=== PATIENT | female | born 1960 | race Caucasian/White ===

== ENCOUNTER → 2018-01-01 07:36 | Outpatient (CLI) | payer OTHER, SELFPAY ==
--- NOTE | 2018-01-01 07:36 | DT_ITS ---
This patient was seen during an EMR downtime December 29, 2017 - January 05, 2018. This patient may have a combination of paper and electronic documentation or all paper documentation. All documentation is viewable within the e-chart portion of [facility] for each patient visit.
--- NOTE | 2018-01-05 11:49 | PFT ---
INTRODUCTION: The patient is a 57-year-old female that presents for abnormal PFTs. Respiratory therapy reports good patient effort. Bronchodilators were used during testing. INTERPRETATION: Forced expiration spirometry demonstrates the presence of a moderately severe large airways obstructive ventilatory defect. There was no significant response to aerosolized bronchodilators. Body plethysmography was performed and reveals a decreased TLC to 4.38 L, 79% of predicted, indicative of a mild restrictive ventilatory impairment. The remainder of the lung volumes are symmetrically reduced. Diffusing capacity by single breath CO is mildly reduced at 61% of predicted. IMPRESSION: These pulmonary function studies demonstrate the presence of an irreversible moderately severe mixed ventilatory defect with a mild reduction in diffusing capacity. There are no previous pulmonary function studies available for comparison.
== END ==
PROVIDERS: Family Provider Family Medicine; PCP Family Medicine; Visit Provider Internal Medicine Critical Care Medicine
DX: R94.2 Abnormal results of pulmonary function studies (principal)
CPT/HCPCS: 94060; 94726; 94729

== ENCOUNTER → 2018-01-21 09:57 | Outpatient (CLI) | payer OTHER, SELFPAY ==
--- NOTE | 2018-01-21 10:00 | ECHOL_ITS ---
Reason For Study: SOB Procedure This was a 2D Doppler, Color Flow transthoracic echocardiogram. Exam performed in department. Left Ventricle Normal size and thickness. The estimated ejection fraction is 65 %. Stage 1 diastolic dysfunction. No regional wall motion abnormalities noted. Right Ventricle Normal size and thickness. Normal systolic function. Atria Normal left atrium. Normal right atrium. Normal atrial septum. Probable patent foramen ovale. Mitral Valve The mitral valve is structurally normal. No prolapse or stenosis seen. Tricuspid Valve Normal tricuspid valve. Trivial tricuspid valve insufficiency. Right ventricular systolic pressure estimated to be 24 mmHg. Aortic Valve Normal aortic valve. Trisinus/trileaflet aortic valve. Pulmonic Valve Normal pulmonic valve. Great Vessels Normal aortic root. Normal arch. Normal inferior vena cava. Inferior vena cava collapse with sniff. Pericardium/Pleural No pericardial effusion. Medication 22 gauge I.V. with prn adaptor inserted into right arm. Performed a rapid injection of agitated mix of 9 cc saline and 1cc air to assess for atrial septal defect. MMode/2D Measurements & Calculations LVIDd: 4.6 cm IVSd: 0.67 cm Ao root diam: 3.2 cm LVIDs: 3.2 cm LVPWd: 0.80 cm RVDd: 3.4 cm FS: 29.2 % LAV(MOD-bp): 40.1 ml LA A4 area: 13.3 cm2 RA A4 area: 13.1 cm2 LAV(MOD-bp) Indexed: 21.7 ml/m2 LAV(MOD-sp2): 57.0 ml LAV(MOD-sp4): 28.6 ml Doppler Measurements & Calculations MV E max cosme: 67.3 cm/sec Lat Peak E' Cosme: 9.3 cm/sec Ao V2 max: 141.5 cm/sec MV A max cosme: 83.9 cm/sec E/E' lat: 7.2 Ao max P.0 mmHg MV E/A: 0.80 LV V1 max: 119.0 cm/sec MR max cosme: 6.7 cm/sec TR max cosme: 219.2 cm/sec LV V1 max P.7 mmHg MR max P.02 mmHg TR max P.3 mmHg Interpretation Summary The estimated ejection fraction is 65 %. Stage 1 diastolic dysfunction. Trivial tricuspid valve insufficiency. Right ventricular systolic pressure estimated to be 24 mmHg. Probable patent foramen ovale with weakly positive bubble study. There is no comparison study available. Ordering Physician: Phyllis Castillo Referring Physician: ROBERTO CARLOS WILKES Performed By: Tatyana Rouse RDCS, RVT
== END ==
PROVIDERS: Family Provider Family Medicine; PCP Family Medicine; Visit Provider Nurse Practitioner Acute Care
DX: R06.02 Shortness of breath (principal); R06.00 Dyspnea, unspecified
CPT/HCPCS: 93306; A4216

== ENCOUNTER → 2018-02-12 17:04 | Outpatient (CLI) | payer MEDICAID, SELFPAY ==
--- NOTE | 2018-02-12 17:09 | CT_ITS ---
STUDY: CTA CHEST/THORAX REASON FOR EXAM: Female, 57 years old. RADIATION DOSAGE (If Supplied By Facility): CTDIvol = ( 7.51 ) mGy, DLP = ( 301.90 ) mGycm TECHNIQUE: The examination was performed with the intravenous administration of 100CC ml of Isovue 370 contrast material. Post-processing of the angiographic images was performed, with multiplanar reformation and 3D reconstruction. Individualized dose optimization techniques were used for this CT. COMPARISON: Shortness of breath for years, worsening now. FINDINGS: Normal enhancement of the main pulmonary artery and right and left pulmonary arteries. Normal enhancement of the bilateral peripheral pulmonary arteries. There is no demonstrated pulmonary embolism. Normal thoracic aorta and visualized great vessels. There is no demonstrated aortic dissection. Normal heart and pericardium. Normal mediastinum. Normal hilar regions. Normal visualized trachea and bronchi. The lungs are well expanded. Incidental note of an azygos lobe in the right apex, an anatomic variant. Otherwise, normal pulmonary parenchyma. Normal pleura. Normal chest wall structures. There are multilevel degenerative changes of the thoracic spine. There is anterior wedging with moderate loss of height of the T11 vertebra and mild depression of the superior L1 vertebral endplate. At both sites, there is a well-corticated central invagination of the endplate may reflect an additional Schmorl's node deformity. Hypertrophic degenerative arthrosis of the right acromioclavicular joint. There is a very small hiatal hernia. CT/CTA Chest W/WO Contrast IMPRESSION: 1. No demonstrated pulmonary embolism or arterial dissection. 2. No pulmonary infiltrate or pleural effusion. 3. Compression fracture deformities of the T11 and L1 vertebrae, with loss of height greater at T11. There is no associated spinal soft tissue swelling, suggesting these are old. 4. Very small hiatal hernia Electronically Signed: Lito Nicole MD at 18:17 EDT , Service support ,
== END ==
PROVIDERS: Family Provider Family Medicine; PCP Family Medicine; Visit Provider Otolaryngology
DX: R05 Cough (principal)
CPT/HCPCS: 71275; Q9967

== ENCOUNTER → 2018-02-25 14:25 | Outpatient (CLI) | payer MEDICAID, SELFPAY | PROVIDERS: Family Provider Family Medicine; PCP Family Medicine; Visit Provider Nurse Practitioner Acute Care | DX: G47.19 Other hypersomnia (principal) | CPT/HCPCS: 95806 ==

== ENCOUNTER → 2018-04-09 11:29 | Outpatient (CLI) | payer MEDICAID, SELFPAY ==
[2018-04-09 13:28] LABS: Anion Gap 7 (5-15); BUN 10 mg/dL (7-18); BUN/Creat Ratio 15.6 RATIO (10-20); Calcium,Total 9.4 mg/dL (8.5-10.1); Chloride 107 mmol/L (98-107); Cholesterol 223 mg/dL (200); Creatinine, Serum 0.64 mg/dL (0.55-1.02); EST Glomerular Filtration Rate 101 mL/min (>60); Est Glom Filt Rate - Afr Amer 122 mL/min (>60); Glucose 98 mg/dL (74-106); High Density Lipoprotein 59 mg/dL; Potassium 4.4 mmol/L (3.5-5.1); Sodium Level 140 mmol/L (136-145); Triglycerides 109 mg/dL; Very Low Density Lipoprotein 22 mg/dL (5-40)
== END ==
PROVIDERS: Family Provider Family Medicine; PCP Family Medicine; Visit Provider Family Medicine
DX: I10 Essential (primary) hypertension (principal)
CPT/HCPCS: 36415; 80048; 80061

== ENCOUNTER → 2018-04-14 23:53 | Outpatient (CLI) | payer MEDICAID, SELFPAY | PROVIDERS: Family Provider Family Medicine; PCP Family Medicine; Visit Provider Nurse Practitioner Acute Care | DX: G47.33 Obstructive sleep apnea (adult) (pediatric) (principal) | CPT/HCPCS: 95811 ==

== ENCOUNTER → 2019-03-03 15:35 | Outpatient (CLI) | payer SELFPAY ==
[2018-02-12 13:05] VITALS: BMI 25.2
[2019-03-03 17:49] LABS: Thyroid Stim Hormone (TSH) 2.16 uIU/mL (0.358-3.74)
== END ==
LOC: MFPLAB 15:36
PROVIDERS: Family Provider Family Medicine; PCP Family Medicine; Referring Provider Family Medicine; Visit Provider Family Medicine
DX: F32.9 Major depressive disorder, single episode, unspecified (principal)
CPT/HCPCS: 36415; 84443

== ENCOUNTER → 2021-01-08 09:26 | Outpatient (CLI) | payer MEDICAID, SELFPAY ==
--- NOTE | 2021-01-08 09:32 | US_ITS ---
STUDY: ULTRASOUND BREAST - LEFT REASON FOR EXAM: Female, 60 years old. Palpable lump left breast. TECHNIQUE: Axial and longitudinal images of the LEFT breast were performed with a high resolution ultrasound transducer. # OF IMAGES: 15 COMPARISON: Comparison is made with prior mammogram done earlier today. FINDINGS: LEFT Breast: The palpable abnormality corresponds to a 1.5 cm x 1.5 cm x 1.3 cm irregular hypoechoic nodular density at the 12 o''clock position of the breast at 3 cm from the nipple. Increased vascularity is seen. Biopsy strongly recommended. US/Breast Limited Unilateral IMPRESSION: The palpable abnormality corresponds to a 1.5 cm x 1.5 cm x 1.3 cm irregular hypoechoic solid nodule with increased vascularity. Biopsy is strongly recommended. ASSESSMENT CATEGORY: BIRADS Category 5: Highly Suggestive of Malignancy - Appropriate Action Should Be Taken. A letter regarding these results will be sent to the patient by the facility within 30 days. Electronically Signed: Kiran Laurent MD at 10:56 EDT , Service support ,
--- NOTE | 2021-01-08 09:32 | BI_ITS ---
MAMMOGRAPHY - BILATERAL DIAGNOSTIC REASON FOR EXAM: Female, 60 years old. Left breast lump. PERTINENT HISTORY: Mother with breast cancer. TECHNIQUE: Digital bilateral breast nicole (3D mammographic acquisition) in the CC and MLO projections. 2-D mediolateral oblique (MLO) and craniocaudad (CC) views of both breasts were obtained. CAD: Full Field Digital Mammography with Computer Added Detection was performed. COMPARISON: No comparison mammograms available at this time. If any prior films become available, an addendum to this report can be generated. FINDINGS: Breast Composition: There are scattered areas of fibroglandular density. The palpable abnormality corresponds to a 2 cm x 1.6 cm dense irregular nodule in the deep central portion of the left breast. Correlation with ultrasound is recommended. No other significant abnormalities are identified. BI/DIAG MAMM W/CAD, BILAT IMPRESSION: 1.6 cm x 2 cm irregular dense nodule in the deep central aspect of the left breast as described. Correlation with ultrasound is recommended. ASSESSMENT CATEGORY: BIRADS Category 0: Incomplete. Need additional imaging evaluation. A letter regarding these results will be sent to the patient by the facility within 30 days. Approximately 10% of breast cancers are not detected by mammography. A normal mammogram should not delay biopsy of a clinically suspicious abnormality. Electronically Signed: Kiran Laurent MD at 10:22 EDT , Service support ,
== END ==
PROVIDERS: PCP Family Medicine; Referring Provider Family Medicine; Visit Provider Family Medicine
DX: N63.20 Unspecified lump in the left breast, unspecified quadrant (principal); Z80.3 Family history of malignant neoplasm of breast
CPT/HCPCS: 76642; 77062; 77066; G0279

== ENCOUNTER → 2021-01-11 | Outpatient (CLI) | payer MEDICAID, SELFPAY ==
--- NOTE | 2021-01-11 | IMM_PTH ---
PATIENT: KRIS HOUSER LOC: [facility] U#:[id number] AGE/SX: 60/F ROOM: RE01/11/[address]: Dr. Chuck Anglin MD : 1960 BED: DIS: 01/11/2021 SPEC #: [id number] RECD: 01/15/21 11:38 STATUS: GAEL REQ #: [id number] JESSICA: 01/11/21 00:[address]: Chuck Anglin DEPT: IMMUNOHISTOCHEMISTRY RECD BY: Laure Ball ENTERED: 01/15/21 11:39 SP TYPE: IMMUNO OTHR DR: Dr. Almas Flores MD Tissues: Left breast, NOS Procedures: CALPONIN-1 (add) CK5-6 (add) RUBALCAVA-2 (add) E-CAD (add) HER2 ALDA (add) P53 (add) MI (add) IN SITU HYBRIDIZATION P40 (add) ER (initial) PHYSICIAN & INSTITUTION [address] [address] SPECIMEN INFORMATION: Tissue Source: Left breast mass, ultrasound-guided needle core biopsy Clinical Info: Left breast mass Specimen Number: [id number] CPT code: 41527, 35675 x7, 34221 x3, 40878 x2 METHODOLOGY: Deparaffinized sections of prefer/formalin-fixed tissue or PAP/DQ stained slides are incubated with monoclonal/polyclonal antibodies/oligonucleotide probes. Localization is made via biotin free immunoperoxidase method. Appropriate controls are performed and reacted as expected. Results on target cell population are indicated in the following table: RESULTS: ANTIBODY / CLONE RESULT P53 (DO-7) positive, 3%, dim Ki-67 (30-9) positive, 65% CK8 (72zxxlD68) positive CK5-6 (D5 & 1684) negative Calponin-1 (OP323Z) negative P40 (BC28) negative E-Cad (ECH-6) positive RUBALCAVA-2 (SP21) positive MORPHOMETRIC ANALYSIS ER (clone 6F11) >95%, strong MI (clone 16/1E2) 15%, moderate Her-2Neu (clone CB11) 1-2+ The prognostic test for HER2 is performed on formalin-fixed paraffin embedded tissue. A 3+ (positive) staining pattern is defined as intense, homogeneous, complete, circumferential membranous staining in >10% of contiguous tumor cells. A similar weak (2+) staining pattern is interpreted as equivocal. OPAL follow-up testing is recommended for all equivocal cases. Positivity/negativity for ER/MI is reported if > or < 1% of the tumor cells are immuno- reactive, respectively. The ASCO/CAP criteria is used for scoring. Reference: Journal of Clinical Oncology, 2013; 31:1803-7915 & 2010; 16:9712-0167. Duration of fixation: 52.5 Hrs; Sample Adequate: Yes. These assays have not been validated on decalcified tissues. Results should be interpreted with caution given the likelihood of false negativity on decalcified specimens. These tests were developed and their performance characteristics determined by [facility]. They may not have been cleared or approved by the U.S. Food and Drug Administration. The FDA has determined that such clearance or approval is not necessary. The above immunohistochemical/dualISH markers are ordered and reviewed by the Pathologist. INTERPRETATION: Left breast, ultrasound-guided needle core biopsy: Invasive ductal carcinoma, nuclear grade 2. Positive for estrogen receptors (favorable prognostic indicator). Positive for progesterone receptors (favorable prognostic indicator). Equivocal for overexpression of DIA2bab. AM:raffi 01/17/2021 IN SITU HYBRIDIZATION (OPAL) FOR HER2 Interpretation: Not Amplified HER2 : CEP-17 Ratio: 1.25 Average HER2 Signal: 2.25 Average CEP-17 Signal: 1.8 Number of Tumor Cells Scanned: 50 Interpretative Information: The INFORM HER2 Dual OPAL DNA Probe Cocktail assay is performed on formalin-fixed paraffin embedded tissue and determines HER2 gene status by detecting HER2 copies via silver in situ hybridization (SISH) and Chromosome 17 copies via chromogenic red in situ hybridization on tumor cells. A minimum of 20 cells representing > 10% of contiguous and homogeneous invasive tumor cells were analyzed. HER2 gene status is classified as Non-amplified (HER2/Chr17 ratio < 2.0) or Amplified (HER2/Chr17 ratio greater than or equal to 2.0). If the resulting HER2/Chr17 ratio falls within 1.8 - 2.2 (Borderline), retesting by FISH is recommended. Reference: Pedro AC, Ela VARGAS, Sergio FRANCISCO, et al: Recommendations for Human Epidermal Growth Factor Receptor 2 Testing in Breast Cancer: [place] Society of Clinical Oncology / College of [place] [employer] Clinical Practice Guideline Update. J Clin Oncol 31:0063-4498, 2013.
[2021-01-11 15:00] VITALS: BMI 25.2
--- NOTE | 2021-01-11 15:10 | BRBX_PTH ---
PATIENT: KRIS HOUSER LOC: [facility] U#:[id number] AGE/SX: 60/F ROOM: RE01/11/[address]: Dr. Chuck Anglin MD : 1960 BED: DIS: 01/11/2021 SPEC #: [id number] RECD: 01/11/21 15:58 STATUS: GAEL MACIAS #: [id number] JESSICA: 01/11/21 15:[address]: Chuck Anglin DEPT: SURGICAL PATHOLOGY RECD BY: Emily Rodriguez ENTERED: 01/12/21 07:56 SP TYPE: BREAST BX OTHR DR: Dr. Almas Flores MD Tissues: Left breast, NOS Procedures: Surgery Specimen Level IV HEADER OPERATION: Ultrasound-guided left breast needle core biopsy PRE-OP DIAGNOSIS: Left breast mass TISSUE SUBMITTED: Left breast tissue MICROSCOPIC DIAGNOSIS Left breast, ultrasound-guided core biopsy: Invasive ductal carcinoma with the following characteristics: Maximal length ? 11 millimeters Nuclear grade ? 2/3 See comment. AM:raffi 01/15/2021 COMMENT ER/ME/Fwv3hqm studies are being performed on sections of tumor and the results from this study will be reported separately ([id number]). Case has been reviewed in consultation with Dr. Hutson who concurs with the above diagnosis. IDC:AYDIN MICROSCOPIC DESCRIPTION Slides are reviewed. GROSS DESCRIPTION Received in fixative is one container labeled with the patient name and designated left breast. The specimen consists of multiple elongated fragments of pabon-yellow fibroadipose tissue that in aggregate measure 2 x 1 x 0.1 cm. The entire specimen is submitted in one cassette. / AYDIN:raffi 01/12/21 TC:0 CPT: 58196
== END | disposition home or self-care (01) ==
LOC: LABSPEC 16:04
PROVIDERS: PCP Family Medicine; Referring Provider Surgery; Visit Provider Surgery
DX: N63.20 Unspecified lump in the left breast, unspecified quadrant (principal)
CPT/HCPCS: 88305; 88341; 88342; 88368

== ENCOUNTER 2021-01-31 07:59 | Day surgery (SDC) | payer MEDICAID, SELFPAY ==
[2021-01-17 10:07] VITALS: BMI 25.2
--- NOTE | 2021-01-30 15:18 | EKG12_ITS ---
Test Reason : PRE-OP Blood Pressure : / mmHG Vent. Rate : 072 BPM Atrial Rate : 072 BPM P-R Int : 150 ms QRS Dur : 084 ms QT Int : 384 ms P-R-T Axes : 054 002 043 degrees QTc Int : 420 ms Normal sinus rhythm Normal ECG ICRBBB Confirmed by JYOTI LAROSE, ROBERTO CARLOS ([id number]), news editor RUSS MCDONNELL ([id number]) on 01/31/2021 2:04:17 PM Referred By: hCuck Anglin Confirmed By:ROBERTO CARLOS MONTES MD
[2021-01-30 15:46] LABS: Hematocrit 35.2 % (37-47); Hemoglobin 11.6 g/dL (12.0-15.0); Mean Corpuscular Hgb 31.2 pg (27.0-32.0); Mean Corpuscular Volume 94.6 fL (81-99); Mean Platelet Vol. 9.2 fl (6.2-12.0); Platelet Count 453 K/mm3 (150-450); RBC Distribution Width CV 12.9 % (11.6-14.6); Red Blood Count 3.72 M/mm3 (4.2-5.4); White Blood Count 9.2 K/mm3 (4.4-11.0)
[2021-01-30 16:29] LABS: Anion Gap 8 (5-15); BUN 12 mg/dL (7-18); Calcium,Total 8.5 mg/dL (8.5-10.1); Chloride 109 mmol/L (98-107); Creatinine, Serum 0.54 mg/dL (0.55-1.02); EST Glomerular Filtration Rate 120 mL/min (>60); Est Glom Filt Rate - Afr Amer 146 mL/min (>60); Glucose 101 mg/dL (74-106); Potassium 3.5 mmol/L (3.5-5.1); Sodium Level 140 mmol/L (136-145)
[2021-01-31] VITALS (10 sets, daily range): BP systolic 135–162; BP diastolic 77–91; PULSE 50–82; RESP 14–16; TEMP 36.3–36.7; O2SAT 94–100; BMI 28.3
--- NOTE | 2021-01-31 | AXNB_PTH ---
PATIENT: KRIS HOUSER LOC: [facility] [place] U[place][id number] AGE/SX: 60/F ROOM: RE01/31/[address]: Dr. Chuck Anglin MD : 1960 BED: DIS: 01/31/2021 SPEC #: [id number] RECD: 01/31/21 12:00 STATUS: GAEL COLLEEN #: [id number] JESSICA: 01/31/21 00:[address]: Chuck Anglin DEPT: SURGICAL PATHOLOGY RECD BY: Laure Ball ENTERED: 01/31/21 12:34 SP TYPE: AX NODE BX OTHR DR: Dr. Almas Flores MD Tissues: A - Axillary lymph node, NOS B - Left breast, NOS C - Left breast, NOS Procedures: Frozen Section (charge) Frozen Section Add'l (chg) Surgery Specimen Level IV Surgery Specimen Level V HEADER OPERATION: Left breast stereotactic wire localization partial mastectomy PRE-OP DIAGNOSIS: Breast cancer TISSUE SUBMITTED: A - Left sentinel lymph node, FS, B - Left breast tissue, long stitch - lateral, short stitch - superior, C - Left breast additional superior medial margin, stitch cummings new margin FROZEN SECTION DIAGNOSIS A. Left axillary sentinel lymph nodes, biopsy: Two out of two lymph nodes negative for carcinoma. AM: 01/31/2021 MICROSCOPIC DIAGNOSIS A. Left axillary sentinel lymph nodes, biopsy: Two out of two lymph nodes negative for carcinoma. See comment. B. Left breast, lumpectomy: Invasive ductal carcinoma. Ductal carcinoma in situ. See cancer checklist below. C. Left breast, additional superior-medial margin, biopsy: Invasive ductal carcinoma. Ductal carcinoma in situ. Margins are free of carcinoma. See comment. AM: 02/05/2021 COMMENT A. Immunohistochemistry ([id number]) supports the above diagnosis. B. INVASIVE BREAST CANCER SUMMARY: Procedure: Excision with wire guidance Specimen: Type: Partial breast Size: 6 x 4.5 x 2.2 cm Laterality: Left breast Invasive Tumor: Size: 2.5 x 2 x 2 cm Focality: Single focus of invasive carcinoma Histologic type: Invasive ductal carcinoma Histologic grade (Ema grade): Glandular/tubular differentiation score: 3 Nuclear pleomorphism score: 3 Mitotic count score: 3 Overall grade: 3 (score of 9) Ductal Carcinoma In Situ: Present Estimated quantification: 5% Number of blocks: 5 out of 10 blocks Architectural pattern: Cribriform and cystic Nuclear grade: 3 Necrosis: Present Lobular Carcinoma In Situ: Not present Lymphvascular invasion: Not identified Tumor extension: Skin: Not present Nipple: Not present Skeletal muscle: Not present Margins: Distance of invasive carcinoma from closest margin: <1 mm from medial and superior margin Distance of in situ carcinoma from closest margin: 1 mm from medial margin Ancillary Studies: Previously performed on same tumor ([id number]) ER: Positive (>95%, strong) NE: Positive (15%, moderate) Gue5xzq: 1-2+, equivocal by IHC and negative by in situ hybridization (1.25) PATHOLOGIC STAGE: T2 N0 Mx The above summary is in compliance with [employer] of [place] [employer] (CAP) Cancer Protocols Checklist and [place] Joint Committee on Cancer (AJCC), Staging Manual, 8th Ed. C. Invasive ductal carcinoma and ductal carcinoma in situ is located 4.5 mm from its closest new superior-medial margin of excision. Case has been reviewed in consultation with Dr. Hutson who concurs with the above diagnosis. IDC:SJ MICROSCOPIC DESCRIPTION Slides are reviewed. GROSS DESCRIPTION A - Received fresh for frozen section consultation labeled with the patient's name is a specimen designated left axillary sentinel lymph nodes. The specimen consists of an irregular fragment of yellow fatty tissue measuring 2 x 1.5 x 1 cm. Serial sections reveal two nodules ranging in size from 5 mm to 2 cm. The specimen is totally submitted in two blocks for frozen section consultation as follows: 1 - one small nodule, 2 ? larger nodule. B - Received fresh for OR consultation labeled with the patient's name is a specimen designated left breast. The specimen consists of an oriented fragment of pabon-yellow fibrofatty tissue containing a wire and measuring 6 x 4.5 x 2.2 cm and weighing 23.4 gm. The specimen is differentially inked as follows: anterior - yellow, posterior - black, superior - blue, inferior - green, medial - orange and lateral - red. Serial sections reveal a firm, pabon-white mass measuring 2.5 x 2 x 2 cm, located <1 mm from the superior and <1 mm from the medial margin of excision. The proximity of lesion to these margins is conveyed to the surgeon intraoperatively. No other lesions are identified. The specimen is serially sectioned and totally submitted in ten cassettes. C - Received in fixative is one container labeled with the patient's name and designated left breast additional superior medial margin. The specimen consists of a single discoid fragment of yellow fatty measuring 3.6 x 2.6 x 1 cm. A suture is present along one surface. This surface is inked in black ink. The opposite surface is inked in green ink. Serial sections reveal homogenous yellow fatty cut surfaces. No mass lesions are identified. The specimen is totally submitted in two cassettes. / AM:raffi 02/01/21 TC:0 CPT: 63048, 64537, 86119, 76266 ADDENDUM ADDENDUM ADDENDUM ADDENDUM ADDENDUM ADDENDUM ADDENDUM ADDENDUM 03/15/2021 10:26 ADDENDUM 06/19/2021 10:29 ADDENDUM 03/15/2021 10:26 ADDENDUM 03/15/2021 10:26 ADDENDUM 03/15/2021 10:26 ADDENDUM 03/15/2021 10:26 An order for Oncotype testing was received from Dr. Aviles. This necessitated case review, block and slide selection by pathologist at [facility]. Breast Cancer Recurrence Score = 39 Results of the complete Oncotype testing ([facility] report) are viewable in EMR under: Reports - Pathology - Lab Pathology Report, Scanned. PIK3CA BREAST CANCER, IVD REPORT FROM [facility] RESULT: PIK3CA Mutation Detected. 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 Breast cancer patients with PIK3CA mutations may be eligible for treatment with PIQRAY(R) (alpelisib). Results from the product must be interpreted within the context of all relevant clinical and laboratory findings and are not to be used alone for diagnosis. Please see complete report in e-chart or EMR
--- NOTE | 2021-01-31 | IMM_PTH ---
PATIENT: KRIS HOUSER LOC: [facility] U#:[id number] AGE/SX: 60/F ROOM: RE01/31/[address]: Dr. Chuck Anglin MD : 1960 BED: DIS: 01/31/2021 SPEC #: [id number] RECD: 02/05/21 11:42 STATUS: GAEL REAngelita #: [id number] JESSICA: 01/31/21 00:[address]: Chuck Anglin DEPT: IMMUNOHISTOCHEMISTRY RECD BY: Laure Ball ENTERED: 02/05/21 11:43 SP TYPE: IMMUNO OTHR DR: Dr. Almas Flores MD Tissues: A - Axillary lymph node, NOS Procedures: CK7 (add) Pankeratin (add) CK7 (initial) PHYSICIAN & INSTITUTION [place] [address] SPECIMEN INFORMATION: Tissue Source: A ? Left sentinel lymph node Clinical Info: Breast cancer Specimen Number: [id number] A1 & A2 CPT code: 64979, 18657 x3 METHODOLOGY: Deparaffinized sections of prefer/formalin-fixed tissue or PAP/DQ stained slides are incubated with monoclonal/polyclonal antibodies/oligonucleotide probes. Localization is made via biotin free immunoperoxidase method. Appropriate controls are performed and reacted as expected. Results on target cell population are indicated in the following table: RESULTS: ANTIBODY / CLONE RESULT Block A1 CK7 (OV-TL12/30) negative AE1-3 (AE1/AE3/PCK26) negative Block A2 CK7 (OV-TL12/30) negative AE1-3 (AE1/AE3/PCK26) negative These tests were developed and their performance characteristics determined by [facility]. They may not have been cleared or approved by the U.S. Food and Drug Administration. The FDA has determined that such clearance or approval is not necessary. The above immunohistochemical/dualISH markers are ordered and reviewed by the Pathologist. INTERPRETATION: A. Left axillary sentinel lymph nodes, biopsy: Two out of two lymph nodes negative for carcinoma. AM:raffi 02/06/2021
--- NOTE | 2021-01-31 08:30 | NM_ITS ---
PROCEDURE: NUCLEAR MEDICINE Injection Wendell Node - LEFT breast(s). REASON FOR EXAM: Female, 60 years old. Left breast cancer. TECHNIQUE: Wendell node localization using radionuclide methods of the LEFT breast(s) was performed following subcutaneous administration of 1.1 mCi of of sulfur colloid Tc-99m. COMPARISON STUDIES : Comparison is made with prior mammogram dated 01/08/2021. FINDINGS: 1.1 mCi of technetium labeled sulfur colloid was injected subcutaneously in 4 equal aliquots in the upper central portion of the left breast. NM/Lymph Node Injection Only IMPRESSION: Subcutaneous injection of 1.1 mCi of technetium labeled sulfur colloid in 4 equal aliquots in the upper central portion of the left breast. Electronically Signed: Kiran Laurent MD at 9:11 EDT , Service support ,
[2021-01-31] MEDS: Lactated Ringers 1,000 ML 100 ML IV ×2 (08:38→12:45)
--- NOTE | 2021-01-31 09:49 | BI_ITS ---
SURGICAL BREAST SPECIMEN RADIOGRAPH CLINICAL: Document presence of mass in biopsy specimen. FINDINGS: Specimen shows presence of mass. Electronically Signed: Kiran Laurent MD at 12:19 EDT , Service support , BI/Breast Biopsy Specimen
--- NOTE | 2021-01-31 10:14 | HP.PCM_ITS ---
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 Is patient in pain?: No Allergies No Known Allergies Allergy (Verified 01/17/21 10:07) Medications propranolol 80 mg capsule,24 hr,extended release 80 mg PO QDAY 11/25/17 [History Confirmed 01/17/21] albuterol sulfate 90 mcg/actuation aerosol inhaler 2 puff INHALATION Q6H PRN #1 device 11/28/17 [Rx Confirmed 01/17/21] clonazepam 0.5 mg tablet 0.5 mg PO BID 01/11/21 [History Confirmed 01/17/21] fluoxetine 20 mg capsule 20 mg PO DAILY cap 01/11/21 [History Confirmed 01/17/21] naproxen 500 mg tablet 500 mg PO BID PRN 01/11/21 [History Confirmed 01/17/21] omeprazole 40 mg capsule,delayed release 40 mg PO DAILY 01/11/21 [History Confirmed 01/17/21] Is last menstrual period known: No Post menopausal: Yes Patient : No PFSH Medical History (Updated 01/18/21 @ 12:[address] Chuck Anglin MD) Anxiety Back pain Breast cancer (~12/2020) Cardiac murmur Depression Hypertension Panic disorder Surgical History (Updated 01/17/21 @ 10:06 by Brynn Dunlap) History of breast biopsy (~12/2020) History of sinus surgery Family History Father Brain tumor Mother Alzheimers disease Breast cancer Brother Lung cancer Social History household members: none housing: house pets and animals: Yes pets and animals: dog(s) and guinea pig(s) Smoking Status: Never smoker second hand exposure: Yes alcohol intake: current Alcohol type: wine substance use type: does not use HPI HPI HPI: KRIS HOUSER, is a 60 F who presents to the office today for follow-up after left breast biopsy. Biopsy came back as invasive carcinoma of the left breast. ROS General General: No weight change or fatigue HEENT HEENT: No difficulty swallowing Endo Endocrine: No thyroid disease Breast Breast: Yes left breast lump, abnormal mammogram and abnormal US; No nipple discharge or breast pain Musc Musculoskeletal: No back problems or arthritis Cardio Cardiovascular: No pacemaker, heart disease, atrial fibrillation, high blood pressure, heart attack, heart stent, palpitations or chest pain Psych Psychiatric: No depression or anxiety Resp Respiratory: No shortness of breath, No cough, No COPD, No asthma and No emphysema Gastro Gastrointestinal: No abdominal pain, No nausea or vomiting, No diarrhea, No constipation, No blood in stool, No acid reflux, No hemorrhoids, No ulcers, No gallbladder problem and No black,tarry stools Jerel Hematologic: No blood thinners Exam Const General: cooperative Orientation: alert and oriented x3 HENMT Head: normal to inspection Neck Neck: normal visual inspection and full ROM Chest Chest palpation & inspection: normal inspection of the chest Resp Effort & Inspection: normal respiratory effort Auscultation: clear to auscultation bilaterally Cardio Rate: regular rate Rhythm: regular rhythm GI Inspection: non-distended Palpation: soft and nontender Skin General: no rashes or lesions noted Neuro General: patient alert and patient oriented x3 Extrem General: full ROM Psych Appearance: grossly normal Mental Status: mental status grossly normal Assessment and Plan Assessment and Plan (1) Breast cancer: Status: Acute Qualifiers: Breast location: central portion of breast Estrogen receptor status: positive Patient sex: female Laterality: left Qualified Code(s): C50.112 - Ma lignant neoplasm of central portion of left female breast; Z17.0 - Estrogen receptor positive status [ER+] Plan - Dr. Chuck Anglin MD: I discussed the patient's diagnosis of invasive cancer with her. I discussed her surgical options with her. I discussed mastectomy versus partial mastectomy. I discussed radiation treatment as well as possible chemotherapy and sentinel lymph node biopsy. I discussed the risks of these procedures such as bleeding, infection, nerve injury, hematoma, positive margins, need for further cosmetic surgery. The patient chose to proceed with left partial mastectomy with sentinel lymph node biopsy and wire localization. All the patient's questions were answered and the patient will be scheduled for surgery. Chuck Anglin MD Pager: [facility] [address] [place] [address], [address] [place] [address] Office: I have re-examined the patient. There are no clinical changes since date of exam.
[2021-01-31] MEDS: Cefazolin 2 GM in 0.9% Normal Saline 100 ML IV (11:15)
[2021-01-31] MEDS: 0.9% Normal Saline (Pres. free 10 ML Vial (11:30)
[2021-01-31] MEDS: Isosulfan Blue 1% 5 ML Vial (11:30)
[2021-01-31] MEDS: Bupivacaine Mpf 0.5% 30 ML VIAL (12:40)
--- NOTE | 2021-01-31 13:32 | OP.PCM_ITS ---
Problems Associated Problem List Diagnoses (1) Breast cancer: Report of Operation Date of Procedure: 01/31/21 Pre-Operative Diagnosis: Left breast cancer Post-Operative Diagnosis: Same Surgery/Procedure Performed:: 1. Stereotactic guided wire localization of left breast 2. Left partial mastectomy 3. Left sentinel lymph node biopsy Specimen's removed: 1. Left axillary node 2. Left breast mass Description of Procedure: Patient was brought to the stereotactic room and her left breast was placed in the stereotactic table. Stereotactic images were ob tained and the mass was localized with a clip in place. The skin was prepped and injected with local anesthetic. The needle was then placed into the breast and the wire was left in place and stereotactic images were obtained showing that this wire was in place. Mammogram was then obtained. Patient was then taken to the operating room and general anesthesia was induced. The left breast was prepped and the inframammary space was injected with 5 cc of Lymphazurin as well as 10 cc of saline and the breast was massaged for 5 minutes. The left breast and axilla were then prepped and draped in usual sterile fashion. The left axillary region was marked and a skin incision was made. The dissection was deepened to the axillary fascia using sharp dissection. The probe was used to localize the sentinel lymph node which was blue in color. Was dissected free and clipped with titanium clips and dissected free sharply. It was radioactive and 10-second count was performed. The axilla was then inspected there were no further blue lymph nodes or radioactive lymph nodes. The axillary cavity was packed with a wet gauze. The axillary lymph nodes were sent for frozen section and were both negative for cancer on frozen section. The left breast was then marked with a curvilinear skin marking and incision was made inferior to the nipple. The dissection was carried deeply until the mass w as identified and the wire was delivered into the incision. Using electrocautery the mass was dissected free circumferentially. It was sent for frozen section. The medial and superior margins were very close and repeat margins were taken using electrocautery. The cavity was irrigated and hemostasis was obtained using electrocautery. The breast incision was closed with interrupted 3-0 Vicryl sutures as well as a running 4-0 Monocryl and injected with local anesthetic and glue was applied. The axillary incision was closed with interrupted 3-0 Vicryl sutures and a running 4-0 Monocryl and glue was applied there as well. Patient tolerated the procedure was brought to PACU in stable condition. Admit VTE Documentation VTE Mechan Device Prophylaxis: SCD's
--- NOTE | 2021-01-31 13:40 | EX.PCM.DISCH ---
Discharge Instructions Procedure Breast Surgery Diet Discharge Diet: No restrictions Activity Discharge Activity: May Not Drive (for 2-3 days or while taking narcotic pain medications.) May shower in (days): 1 Lifting Restrictions: 10 lbs for 1 week Dressing / Incision Call your doctor if your incision/area has: Continuous Slow Oozing, Sudden Increased Bleeding, Increased Pain/ Swelling, Increased Redness, Foul Smelling Discharge and Swelling at the incision site Call your doctor if you observe: Fever of 101 or Higher Suture Line Care: Avoid Pulling/Pushing and Avoid Pinching/Bending Remove Dressing in: 2 days Cleanse incision/area with: Soap & Water Follow Up Care Please Follow Up With: Chuck Anglin MD When: Please call to schedule 2 week follow up appointment. [phone] Test Results: Test results from this visit will be discussed in further detail at your follow-up appointment, if applicable. Discharge Plan Admission Attending Provider: Chuck Anglin Primary Care Provider: Almas Flores Discharge Orders/Prescriptions Prescriptions: New oxycodone-acetaminophen [Percocet] 5-325 mg tablet 1 - 2 tab PO Q6H PRN (Reason: pain) 5 Days Qty: 20 RF: 0 No Action propranolol [Inderal LA] 80 mg capsule,extended release 24 hr 80 mg PO QDAY RF: 0 fluoxetine 20 mg capsule 20 mg PO DAILY RF: 0 naproxen 500 mg tablet 500 mg PO BID PRN (Reason: Pain) RF: 0 omeprazole 40 mg capsule,delayed release(DR/EC) 40 mg PO DAILY RF: 0 ascorbic acid (vitamin C) [Vitamin C] 500 mg Tablet,Chewable 500 mg PO DAILY RF: 0 Referrals / Follow Up: Almas Flores MD [Primary Care Provider] - Disposition Disposition (needs filled in before D/C Order can be placed): Home, Self Care
[2021-01-31] MEDS: Acetaminophen 325 MG Tablet PO (14:37)
[2021-01-31] MEDS: oxyCODONE 5 MG Tablet PO (14:37)
[2021-06-19 13:26] LABS: Miscellaneous Lab Procedure SEE PATH
== END 2021-01-31 15:48 | disposition home or self-care (01) ==
LOC: SDC 08:00 → AC 08:00
PROVIDERS: Anesthesiology; PCP Family Medicine; Referring Provider Surgery; Visit Provider Surgery
PROC: (CPT 19301; principal; 2021-01-31 11:15)
DX: C50.112 Malignant neoplasm of central portion of left female breast (principal); Z17.0 Estrogen receptor positive status [ER+]; I10 Essential (primary) hypertension; G47.33 Obstructive sleep apnea (adult) (pediatric); F32.9 Major depressive disorder, single episode, unspecified; F41.9 Anxiety disorder, unspecified; Z78.0 Asymptomatic menopausal state; Z79.899 Other long term (current) drug therapy
CPT/HCPCS: 19301; 38525; 38900; 19281; 36415; 38792; 76098; 80048; 85027; 88305; 88307; 88331; 88332; 88341; 88342; 93005; 94640; A9541; J7050; J7120; J2405; J3490; Q9968

== ENCOUNTER → 2021-03-08 08:24 | Outpatient (CLI) | payer MEDICAID, SELFPAY ==
[2021-02-26 09:07] VITALS: BMI 28.0
[2021-03-05 09:06] VITALS: BMI 28.0
--- NOTE | 2021-03-08 08:57 | BD_ITS ---
STUDY: DUAL ENERGY X-RAY ABSORPTIOMETRY / DXA REASON FOR EXAM: Female, 60 years old. BASELINE - BREAST CANCER TECHNIQUE: Bone Mineral Density (BMD) measurements of lumbar spine and bilateral hips were obtained. COMPARISON: None. FINDINGS: Lumbar Spine (L1-L4): g/cm2 (0.753) / T-score (-2.7) / Z-score (-1.1) Findings are suggestive of osteoporosis with a high fracture risk. Left Femur Total: g/cm2 (0.725) / T-score (-1.8) / Z-score (-0.7) Left Femoral Neck: g/cm2 (0.495) / T-score (-3.2) / Z-score (-1.8) Right Femur Total: g/cm2 (0.667) / T-score (-2.3) / Z-score (-1.2) Right Femoral Neck: g/cm2 (0.449) / T-score (-3.6) / Z-score (-2.2) BD/Dexa Bone Density Study IMPRESSION: The patient is considered osteoporotic as outlined below according to World Benjamin Organization (WHO) criteria with a high fracture risk. Reference Information: The T-score is the number of standard deviations above or below the standard which is normal for young adults at their peak bone mineral density. The World Health Organization (WHO) interprets the T-scores as follows: Above -1 Normal bone density Between -1 and -2.5 Osteopenia Equal to / or below -2.5 Osteoporosis As a practical clinical guideline, osteopenia may be graded as follows: Mild -1 through -1.5 Moderate -1.6 through -2.0 Severe -2.1 through -2.4 The Z-score is the number of standard deviations above or below age-matched controls. A Z-score of less than -1.5 would be considered abnormal. References: 1. NIH Osteoporosis and Related Bone Diseases www osteo.org 2. International Society for Clinical Densitometry www iscd.org 3. National Osteoporosis Foundation www nof.org Electronically Signed: Kiran Laurent MD at 12:24 EDT , Service support ,
== END ==
PROVIDERS: PCP Family Medicine; Referring Provider Internal Medicine Hematology & Oncology; Visit Provider Internal Medicine Hematology & Oncology
DX: C50.112 Malignant neoplasm of central portion of left female breast (principal); M81.0 Age-related osteoporosis without current pathological fracture; Z17.0 Estrogen receptor positive status [ER+]
CPT/HCPCS: 77080

== ENCOUNTER 2021-03-22 23:27 | Observation (INO) | payer MEDICAID, SELFPAY ==
[2021-03-22 23:27] VITALS: BP 170/88; PULSE 83; RESP 16; TEMP 36.2; O2SAT 100; BMI 28.7
--- NOTE | 2021-03-22 23:40 | EKG12_ITS ---
Test Reason : AM EKG Blood Pressure : / mmHG Vent. Rate : 068 BPM Atrial Rate : 068 BPM P-R Int : 142 ms QRS Dur : 074 ms QT Int : 394 ms P-R-T Axes : 058 010 023 degrees QTc Int : 418 ms Normal sinus rhythm Normal ECG When compared with ECG of 30-JAN-2021 15:27, No significant change was found Confirmed by NATHALIA LAROSE, MOISES ([id number]), supervising editor news reel IVETH HURLEY ([id number]) on 03/26/2021 9:32:47 AM Referred By: OUSMANE Confirmed By:MOISES SLOAN MD
--- NOTE | 2021-03-22 23:40 | RAD_ITS ---
STUDY: X-RAY CHEST REASON FOR EXAM: Female, 61 years old. Exertional chest pain and shortness of breath. History of breast cancer. TECHNIQUE: AP portable upright COMPARISON: CT chest 02/12/2018. FINDINGS: Moderate layering right pleural effusion with adjacent atelectasis. Otherwise the aerated portions of the lungs show no evidence of pneumonia or edema or other concerning finding. No apparent pneumothorax. Mild linear atelectasis left lung base. Normal heart size. No mediastinal widening. Left axillary and breast surgical clips. RAD/Chest 1 View (Portable) IMPRESSION: Moderate layering right pleural effusion with adjacent atelectasis. Electronically Signed: Louie Bryan MD at 0:36 EDT Tel , Service support ,
[2021-03-23] VITALS (17 sets, daily range): BP systolic 102–167; BP diastolic 49–92; PULSE 72–93; RESP 12–21; TEMP 36.2–36.8; O2SAT 94–99; BMI 28.3
--- NOTE | 2021-03-23 | IMM_PTH ---
PATIENT: KRIS HOUSER LOC: [facility] U#:[id number] AGE/SX: 61/F ROOM: [facility] RE03/23/[address]: Dr. Anita Dela Cruz MD : 1960 BED: 1 DIS: 03/24/2021 SPEC #: [id number] RECD: 03/27/21 11:37 STATUS: GAEL REQ #: [id number] JESSICA: 03/23/21 00:[address]: Anita Dela Cruz DEPT: IMMUNOHISTOCHEMISTRY RECD BY: Laure Ball ENTERED: 03/27/21 11:39 SP TYPE: IMMUNO OTHR DR: MD Dr. Jeremy Rocha MD Dr. Paul Nielsen, MD Tissues: THORACIC FLUID Procedures: CK20 (add) CK7 (add) CK8 (add) E-CAD (add) HER2 ALDA (add) MAMM (add) P53 (add) LA (add) 34BE12 (add) Pankeratin (add) GATA3 (add) ER (initial) PHYSICIAN & [address] [address] SPECIMEN INFORMATION: Tissue Source: Thoracentesis fluid Clinical Info: Right-sided pleural effusion Specimen Number: [id number] CPT code: 55273, 29980 x11 METHODOLOGY: Deparaffinized sections of prefer/formalin-fixed tissue or PAP/DQ stained slides are incubated with monoclonal/polyclonal antibodies/oligonucleotide probes. Localization is made via biotin free immunoperoxidase method. Appropriate controls are performed and reacted as expected. Results on target cell population are indicated in the following table: RESULTS: ANTIBODY / CLONE RESULT ER (6F11) positive, >90% LA (1E2) positive, 35% Her-2neu (CB11) negative, 1+ E-Cad (ECH-6) positive Mammaglobin (31A5) positive GATA3 (L50-823) positive CK20 (KS20.8) negative P53 (DO-7) negative CK7 (OV-TL12/30) negative AE1-3 (AE1/AE3/PCK26) positive 34BE12 (34BE12) positive CK8 (77bqdoF28) positive These tests were developed and their performance characteristics determined by [facility]. They may not have been cleared or approved by the U.S. Food and Drug Administration. The FDA has determined that such clearance or approval is not necessary. The above immunohistochemical/dualISH markers are ordered and reviewed by the Pathologist. INTERPRETATION: Thoracentesis fluid: Consistent with metastatic breast carcinoma. AM:raffi 03/29/2021 Case has been reviewed in consultation with Dr. Hutson who concurs with the above diagnosis. IDC:SJ
--- NOTE | 2021-03-23 | FLU_PTH ---
PATIENT: KRIS OHUSER LOC: [facility] U#:[id number] AGE/SX: 61/F ROOM: [facility] RE03/23/[address]: Dr. Anita Dela Cruz MD : 1960 BED: 1 DIS: 03/24/2021 SPEC #: [id number] RECD: 03/23/21 14:16 STATUS: GAEL MACIAS #: [id number] JESSICA: 03/23/21 00:[address]: Anita Dela Cruz DEPT: CYTOLOGY RECD BY: Zhou Diaz ENTERED: 03/26/21 10:55 SP TYPE: Fluid OTHR DR: MD Dr. Jeremy Rocha MD Dr. Paul Nielsen, MD Tissues: THORACIC FLUID Procedures: Special Stain Group II Surgery Specimen Level IV Cytospin Fluid HEADER OPERATION: Ultrasound-guided right thoracentesis PRE-OP DIAGNOSIS: Right-sided pleural effusion TISSUE SUBMITTED: Thoracentesis fluid for cytology DIAGNOSIS CYTOLOGY Thoracentesis fluid for cytology (cytospin and cell block): Positive for malignant cells, non-small cell carcinoma. See comment. AM:raffi 03/27/2021 COMMENT Immunohistochemistry ([id number]) is consistent with a breast primary. Reference is made to the patient's previous left breast lumpectomy ([id number]) in which invasive ductal carcinoma, grade 3, was identified. This case was discussed with Dr. Aviles on 03/27/21 at 10:15 a.m. Case has been reviewed in consultation with Dr. Hutson who concurs with the above diagnosis. IDC:SJ CYTOLOGY STUDY Slides are reviewed. CYTOLOGY GROSS Received is 85 ml of red cloudy fluid labeled with the patient's name and and designated per the requisition as thoracentesis. Submitted for cytology preparation including cell block. / raffi 03/26/2021 TC:0 CPT: 37823, 05591
[2021-03-23 00:01] LABS: Absolute Lymphocyte Count 3.61 X10^3/uL (0.83-4.51); Absolute Neutrophil Count 3.9 X10^3/uL (2.0-7.7); Basophil# 0.04 X10^3/uL; Basophil% 0.4 % (0-1); Eosinophil# 0.22 X10^3/uL; Eosinophils% 2.5 % (0-5); Hematocrit 36.7 % (37-47); Hemoglobin 12.3 g/dL (12.0-15.0); Lymphocyte # 3.61 X10^3/ul (0.83-4.51); Lymphocyte % 40.6 % (19-41); Mean Corp Hgb Conc 33.5 g/dL (32-36); Mean Corpuscular Hgb 30.8 pg (27.0-32.0); Mean Platelet Vol. 9.5 fl (6.2-12.0); Monocyte# 1.09 X10^3/uL; Monocyte% 12.2 % (0-10); NRBC Flagged by Analyzer 0 % (0-5); Neutrophil # 3.86 X10^3/uL (2.7-7.7); Neutrophil % 43.4 % (47-70); Platelet Count 461 K/mm3 (150-450); RBC Distribution Width CV 12.3 % (11.6-14.6); RBC Distribution Width SD 41.1 fl (35.1-43.9); Red Blood Count 3.99 M/mm3 (4.2-5.4); White Blood Count 8.9 K/mm3 (4.4-11.0)
--- NOTE | 2021-03-23 00:20 | EDS_ITS ---
HPI History of Present Illness Chief Complaint: Shortness of Breath Informant: patient Onset/Context/Timing Onset: Days (Dyspnea on exertion and chest discomfort going up steps for the past 2 days) and Weeks (Shortness of breath for a couple of weeks) Context: gradual Timing: Continuous Quality: Positive for Dyspnea on exertion and Orthopnea (Orthopnea past 2 days); Negative for PND and Wheezing Current Severity: Mild Maximum Severity: Severe Worsened by: Exertion Relieved by: Nothing Associated Symptoms Negative for cough, fever, subjective, chills or sweats Chest Pain: Positive for Intermittent (Related to exertion, going up a flight of steps) Narrative Narrative: Patient is a 61-year-old woman with history of breast cancer status post lumpectomy January 01 who is scheduled for a Mediport and chemotherapy this coming week. She also has history of obstructive sleep apnea, cardiac murmur, hypertension and anxiety disorder with panic attacks. She denies leg pain, swelling discoloration. She denies weight loss. She reports weight gain. She denies fever, chills night sweats. She denies headache. She denies ocular, visual auditory symptoms. She presently has no chest pain. She is short of breath. She has never been told she has an abnormal chest x-ray or x-ray findings. She denies GI symptoms. She denies symptoms. She denies neurologic symptoms. PE Risk Factors: Positive for Cancer, Recent immobilization and Recent surgery; Negative for OCP + Smoking + > 35 and Prior DVT or PE Prior similar symptoms: No Recent Illness/Hospitalization: No PFSH PFSH Medical History Alcohol use Anxiety Back pain Blackout Breast cancer (~12/2020) Cardiac murmur Depression Gastric reflux History of edema History of pain when walking History of stress test Hx of echocardiogram Hypertension Leg cramps Migraine headache Non-smoker Panic disorder Post-menopausal Thrombocytosis Wears glasses Home Medications propranolol 80 mg capsule,24 hr,extended release 80 mg PO QDAY 11/25/17 [History Last Taken Unknown] fluoxetine 20 mg capsule 20 mg PO DAILY cap 01/11/21 [History Last Taken Unknown] naproxen 500 mg tablet 500 mg PO BID PRN 01/11/21 [History Last Taken Unknown] omeprazole 40 mg capsule,delayed release 40 mg PO DAILY 01/11/21 [History Last Taken Unknown] ascorbic acid (vitamin C) [Vitamin C] 500 mg PO DAILY 01/25/21 [History Last Taken Unknown] magnesium 15 mg PO DAILY 03/22/21 [History Last Taken Unknown] Allergy/AdvReac Type Severity Reaction Status Date / Time No Known Allergies Allergy Verified 03/22/21 23:30 Family History Father Brain tumor Mother Alzheimers disease Breast cancer Brother Lung cancer Surgical History History of esophagogastroduodenoscopy (EGD) History of sinus surgery S/P lumpectomy, left breast Social History household members: none housing: house pets and animals: Yes pets and animals: dog(s) and guinea pig(s) Smoking Status: Never smoker second hand exposure: No alcohol intake: current Alcohol type: wine details: wine substance use type: does not use lizzie/zoroastrianism: None seatbelt use: always do you feel safe at home: Yes ROS ROS ED Constitutional Constitutional ED: Denies chills, fever(s), sweats or weight loss Eyes Eyes: Denies blurry vision, change in vision or diplopia ENT ENT ED: Denies ear pain, rhinorrhea or sore throat Cardiovascular Cardiovascular: Reports chest pain and orthopnea; Denies palpitations, paroxysmal nocturnal dyspnea or racing heartbeat Respiratory/Chest Respiratory/Chest: Reports dyspnea, dyspnea on exertion and orthopnea; Denies cough, paroxysmal nocturnal dyspnea or sputum Gastrointestinal Gastrointestinal: Denies abdominal pain, diarrhea, nausea or vomiting Genitourinary Genitourinary ED: Denies dysuria, hematuria or urinary frequency Musculoskeletal Musculoskeletal: Denies arthralgias, back pain, myalgias or neck pain Integumentary Denies rash Neurologic Neurologic: Reports weakness; Denies headache(s) or paresthesias Psychiatric Psychiatric: Reports anxiety and depression Hematologic/Lymphatic Hematologic/Lymphatic: Denies easy bleeding or easy bruising EXAM Physical Exam Const Vital Signs: 03/22/21 23:27 03/22/21 23:56 03/23/21 00:20 Temperature 97.2 F L Temperature Source Temporal Pulse Rate 83 Respiratory Rate 16 Respiratory Effort Short of Breath Respiratory Depth Normal Respiratory Pattern Normal Blood Pressure 170/88 H Blood Pressure Mean 115 Pulse Ox 100 Oxygen Delivery Method Room Air Room Air 03/23/21 01:56 Temperature Temperature Source Pulse Rate 76 Respiratory Rate 16 Respiratory Effort Respiratory Depth Respiratory Pattern Blood Pressure Blood Pressure Mean Pulse Ox 95 Oxygen Delivery Method Room Air Positive well nourished and well developed General Appearance ED: well developed and other Patient's breathing is labored. She has conversational dyspnea. ; Negative for NAD HEENT Reports TM's clear and moist mucous membranes HEENT Narrative: Nares patent. Ears normal. TMs normal. Tympanic Membrane ED: Yes TM's clear Eyes PERRL and EOMs intact bilaterally General Eye ED: Negative for pale conjunctiva or scleral icterus Neck no lymphadenopathy, supple, no meningeal signs and no JVD Resp No normal respiratory effort and No clear to auscultation bilaterally Auscultation: diminished lung sounds right (There is also dullness to percussion.) lower Cardio regular rate, regular rhythm, S1 normal heart sound and S2 normal heart sound; Negative for no murmurs GI non-tender, non-distended and no masses Auscultation: normoactive bowel sounds Palpation: soft Back/Spine no CVA tenderness and normal to inspection Extremity normal to inspection Extremity Narrative: There is no asymmetry, swelling, discoloration, leg vein distention, palpable cords or tenderness along the distribution of the deep venous system. General Extremety ED: Negative for edema or tenderness General Extremity: Negative for edema Neuro oriented x3, CN's II-XII intact bilaterally and no sensory deficits noted Sensorium / Orientation: alert Motor Exam: strength 5/5 throughout Psych mental status grossly normal Mood & Affect: anxious Thought Process: normal thought process Skin no wounds Lesions: no lesions Rashes: no rashes MDM MDM MDM Narrative Medical decision making narrative: Differential diagnoses include pulmonary embolus, congestive heart failure, cardiac ischemia/non-ST elevation [place], me tastatic breast cancer, and right-sided pleural effusion due to numerous causes. [facility] blood work was ordered, chest x-ray etc. Lab Data Attestation: I reviewed the patient's lab results. Lab results narrative: BUN is 24 with a creatinine of 0.48. BUN/creatinine ratio is proxy 50-1. Troponin is 4. Labs: Laboratory Results - last 24 hr 08/03/22/21 03/22/21 23:50 23:50 23:50 WBC 8.9 RBC 3.99 L Hgb 12.3 Hct 36.7 L MCV 92.0 MCH 30.8 MCHC 33.5 RDW Std Deviation 41.1 RDW Coeff of Mike 12.3 Plt Count 461 H MPV 9.5 Immature Gran % (Auto) 0.900 Neut % (Auto) 43.4 L Lymph % (Auto) 40.6 Hancock % (Auto) 12.2 H Eos % (Auto) 2.5 Baso % (Auto) 0.4 Absolute Neuts (auto) 3.9 Absolute Lymphs (auto) 3.61 Nucleated RBC % 0 D-Dimer Quant (PE/DVT) 1.90 H* Lactic Acid 0.8 B-Natriuretic Peptide 03/22/21 23:50 WBC RBC Hgb Hct MCV MCH MCHC RDW Std Deviation RDW Coeff of Mike Plt Count MPV Immature Gran % (Auto) Neut % (Auto) Lymph % (Auto) Hancock % (Auto) Eos % (Auto) Baso % (Auto) Absolute Neuts (auto) Absolute Lymphs (auto) Nucleated RBC % D-Dimer Quant (PE/DVT) Lactic Acid B-Natriuretic Peptide 28.7 Radiography Chest X-Ray - ED: 1 View, Read by ED Physician (X-ray was interpreted by me at 00), Heart, Mediastinum and Right Effusion Diagnostic Testing: Radiology Impression Chest X-Ray 03/22/21 23:40 IMPRESSION: Moderate layering right pleural effusion with adjacent atelectasis. Electronically Signed: Louie Bryan MD at 0:36 EDT Tel , Service support , CT reveals a moderate effusion with atelectasis. There is no obvious pulmonary per my review. Awaiting formal review by radiologist. Patient to be assigned to PCU for further work-up EKG Initial EKG: Attestation: I personally reviewed and interpreted this EKG as follows: Interpretation: Sinus Rhythm (The EKG is normal. Normal sinus rhythm with a ventricular rate of 75. ME interval is 140 ms. Cures duration 84 ms. QT duration 376 ms [place] is normal.) Discharge Plan Triage Chief Complaint: Shortness of Breath ED Provider: Zechariah Ridley Dx/Rx/DC Orders Clinical Impression: Chest pain, exertional, Pleural effusion on right, History of left breast cancer, SEGOVIA (dyspnea on exertion) Prescriptions: No Action propranolol [Inderal LA] 80 mg capsule,extended release 24 hr 80 mg PO QDAY RF: 0 fluoxetine 20 mg capsule 20 mg PO DAILY RF: 0 naproxen 500 mg tablet 500 mg PO BID PRN (Reason: Pain) RF: 0 omeprazole 40 mg capsule,delayed release(DR/EC) 40 mg PO DAILY RF: 0 ascorbic acid (vitamin C) [Vitamin C] 500 mg Tablet,Chewable 500 mg PO DAILY RF: 0 magnesium 500 mg Tablet 15 mg PO DAILY RF: 0 Primary Care Provider: Almas Flores Referrals: Almas Flores MD [Primary Care Provider] - Disposition Disposition: Acute Care Hospital [facility]
[2021-03-23 00:22] LABS: Anion Gap 6 (5-15); BUN 12 mg/dL (7-18); BUN/Creat Ratio 24.7 RATIO (10-20); Calcium,Total 9.2 mg/dL (8.5-10.1); Chloride 105 mmol/L (98-107); Creatinine, Serum 0.48 mg/dL (0.55-1.02); EST Glomerular Filtration Rate 138 mL/min (>60); Est Glom Filt Rate - Afr Amer 167 mL/min (>60); Estimated Creatinine Clearance 96.11 ml/min; Glucose 93 mg/dL (74-106); Potassium 3.8 mmol/L (3.5-5.1); Sodium Level 137 mmol/L (136-145); Troponin-I HS 4 pg/mL (3.0-54.0)
[2021-03-23 00:23] LABS: Lactic Acid 0.8 mmol/L (0.4-1.9)
[2021-03-23 00:42] LABS: BNP,B-Type NATRIURETIC PEPTIDE 28.7 pg/mL (0-100)
--- NOTE | 2021-03-23 00:52 | CT_ITS ---
STUDY: CTA CHEST REASON FOR EXAM: Female, 61 years old. Pleuritic chest pain, shortness of breath, elevated d-dimer. Status post breast cancer and left-sided lumpectomy scheduled to undergo chemotherapy. RADIATION DOSAGE (If Supplied By Facility): CTDIvol = ( 11.63 ) mGy, DLP = ( 379.11 ) mGycm TECHNIQUE: The examination was performed with the intravenous administration of IV 75mL Isovue-370. Post-processing of the angiographic images was performed, with MIP reconstructed images. Individualized dose optimization techniques were used for this CT. COMPARISON: 02/12/2018 CTA chest. FINDINGS: Heart and great vessels: No pulmonary embolus. Mildly ectatic but nonaneurysmal ascending thoracic aorta 3.8 cm diameter. Normal heart size with no evidence of right heart strain. Lungs, pleura: Moderate layering right simple density pleural effusion with overlying atelectasis. No evidence of pneumonia or edema. Anatomic variant right azygos fissure. Best seen on the coronal MIP images are several small, subcentimeter, nodules scattered throughout both lungs slightly more prominent on the left, new compared to the previous CTA. The largest is in the anterior, medial aspect of the left lower lobe, coronal mid image 84, 8 mm in size. Mediastinum: Moderate subcarinal and right greater than left hilar, and mild paratracheal lymphadenopathy is all new compared to prior. Heterogenous thyroid gland is similar to previous. Osseous: No aggressive osseous lesions or acute osseous abnormality. Chronic T11 and L1 compression fractures again demonstrated. Chest wall: Evidence of fairly recent left laminectomy and left axillary lymph node dissection. Mildly bilateral axillary adenopathy is new compared to the previous CT. Upper abdomen: No acute findings. CT/CTA Chest W/WO Contrast IMPRESSION: No pulmonary embolus. Several small bilateral pulmonary nodules most likely representing metastatic disease. Infectious or inflammatory etiology less likely. Mediastinal, bilateral hilar and axillary lymphadenopathy is new compared to the previous CT and is also most suspicious for metastatic disease. Moderate right pleural effusion, simple density, layering, with overlying atelectasis. Electronically Signed: Louie Bryan MD at 3:12 EDT Tel , Service support ,
--- NOTE | 2021-03-23 02:41 | PCM.HP.STD ---
Documented by User: AMBROCIO Cobb 03/23/21 02:55 HPI - General General Date of Admission: 03/23/21 Date of Service: 03/23/21 Chief Complaint: Shortness of breath HPI Narrative KRIS HOUSER, is a 61 F who presents with complaints of shortness of breath. Patient states that it is worse with exertion and when lying flat. Patient reports that she was recently diagnosed with breast cancer and underwent a left partial mastectomy with Dr. Anglin. Patient has been evaluated by Dr. Aviles and Dr. Vargas for chemo and radiation. Patient denies fever, chills, chest pain, nausea, vomiting, increased legs pain or swelling. [facility] Medical History Alcohol use Anxiety Back pain Blackout Breast cancer (~12/2020) Cardiac murmur Depression Gastric reflux History of edema History of pain when walking History of stress test Hx of echocardiogram Hypertension Leg cramps Migraine headache Non-smoker Panic disorder Post-menopausal Thrombocytosis Wears glasses Home Medications propranolol 80 mg capsule,24 hr,extended release 80 mg PO QDAY 11/25/17 [History Last Taken Unknown] fluoxetine 20 mg capsule 20 mg PO DAILY cap 01/11/21 [History Last Taken Unknown] naproxen 500 mg tablet 500 mg PO BID PRN 01/11/21 [History Last Taken Unknown] omeprazole 40 mg capsule,delayed release 40 mg PO DAILY 01/11/21 [History Last Taken Unknown] ascorbic acid (vitamin C) [Vitamin C] 500 mg PO DAILY 01/25/21 [History Last Taken Unknown] magnesium 15 mg PO DAILY 03/22/21 [History Last Taken Unknown] Allergy/AdvReac Type Severity Reaction Status Date / Time No Known Allergies Allergy Verified 03/22/21 23:30 Family History Father Brain tumor Mother Alzheimers disease Breast cancer Brother Lung cancer Surgical History History of esophagogastroduodenoscopy (EGD) History of sinus surgery S/P lumpectomy, left breast Social History (Updated 03/23/21 @ 02:45 by AMBROCIO Cobb) household members: none housing: house pets and animals: Yes pets and animals: dog(s) and guinea pig(s) Smoking Status: Never smoker second hand exposure: No alcohol intake: current Alcohol type: wine details: wine 2-3 drinks per night substance use type: does not use lizzie/sabianism: None seatbelt use: always do you feel safe at home: Yes ROS Constitutional Constitutional: Reports weight gain; Denies anorexia, chills, fatigue or malaise Cardiovascular Cardiovascular: Reports orthopnea; Denies chest pain, edema or palpitations Respiratory/Chest Respiratory/Chest: Reports shortness of breath at rest and shortness of breath with exertion; Denies cough Gastrointestinal Gastrointestinal: Denies abdominal pain, constipation, diarrhea, nausea or vomiting Genitourinary Genitourinary: Denies dysuria Musculoskeletal Musculoskeletal: Denies back pain, extremity pain, joint pain or joint stiffness Integumentary Integumentary: Denies dry skin Neurologic Neurologic: Denies abnormal gait, abnormal speech, confusion, dizziness or focal weakness Psychiatric Psychiatric: Reports anxiety; Denies depression Endocrine Endocrinology: Denies change in body appearance Hematologic/Lymphatic Hematologic/Lymphatic: Denies easy bleeding or easy bruising Vital Signs Vital Signs Vital Signs: 03/22/21 23:27 03/22/21 23:56 03/23/21 00:20 Temperature 97.2 F L Temperature Source Temporal Pulse Rate 83 Respiratory Rate 16 Respiratory Effort Short of Breath Respiratory Depth Normal Respiratory Pattern Normal Blood Pressure 170/88 H Blood Pressure Mean 115 Pulse Ox 100 Oxygen Delivery Method Room Air Room Air 03/23/21 01:56 03/23/21 02:23 Temperature Temperature Source Pulse Rate 76 76 Respiratory Rate 16 12 Respiratory Effort Respiratory Depth Respiratory Pattern Blood Pressure 146/78 H Blood Pressure Mean 100 Pulse Ox 95 96 Oxygen Delivery Method Room Air Room Air Weight Weight: 157 lb Body Mass Index (BMI) 28.7 Physical Exam Const alert, oriented x3 and no apparent distress General Appearance: cooperative HEENT normocephalic and head/scalp atraumatic Eyes conjunctivae normal and no scleral icterus Resp normal air movement and clear to auscultation bilaterally Effort and Inspection: symmetric chest movement and tachypneic Cardio regular rate, S1 normal heart sound and S2 normal heart sound GI normal to inspection, nondistended, normoactive bowel sounds, soft to palpation and non-tender Extremity normal capillary refill and no clubbing, cyanosis or edema General Extremity: no tenderness to palpation of joints or extremities Skin General Skin Exam: no breakdown and turgor normal Lesions: no lesions Rashes: no rashes Neuro no focal motor deficits and no sensory deficits noted Speech: speech normal Motor Exam: Negative for general weakness Psych thought process normal, cooperative and affect normal Appearance: appropriate Results Lab / Micro Data Result Diagrams: 03/22/21 23:50 03/22/21 23:50 Labs: Laboratory Results - last 24 hr 03/22/21 23:50: WBC 8.9, RBC 3.99 L, Hgb 12.3, Hct 36.7 L, MCV 92.0, MCH 30.8, MCHC 33.5, RDW Std Deviation 41.1, RDW Coeff of Mike 12.3, Plt Count 461 H, MPV 9.5, Immature Gran % (Auto) 0.900, Neut % (Auto) 43.4 L, Lymph % (Auto) 40.6, Bartholomew % (Auto) 12.2 H, Eos % (Auto) 2.5, Baso % (Auto) 0.4, Absolute Neuts (auto) 3.9, Absolute Lymphs (auto) 3.61, Nucleated RBC % 0 03/22/21 23:50: D-Dimer Quant (PE/DVT) 1.90 H* 03/22/21 23:50: Lactic Acid 0.8 03/22/21 23:50: B-Natriuretic Peptide 28.7 Radiology Impression Chest X-Ray 03/22/21 23:40 IMPRESSION: Moderate layering right pleural effusion with adjacent atelectasis. Electronically Signed: Louie Bryan MD at 0:36 EDT Tel , Service support , Assessment & Plan Assessment/Plan (1) Pleural effusion on right: (2) Cancer of central portion of left breast: (3) SEGOVIA (dyspnea on exertion): PLAN: 1. Dyspnea on exertion secondary to pleural effusion on right -Admit to PCU for observation -Consult Dr. Beck for thoracentesis -Trend cardiac enzymes -Consult case management for discharge planning -Daily weights -Cardiac heart healthy diet -Encourage incentive spirometer -Strict intake and output -Oxygen per protocol -CBC, CMP, LDH, lipid profile, PTT, PT/INR, TSH ordered for a.m. -Vital signs per protocol -D-dimer elevated however CT scan negative for PE -BNP 28.7, lactic acid 0.8 2. Cancer central portion of left breast -Patient currently undergoing care with Dr. Aviles and Dr. Vargas. Evaluation has been initiated but patient has not started treatment. 3. Anxiety -We will continue propranolol and fluoxetine 4. Alcohol use -Patient reports a daily use of 2-3 drinks per night. -CIWA ordered as needed along with first 24-hour medications -Thiamine, multivitamin, and folic acid ordered DVT prophylaxis-SCDs, no pharmacological prophylaxis ordered due to pending thoracentesis This patient was seen by AMBROCIO Cobb under the supervision of Dr. Packer. Documented by User: Dr. Vicki Pakcer MD 03/23/21 03:10 HPI - General General Date of Admission: 03/23/21 [facility] Medical History Alcohol use Anxiety Back pain Blackout Breast cancer (~12/2020) Cardiac murmur Depression Gastric reflux History of edema History of pain when walking History of stress test Hx of echocardiogram Hypertension Leg cramps Migraine headache Non-smoker Panic disorder Post-menopausal Thrombocytosis Wears glasses Home Medications propranolol 80 mg capsule,24 hr,extended release 80 mg PO QDAY 11/25/17 [History Last Taken Unknown] fluoxetine 20 mg capsule 20 mg PO DAILY cap 01/11/21 [History Last Taken Unknown] naproxen 500 mg tablet 500 mg PO BID PRN 01/11/21 [History Last Taken Unknown] omeprazole 40 mg capsule,delayed release 40 mg PO DAILY 01/11/21 [History Last Taken Unknown] ascorbic acid (vitamin C) [Vitamin C] 500 mg PO DAILY 01/25/21 [History Last Taken Unknown] magnesium 15 mg PO DAILY 03/22/21 [History Last Taken Unknown] Allergy/AdvReac Type Severity Reaction Status Date / Time No Known Allergies Allergy Verified 03/22/21 23:30 Family History Father Brain tumor Mother Alzheimers disease Breast cancer Brother Lung cancer Surgical History History of esophagogastroduodenoscopy (EGD) History of sinus surgery S/P lumpectomy, left breast Social History (Updated 03/23/21 @ 02:45 by Chana Lopez NP-C) household members: none housing: house pets and animals: Yes pets and animals: dog(s) and guinea pig(s) Smoking Status: Never smoker second hand exposure: No alcohol intake: current Alcohol type: wine details: wine 2-3 drinks per night substance use type: does not use lizzie/sabianism: None seatbelt use: always do you feel safe at home: Yes Results Lab / Micro Data Result Diagrams: 03/22/21 23:50 03/22/21 23:50
--- NOTE | 2021-03-23 03:10 | PCS.PANDOC ---
PANDEMIC DOCUMENTATION INITIATED: Date: 03/23/2021 Time: 309
[2021-03-23 03:12] LABS: ALB/GLOB Ratio 0.9 RATIO (0.9-2.4); Globulin 3.9 g/dL (2.2-4.2); LDH 214 U/L (84-246); Magnesium 2.3 mg/dL (1.6-2.6); Protein, Total 7.6 g/dL (6.4-8.2)
--- NOTE | 2021-03-23 04:32 | EKG12_ITS ---
Test Reason : SOB Blood Pressure : / mmHG Vent. Rate : 075 BPM Atrial Rate : 075 BPM P-R Int : 140 ms QRS Dur : 084 ms QT Int : 376 ms P-R-T Axes : 052 -03 020 degrees QTc Int : 419 ms Normal sinus rhythm Normal ECG Confirmed by JYOTI LAROSE, ROBERTO CARLOS ([id number]), supervising editor trailer IVETH HURLEY ([id number]) on 03/26/2021 10:36:28 AM Referred By: Confirmed By:ROBERTO CARLOS MONTES MD
--- NOTE | 2021-03-23 04:32 | ECHODONC_ITS ---
Reason For Study: DYSPNEA/SOB Procedure This was a 2D Doppler, Color Flow transthoracic echocardiogram. Myocardial strain analysis was performed in this exam to aid in the assessment of cardiac function. Exam performed portable in patient room. Left Ventricle Normal LV size. Left ventricular systolic function is normal. The estimated ejection fraction is 60 %. Stage 1 diastolic dysfunction. No regional wall motion abnormalities noted. Right Ventricle Normal RV size. Normal systolic function. Atria Normal left atrium. Normal right atrium. Mitral Valve Normal mitral valve. Tricuspid Valve Normal tricuspid valve. Mild (1+) tricuspid valve insufficiency. Pulmonary artery systolic pressure is 40 mmHg. Aortic Valve Normal aortic valve. Trisinus/trileaflet aortic valve. Pulmonic Valve Normal pulmonic valve. Great Vessels Normal aortic root. The pulmonary artery is normal size. Normal inferior vena cava. Pericardium/Pleural No pericardial effusion. MMode/2D Measurements & Calculations LVIDd: 4.5 cm IVSd: 0.99 cm Ao root diam: 3.6 cm LVIDs: 2.5 cm LVPWd: 1.0 cm RVDd: 2.6 cm FS: 44.1 % LAV(MOD-bp): 41.0 ml LA A4 area: 14.5 cm2 LA dimension(2D): 3.7 cm LAV(MOD-bp) Indexed: 23.9 ml/m2 LAV(MOD-sp2): 36.1 ml LAV(MOD-sp4): 40.2 ml RA A4 area: 10.6 cm2 Time Measurements MV dec time: 0.22 sec Doppler Measurements & Calculations MV E max cosme: 68.6 cm/sec Lat Peak E' Cosme: 8.5 cm/sec Med Peak E' Cosme: 8.7 cm/sec MV A max cosme: 79.1 cm/sec E/E' lat: 8.1 E/E' med: 7.9 MV E/A: 0.87 Ao V2 max: 158.3 cm/sec LV V1 max: 131.8 cm/sec PA V2 max: 102.4 cm/sec Ao max P.0 mmHg LV V1 max P.0 mmHg TR max cosme: 295.9 cm/sec TR max P.0 mmHg ECHO/ONC Echo Complete Interpretation Summary Normal LV size. Left ventricular systolic function is normal. The estimated ejection fraction is 60 %. Stage 1 diastolic dysfunction. The global longitudinal strain is normal. The global longitudinal strain = -20. 8 % (normal). Ordering Physician: Vicki Packer Referring Physician: Almas Flores Performed By: Jeninfer Durham, ANSHU, RVT
--- NOTE | 2021-03-23 04:32 | US_ITS ---
PROCEDURE: ULTRASOUND GUIDED THORACENTESIS. DATE: 03/23/2021. INDICATION: Female, 61 years old. Right pleural effusion. PHYSICIAN: Kiran Laurent M.D. PROCEDURE: The risks, benefits, and alternatives to the procedure were explained to the patient. The specific risks of bleeding, infection, and pneumothorax requiring chest tube insertion were discussed and accepted. Written informed consent was obtained. Ultrasonographic evaluation of the patient lower pleural space was carried out. An adequate pocket was identified. The patient was placed in the sitting, upright position. The overlying skin was prepped and draped in sterile fashion. 1% lidocaine was administered subcutaneously for local anesthesia. Under ultrasound guidance, a 5 Azeri thoracentesis needle/catheter system was advanced into the right posterior lower pleural fluid collection. Approximately 1100 mL of bloody tinged fluid was drained. The catheter was removed, and a sterile dressing was applied. A specimen was collected and sent to the laboratory for analysis, as requested by the referring clinician. The patient tolerated the procedure well. A chest x-ray was ordered. US/Thoracentesis W US IMPRESSION: Ultrasound-guided right thoracentesis. Electronically Signed: Kiran Laurent MD at 14:12 EDT , Service support ,
[2021-03-23] MEDS: Acetaminophen 325 MG Tablet 650 MG PO ×3 (04:49→17:40)
[2021-03-23] MEDS: 0.9% Normal Saline 1,000 ML 100 ML IV (04:59)
[2021-03-23 06:07] LABS: Absolute Lymphocyte Count 3.37 X10^3/uL (0.83-4.51); Absolute Neutrophil Count 3.9 X10^3/uL (2.0-7.7); Basophil# 0.05 X10^3/uL; Basophil% 0.6 % (0-1); Eosinophil# 0.18 X10^3/uL; Eosinophils% 2.1 % (0-5); Hematocrit 36.8 % (37-47); Hemoglobin 12.1 g/dL (12.0-15.0); Lymphocyte # 3.37 X10^3/ul (0.83-4.51); Lymphocyte % 39.4 % (19-41); Mean Corp Hgb Conc 32.9 g/dL (32-36); Mean Corpuscular Hgb 30.9 pg (27.0-32.0); Mean Corpuscular Volume 93.9 fL (81-99); Mean Platelet Vol. 9.7 fl (6.2-12.0); Monocyte# 1.05 X10^3/uL; Monocyte% 12.3 % (0-10); NRBC Flagged by Analyzer 0 % (0-5); Neutrophil # 3.89 X10^3/uL (2.7-7.7); Neutrophil % 45.4 % (47-70); Platelet Count 472 K/mm3 (150-450); RBC Distribution Width CV 12.4 % (11.6-14.6); RBC Distribution Width SD 42.6 fl (35.1-43.9); Red Blood Count 3.92 M/mm3 (4.2-5.4); White Blood Count 8.6 K/mm3 (4.4-11.0)
[2021-03-23 06:30] LABS: Prothrombin Time (Protime)PT. 12.8 SECONDS (11.7-14.9)
[2021-03-23 06:31] LABS: Partial Thromboplast Time 29.6 Seconds (24.1-36.2)
[2021-03-23 07:06] LABS: ALB/GLOB Ratio 0.9 RATIO (0.9-2.4); AST(SGOT) 13 U/L (15-37); Alanine Aminotransfer ALT/SGPT 13 U/L (13-56); Albumin, Serum 3.4 g/dL (3.2-5.0); Alkaline Phosphatase 88 U/L (45-117); Anion Gap 8 (5-15); BUN 9 mg/dL (7-18); BUN/Creat Ratio 20.3 RATIO (10-20); Calcium,Total 8.8 mg/dL (8.5-10.1); Chloride 105 mmol/L (98-107); Cholesterol 183 mg/dL (200); Creatinine, Serum 0.44 mg/dL (0.55-1.02); EST Glomerular Filtration Rate 152 mL/min (>60); Est Glom Filt Rate - Afr Amer 184 mL/min (>60); Estimated Creatinine Clearance 104.85 ml/min; Globulin 3.7 g/dL (2.2-4.2); Glucose 101 mg/dL (74-106); High Density Lipoprotein 50 mg/dL; LDH 191 U/L (84-246); Potassium 3.4 mmol/L (3.5-5.1); Protein, Total 7.1 g/dL (6.4-8.2); Sodium Level 139 mmol/L (136-145); Thyroid Stim Hormone (TSH) 4.89 uIU/mL (0.358-3.74); Triglycerides 117 mg/dL; Troponin-I HS 5 pg/mL (3.0-54.0); Very Low Density Lipoprotein 23 mg/dL (5-40)
[2021-03-23 07:24] LABS: Troponin-I HS 5 pg/mL (3.0-54.0)
--- NOTE | 2021-03-23 07:43 | PN_ITS ---
Progress Note I discussed her CT scan with her. Plan is for thoracentesis today. Patient was planning on having systemic chemotherapy before this finding based o n Oncotype. She had an appointment scheduled with me this coming Friday to discuss port placement. I would like her to keep that appointment and I will have a port placed later in the week next week for treatment. Chuck Anglin MD Pager: [facility] [address] [place] [address], [address] [place] [address] Office:
--- NOTE | 2021-03-23 07:43 | PCM.PN.BLA ---
Progress Note I discussed her CT scan with her. Plan is for thoracentesis today. Patient was planning on having systemic chemotherapy before this finding based on Oncotype. She had an appointment scheduled with me this coming Friday to discuss port placement. I would like her to keep that appointment and I will have a port placed later in the week next week for treatment. Chuck Anglin MD Pager: [facility] [address] [place] [address], [address] [place] [address] Office:
[2021-03-23] MEDS: Folic Acid 1 MG Tablet PO (09:02)
[2021-03-23] MEDS: Multivitamins,Ther W-Minerals Tablet 1 TABLET PO (09:02)
[2021-03-23] MEDS: Thiamine Hydrochloride 100 MG Tablet PO ×2 (09:02→17:37)
[2021-03-23] MEDS: FLUoxetine 20 MG Capsule PO (09:03)
[2021-03-23] MEDS: Pantoprazole Sodium 40 MG Tablet PO (09:03)
[2021-03-23] MEDS: Propranolol LA 80 MG Capsule PO ×2 (09:03→20:02)
--- NOTE | 2021-03-23 10:15 | CON.PCM.ON_ITS ---
Assessment & Plan Assessment/Plan (1) Cancer of central portion of left breast: Status: Acute Code(s): C50.112 - Malignant neoplasm of central portion of left female breast Plan: Explained findings on chest imaging, effusion and bilat subcm pulmonary nodules, warrant investigation. Agree with plans for diagnostic thoracentesis. Regardless of final cytology, would advise PET/CT in the outpatient setting. Patient verbalized understanding. Emotional support provided. She is instructed to keep scheduled visit with [facility] on Friday03/26/21 as planned. Case discussed with Dr. Carver who was in agreement with the aformentioned plan. (2) Pleural effusion on right: Status: Acute Code(s): J90 - Pleural effusion, not elsewhere classified HPI Consult Data Date of Service:: 03/23/21 PCP / Referring Provider: Dr. Almas Flores MD Attending: Dr. Anita Dela Cruz MD Chief Complaint Chief Complaint: Breast Cancer History of Present Illness History of Present Illness: Ms. Jennifer Martinez is a very pleasant 61-year-old postmenopausal female diagnosed with stage IIA (T2, N0, M0) invasive ductal cancer of the left breast grade 3, ER positive, IL positive, HER-2 not amplified by FISH. Patient is status post partial left mastectomy and sentinel lymph node biopsy on February 05, 2021. Post operative course was uncomplicated. Found to have Oncotype DX score of 39 (high risk). Tentatively was planned to begin adjuvant chemotherapy, Taxotere/Cytoxan on 04/04/21 with intent to pursue adjuvant radiation and endocrine therapy thereafter. She presented to [facility] ED on 03/22/21 with c/o worsening exertional dyspnea. Afeb rile. BNP 28.7, lactic acid 0.8. No cytopenias. D-dimer was elevated, CTA demonstrated moderately sized right pleural effusion and multiple bilateral subcentimeter pulmonary nodules. Patient was subsequently admitted to PCU for observation. Upon entering the room the patient is sitting upright in bed engaged in echocardiogram at the bedside. Reports shortness of breath on exertion only however is concerned as activity required to elicit dyspnea is becoming less and less. Now accompanied by dry nonproductive cough. Specifically denies chest pain, palpitations. Advanced Directives Power of Speech And Drama Teacher: No Living Will: No [facility] Medical History Alcohol use Anxiety Back pain Blackout Breast cancer (~12/2020) Cardiac murmur Depression Gastric reflux History of edema History of pain when walking History of stress test Hx of echocardiogram Hypertension Leg cramps Migraine headache Non-smoker Panic disorder Post-menopausal Thrombocytosis Wears glasses Home Medications propranolol 80 mg capsule,24 hr,extended release 80 mg PO QHS 11/25/17 [History Last Taken Unknown] fluoxetine 20 mg capsule 20 mg PO DAILY cap 01/11/21 [History Last Taken Unknown] naproxen 500 mg tablet 500 mg PO BID PRN 01/11/21 [History Last Taken Unknown] omeprazole 40 mg capsule,delayed release 40 mg PO DAILY 01/11/21 [History Last Taken Unknown] ascorbic acid (vitamin C) [Vitamin C] 500 mg PO DAILY 01/25/21 [History Last Taken Unknown] magnesium 500 mg PO DAILY 03/22/21 [History Last Taken Unknown] Allergy/AdvReac Type Severity Reaction Status Date / Time No Known Allergies Allergy Verified 03/22/21 23:30 Family History Father Brain tumor Mother Alzheimers disease Breast cancer Brother Lung cancer Surgical History History of esophagogastroduodenoscopy (EGD) History of sinus surgery S/P lumpectomy, left breast Social History (Updated 03/23/21 @ 02:45 by Chana Lopez NP-C) household members: none housing: house pets and animals: Yes pets and animals: dog(s) and guinea pig(s) Smoking Status: Never smoker second hand exposure: No alcohol intake: current Alcohol type: wine details: wine 2-3 drinks per night substance use type: does not use lizzie/latter day: None seatbelt use: always do you feel safe at home: Yes ROS Constitutional Constitutional: Reports fatigue; Denies chills, fever(s), night sweats, poor appetite or weight loss ENT HEENT: Denies dysphagia, loss taste/smell or sore throat Cardiovascular Cardiovascular: Denies chest pain, irregular heart rhythm or palpitations Respiratory/Chest Respiratory/Chest: Reports cough and dyspnea on exertion; Denies hemoptysis Gastrointestinal Gastrointestinal: Denies abdominal pain, change in bowel habits or early satiety Genitourinary Genitourinary: Denies dysuria, hematuria or urinary frequency Musculoskeletal Musculoskeletal: Denies abnormal gait, back pain or extremity pain Integumentary Integumentary: Denies alopecia, jaundice, pruritus, rash or unusual bruising Neurologic Neurologic: Denies dizziness, headache(s), numbness or other visual disturbances Psychiatric Psychiatric: Reports anxiety and depression Physical Exam Const alert, oriented x3 and no apparent distress General Appearance: cooperative; Negative for in distress HEENT normocephalic and head/scalp atraumatic Eyes PERRL and no scleral icterus Neck supple and no JVD General: trachea midline Chest Chest: symmetrical chest wall rise Resp normal respiratory effort Effort and Inspection: able to speak in complete sentences Auscultation: clear to auscultation bilaterally and diminished lung sounds right Cardio regular rate, regular rhythm, S1 normal heart sound, S2 normal heart sound and no murmurs GI normal to inspection, nondistended, normoactive bowel sounds, soft to palpation, non-tender and hepatosplenomegaly Extremity no clubbing, cyanosis or edema and no calf tenderness Skin no rashes or lesions noted General Skin Exam: Negative for ecchymosis or petechiae Neuro CN's II-XII intact bilaterally Psych cooperative Mood & Affect: anxious Vital Signs Temperature 98.0 F 03/23/21 08:54 Temperature Source Oral 03/23/21 08:54 Pulse Rate 84 03/23/21 08:54 Respiratory Rate 18 03/23/21 08:54 Respiratory Effort Non-Labored 03/23/21 09:06 Respiratory Depth Normal 03/23/21 09:06 Respiratory Pattern Normal 03/23/21 09:06 Blood Pressure 157/74 H 03/23/21 08:54 Blood Pressure Mean 101 03/23/21 08:54 Blood Pressure Source Monitor 03/23/21 08:54 Blood Pressure Position Semi-Fowlers 03/23/21 03:59 Blood Pressure Location Right Arm 03/23/21 03:59 Pulse Ox 97 03/23/21 08:54 Oxygen Delivery Method Nasal Cannula 03/23/21 09:06 Oxygen Flow Rate (L/min) 2 03/23/21 09:06 Laboratory Results - last 24 hr 03/22/21 23:50: WBC 8.9, RBC 3.99 L, Hgb 12.3, Hct 36.7 L, MCV 92.0, MCH 30.8, MCHC 33.5, RDW Std Deviation 41.1, RDW Coeff of Mike 12.3, Plt Count 461 H, MPV 9.5, Immature Gran % (Auto) 0.900, Neut % (Auto) 43.4 L, Lymph % (Auto) 40.6, Pepin % (Auto) 12.2 H, Eos % (Auto) 2.5, Baso % (Auto) 0.4, Absolute Neuts (auto) 3.9, Absolute Lymphs (auto) 3.61, Nucleated RBC % 0 03/22/21 23:50: D-Dimer Quant (PE/DVT) 1.90 H* 03/22/21 23:50: Lactic Acid 0.8 03/22/21 23:50: B-Natriuretic Peptide 28.7 03/22/21 23:50: Magnesium 2.3, Lactate Dehydrogenase 214, Total Protein 7.6, Globulin 3.9, Albumin/Globulin Ratio 0.9 03/23/21 04:50: WBC 8.6, RBC 3.92 L, Hgb 12.1, Hct 36.8 L, MCV 93.9, MCH 30.9, MCHC 32.9, RDW Std Deviation 42.6, RDW Coeff of Mike 12.4, Plt Count 472 H, MPV 9.7, Immature Gran % (Auto) 0.200, Neut % (Auto) 45.4 L, Lymph % (Auto) 39.4, Pepin % (Auto) 12.3 H, Eos % (Auto) 2.1, Baso % (Auto) 0.6, Absolute Neuts (auto) 3.9, Absolute Lymphs (auto) 3.37, Nucleated RBC % 0 03/23/21 04:50: PT 12.8, INR 1.0, APTT 29.6 03/23/21 04:50: Sodium 139, Potassium 3.4 L, Chloride 105, Carbon Dioxide 26.0, Anion Gap 8, BUN 9, Creatinine 0.44 L, Estim Creat Clear Calc 104.85, Est GFR (MDRD) Af Amer 184, Est GFR (MDRD) Non-Af 152, BUN/Creatinine Ratio 20.3 H, Glucose 101, Calcium 8.8, Total Bilirubin 0.50, AST 13 L, ALT 13, Alkaline Phosphatase 88, Lactate Dehydrogenase 191, Troponin I High Sens 5, Total Protein 7.1, Albumin 3.4, Globulin 3.7, Albumin/Globulin Ratio 0.9, Triglycerides 117, Cholesterol 183, LDL Cholesterol 110, VLDL Cholesterol 23, HDL Cholesterol 50, TSH 4.89 H 03/23/21 06:36: Troponin I High Sens 5 Diagnostic Data Chest X-Ray 03/22/21 23:40 IMPRESSION: Moderate layering right pleural effusion with adjacent atelectasis. Electronically Signed: Louie Bryan MD at 0:36 EDT Tel , Service support , Chest CTA 03/23/21 00:52 IMPRESSION: No pulmonary embolus. Several small bilateral pulmonary nodules most likely representing metastatic disease. Infectious or inflammatory etiology less likely. Mediastinal, bilateral hilar and axillary lymphadenopathy is new compared to the previous CT and is also most suspicious for metastatic disease. Moderate right pleural effusion, simple density, layering, with overlying atelectasis. Electronically Signed: Louie Bryan MD at 3:12 EDT Tel , Service support ,
[2021-03-23 10:52] LABS: Troponin-I HS 5 pg/mL (3.0-54.0)
[2021-03-23] MEDS: Lidocaine 2% (5ml sdv) 5 ML VIAL.MPF (13:35)
--- NOTE | 2021-03-23 13:46 | RAD_ITS ---
STUDY: X-RAY CHEST REASON FOR EXAM: Female, 61 years old. Post thora TECHNIQUE: AP inspiration and expiration views. COMPARISON: Comparison is made with prior study dated 03/22/2021. FINDINGS: The patient is status post right thoracentesis. Residual blunting of the right costophrenic angle. No evidence of pneumothorax. RAD/Chest Insp/Exp 2 View IMPRESSION: No evidence of pneumothorax following the right thoracentesis. Electronically Signed: Kiran Laurent MD at 14:07 EDT , Service support ,
[2021-03-23 14:45] LABS: Body Fluid Mononuclear WBC # 1.049 10^3/uL; Body Fluid Mononuclear WBC % 95.5 %; Body Fluid Polynuclear WBC % 4.5 %; Body Fluid Total Cells Counted 1.146 10^3/ul; Red Cell Count/Body Fluid 0.037 10^6/ul; White Blood Count/Body Fluid 1.099 10^3/uL
[2021-03-23 14:48] LABS: Auto B Fluid Analyzer BKGD Ct COUNTS W/IN LIMITS (W/IN LIMITS); Color/Body Fluid RED; Source- Body Fluid THORACENTESIS
[2021-03-23 14:49] LABS: Appearance/Body Fluid CLOUDY
--- NOTE | 2021-03-23 15:10 | PN.HOSP_ITS ---
Subjective Subjective Patient seen and examined. She was admitted with a complaint of shortness of breath. Imaging showed a left sided pleural effusion which was thought to be malignant in the setting of her recently diagnosed breast cancer s/p partial left mastectomy.. Objective Data Objective Data Vital Signs: Vital Signs Temp Pulse Resp BP Pulse Ox 98.3 F 73 16 121/59 H 97 03/23/21 14:50 03/23/21 14:50 03/23/21 14:50 03/23/21 14:50 03/23/21 14:50 Oxygen Flow Rate (L/min) [3] 3 Oxygen Flow Rate (L/min) [2] 3 Oxygen Flow Rate (L/min) [1 ( 3 Initial Baseline)] Oxygen Flow Rate (L/min) 2 Oxygen Delivery Method [3] Nasal Cannula Oxygen Delivery Method [2] Nasal Cannula Oxygen Delivery Method [1 ( Room Air Initial Baseline)] Oxygen Delivery Method Nasal Cannula Weight: 155 lb 3.287 oz Body Mass Index (BMI) 28.3 Intake & Output: Intake and Output for Last 24 Hours 03/21/21 03/22/21 03/23/21 23:59 23:59 23:59 Intake Total 1141.67 / 1141.67 Output Total 1100 / 1100 Balance 41.67 / 41.67 Lab / Micro Data Result Diagrams: 03/23/21 04:50 03/23/21 04:50 Labs: Laboratory Results - last 24 hr 03/22/21 23:50: WBC 8.9, RBC 3.99 L, Hgb 12.3, Hct 36.7 L, MCV 92.0, MCH 30.8, MCHC 33.5, RDW Std Deviation 41.1, RDW Coeff of Mike 12.3, Plt Count 461 H, MPV 9.5, Immature Gran % (Auto) 0.900, Neut % (Auto) 43.4 L, Lymph % (Auto) 40.6, [place] % (Auto) 12.2 H, Eos % (Auto) 2.5, Baso % (Auto) 0.4, Absolute Neuts (auto) 3.9, Absolute Lymphs (auto) 3.61, Nucleated RBC % 0 03/22/21 23:50: D-Dimer Quant (PE/DVT) 1.90 H* 03/22/21 23:50: Lactic Acid 0.8 03/22/21 23:50: B-Natriuretic Peptide 28.7 03/22/21 23:50: Magnesium 2.3, Lactate Dehydrogenase 214, Total Protein 7.6, Globulin 3.9, Albumin/Globulin Ratio 0.9 03/23/21 04:50: WBC 8.6, RBC 3.92 L, Hgb 12.1, Hct 36.8 L, MCV 93.9, MCH 30.9, MCHC 32.9, RDW Std Deviation 42.6, RDW Coeff of Mike 12.4, Plt Count 472 H, MPV 9.7, Immature Gran % (Auto) 0.200, Neut % (Auto) 45.4 L, Lymph % (Auto) 39.4, [place] % (Auto) 12.3 H, Eos % (Auto) 2.1, Baso % (Auto) 0.6, Absolute Neuts (auto) 3.9, Absolute Lymphs (auto) 3.37, Nucleated RBC % 0 03/23/21 04:50: PT 12.8, INR 1.0, APTT 29.6 03/23/21 04:50: Sodium 139, Potassium 3.4 L, Chloride 105, Carbon Dioxide 26.0, Anion Gap 8, BUN 9, Creatinine 0.44 L, Estim Creat Clear Calc 104.85, Est GFR (MDRD) Af Amer 184, Est GFR (MDRD) Non-Af 152, BUN/Creatinine Ratio 20.3 H, Glucose 101, Calcium 8.8, Total Bilirubin 0.50, AST 13 L, ALT 13, Alkaline Phosphatase 88, Lactate Dehydrogenase 191, Troponin I High Sens 5, Total Protein 7.1, Albumin 3.4, Globulin 3.7, Albumin/Globulin Ratio 0.9, Triglycerides 117, Cholesterol 183, LDL Cholesterol 110, VLDL Cholesterol 23, HDL Cholesterol 50, TSH 4.89 H 03/23/21 06:36: Troponin I High Sens 5 03/23/21 10:23: Troponin I High Sens 5 03/23/21 : Fluid Source THORACENTESIS, Fluid Color RED, Fluid Appearance CLOUDY, Fluid WBC 1.099, Fluid RBC 0.037, Fluid Tot Cell Count 1.146 H, Fld Polynuclear WBCs # 0.050, Fld Polynuclear WBCs % 4.5, Fluid Mononuclear WBCs 1.049, Fld Mononuclear WBCs % 95.5, Fl Pathologist Comment May follow, Fluid Comment 2 SEE COMMENT Radiography Diagnostic Testing: Radiology Impression Chest X-Ray 03/22/21 23:40 IMPRESSION: Moderate layering right pleural effusion with adjacent atelectasis. Electronically Signed: Louie Bryan MD at 0:36 EDT Tel , Service support , Chest CTA 03/23/21 00:52 IMPRESSION: No pulmonary embolus. Several small bilateral pulmonary nodules most likely representing metastatic disease. Infectious or inflammatory etiology less likely. Mediastinal, bilateral hilar and axillary lymphadenopathy is new compared to the previous CT and is also most suspicious for metastatic disease. Moderate right pleural effusion, simple density, layering, with overlying atelectasis. Electronically Signed: Louie Bryan MD at 3:12 EDT Tel , Service support , Echocardiogram 03/23/21 04:32 Interpretation Summary Normal LV size. Left ventricular systolic function is normal. The estimated ejection fraction is 60 %. Stage 1 diastolic dysfunction. The global longitudinal strain is normal. The global longitudinal strain = -20.8 % (normal). Ordering Physician: Vicki Packer Referring Physician: Almas Flores Performed By: Jennifer Durham, ANSHU, RVT Thoracentesis Ultrasound 03/23/21 04:32 IMPRESSION: Ultrasound-guided right thoracentesis. Electronically Signed: Kiran Laurent MD at 14:12 EDT , Service support , Chest X-Ray 03/23/21 13:46 IMPRESSION: No evidence of pneumothorax following the right thoracentesis. Electronically Signed: Kiran Laurent MD at 14:07 EDT , Service support , Physical Exam Const alert, oriented x3 and no apparent distress Exam Limitations: no limitations HEENT head/scalp atraumatic and moist oral mucous membranes Head and Scalp: normocephalic Eyes PERRL, EOMs intact bilaterally and conjunctivae normal Neck no lymphadenopathy Resp normal respiratory effort Resp Narrative: diminished breath sounds bibasally, much more reduced on the right. No wheezing or crackles. On room air. Cardio regular rate, regular rhythm, S1 normal heart sound, S2 normal heart sound and no murmurs GI normal to inspection, nondistended, normoactive bowel sounds, soft to palpation, non-tender and non-distended Extremity normal to inspection, full ROM and no clubbing, cyanosis or edema Peripheral Pulses: Yes pulses 2+ throughout Skin no rashes or lesions noted Neuro oriented x3, CN's II-XII intact bilaterally and moves all extremities Sensorium / Orientation: awake and alert Psych affect normal Assessment & Plan Assessment/Plan (1) Pleural effusion on right: (2) History of left breast cancer: PLAN: #Right pleural effusion, likely malignant * has a history of left breast cancer, s/p partial mastectomy * CXR shwoed evidence of moderate right pleural effusion * for thoracentesis today * oxygen prn for shortness of breath * titrate oxygen to maintain sats >905 * breathing treatment with bronchodilators. * #Left breast cancer s/p partial mastectomy * oncology consulted. Is an ER/VT positive, HER 2 ne[address] cancer. * CT chest showed multiple lung nodules, likely due to metastatic spread * per oncology, to have PET scan on outpatient basis * scheduled to begin adjuvant chemo with taxotere/cytoxan on 04/04/21, with adjuvant radiation and endocrine therapy after. * #Hypertension: on propranolol #History of alcohol use disorder * not in withdrawal * started on alcohol withdrawal protocol on admission. * on thiamine, folic acid and multivite * #history of anxiety and depression: on flouxetine DVT prophylaxis; on SCDs Charges/Coding Visit Charges OBSV E&M: 29949 Subsequent observation care L2
[2021-03-23 15:12] LABS: Lymphocytes 76 %; Macrophages 13 %; Monocytes 4 %; Neutrophil (Segs) 3 %; Other Cell Type/BF 4 %
[2021-03-23 15:33] LABS: Cytology, Body Fluid / CSF SEE PATHOLOGY REPORT
--- NOTE | 2021-03-23 15:41 | CASEMGMT ---
This RN CM to room and pt is still on 2L nc. Pt states no preference for DME company if pt qualifies for home oxygen at discharge. Green sheet left on chart for home oxygen need. Pt voices no further questions/concerns/needs. SStaten RN CM
[2021-03-23 15:47] LABS: Glucose, Body Fluid 105 mg/dL (40-70); LDH,Body Fluid 344 Units/l (Not Establ.); Protein, Body Fluid 4.9 g/dL (Not Establ.)
[2021-03-23 15:50] LABS: Body Fluid QC Type(s) BF2Q
[2021-03-23] MEDS: MELATONIN 3 MG TABLET PO (20:01)
--- NOTE | 2021-03-23 20:02 | NURSING ---
Pt requesting to have meds early to go to sleep.
[2021-03-24 05:23] VITALS: BP 114/61; PULSE 84; RESP 16; TEMP 36.6; O2SAT 95
[2021-03-24] MEDS: oxyCODONE 5 MG Tablet PO (05:29)
[2021-03-24 05:41] VITALS: PULSE 77
[2021-03-24 07:00] VITALS: PULSE 72
[2021-03-24 07:46] VITALS: O2SAT 94
[2021-03-24 09:50] VITALS: BP 106/60; PULSE 71; RESP 14; TEMP 36.6; O2SAT 95
[2021-03-24] MEDS: Thiamine Hydrochloride 100 MG Tablet PO (09:54)
[2021-03-24] MEDS: Pantoprazole Sodium 40 MG Tablet PO (09:54)
[2021-03-24] MEDS: Folic Acid 1 MG Tablet PO (09:54)
[2021-03-24] MEDS: Multivitamins,Ther W-Minerals Tablet 1 TABLET PO (09:55)
[2021-03-24] MEDS: FLUoxetine 20 MG Capsule PO (09:55)
[2021-03-24] MEDS: Acetaminophen 325 MG Tablet 650 MG PO (10:04)
[2021-03-24 11:30] VITALS: O2SAT 94; O2SAT 96
--- NOTE | 2021-03-24 14:14 | DS.PCM_ITS ---
Providers Date of Admission: 03/23/21 Primary Care Physician: Dr. Almas Flores MD Consultations 03/23/21 04:32 Consult: Oncology/Hematology Routine Consulting Provider: Jeremy Aviles Reason for Consult: Exertional dyspnea-->CTPA w/ likely metastatic disease w/ R effusion EMERGENT Consult: No MD Notified: Yes Date Notified: 03/23/21 Time Notified: 03:21 Method of Notification: Verbal Comments:: Yumiko Salima notified. will see patient after lunch Reason For Visit: CHEST PAIN, R SIDED PLEURAL EFFUSION Diagnosis Discharge Diagnosis (1) Pleural effusion on right: Status: Acute Code(s): J90 - Pleural effusion, not elsewhere classified (2) History of left breast cancer: Status: Acute Code(s): Z85.3 - Personal history of malignant neoplasm of breast Medications at Discharge Home Medications propranolol 80 mg capsule,24 hr,extended release 80 mg PO QHS 11/25/17 fluoxetine 20 mg capsule 20 mg PO DAILY cap 01/11/21 naproxen 500 mg tablet 500 mg PO BID PRN 01/11/21 omeprazole 40 mg capsule,delayed release 40 mg PO DAILY 01/11/21 ascorbic acid (vitamin C) [Vitamin C] 500 mg PO DAILY 01/25/21 magnesium 500 mg PO DAILY 03/22/21 Hospital Course Operations None Procedures Thoracentesis Summary of Care Provided Minutes Spent on Discharge: 45 Hospital Course: Patient is a 61 y/o patient with a PMH as outlined including recently diagnosed breast cancer, s/p partial left mastectomy and planned for ch emotherapy and radiation in March 2021 who was admitted via the ED on 03/22/2021 with with a complaint of shortness of breath which was worse with exertion and by lying down flat. She denied any pain or swelling in her legs, any nausea, vomiting, fever or chills. Imaging done showed a moderate right pleural effusion, with several small bilateral pulmonary nodules, likely representing metastatic disease, as well as new mediastinal, bilateral hilar and axillary lymphadenopathy. She was admitted and managed for shortness of breath likely due to pleural effusion, likely malignant. General surgery was consulted as she was due to have a port placed by general surgery next week. Oncology was also consulted and she had thoracentesis on 03/23/2021 with drainage of 1.1L of blood tinged fluid. Fluid analysis per Light's criteria showed evidence of an exudative effusion. Cytology of the fluid sample was pending at time of review. Patient remained stable after procedure, and was discharged home on 03/24/2021. She is to follow up with her PCP, general surgery and oncology within one week. Cytology results of pleural fluid is still pending, and will be discussed with patient on outpatient basis. Patient seen and examined. She felt well and had no complaints. Review of systems is otherwise negative. Labs and vitals reviewed. Home meds reviewed and reconciled. Physical Exam Const alert, oriented x3 and no apparent distress General Appearance: cooperative and comfortable Exam Limitations: no limitations HEENT normocephalic, head/scalp atraumatic and moist oral mucous membranes Eyes PERRL, EOMs intact bilaterally, conjunctivae normal and no scleral icterus Neck no lymphadenopathy Resp normal respiratory effort, normal air movement and clear to auscultation bilaterally Resp Narrative: diminished breath sounds bibasally, no wheezes or crackles. Effort and Inspection: symmetric chest movement and tachypneic Cardio regular rate, regular rhythm, S1 normal heart sound, S2 normal heart sound and no murmurs GI normal to inspection, nondistended, normoactive bowel sounds, soft to palpation, non-tender and non-distended Extremity normal to inspection, full ROM, normal capillary refill and no clubbing, cyanosis or edema General Extremity: no tenderness to palpation of joints or extremities Skin no rashes or lesions noted General Skin Exam: no breakdown and turgor normal Lesions: no lesions Rashes: no rashes Neuro oriented x3, CN's II-XII intact bilaterally, moves all extremities, no focal motor deficits and no sensory deficits noted Sensorium / Orientation: awake and alert Speech: speech normal Motor Exam: Negative for general weakness Psych thought process normal, cooperative and affect normal Appearance: appropriate Weight / BMI Weight Weight: 154 lb 9.6 oz Body Mass Index (BMI) 28.3 ABG / Lab / Microbiology Data Result Diagrams: 03/23/21 04:50 03/23/21 04:50 Laboratory: Laboratory Results - last 24 hr 03/23/21 : Fluid Glucose 105 H, Fluid Total Protein 4.9, Fluid LDH 344 03/23/21 : Fluid Source THORACENTESIS, Fluid Color RED, Fluid Appearance CLOUDY, Fluid WBC 1.099, Fluid RBC 0.037, Fluid Tot Cell Count 1.146 H, Fld Polynuclear WBCs # 0.050, Fld Polynuclear WBCs % 4.5, Fluid Mononuclear WBCs 1.049, Fld Mononuclear WBCs % 95.5, Fluid Neutrophils 3, Fluid Lymphocytes 76, Fluid Monocytes 4, Fluid Macrophages 13, Fluid Other Cells 4, Fl Pathologist Comment May follow, Fluid Comment 2 SEE COMMENT Microbiology: Microbiology 03/23/21 Unknown Fluid - Thoracentesis Fluid Gram Stain - Preliminary 03/23/21 Unknown Fluid - Thoracentesis Fluid Body Fluid Culture - Preliminary No growth-Final to follow D/C Instructions Discharge Diet: Low fat / Low cholesterol Discharge Activity: Return to Normal Activity Call your doctor if you observe: Fever of 101 or Higher, Shortness of breath, Dizziness, Swelling in the ankles, Chest pain and Increased palpitations (irregular heartbeat) Meaningful Use Info Meaningful Use Diagnoses (Choose all that apply): None applicable Discharge Plan Admission Admit Date/Time: 03/23/21 02:45 Primary Reason for Your Visit: right pleural effusion, likely malignant Attending Provider: Anita Dela Cruz Primary Care Provider: Almas Flores Consulting Providers: Jeremy Aviles Instructions Patient Instructions: Chest Lung Problems Dx, Thoracentesis Dc Discharge Orders/Prescriptions Prescriptions: Continued propranolol [Inderal LA] 80 mg capsule,extended release 24 hr 80 mg PO QHS RF: 0 fluoxetine 20 mg capsule 20 mg PO DAILY RF: 0 naproxen 500 mg tablet 500 mg PO BID PRN (Reason: Pain) RF: 0 omeprazole 40 mg capsule,delayed release(DR/EC) 40 mg PO DAILY RF: 0 ascorbic acid (vitamin C) [Vitamin C] 500 mg Tablet,Chewable 500 mg PO DAILY RF: 0 magnesium 500 mg Tablet 500 mg PO DAILY RF: 0 Referrals / Follow Up: Chuck Anglin MD [STAFF PHYSICIAN] - Within 1 Week Jeremy Aviles MD [STAFF PHYSICIAN] - Within 1 Week Almas Flores MD [Primary Care Provider] - Within 2 Weeks Disposition Disposition (needs filled in before D/C Order can be placed): Home, Self Care Charges/Coding Visit Charges Inpatient E&M: 86735 Disch Hosp
[2021-03-26 17:34] LABS: pH, Body Fluid 11254 7.2 (Not Estab.)
[2021-03-27 12:31] LABS: Pathologist Comment/Body Fluid Reviewed
== END 2021-03-24 11:09 | disposition home or self-care (01) ==
LOC: ED 03-23 02:28 → PCU 03-23 02:49
PROVIDERS: Admitting Provider Family Medicine; Emergency Provider Emergency Medicine; PCP Family Medicine; Visit Provider Student in an Organized Health Care Education/Training Program
DX: J90 Pleural effusion, not elsewhere classified (principal); C50.112 Malignant neoplasm of central portion of left female breast; K21.9 Gastro-esophageal reflux disease without esophagitis; I10 Essential (primary) hypertension; Z79.899 Other long term (current) drug therapy; F41.0 Panic disorder [episodic paroxysmal anxiety]; F32.9 Major depressive disorder, single episode, unspecified; Z17.0 Estrogen receptor positive status [ER+]
CPT/HCPCS: 32555; 36415; 71045; 71046; 71275; 80048; 80053; 80061; 82945; 83605; 83615; 83735; 83880; 83986; 84156; 84157; 84443; 84484; 85025; 85379; 85610; 85730; 87070; 87075; 87205; 88108; 88305; 88313; 88341; 88342; 89050; 93005; 93306; 93356; 96360; 96361; 99218; 99251; 99284; J7030; Q9967; G0378; G0463

== ENCOUNTER → 2021-04-24 07:51 | Outpatient (CLI) | payer MEDICAID, SELFPAY ==
--- NOTE | 2021-04-24 08:06 | EKG12_ITS ---
Test Reason : HIGH RISK MEDS Blood Pressure : / mmHG Vent. Rate : 069 BPM Atrial Rate : 069 BPM P-R Int : 160 ms QRS Dur : 082 ms QT Int : 392 ms P-R-T Axes : 051 006 041 degrees QTc Int : 420 ms Normal sinus rhythm Normal ECG Confirmed by JYOTI LAROSE, ROBERTO CARLOS ([id number]), editor producer IVETH HURLEY ([id number]) on 04/25/2021 1:05:35 PM Referred By: Jeremy Aviles Confirmed By:ROBERTO CARLOS MONTES MD
--- NOTE | 2021-04-24 08:06 | NM_ITS ---
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 WHOLE BODY 99m Tc MDP RADIONUCLIDE BONE SCINTIGRAPHY COMPARISON: FDG PET/CT report 04/10/2021 FINDINGS: Following the intravenous administration of 24.1 mCi of 99m Tc MDP, whole body bone images reveal: 1. Increased radiopharmaceutical concentration is identified in the acromioclavicular, sternoclavicular and glenohumeral compartments of both shoulders, lower cervical spine posteriorly on the left and right, the eighth, 10th thoracic vertebra posteriorly on the right, 12th thoracic vertebra posteriorly on the left and right, third lumbar vertebra posteriorly on the left and right, the right and to lesser extent left knee articulations, right midfoot. 2. Facilitated uptake is visualized in the left mid femoral and tibial diaphysis. 3. The remaining skeletal structures are scintigraphically unremarkable with normal-appearing renal images and urinary bladder activity identified. NM/Bone Scan Whole Body IMPRESSION: 1. The increase in tracer uptake identified in the left mid femoral and tibial diaphysis may be further investigated with plain film radiography in the setting of known breast carcinoma. 2. Degenerative arthritis appears expressed in the bilateral shoulders, cervical and thoracic, lumbar spine, bilateral knees and right midfoot. 3. There is no definitive typical scintigraphic evidence of diffuse axial skeletal metastatic disease on the current examination. Electronically Signed: Augusto Mcdermott DO at 22:21 EDT Tel , Service support ,
== END ==
PROVIDERS: PCP Family Medicine; Referring Provider Internal Medicine Hematology & Oncology; Visit Provider Internal Medicine Hematology & Oncology
DX: C50.112 Malignant neoplasm of central portion of left female breast (principal); Z17.0 Estrogen receptor positive status [ER+]; C78.00 Secondary malignant neoplasm of unspecified lung; M89.9 Disorder of bone, unspecified; Z79.899 Other long term (current) drug therapy
CPT/HCPCS: 78306; 93005; A9503

== ENCOUNTER → 2021-05-08 14:06 | Outpatient (CLI) | payer MEDICAID, SELFPAY ==
--- NOTE | 2021-05-08 14:11 | RAD_ITS ---
EXAM: XR LEFT TIBIA AND FIBULA, 2 VIEWS CLINICAL INDICATION: ABNORMAL BONE SCAN TECHNIQUE: Frontal and lateral views of the left tibia and fibula. This report was created using [employer] report generation technology. COMPARISON: None. FINDINGS: BONES/JOINTS: Unremarkable. No acute fracture. No subluxation. Normal alignment. Preservation of the joint space. No sclerotic or destructive changes observed. SOFT TISSUES: Unremarkable. No soft tissue swelling or gas. No radiopaque foreign body. RAD/Tibia & Fibula 2 Views IMPRESSION: Negative left tibia and fibula x-rays. Electronically Signed: Luis Mcdermott MD at 18:45 EDT , Service support ,
--- NOTE | 2021-05-08 14:11 | RAD_ITS ---
EXAM: XR LEFT FEMUR, 2 VIEWS CLINICAL INDICATION: ABNORMAL BONE SCAN TECHNIQUE: Frontal and lateral views of the left femur. This report was created using [employer] report generation technology. COMPARISON: None. FINDINGS: BONES/JOINTS: Unremarkable. No acute fracture. No subluxation. Normal alignment. Preservation of the joint space. No sclerotic or destructive changes observed. SOFT TISSUES: Unremarkable. No soft tissue swelling or gas. No radiopaque foreign body. RAD/Femur Min 2 Views IMPRESSION: Negative left femur x-rays. Electronically Signed: Luis Mcdermott MD at 18:44 EDT , Service support ,
== END ==
PROVIDERS: PCP Family Medicine; Referring Provider Internal Medicine Hematology & Oncology; Visit Provider Internal Medicine Hematology & Oncology
DX: C50.112 Malignant neoplasm of central portion of left female breast (principal); C78.00 Secondary malignant neoplasm of unspecified lung; Z17.0 Estrogen receptor positive status [ER+]; M89.9 Disorder of bone, unspecified
CPT/HCPCS: 36415; 73552; 73590; 80053; 85025; 86300

== ENCOUNTER 2021-05-21 18:05 | Emergency (ER) | payer MEDICAID, SELFPAY ==
[2021-05-21 18:05] VITALS: BP 109/81; PULSE 94; RESP 16; TEMP 36.9; O2SAT 95; BMI 27.6
--- NOTE | 2021-05-21 18:22 | EDS_ITS ---
HPI History of Present Illness Chief Complaint: Nausea/Vomiting/Diarrhea Detail of Chief Complaint: Nausea, vomiting and diarrhea Onset/Context/Timing Onset: Days (Onset Friday, May 19) Context: Sudden Onset Timing: Intermittent Quality: Mild abdominal pain Location: Diffuse Current Severity: Mild Maximum Severity: Moderate Worsened by: Vomiting and diarrhea Relieved by: Nothing Associated Symptoms Associated Symptoms: Thirst, dry mouth, orthostatic symptoms Narrative Narrative: Patient is a 61-year-old woman with history of stage IV breast cancer, thrombocytopenia, obstructive sleep apnea and hypertension who presents because of nausea, vomiting diarrhea that started this past weekend. She has taken Imodium and antiemetics she was given for her chemo meds. She reports no improvement. She states if she stands up quickly she feels like she is going to pass out. She denies fever but does complain of chills. She does report myalgias without arthralgias. She has not noted a rash. She has not noted blood or mucus in her stool. She presently does not have abdominal pain. She did take an Imodium capsule prior to coming to the emergency department. She states she has been vaccinated for the Covid virus. She received her booster shot last month. Prior similar symptoms: No Recent Illness/Hospitalization: No PFSH [facility] Medical History Alcohol use Anxiety Back pain Blackout Breast cancer (~12/2020) Cancer of central portion of left breast Cardiac murmur Depression Encounter for education Gastric reflux History of edema History of left breast cancer History of pain when walking History of stress test Hx of echocardiogram Hypertension Leg cramps Lung metastases Migraine headache Non-smoker Osteoporosis Panic disorder Pleural effusion, malignant Post-menopausal Thrombocytosis Wears glasses Home Medications propranolol 80 mg capsule,24 hr,extended release 80 mg PO QHS 11/25/17 [History Last Taken Unknown] fluoxetine 20 mg capsule 20 mg PO DAILY cap 01/11/21 [History Last Taken Unknown] omeprazole 40 mg capsule,delayed release 40 mg PO DAILY 01/11/21 [History Last Taken Unknown] magnesium 500 mg PO DAILY 03/22/21 [History Last Taken Unknown] cholecalciferol (vitamin D3) 10 mcg (400 unit) capsule 10 mcg PO DAILY 04/23/21 [History Last Taken Unknown] letrozole 2.5 mg tablet 2.5 mg PO DAILY #30 tab 05/07/21 [Rx Last Taken Unknown] ondansetron HCl 8 mg PO Q8H PRN PRN #60 tab 05/08/21 [Rx Last Taken Unknown] ribociclib [Kisqali] 600 mg PO DAILY 05/21/21 [History Last Taken Unknown] Allergy/AdvReac Type Severity Reaction Status Date / Time No Known Allergies Allergy Verified 05/21/21 18:08 Family History Father Brain tumor Mother Alzheimers disease Breast cancer Brother Lung cancer Surgical History History of esophagogastroduodenoscopy (EGD) History of sinus surgery S/P lumpectomy, left breast Social History household members: none housing: house pets and animals: Yes pets and animals: dog(s) and guinea pig(s) Smoking Status: Never smoker second hand exposure: No alcohol intake: current Alcohol type: wine details: wine 2-3 drinks per night substance use type: does not use lizzie/scientologist: None seatbelt use: always do you feel safe at home: Yes ROS ROS ED Constitutional Constitutional ED: Reports chills and sweats; Denies fever(s), subjective or weight loss Eyes Eyes: Denies blurry vision, change in vision or diplopia ENT ENT ED: Denies ear pain, rhinorrhea or sore throat Cardiovascular Cardiovascular: Denies chest pain, orthopnea, palpitations or paroxysmal nocturnal dyspnea Respiratory/Chest Respiratory/Chest: Denies cough, dyspnea, dyspnea on exertion, orthopnea, paroxysmal nocturnal dyspnea or sputum Gastrointestinal Gastrointestinal: Reports abdominal pain, diarrhea, nausea and vomiting; Denies constipation or melena Genitourinary Genitourinary ED: Denies dysuria, hematuria or urinary frequency Musculoskeletal Musculoskeletal: Reports myalgias; Denies arthralgias, back pain or neck pain Integumentary Denies rash Neurologic Neurologic: Reports weakness; Denies headache(s) or paresthesias Endocrine Endocrinology: Denies polydipsia, polyphagia or polyuria EXAM Physical Exam Const Vital Signs: 05/21/21 18:05 Temperature 98.5 F Temperature Source Temporal Pulse Rate 94 Respiratory Rate 16 Blood Pressure 109/81 H Blood Pressure Mean 90 Pulse Ox 95 Oxygen Delivery Method Room Air Positive well nourished and well developed General Appearance ED: well developed; Negative for cyanotic or diaphoretic HEENT Reports TM's clear and dry mucous membranes HEENT Narrative: Nares patent. Posterior pharynx out erythema or exudate. Negative for trauma or tenderness Tympanic Membrane ED: Yes TM's clear Mouth ED: Yes dry mucous membranes Mouth: dry mucous membranes Eyes PERRL and EOMs intact bilaterally General Eye ED: Negative for pale conjunctiva or scleral icterus Neck no lymphadenopathy, supple and no JVD General: Negative for tenderness Chest Wall inspection of chest normal Resp normal respiratory effort and clear to auscultation bilaterally Cardio regular rate, regular rhythm, S1 normal heart sound, S2 normal heart sound and no murmurs GI normal to inspection, nondistended, normoactive bowel sounds, non-tender and non-distended Palpation: soft Back/Spine no CVA tenderness Extremity normal to inspection General Extremety ED: Negative for edema or tenderness General Extremity: Negative for edema Neuro oriented x3, CN's II-XII intact bilaterally and no sensory deficits noted Sensorium / Orientation: alert Psych mental status grossly normal Skin no rashes or lesions noted and no wounds MDM MDM MDM Narrative Medical decision making narrative: Clinically patient is dehydrated. 1 L of normal saline was ordered as well as Zofran. Basic metabolic panel was obtained to assess electrolytes and specifically potassium, renal function and anion gap. CBC to evaluate for anemia and neutropenia. Patient is neutropenic. Absolute neutrophil count is greater than 2000. Patient still feels miserable. 10 of Reglan and 6 of morphine was ordered at 0. Patient was reassessed at 2144. She still complains of abdominal discomfort. Patient was informed her tests are unremarkable. Since she has had no vomiting or no diarrhea here and her laboratory tests are not significantly abnormal plan is to discharge to home. She was offered medicine for abdominal spasms, which she declined. Lab Data Attestation: I reviewed the patient's lab results. Lab results narrative: Patient is neutropenic. She also has mild anemia. Platelet count is normal. Basic metabolic panels marked for sodium of 134 potassium of 3.3 which lower parameter of normal. Glucose is slightly elevated 131. Labs: Laboratory Results - last 24 hr 05/21/21 05/21/21 18:40 18:40 WBC 3.3 L RBC 3.74 L Hgb 11.3 L Hct 33.7 L MCV 90.1 MCH 30.2 MCHC 33.5 RDW Std Deviation 43.0 RDW Coeff of Mike 13.2 Plt Count 385 MPV 9.2 Immature Gran % (Auto) 1.500 H Neut % (Auto) 79.5 H Lymph % (Auto) 11.9 L [place] % (Auto) 3.4 Eos % (Auto) 3.7 Baso % (Auto) 0.0 Absolute Neuts (auto) 2.6 Absolute Lymphs (auto) 0.39 L Nucleated RBC % 0 Differential Comment SCANNED Diff Path Review May foll Sodium 134 L Potassium 3.3 L Chloride 101 Carbon Dioxide 24.0 Anion Gap 9 BUN 13 Creatinine 0.70 Estim Creat Clear Calc 68.93 Est GFR (MDRD) Af Amer 110 Est GFR (MDRD) Non-Af 91 BUN/Creatinine Ratio 18.7 Glucose 131 H Calcium 8.6 Discharge Plan Triage Chief Complaint: Nausea/Vomiting/Diarrhea ED Provider: Zechariah Ridley Dx/Rx/DC Orders Clinical Impression: Combined abdominal pain, vomiting, and diarrhea, Fatigue Instructions: ED Diet for Vomiting or ... Prescriptions: No Action propranolol [Inderal LA] 80 mg capsule,extended release 24 hr 80 mg PO QHS RF: 0 fluoxetine 20 mg capsule 20 mg PO DAILY RF: 0 omeprazole 40 mg capsule,delayed release(DR/EC) 40 mg PO DAILY RF: 0 cholecalciferol (vitamin D3) 10 mcg (400 unit) capsule 10 mcg PO DAILY RF: 0 ondansetron HCl 8 MG tablet 8 mg PO Q8H PRN PRN (Reason: Nausea And Vomiting) Qty: 60 RF: 6 magnesium 500 mg Tablet 500 mg PO DAILY RF: 0 Kisqali 600 mg/day (200 mg x 3) tablet 600 mg PO DAILY RF: 0 letrozole [Femara] 2.5 mg tablet 2.5 mg PO DAILY Qty: 30 RF: 4 Primary Care Provider: Almas Flores Referrals: Almas Flores MD [Primary Care Provider] - 3-5 Days if not improving Disposition Disposition: Home, Self Care
[2021-05-21] MEDS: Ondansetron 4 MG/2 ML Vial IV (18:42)
[2021-05-21 18:57] LABS: Absolute Lymphocyte Count 0.39 X10^3/uL (0.83-4.51); Absolute Neutrophil Count 2.6 X10^3/uL (2.0-7.7); Eosinophil# 0.12 X10^3/uL; Eosinophils% 3.7 % (0-5); Hematocrit 33.7 % (37-47); Hemoglobin 11.3 g/dL (12.0-15.0); Lymphocyte # 0.39 X10^3/ul (0.83-4.51); Lymphocyte % 11.9 % (19-41); Mean Corp Hgb Conc 33.5 g/dL (32-36); Mean Corpuscular Hgb 30.2 pg (27.0-32.0); Mean Corpuscular Volume 90.1 fL (81-99); Mean Platelet Vol. 9.2 fl (6.2-12.0); Monocyte# 0.11 X10^3/uL; Monocyte% 3.4 % (0-10); NRBC Flagged by Analyzer 0 % (0-5); Neutrophil # 2.61 X10^3/uL (2.7-7.7); Neutrophil % 79.5 % (47-70); POSITIVE DIFFERENTIAL YES; POSITIVE MORPHOLOGY YES; Platelet Count 385 K/mm3 (150-450); RBC Distribution Width CV 13.2 % (11.6-14.6); Red Blood Count 3.74 M/mm3 (4.2-5.4); White Blood Count 3.3 K/mm3 (4.4-11.0)
[2021-05-21 19:09] LABS: Anion Gap 9 (5-15); BUN 13 mg/dL (7-18); BUN/Creat Ratio 18.7 RATIO (10-20); Calcium,Total 8.6 mg/dL (8.5-10.1); Chloride 101 mmol/L (98-107); EST Glomerular Filtration Rate 91 mL/min (>60); Est Glom Filt Rate - Afr Amer 110 mL/min (>60); Estimated Creatinine Clearance 68.93 ml/min; Glucose 131 mg/dL (74-106); Potassium 3.3 mmol/L (3.5-5.1); Sodium Level 134 mmol/L (136-145)
[2021-05-21 19:25] LABS: Differential Comment SCANNED; Differential Indicated SCAN CRITERIA MET
[2021-05-21] MEDS: morphine 8 MG/ML Syringe 6 MG IV (21:25)
[2021-05-21] MEDS: Metoclopramide 10 MG/2 ML Vial IV (21:30)
[2021-05-21 22:05] VITALS: BP 107/74; PULSE 72; RESP 16; O2SAT 96
[2021-05-22 13:30] LABS: Pathologist Review Reviewed
== END 2021-05-21 22:07 | disposition home or self-care (01) ==
PROVIDERS: Emergency Provider Emergency Medicine; PCP Family Medicine
DX: R11.2 Nausea with vomiting, unspecified (principal); R10.9 Unspecified abdominal pain; R53.83 Other fatigue; R19.7 Diarrhea, unspecified; D70.9 Neutropenia, unspecified; D64.9 Anemia, unspecified; C50.112 Malignant neoplasm of central portion of left female breast; I10 Essential (primary) hypertension; K21.9 Gastro-esophageal reflux disease without esophagitis; G47.33 Obstructive sleep apnea (adult) (pediatric); M81.0 Age-related osteoporosis without current pathological fracture; F41.0 Panic disorder [episodic paroxysmal anxiety]; F32.A Depression, unspecified; F41.9 Anxiety disorder, unspecified; Z79.899 Other long term (current) drug therapy; Z85.3 Personal history of malignant neoplasm of breast
CPT/HCPCS: 80048; 85025; 96361; 96374; 96375; 99283; J7040; A4216; J2405

== ENCOUNTER → 2021-05-29 16:21 | Outpatient (CLI) | payer MEDICAID, SELFPAY ==
--- NOTE | 2021-05-29 16:24 | EKG12_ITS ---
Test Reason : MED CHECK UP Blood Pressure : / mmHG Vent. Rate : 058 BPM Atrial Rate : 058 BPM P-R Int : 138 ms QRS Dur : 084 ms QT Int : 450 ms P-R-T Axes : 028 -08 012 degrees QTc Int : 441 ms Sinus bradycardia Incomplete right bundle branch block Confirmed by JYOTI LAROSE, ROBERTO CARLOS ([id number]), managing editor IVETH HURLEY ([id number]) on 05/30/2021 8:52:10 AM Referred By: Jeremy Aviles Confirmed By:ROBERTO CARLOS MONTES MD
== END ==
PROVIDERS: PCP Family Medicine; Referring Provider Internal Medicine Hematology & Oncology; Visit Provider Internal Medicine Hematology & Oncology
DX: C50.112 Malignant neoplasm of central portion of left female breast (principal); C78.00 Secondary malignant neoplasm of unspecified lung; Z17.0 Estrogen receptor positive status [ER+]; Z79.899 Other long term (current) drug therapy
CPT/HCPCS: 36415; 80053; 85025; 86300; 93005; 96372; J0897

== ENCOUNTER → 2021-06-26 10:56 | Outpatient (CLI) | payer MEDICAID, SELFPAY ==
--- NOTE | 2021-06-26 10:58 | EKG12_ITS ---
Test Reason : Blood Pressure : / mmHG Vent. Rate : 064 BPM Atrial Rate : 064 BPM P-R Int : 134 ms QRS Dur : 080 ms QT Int : 410 ms P-R-T Axes : 037 014 036 degrees QTc Int : 422 ms Normal sinus rhythm Normal ECG Confirmed by JYOTI LAROSE, ROBERTO CARLOS ([id number]), non linear editor IVETH HURLEY ([id number]) on 06/27/2021 8:39:22 AM Referred By: Adele Borrego Confirmed By:ROBERTO CARLOS MONTES MD
== END ==
PROVIDERS: PCP Family Medicine; Referring Provider Nurse Practitioner Family; Visit Provider Nurse Practitioner Family
DX: C50.112 Malignant neoplasm of central portion of left female breast (principal); Z51.81 Encounter for therapeutic drug level monitoring; Z79.899 Other long term (current) drug therapy; C78.00 Secondary malignant neoplasm of unspecified lung
CPT/HCPCS: 36415; 80053; 83735; 85025; 86300; 93005

== ENCOUNTER 2021-09-26 12:25 | Outpatient (CLI) | payer MEDICAID, SELFPAY ==
--- NOTE | 2021-09-26 12:31 | EKG12_ITS ---
Test Reason : ROUTINE Blood Pressure : / mmHG Vent. Rate : 058 BPM Atrial Rate : 058 BPM P-R Int : 148 ms QRS Dur : 082 ms QT Int : 428 ms P-R-T Axes : 044 021 044 degrees QTc Int : 420 ms Sinus bradycardia Otherwise normal ECG Confirmed by NATHALIA LAROSE, MOISES ([id number]), field map editor IVETH HURLEY ([id number]) on 09/27/2021 1:42:11 PM Referred By: Adele Borrego Confirmed By:MOISES SLOAN MD
== END 2021-09-26 23:59 | disposition home or self-care (01) ==
PROVIDERS: PCP Family Medicine; Referring Provider Nurse Practitioner Family; Visit Provider Nurse Practitioner Family
DX: R00.2 Palpitations (principal); R07.9 Chest pain, unspecified
CPT/HCPCS: 93005

== ENCOUNTER 2021-10-15 13:45 | Outpatient (CLI) | payer MEDICAID, SELFPAY ==
--- NOTE | 2021-10-15 13:56 | ECHODONC_ITS ---
Version 2 Reason For Study: PALPITATIONS Procedure This was a 2D Doppler, Color Flow transthoracic echocardiogram. Myocardial strain analysis was performed in this exam to aid in the assessment of cardiac function. Exam performed in department. Left Ventricle Normal LV size. Left ventricular systolic function is normal. The estimated ejection fraction is 65 %. Stage 1 diastolic dysfunction. No regional wall motion abnormalities noted. Right Ventricle Normal RV size. Normal systolic function. Atria Normal left atrium. Normal right atrium. Mitral Valve Normal mitral valve. Tricuspid Valve Normal tricuspid valve. Mild (1+) tricuspid valve insufficiency. Pulmonary artery systolic pressure is 30 mmHg. Aortic Valve Trisinus/trileaflet aortic valve. Pulmonic Valve Normal pulmonic valve. Great Vessels Normal aortic root. The pulmonary artery is normal size. Normal inferior vena cava. Pericardium/Pleural Small pericardial effusion. MMode/2D Measurements & Calculations LVIDd: 4.4 cm IVSd: 0.89 cm Ao root diam: 3.0 cm LVIDs: 2.9 cm LVPWd: 0.78 cm RVDd: 3.4 cm FS: 34.6 % LAV(MOD-bp): 42.0 ml LVAd ap4: 26.8 cm2 SV(MOD-sp4): 53.6 ml LAV(MOD-bp) Indexed: 24.1 ml/m2 LVLd ap4: 7.7 cm LAV(MOD-sp2): 42.2 ml EDV(MOD-sp4): 77.3 ml LAV(MOD-sp4): 41.1 ml EDV(sp4-el): 79.5 ml LVAs ap4: 12.9 cm2 LVLs ap4: 6.0 cm ESV(MOD-sp4): 23.7 ml ESV(sp4-el): 23.3 ml EF(MOD-sp4): 69.3 % EF(sp4-el): 70.7 % SV(sp4-el): 56.2 ml LA A4 area: 17.0 cm2 LA dimension(2D): 3.5 cm RA A4 area: 14.8 cm2 Time Measurements MV dec time: 0.24 sec Doppler Measurements & Calculations MV E max cosme: 93.4 cm/sec Lat Peak E' Cosme: 11.2 cm/sec Med Peak E' Cosme: 11.4 cm/sec MV A max cosme: 93.9 cm/sec E/E' lat: 8.3 E/E' med: 8.2 MV E/A: 0.99 Ao V2 max: 179.5 cm/sec LV V1 max: 171.0 cm/sec PA V2 max: 113.4 cm/sec Ao max P.9 mmHg LV V1 max P.7 mmHg TR max cosme: 256.6 cm/sec TR max P.3 mmHg ECHO/ONC Echo Complete Interpretation Summary Normal LV size. Left ventricular systolic function is normal. The estimated ejection fraction is 65 %. Stage 1 diastolic dysfunction. Small pericardial effusion. The global longitudinal strain is normal. The global longitudinal strain = -23. 9 % (normal). Ordering Physician: Adele Borrego Referring Physician: ROBERTO CARLOS WILKES Performed By: Mayelin Burnett RDCS
== END 2021-10-15 23:59 | disposition home or self-care (01) ==
LOC: CVS 13:47
PROVIDERS: PCP Family Medicine; Referring Provider Nurse Practitioner Family; Visit Provider Nurse Practitioner Family
DX: R00.2 Palpitations (principal)
CPT/HCPCS: 93306; 93356

== ENCOUNTER → 2021-12-14 | Outpatient (CLI) | payer MEDICAID, SELFPAY ==
--- NOTE | 2021-12-14 13:32 | CT_ITS ---
STUDY: CT CHEST, ABDOMEN T PELVIS WITH CONTRAST REASON FOR EXAM: Female, 61 years old. F/U BREAST CANCER RADIATION DOSAGE (If Supplied By Facility): CTDIvol = ( 14.16 ) mGy, DLP = ( 1006.58 ) mGycm TECHNIQUE: Transaxial imaging was performed following intravenous administration of IV 75mL Isovu e-300. Multiplanar coronal and sagittal images were reformatted. Individualized dose optimization techniques were used for this CT. COMPARISON: No relevant priors. FINDINGS: CHEST Biopsy clip is seen in the midportion of the left breast were there is evidence of a soft tissue density. Azygos lobe. This is a normal variant. There is a 1.3 cm noncalcified nodule in the anterior medial aspect of the right middle lobe. Small right pleural effusion with right basilar infiltrate. Follow-up is recommended. There are calcifications of the coronary arteries. Mildly enlarged right paratracheal lymph nodes. Enlargement of the right hilar lymph node measuring 1.7 cm. Normal unenhanced pulmonary arteries. Normal aorta arch and descending thoracic aorta. There are multi-level degenerative changes of the thoracic spine. There is no demonstrated abnormality of the visualized upper abdomen. ABDOMEN Normal liver. Normal gallbladder and extrahepatic biliary system. Normal spleen. Normal pancreas. Normal bilateral adrenal glands. Normal right kidney. Normal left kidney. Normal visualized stomach. Normal small intestine. There are multiple colonic diverticula consistent with diverticulosis. The appendix is visualized and appears normal. There is diffuse atherosclerotic calcification of the abdominal aorta, without a demonstrated aneurysm. Normal inferior vena cava. Normal retroperitoneum. There is a small umbilical hernia containing fat. Approximately 50% loss of height of the superior endplate of the T11 and L1 vertebrae. PELVIS Normal urinary bladder. There is no pelvic fluid. There is no pelvic lymphadenopathy or mass lesion. Normal visualized pelvic arteries. CT/CT Chest, Abd, Pel w/Contrast IMPRESSION: Surgical clip is seen in the left mid breast. 1.3 cm noncalcified nodule in the anterior medial aspect of the right middle lobe. Small right pleural effusion with right basilar infiltrate. Mild enlargement of the right paratracheal lymph nodes as well as a right hilar lymph node. Loss of height of the T11 and L1 vertebrae. Electronically Signed: Kiran Laurent MD at 15:11 EDT ,
== END | disposition home or self-care (01) ==
LOC: CT 13:30
PROVIDERS: PCP Family Medicine; Visit Provider Internal Medicine Hematology & Oncology
DX: C50.919 Malignant neoplasm of unspecified site of unspecified female breast (principal)
CPT/HCPCS: 71260; 74177; Q9967

== ENCOUNTER 2021-12-19 09:51 | Outpatient (CLI) | payer MEDICAID, SELFPAY ==
--- NOTE | 2021-12-19 09:53 | NM_ITS ---
CLINICAL: Female, 61 years old. F/U BREAST CANCER, LUNG CANCER, BONE METS -- PAIN RIGHT KNEE AND UPPER BACK WHOLE BODY NUCLEAR BONE SCAN TECHNIQUE: Following the IV administration of 24.6 mCi of Tc MDP, whole body bone imaging was performed with a gamma camera following a three hour delay. COMPARISON STUDIES : NM - 04/24/2021 CR - Not available for review at this time. CT - Not available for review at this time. MR - Not available for review at this time. US - Not available for review at this time. FINDINGS: There is a normal concentration of radiopharmaceutical throughout the axial and appendicular skeletal system without either a focal decrease or increase in uptake. There is no change in the increased uptake within the right knee joint consistent with arthrosis. Normal excretion of [employer] by the kidneys into the bladder. NM/Bone Scan Whole Body IMPRESSION: No scintigraphic evidence of metastatic disease. Electronically Signed: Augusto Land MD at 9:12 EDT ,
--- NOTE | 2021-12-19 16:16 | EKG12_ITS ---
Test Reason : Blood Pressure : / mmHG Vent. Rate : 071 BPM Atrial Rate : 071 BPM P-R Int : 140 ms QRS Dur : 074 ms QT Int : 402 ms P-R-T Axes : 041 023 047 degrees QTc Int : 436 ms Normal sinus rhythm Normal ECG Confirmed by NATHALIA LAROSE, MOISES ([id number]), features editor IVETH HURLEY ([id number]) on 12/20/2021 11:25:54 AM Referred By: Jeremy Aviles Confirmed By:MOISES SLOAN MD
== END 2021-12-19 23:59 | disposition home or self-care (01) ==
PROVIDERS: PCP Family Medicine; Referring Provider Internal Medicine Hematology & Oncology; Visit Provider Internal Medicine Hematology & Oncology
DX: R00.2 Palpitations (principal); C78.00 Secondary malignant neoplasm of unspecified lung; C79.51 Secondary malignant neoplasm of bone; C50.112 Malignant neoplasm of central portion of left female breast; M25.561 Pain in right knee; M54.89 Other dorsalgia; Z17.0 Estrogen receptor positive status [ER+]
CPT/HCPCS: 36415; 78306; 85025; 86300; 93005; 96372; A9500; J0897

== ENCOUNTER → 2022-05-02 | Outpatient (CLI) | payer MEDICAID, SELFPAY | END | disposition home or self-care (01) | LOC: SL 12:49 | PROVIDERS: PCP Family Medicine; Visit Provider Nurse Practitioner Acute Care | DX: Z00.00 Encounter for general adult medical examination without abnormal findings (principal) ==

== ENCOUNTER → 2022-08-01 | Outpatient (CLI) | payer MEDICAID, SELFPAY ==
--- NOTE | 2022-08-01 10:03 | MRI_ITS ---
STUDY: MRI BRAIN WITH AND WITHOUT CONTRAST REASON FOR EXAM: Female, 62 years old. syncopal episode; h/o breast ca, r/o mets TECHNIQUE: Standardized multiplanar fat and water weighted pulse sequences were obtained. IV 14ml Clariscan was administered for the contrast portion of the examination. COMPARISON: MRI of the brain dated April 12, 2022 FINDINGS: There are no focal brain parenchymal lesions or focal areas of infiltration or edema. No mass effect or midline shift is present. There is no abnormal enhancement of the brain parenchyma or enhancing lesions. There is no abnormal thickening or enhancement of the meninges or dura. No skull lesions or abnormal enhancement is present on the current study. Normal size of the ventricles and extra-axial spaces for the patient''s age. There are a limited number of small white matter hyperintensities, distributed throughout the deep white matter tracts of the cerebral hemispheres, consistent with mild chronic white matter ischemic changes. There is no evidence for recent intracranial ischemia or other cause of cytotoxic edema on diffusion weighted imaging (DWI). Normal T2* images of the brain without demonstrated susceptibility artifact. There is no demonstrated hemosiderin stain. Normal bilateral basal ganglia. Normal thalami. There is no extra-axial fluid accumulation. Normal flow voids within the major intracranial circulation suggesting patency by spin echo criteria. Normal venous enhancement. There is no enhancing intra-axial or extra-axial abnormality. Normal sella turcica, pituitary gland, infundibular stalk, optic chiasm and hypothalamus. Normal tectal plate and pineal gland. Normal midbrain, brisa and medulla. Normal cerebellum. Normal basal cisterns. Normal bilateral temporal bones. Normal bilateral internal auditory canals. No demonstrated orbital abnormality, within the constraints of a routine brain study. Normal visualized paranasal sinuses. Normal calvarium and skull base. Normal visualized soft tissue structures. Normal visualized upper cervical spine. MRI/Brain W/WO Contrast IMPRESSION: 1. Normal unenhanced and enhanced MRI of the brain. 2. There are no focal brain parenchymal lesions or focal areas of infiltration or edema. No mass effect or midline shift is present. There is no abnormal enhancement of the brain parenchyma or enhancing lesions. There is no abnormal thickening or enhancement of the meninges or dura. 3. No skull lesions or abnormal enhancement is present on the current study. Electronically Signed: Mane Rubin MD at 12:42 EST ,
--- NOTE | 2022-08-01 10:05 | EKG12_ITS ---
Test Reason : SYNCOPE/BREAST CA Blood Pressure : / mmHG Vent. Rate : 063 BPM Atrial Rate : 063 BPM P-R Int : 152 ms QRS Dur : 080 ms QT Int : 422 ms P-R-T Axes : 026 -06 024 degrees QTc Int : 431 ms Normal sinus rhythm Normal ECG Confirmed by GLENIS LAROSE, CATHY ([id number]), editorial clerk IVETH HURLEY ([id number]) on 08/02/2022 6:38:13 AM Referred By: Adele Borrego Confirmed By:ANDRIY GALVIN MD
== END | disposition home or self-care (01) ==
PROVIDERS: PCP Family Medicine; Referring Provider Nurse Practitioner Family; Visit Provider Nurse Practitioner Family
DX: R55 Syncope and collapse (principal); C50.919 Malignant neoplasm of unspecified site of unspecified female breast; R19.7 Diarrhea, unspecified; K58.9 Irritable bowel syndrome, unspecified
CPT/HCPCS: 70553; 87493; 87506; 93005; A9575

== ENCOUNTER 2022-09-21 17:47 | Observation (INO) | payer MEDICAID, SELFPAY ==
[2022-09-21] VITALS (11 sets, daily range): BP systolic 145–178; BP diastolic 72–98; PULSE 82–88; RESP 13–22; TEMP 36.3–37.1; O2SAT 95–99; BMI 29.2; BMI 28.5
--- NOTE | 2022-09-21 18:04 | EKG12_ITS ---
Test Reason : CP Blood Pressure : / mmHG Vent. Rate : 084 BPM Atrial Rate : 084 BPM P-R Int : 146 ms QRS Dur : 080 ms QT Int : 382 ms P-R-T Axes : 031 -15 025 degrees QTc Int : 451 ms Normal sinus rhythm Normal ECG Confirmed by MOISES SLOAN MD ([id number]), commissioning editor IVETH HURLEY ([id number]) on 09/24/2022 9:24:58 AM Referred By: DAVID Confirmed By:MOISES SLOAN MD
--- NOTE | 2022-09-21 18:04 | CT_ITS ---
STUDY: CTA CHEST REASON FOR EXAM: Female, 62 years old. shortness of breath RADIATION DOSAGE (If Supplied By Facility): CTDIvol = ( 11.37 ) mGy, DLP = ( 438.43 ) mGycm TECHNIQUE: The examination was performed with the intravenous administration of IV 100mL Isovue-370. Post-processing of the angiographic images was performed, with multiplanar reformation and 3D reconstruction. Individualized dose optimization techniques were used for this CT. COMPARISON: CTA chest March 23, 2021. FINDINGS: Normal enhancement of the main pulmonary artery and right and left pulmonary arteries. Normal enhancement of the bilateral peripheral pulmonary arteries. There is no demonstrated pulmonary embolism. Normal thoracic aorta and visualized great vessels. There is no demonstrated aortic dissection. Cardiomegaly. Prominent mediastinal lymphadenopathy with rounded nodes measuring up to 11 mm in diameter. Normal hilar regions. Normal visualized trachea and bronchi. The lungs are well expanded. Normal pulmonary parenchyma. Moderate right pleural effusion. Small left nodular pleural reaction. For a 5 mm stable nodule left lung base image #66. Right lower lobe airspace disease and subsegmental atelectasis. Spiculated density left breast measures 4.8 x 3 cm with a surgical clip centrally. There appears to be some associated spiculation and nodularity. Prominent abnormal appearing lobulated left axillary lymph node which appears hypodense centrally. It measures 2.4 x 1.2 cm in transverse dimension. Compression fracture T11. No retropulsion. No change L1 fractures. Normal hernia. CT/CTA Chest W/WO Contrast IMPRESSION: Enlarging left breast mass and pathologic necrotic axillary lymphadenopathy suspicious for metastatic disease. Increased right lower lobe airspace disease and effusion. New nodularity and pleural reaction on the left posteriorly. Borderline mediastinal lymphadenopathy. Electronically Signed: Robert Lubin MD at 19:44 EST ,
--- NOTE | 2022-09-21 18:07 | EDS_ITS ---
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 She states that she was unable to take her chemotherapy medication because of insurance issues. She has been out for a week. Over the last few days she had increasing shortness of breath but thinks that it started because she has not taken her chemotherapy medication. She denies any fevers or chills, no productive cough or COVID-19 signs. She feels short of breath and was having chest pain. She denies any nausea or vomiting. No diaphoresis, no exacerbating or alleviating factors. She states she feels like she is not getting enough air and cannot breathe well. PFSH FOR[facility] Medical History Alcohol use Anemia Anxiety Back pain Blackout BMI 29.0-29.9,adult Bone metastases Breast cancer (12/2020) Cancer of central portion of left breast Cardiac murmur Chest pain Daytime hypersomnia Depression Diarrhea Encounter for education Encounter for insertion of venous access port Encounter for monitoring cardiotoxic drug therapy Essential hypertension Gastric reflux History of edema History of left breast cancer History of pain when walking History of stress test Hx of echocardiogram Leg cramps Lung metastases Migraine headache Near syncope Non-smoker Osteoporosis Palpitations Panic disorder Pleural effusion, malignant Post-menopausal Pruritic condition Pruritus Regional lymph node metastasis present Screening mammogram for breast cancer Thrombocytosis Wears glasses Home Medications propranolol 80 mg capsule,24 hr,extended release (Inderal LA) 80 mg PO QHS anxiety 11/25/17 [History Last Taken Unknown] magnesium 500 mg tablet 500 mg PO DAILY supplement 03/22/21 [History Last Taken Unknown] ondansetron HCl 8 mg tablet 8 mg PO Q8H PRN PRN Nausea And Vomiting #60 tabs 05/08/21 [Rx Last Taken Unknown] calcium carbonate 600 mg calcium (1,500 mg) tablet (Calcium) 600 mg PO BID 07/31/21 [History Last Taken Unknown] multivit with [id number]-lutein 8 mg iron-400 mcg-300 mcg tablet (Centrum Silver Women) 1 tab PO DAILY 07/31/21 [History Last Taken Unknown] cyclobenzaprine 5 mg tablet 5 mg PO PRN PRN Spasms 12/26/21 [History Last Taken Unknown] clonazepam 0.5 mg tablet 0.5 mg PO DAILY PRN Insomnia 03/12/22 [History Last Taken Unknown] omeprazole 20 mg capsule,delayed release 20 mg PO DAILY 03/12/22 [History Last Taken Unknown] sertraline 50 mg tablet 50 mg PO DAILY 03/12/22 [History Last Taken Unknown] losartan 50 mg tablet 50 mg PO DAILY #90 tabs 04/17/22 [Rx Last Taken Unknown] trazodone 50 mg tablet 50 mg PO QHS PRN 07/31/22 [History Last Taken Unknown] alpelisib 300 mg/day (150 mg x 2) tablet (Piqray) 300 mg PO DAILY 30 days #30 tabs 09/17/22 [Rx Last Taken Unknown] Allergy/AdvReac Type Severity Reaction Status Date / Time No Known Allergies Allergy Verified 09/21/22 17:52 Family History Father Brain tumor Mother Alzheimers disease Breast cancer Brother Lung cancer Surgical History History of esophagogastroduodenoscopy (EGD) History of sinus surgery History of thoracentesis (03/23/21) S/P lumpectomy, left breast Social History household members: none housing: house number of children: 1 pets and animals: Yes pets and animals: dog(s) Smoking Status: Never smoker second hand exposure: No alcohol intake: current Alcohol type: wine details: wine 2-3 drinks per night substance use type: does not use lizzie/anglican: None seatbelt use: always do you feel safe at home: Yes additional social history: has 4 grandchildren ROS ROS ED ROS Narrative Constitutional: No fever, no chills. HEENT: No sore throat. No neck pain. No loss of vision. No rhinorrhea. Cardiovascular: Positive chest pain. No palpitations. No pedal edema. Respiratory: No cough, positive shortness of breath. Abdominal: No abdominal pain. No nausea. No vomiting. Genitourinary: No dysuria. No hematuria. Musculoskeletal: No myalgias. No arthralgias. Neurologic: No headaches. No dizziness. No lightheadedness. Skin: No rash. No change in color. Psychiatric: No depression. No anxiety. EXAM Physical Exam Narrative Exam Narrative: Afebrile. Vital signs noted. HEENT: Normocephalic. Atraumatic. PERRL, EOMI. Neck soft and supple. No point tenderness or step off. Cardiovascular: Regular rate and rhythm. No murmurs, rubs, or gallops appreciated. Respiratory: No tachypnea. Lungs clear to auscultation bilaterally. Moving a good amount of air. Speaking in full sentences. Gastrointestinal: Abdomen soft, nontender, with normoactive bowel sounds. No rebound or guarding. Neurological: Awake. Alert. Nonfocal, nonlateralizing. Skin: No rash. Normal color. No pallor. Musculoskeletal: No pedal edema. Full range of motion extremities. Const Vital Signs: 09/21/22 17:48 09/21/22 17:51 09/21/22 17:54 Temperature 97.4 F L Temperature Source Temporal Pulse Rate 88 Respiratory Rate 20 H Respiratory Effort Short of Breath Respiratory Depth Normal Respiratory Pattern Tachypnea Blood Pressure 176/79 H Blood Pressure Mean 111 Pulse Ox 98 Oxygen Delivery Method Room Air Room Air 09/21/22 18:48 09/21/22 19:00 09/21/22 20:21 Temperature Temperature Source Pulse Rate 86 88 83 Respiratory Rate 16 14 13 Respiratory Effort Respiratory Depth Respiratory Pattern Blood Pressure 154/81 H 147/72 H 162/98 H Blood Pressure Mean 105 97 119 Pulse Ox 98 98 99 Oxygen Delivery Method Room Air Room Air Room Air MDM MDM MDM Narrative Medical decision making narrative: Comprehensive work-up was pursued. My concern is more for pulmonary embolism given her history of metastatic carcinoma. There may be some anxiety component to this also. She is not really showing signs of COVID-19 I do not feel that a swab is indicated. However, to rule out a pneumonia as a cause of her shortness of breath, the CTA will be obtained which will also rule out a pulmonary embolism. I obtained an EKG and interpreted it myself, and it shows normal sinus rhythm at 84 bpm without ectopy or acute ST changes. No STEMI. Hence I do feel that this helps rule out cardiac ischemia. Troponin will also be obtained and reviewed. I reviewed her laboratory work. She has normal white count of 9.0, hemoglobin stable at 11.0, hematocrit 35.0. Platelet count normal at 430. BMP shows no rmal sodium of 144 with potassium normal at 3.9, glucose appropriately elevated at 105 with a normal anion gap of 7. BUN low at 6 with creatinine 0.54. High- sensitivity troponin is 6. BNP is normal at 60.7. CTA of the chest with and without contrast was reviewed, and the radiology report was also reviewed. While there is no evidence of pulmonary embolism, there is a moderately sized right pleural effusion with a right lower lobe airspace disease. I do not feel that antibiotics are indicated as the patient is not febrile, but I do think this may be more of the reason why she has shortness of breath and dyspnea because of the pleural effusion. She does have metastatic disease to the lung that is known. CT report does comment on left-sided breast mass with necrotic lymph nodes consistent with metastatic disease. Patient was ambulated, and while she did not drop her pulse ox, she was very tachypneic and her heart rate went up to approximately 108 bpm. I will discuss the patient with Dr. Carevr for Dr. Aviles, then with the hospitalist, Dr. Packer for observation. Patient is in stable condition. Lab Data Attestation: I reviewed the patient's lab results. Labs: Laboratory Results - last 24 hr 09/21/22 09/21/22 09/21/22 18:19 18:19 18:19 WBC 9.0 RBC 3.67 L Hgb 11.0 L Hct 35.0 L MCV 95.4 MCH 30.0 MCHC 31.4 L RDW Std Deviation 44.6 H RDW Coeff of Mike 13.0 Plt Count 430 MPV 9.8 Immature Gran % (Auto) 0.200 Neut % (Auto) 55.5 Lymph % (Auto) 26.2 Norman % (Auto) 11.7 H Eos % (Auto) 5.5 H Baso % (Auto) 0.9 Absolute Neuts (auto) 5.0 Absolute Lymphs (auto) 2.37 Nucleated RBC % 0 Sodium 144 Potassium 3.9 Chloride 114 H Carbon Dioxide 23.0 Anion Gap 7 BUN 6 L Creatinine 0.54 L Estim Creat Clear Calc 84.34 Est GFR (MDRD) Af Amer 146 Est GFR (MDRD) Non-Af 121 BUN/Creatinine Ratio 11.1 Glucose 105 Calcium 8.7 Troponin I High Sens 6 B-Natriuretic Peptide 60.7 Radiography Diagnostic Testing: Clinical Impression(s) from Imaging Studies Chest CTA 09/21/22 18:04 IMPRESSION: Enlarging left breast mass and pathologic necrotic axillary lymphadenopathy suspicious for metastatic disease. Increased right lower lobe airspace disease and effusion. New nodularity and pleural reaction on the left posteriorly. Borderline mediastinal lymphadenopathy. Electronically Signed: Robert Lubin MD at 19:44 EST , Discharge Plan Triage Chief Complaint: Shortness of Breath ED Provider: Robert Hoffman Dx/Rx/DC Orders Prescriptions: No Action propranolol [Inderal LA] 80 mg capsule,extended release 24 hr 80 mg PO QHS calcium carbonate [Calcium 600] 600 mg calcium (1,500 mg) tablet 600 mg PO BID Centrum Silver Women 8 mg iron-400 mcg-300 mcg tablet 1 tab PO DAILY cyclobenzaprine 5 mg tablet 5 mg PO PRN PRN (Reason: Spasms) sertraline 50 mg tablet 50 mg PO DAILY omeprazole 20 mg capsule,delayed release(DR/EC) 20 mg PO DAILY clonazepam 0.5 mg tablet 0.5 mg PO DAILY PRN (Reason: Insomnia) trazodone 50 mg tablet 50 mg PO QHS PRN ondansetron HCl 8 MG tablet 8 mg PO Q8H PRN PRN (Reason: Nausea And Vomiting) Qty: 60 6RF Piqray 300 mg/day (150 mg x 2) Tablet 300 mg PO DAILY 30 Days Qty: 30 12RF magnesium 500 mg Tablet 500 mg PO DAILY losartan 50 mg tablet 50 mg PO DAILY Qty: 90 3RF Primary Care Provider: Almas Flores Referrals: Almas Flores MD [Primary Care Provider] -
[2022-09-21 18:24] LABS: Absolute Lymphocyte Count 2.37 X10^3/uL (0.83-4.51); Basophil# 0.08 X10^3/uL; Basophil% 0.9 % (0-1); Eosinophils% 5.5 % (0-5); Lymphocyte # 2.37 X10^3/ul (0.83-4.51); Lymphocyte % 26.2 % (19-41); Mean Corp Hgb Conc 31.4 g/dL (32-36); Mean Corpuscular Volume 95.4 fL (81-99); Mean Platelet Vol. 9.8 fl (6.2-12.0); Monocyte# 1.06 X10^3/uL; Monocyte% 11.7 % (0-10); NRBC Flagged by Analyzer 0 % (0-5); Neutrophil % 55.5 % (47-70); Platelet Count 430 K/mm3 (150-450); RBC Distribution Width SD 44.6 fl (35.1-43.9); Red Blood Count 3.67 M/mm3 (4.2-5.4)
[2022-09-21 18:59] LABS: Anion Gap 7 (5-15); BUN 6 mg/dL (7-18); BUN/Creat Ratio 11.1 RATIO (10-20); Calcium,Total 8.7 mg/dL (8.5-10.1); Chloride 114 mmol/L (98-107); Creatinine, Serum 0.54 mg/dL (0.55-1.02); EST Glomerular Filtration Rate 121 mL/min (>60); Est Glom Filt Rate - Afr Amer 146 mL/min (>60); Estimated Creatinine Clearance 84.34 ml/min; Glucose 105 mg/dL (74-106); Potassium 3.9 mmol/L (3.5-5.1); Sodium Level 144 mmol/L (136-145); Troponin-I HS 6 pg/mL (3.0-54.0)
[2022-09-21 19:26] LABS: BNP,B-Type NATRIURETIC PEPTIDE 60.7 pg/mL (0-100)
--- NOTE | 2022-09-21 20:24 | ED.RN ---
PER DR. CORRAL, PT OKAY TO HAVE WATER.
--- NOTE | 2022-09-21 21:00 | PCM.HP.STD ---
HPI - General General Date of Admission: 09/21/22 Date of Service: 09/21/22 Chief Complaint: Dyspnea, pleuritic chest pain with metastatic breast CA to lung. HPI Narrative The patient is a 61 y/o F w/ PMHx: GERD, HTN, Overweight, Hx Prior Heavy EtOH usage (2-3 drinks/nightly), Depression and Anxiety, Chronic normocytic anemia, Initial Dx Stage IIA (T2, N0, M0) invasive ductal cancer of the left breast grade 3, ER positive, FL positive, HER-2 low (1-2+) by IHC s/p 01/31/21 L breast partial mastectomy and LND Dx treated with Femara/Ribociclib 03/2021-04/2022->changed to decresaed ribociclib 03/27/22/Fulvestrant with progression mediastinum, R hilum, R pleural space, L axilla/L2, 09/2021 confirmed metastatic lesions to bone with start on Xgeva monthly, recent referral to Rad/onc 09/02/22 w/ plan to hold off on palliative radiation treatment who presents to the [facility] ED on 09/21/22 with history of increasing dyspnea over the last several days with unfortunately recent difficulty taking her chemotherapy secondary to insurance/financial issues over the last week with no recent fevers or chills nor any productive cough however persistent dyspnea with pleuritic discomfort worse with positional change and deep inspirator effort prompting eventual ED evaluation. She notes she never had these issues prior to unfortunately stopping her recent chemotherapy. Work-up in the ED included T97.4, heart rate 88, BP initially 176/79 with most recent repeat 162/98, respiratory rate 20, 98% on room air, CBC with WC 9, 11, MCV 95.4, platelet 430 without marked shift, BMP with chloride 114, BUN/creatinine 6/0.54 otherwise not marked appearing, troponin 6, BNP 60.7, CTPA with enlarging left breast mass and pathologic necrotic axillary lymphadenopathy suspicious for metastatic disease, increased right lower lobe airspace disease and effusion, new nodularity and pleural reaction on the left posteriorly, borderline mediastinal lymphadenopathy. ED discussed patient presentation as well as imaging with patient's oncology team and had patient up with ambulatory pulse oximeter and although she maintained appropriate oxygenation and she appeared very tachypneic with mild tachycardia with heart rate up to 108 and per discussion per ED physician with the oncology team requested observation of the patient. [facility] Medical History (Updated 09/21/22 @ 21:[address] Vicki Packer MD) Anemia Anxiety and depression BMI 29.0-29.9,adult Bone metastases Breast cancer (12/2020) Essential hypertension Gastric reflux History of left breast cancer Lung metastases Migraine headache NARCISO treated with BiPAP Osteoporosis Panic disorder Pleural effusion, malignant Post-menopausal Regional lymph node metastasis present Wears glasses Home Medications propranolol 80 mg capsule,24 hr,extended release (Inderal LA) 80 mg PO QHS anxiety 11/25/17 [History Last Taken Unknown] ondansetron HCl 8 mg tablet 8 mg PO Q8H PRN PRN Nausea And Vomiting #60 tabs 05/08/21 [Rx Last Taken Unknown] calcium carbonate 600 mg calcium (1,500 mg) tablet (Calcium) 600 mg PO BID 07/31/21 [History Last Taken Unknown] multivit with jgfykcsu-xcvx-JK-lutein 8 mg iron-400 mcg-300 mcg tablet (Centrum Silver Women) 1 tab PO DAILY 07/31/21 [History Last Taken Unknown] cyclobenzaprine 5 mg tablet 5 mg PO PRN PRN Spasms 12/26/21 [History Last Taken Unknown] clonazepam 0.5 mg tablet 0.5 mg PO DAILY PRN Insomnia 03/12/22 [History Last Taken Unknown] omeprazole 20 mg capsule,delayed release 20 mg PO DAILY 03/12/22 [History Last Taken Unknown] sertraline 50 mg tablet 50 mg PO DAILY 03/12/22 [History Last Taken Unknown] losartan 50 mg tablet 50 mg PO DAILY #90 tabs 04/17/22 [Rx Last Taken Unknown] trazodone 50 mg tablet 50 mg PO QHS PRN Sleep 07/31/22 [History Last Taken Unknown] alpelisib 300 mg/day (150 mg x 2) tablet (Piqray) 300 mg PO DAILY 30 days #30 tabs 09/17/22 [Rx Last Taken Unknown] Allergy/AdvReac Type Severity Reaction Status Date / Time No Known Allergies Allergy Verified 09/21/22 17:52 Family History Father Brain tumor Mother Alzheimers disease Breast cancer Brother Lung cancer Surgical History History of esophagogastroduodenoscopy (EGD) History of sinus surgery History of thoracentesis (03/23/21) S/P lumpectomy, left breast Social History household members: none housing: house number of children: 1 pets and animals: Yes pets and animals: dog(s) Smoking Status: Never smoker second hand exposure: No alcohol intake: current Alcohol type: wine details: wine 2-3 drinks per night substance use type: does not use lizzie/mu-ism: None seatbelt use: always do you feel safe at home: Yes additional social history: has 4 grandchildren ROS ROS Narrative Admission Review of Systems: CONSTITUTIONAL: No weight loss, fever, chills, + weakness or fatigue. HEENT: Eyes: No visual loss, blurred vision, double vision or yellow sclerae. Ears, Nose, Throat: No hearing loss, sneezing, congestion, runny nose or sore throat. SKIN: No rash or itching, lesions, wounds. CARDIOVASCULAR: + Pleuritic chest discomfort worse with movements and deep inspiratory effort. No palpitations, edema, orthopnea, syncopal events. RESPIRATORY: + shortness of breathwithout any marked cough or productive sputum, no wheezing, hemoptysis. GASTROINTESTINAL: No anorexia, nausea, vomiting or diarrhea, abdominal pain, melena, BRBPR. GENITOURINARY: No dysuria, frequency, urgency or retention. NEUROLOGICAL: + headache, no dizziness, syncope, paralysis, ataxia, numbness or tingling in the extremities, focal weakness, change in bowel or bladder control, seizure. MUSCULOSKELETAL: + muscle, back pain, joint pain or stiffness. HEMATOLOGIC: + anemia, bleeding or bruising. LYMPHATICS: No enlarged nodes. No history of splenectomy. PSYCHIATRIC: + history of depression or anxiety. ENDOCRINOLOGIC: No reports of sweating, cold or heat intolerance. No polyuria or polydipsia. ALLERGIES: No history of asthma, hives, eczema or rhinitis. Vital Signs Vital Signs Vital Signs: 09/21/22 17:48 09/21/22 17:51 09/21/22 17:54 Temperature 97.4 F L Temperature Source Temporal Pulse Rate 88 Respiratory Rate 20 H Respiratory Effort Short of Breath Respiratory Depth Normal Respiratory Pattern Tachypnea Blood Pressure 176/79 H Blood Pressure Mean 111 Pulse Ox 98 Oxygen Delivery Method Room Air Room Air 09/21/22 18:48 09/21/22 19:00 09/21/22 20:21 Temperature Temperature Source Pulse Rate 86 88 83 Respiratory Rate 16 14 13 Respiratory Effort Respiratory Depth Respiratory Pattern Blood Pressure 154/81 H 147/72 H 162/98 H Blood Pressure Mean 105 97 119 Pulse Ox 98 98 99 Oxygen Delivery Method Room Air Room Air Room Air Weight Weight: 159 lb 9.835 oz Body Mass Index (BMI) 29.2 Physical Exam Narrative Physical Examination: General: Awake, alert, oriented x 3 and cooperative, seated upright in the ED bed, fatigued, tearful, anxious Skin: Normal color, normal turgor, no icterus, no cyanosis. HEENT: AT/NC, EOMI, PERRLA, MMM, no carotid bruits or JVD noted. Lungs: Mildly diminished right base, appropriate effort, no evidence of any respiratory distress, no marked rales noted, no rhonchi or wheezing. Heart: Very mildly tachycardic with regular rhythm; no gallop, rub audible. Abdomen: Soft, overweight, NTTP, ND, distant normal BS, no HSM. Extremities: No cyanosis, no clubbing, mild bilateral ankle not markedly pitting edema. Neurological: Patient awake, alert, oriented as noted, cognitive function intact; pupils equally reactive to light and accommodation, cranial nerves II-XII grossly normal, moving all 4 extremities, no focal deficits, strength mildly to moderately globally decreased. Psychiatric: Affect appears tearful, anxious, does have underlying depression and anxiety, admits that current presentation in some part is secondary to recent anxiety over her symptoms and missed oncological medication. Results Lab / Micro Data Result Diagrams: 09/21/22 18:19 09/21/22 18:19 Labs: Laboratory Results - last 24 hr 09/21/22 18:19: WBC 9.0, RBC 3.67 L, Hgb 11.0 L, Hct 35.0 L, MCV 95.4, MCH 30.0, MCHC 31.4 L, RDW Std Deviation 44.6 H, RDW Coeff of Mike 13.0, Plt Count 430, MPV 9.8, Immature Gran % (Auto) 0.200, Neut % (Auto) 55.5, Lymph % (Auto) 26.2, [place] % (Auto) 11.7 H, Eos % (Auto) 5.5 H, Baso % (Auto) 0.9, Absolute Neuts (auto) 5.0, Absolute Lymphs (auto) 2.37, Nucleated RBC % 0 09/21/22 18:19: Sodium 144, Potassium 3.9, Chloride 114 H, Carbon Dioxide 23.0, Anion Gap 7, BUN 6 L, Creatinine 0.54 L, Estim Creat Clear Calc 84.34, Est GFR (MDRD) Af Amer 146, Est GFR (MDRD) Non-Af 121, BUN/Creatinine Ratio 11.1, Glucose 105, Calcium 8.7, Troponin I High Sens 6 09/21/22 18:19: B-Natriuretic Peptide 60.7 Radiology Impression Chest CTA 09/21/22 18:04 IMPRESSION: Enlarging left breast mass and pathologic necrotic axillary lymphadenopathy suspicious for metastatic disease. Increased right lower lobe airspace disease and effusion. New nodularity and pleural reaction on the left posteriorly. Borderline mediastinal lymphadenopathy. 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, ER positive, FL positive, HER-2 low (1-2+) by IHC s/p 01/31/21 L breast partial mastectomy and LND Dx treated with Femara/Ribociclib 03/2021-04/2022->changed to decresaed ribociclib 03/27/22/Fulvestrant with progression mediastinum, R hilum, R pleural space, L axilla/L2, 09/2021 confirmed metastatic lesions to bone with start on Xgeva monthly, recent referral to Rad/onc 09/02/22 w/ plan to hold off on palliative radiation treatment who presents to the [facility] ED on 09/21/22 with history of increasing dyspnea over the last several days with unfortunately recent difficulty taking her chemotherapy secondary to insurance/financial issues over the last week with no recent fevers or chills nor any productive cough however persistent dyspnea with pleuritic discomfort. #1. Dyspnea, pleuritic chest discomfort, mild tachycardia suspected secondary to Pulmonary involvement/R Sided effusion secondary to Metastatic Left Breast Invasive Ductal Cancer: Initial Dx Stage IIA (T2, N0, M0) invasive ductal cancer of the left breast grade 3, ER positive, FL positive, HER-2 low (1-2+) by IHC s/p 01/31/21 L breast partial mastectomy and LND Dx treated with Femara/Ribociclib 03/2021-04/2022->changed to decresaed ribociclib 03/27/22/Fulvestrant with progression mediastinum, R hilum, R pleural spass, L axilla/L2, 09/2021 confirmed metastatic lesions to bone with start on Xgeva monthly, recent referral to Rad/onc 09/02/22 w/ plan to hold off on palliative radiation treatment. Will admit to [facility], effusion is moderate sized and patient has known metastatic lung lesion, given size lower suspicion for ability for aspiration but would plan to have [facility] Hospitalist service consult with Radiology for possible thoracentesis pending further assessment, will dose with lasix 40 mg IV x 1 in interim, will request procalcitonin with lower suspicion for underlying infectious etiology but will obtain respiratory viral panel, sputum if able to produce and urine antigens to be cautious, will continue Oncology consultation initiated per ED, will obtain Mag and Phos, will have PRN albuterol, encourage HOB and IS, maintain BiPAP nightly as noted. #2. Hypertension: Continue home regimen including losartan, propranolol, PRN hydralazine. #3. Hx Prior Heavier alcohol intake: Patient prior to her CA diagnosis with routinely 2-3 alcoholic drinks per day, has stopped since CA dx and treatments, rare drink now only on holidays. #4. Depression and anxiety: We will continue patient home sertraline and trazodone regimen but patient would benefit from potentially counseling and therapy as part of presentation from discussion suspected secondary to increased anxiety with #1. #5. Chronic normocytic anemia: Admission hemoglobin 11, baseline prior noted 11-12, secondary to underlying cancer and treatment, will continue to trend. #6. Overweight: Healthy lifestyle changes encouraged. #7. GERD: We will continue patient on PPI. #8. NARCISO: BiPAP nightly. #9. DVT prophylaxis: Lovenox; however, as noted #1 if potential possibility of thoracentesis would necessitate hold. #10. CODE status: Patient ABELINO is her daughter Cedrick and living will is currently in place. Discussed CODE status at length including difference between FULL code, DNR-CCA and DNR-CC status. Following discussions about the differences in these status, requested Full Code status. Advanced Care Planning Face to Face Time: 16 minutes. Admission Evaluation Time spent evaluating chart, patient history, patient evaluation, care planning and discussion with specialists: 60 minutes. Charges/Coding Visit Charges Inpatient E&M: 72552 Init Hosp L2 Procedures Hospitalists Procedures: 35896 Advncd Care Plan 30 Min
[2022-09-21] MEDS: Acetaminophen 500 MG Tablet 1000 MG PO (21:39)
[2022-09-21 22:16] LABS: Magnesium 2.3 mg/dL (1.6-2.6); Phosphorus 1.8 mg/dL (2.5-4.9)
[2022-09-21] MEDS: 0.9% Saline Lock 10 ML Syringe IV (22:31)
[2022-09-21] MEDS: traZODone 50 MG Tablet PO (22:31)
[2022-09-21] MEDS: clonazePAM 0.5 MG Tablet PO (22:31)
[2022-09-21] MEDS: Furosemide 40 MG/4 ML Vial IV (22:31)
--- NOTE | 2022-09-21 23:30 | CPS ---
Pt refuses bipap at this time
[2022-09-21] MEDS: Pantoprazole Sodium 20 MG Tablet PO (23:35)
[2022-09-21] MEDS: Propranolol LA 80 MG Capsule PO (23:35)
[2022-09-22 02:30] LABS: Procalcitonin < 0.01 ng/mL (0.00-0.09)
[2022-09-22] MEDS: Na Biphos/Potassium Phosphate PACKET 1 PACKET PO ×5 (05:14→20:54)
[2022-09-22 05:15] VITALS: BP 142/58; PULSE 70; RESP 16; TEMP 36.6; O2SAT 96
[2022-09-22 05:16] VITALS: BMI 28.3
[2022-09-22 05:59] LABS: Absolute Lymphocyte Count 1.75 X10^3/uL (0.83-4.51); Absolute Neutrophil Count 6.9 X10^3/uL (2.0-7.7); Basophil# 0.09 X10^3/uL; Basophil% 0.9 % (0-1); Eosinophil# 0.16 X10^3/uL; Eosinophils% 1.6 % (0-5); Hematocrit 32.7 % (37-47); Hemoglobin 10.4 g/dL (12.0-15.0); Lymphocyte # 1.75 X10^3/ul (0.83-4.51); Lymphocyte % 17.6 % (19-41); Mean Corp Hgb Conc 31.8 g/dL (32-36); Mean Corpuscular Hgb 30.1 pg (27.0-32.0); Mean Corpuscular Volume 94.8 fL (81-99); Mean Platelet Vol. 9.6 fl (6.2-12.0); Monocyte# 0.95 X10^3/uL; Monocyte% 9.6 % (0-10); NRBC Flagged by Analyzer 0 % (0-5); Neutrophil # 6.94 X10^3/uL (2.7-7.7); Platelet Count 409 K/mm3 (150-450); RBC Distribution Width CV 13.1 % (11.6-14.6); RBC Distribution Width SD 44.7 fl (35.1-43.9); Red Blood Count 3.45 M/mm3 (4.2-5.4); White Blood Count 9.9 K/mm3 (4.4-11.0)
[2022-09-22 06:32] LABS: ALB/GLOB Ratio 0.9 RATIO (0.9-2.4); AST(SGOT) 17 U/L (15-37); Alanine Aminotransfer ALT/SGPT 15 U/L (13-56); Albumin, Serum 3.2 g/dL (3.2-5.0); Alkaline Phosphatase 63 U/L (45-117); Anion Gap 8 (5-15); BUN 6 mg/dL (7-18); BUN/Creat Ratio 12.4 RATIO (10-20); Calcium,Total 8.5 mg/dL (8.5-10.1); Chloride 109 mmol/L (98-107); Creatinine, Serum 0.48 mg/dL (0.55-1.02); EST Glomerular Filtration Rate 138 mL/min (>60); Est Glom Filt Rate - Afr Amer 167 mL/min (>60); Estimated Creatinine Clearance 94.88 ml/min; Globulin 3.7 g/dL (2.2-4.2); Glucose 116 mg/dL (74-106); Potassium 3.3 mmol/L (3.5-5.1); Protein, Total 6.9 g/dL (6.4-8.2); Sodium Level 141 mmol/L (136-145)
[2022-09-22 07:15] VITALS: O2SAT 98
[2022-09-22] MEDS: Enoxaparin 40 MG/0.4 ML Syringe SC (09:26)
[2022-09-22] MEDS: Multivitamins,Ther W-Minerals Tablet 1 TABLET PO (09:26)
[2022-09-22] MEDS: Losartan Potassium 50 MG Tablet PO (09:26)
[2022-09-22] MEDS: Magnesium Chloride 64 MG Delay Rel.Tablet 128 MG PO (09:26)
[2022-09-22] MEDS: Sertraline 50 MG Tablet PO (09:27)
[2022-09-22] MEDS: Acetaminophen 325 MG Tablet 650 MG PO ×2 (09:27→19:31)
[2022-09-22] MEDS: Calcium (Elemental) 500 MG Tablet PO ×2 (09:27→20:53)
[2022-09-22] MEDS: Pantoprazole Sodium 20 MG Tablet PO (09:27)
[2022-09-22 09:35] VITALS: BP 152/77; PULSE 74; RESP 18; TEMP 36.6; O2SAT 97
[2022-09-22] MEDS: Loperamide 2 MG Capsule 4 MG PO (09:49)
--- NOTE | 2022-09-22 15:07 | PN_ITS ---
Subjective Subjective Patient seen and examined. She was admitted with a complaint of shortness of breath and found to have an enlarging left breast mass with increased right lower lobe airspace disease and effusion. She says her shortness of breath is improved. Patient is quite anxious. She denies any fever, chills, chest pain, nausea vomiting or any other symptoms. Review of systems otherwise negative. Oncology has been consulted. Objective Data Objective Data Vital Signs: Vital Signs Temp Pulse Resp BP Pulse Ox O2 Del Method 97.9 F 74 18 152/77 H 97 Room Air 09/22/22 09:35 09/22/22 09:35 09/22/22 09:35 09/22/22 09:35 09/22/22 09:35 09/22/22 09:35 Oxygen Delivery Method Room Air Weight: 153 lb 10.595 oz Body Mass Index (BMI) 28.3 Lab / Micro Data Result Diagrams: 09/22/22 05:31 09/22/22 05:31 Labs: Laboratory Results - last 24 hr 09/21/22 18:19: WBC 9.0, RBC 3.67 L, Hgb 11.0 L, Hct 35.0 L, MCV 95.4, MCH 30.0, MCHC 31.4 L, RDW Std Deviation 44.6 H, RDW Coeff of Mike 13.0, Plt Count 430, MPV 9.8, Immature Gran % (Auto) 0.200, Neut % (Auto) 55.5, Lymph % (Auto) 26.2, [place] % (Auto) 11.7 H, Eos % (Auto) 5.5 H, Baso % (Auto) 0.9, Absolute Neuts (auto) 5.0, Absolute Lymphs (auto) 2.37, Nucleated RBC % 0 09/21/22 18:19: Sodium 144, Potassium 3.9, Chloride 114 H, Carbon Dioxide 23.0, Anion Gap 7, BUN 6 L, Creatinine 0.54 L, Estim Creat Clear Calc 84.34, Est GFR (MDRD) Af Amer 146, Est GFR (MDRD) Non-Af 121, BUN/Creatinine Ratio 11.1, Glucose 105, Calcium 8.7, Troponin I High Sens 6 09/21/22 18:19: B-Natriuretic Peptide 60.7 09/21/22 18:19: Phosphorus 1.8 L, Magnesium 2.3 09/21/22 21:40: COVID-19 (JERMAINE) Not Detected 09/21/22 23:53: Procalcitonin < 0.01 09/22/22 05:31: WBC 9.9, RBC 3.45 L, Hgb 10.4 L, Hct 32.7 L, MCV 94.8, MCH 30.1, MCHC 31.8 L, RDW Std Deviation 44.7 H, RDW Coeff of Mike 13.1, Plt Count 409, MPV 9.6, Immature Gran % (Auto) 0.300, Neut % (Auto) 70.0, Lymph % (Auto) 17.6 L, [place] % (Auto) 9.6, Eos % (Auto) 1.6, Baso % (Auto) 0.9, Absolute Neuts (auto) 6.9, Absolute Lymphs (auto) 1.75, Nucleated RBC % 0 09/22/22 05:31: Sodium 141, Potassium 3.3 L, Chloride 109 H, Carbon Dioxide 24.0, Anion Gap 8, BUN 6 L, Creatinine 0.48 L, Estim Creat Clear Calc 94.88, Est GFR (MDRD) Af Amer 167, Est GFR (MDRD) Non-Af 138, BUN/Creatinine Ratio 12.4, Glucose 116 H, Calcium 8.5, Total Bilirubin 0.40, AST 17, ALT 15, Alkaline Phosphatase 63, Total Protein 6.9, Albumin 3.2, Globulin 3.7, Albumin/Globulin Ratio 0.9 Micro: Microbiology 09/21/22 23:00 Urine, Clean Catch Legionella Antigen - Final 09/21/22 23:00 Urine, Clean Catch Streptococcus pneumoniae Antigen (M - Final 09/21/22 21:40 Mucosa - Nasopharyngeal Respiratory Panel (PCR) - Final Radiography Diagnostic Testing: Radiology Impression Chest CTA 09/21/22 18:04 IMPRESSION: Enlarging left breast mass and pathologic necrotic axillary lymphadenopathy suspicious for metastatic disease. Increased right lower lobe airspace disease and effusion. New nodularity and pleural reaction on the left posteriorly. Borderline mediastinal lymphadenopathy. Electronically Signed: Robert Lubin MD at 19:44 EST Reading Location ID and State: [facility] / [place] , Service support , Physical Exam Const alert, oriented x3 and no apparent distress General Appearance: cooperative HEENT normocephalic, head/scalp atraumatic and moist oral mucous membranes Eyes PERRL Lymph Lymphatic: no lymphadenopathy noted and no lymphedema noted Resp Resp Narrative: Mildly diminished breath sounds bibasally. No wheezes or crackles. On room air. Cardio regular rate, regular rhythm, S1 normal heart sound, S2 normal heart sound and no murmurs GI normal to inspection, nondistended, normoactive bowel sounds, soft to palpation, non-tender and non-distended Extremity normal capillary refill, no clubbing, cyanosis or edema and no calf tenderness Neuro CN's II-XII intact bilaterally, no focal motor deficits and no sensory deficits noted Motor Exam: strength 5/5 throughout Psych thought process normal and cooperative Assessment & Plan Assessment/Plan (1) Regional lymph node metastasis present: (2) Shortness of breath: PLAN: Plan #Right malignant pleural effusion due to metastatic breast cancer * Admitted with shortness of breath and imaging done showed enlarging left breast mass and pathologic necrotic axillary lymphadenopathy suspicious for metastatic disease as well as increased right lower lobe airspace disease and effusion and new nodularity and pleural reaction on the left posteriorly with borderline mediastinal lymphadenopathy. * She does have invasive left breast ductal cancer which is ER and NV positive and HER2 negative. She is post left breast partial mastectomy. * There is low suspicion for infection as she does have an elevated white cell count. Procalcitonin also negative. * Oncology consulted. Patient will benefit from thoracentesis. Will order for tomorrow. * Also consult pulmonology. * #Hypertension: On losartan, metoprolol. #Left breast cancer with mets to the bone and lungs. * Imaging as above. Also has T11 compression fracture. Oncology consulted. * She is s/p left partial mastectomy. * #Depression and anxiety: On sertraline and trazodone. #GERD: On PPI #NARCISO: On BiPAP nightly. DVT prophylaxis: Lovenox. Total time spent on evaluation of patient, physical examination, review of chart, discussion of plan with nursing and ancillary staff and documentation in chart: 40 minutes. Charges/Coding Visit Charges Inpatient E&M: 02811 Subs Hosp L3
--- NOTE | 2022-09-22 16:13 | US_ITS ---
PROCEDURE: ULTRASOUND GUIDED THORACENTESIS. DATE: 09/23/2022. INDICATION: Female, 62 years old. Right pleural effusion PHYSICIAN: Kiran Laurent M.D. PROCEDURE: The risks, benefits, and alternatives to the procedure were explained to the patient. The specific risks of bleeding, infection, and pneumothorax requiring chest tube insertion were discussed and accepted. Written informed consent was obtained. Ultrasonographic evaluation of the right lower pleural space was carried out. An adequate pocket was identified. The patient was placed in the sitting, upright position. The overlying skin was prepped and draped in sterile fashion. 1% lidocaine was administered subcutaneously for local anesthesia. Under ultrasound guidance, a 5 Filipino thoracentesis needle/catheter system was advanced into the right posterior lower pleural fluid collection. Approximately 380 mL of juliette-colored fluid was drained. The catheter was removed, and a sterile dressing was applied. A specimen was collected and sent to the laboratory for analysis, as requested by the referring clinician. The patient tolerated the procedure well. A chest x-ray was ordered. US/Thoracentesis W US IMPRESSION: Ultrasound-guided right thoracentesis. Electronically Signed: Kiran Laurent MD at 14:45 EST ,
[2022-09-22 17:43] VITALS: BP 150/84; PULSE 76; RESP 16; TEMP 37.2; O2SAT 99
[2022-09-22] MEDS: cycloBENZAPRine HCl 5 MG TABLET PO (18:06)
[2022-09-22] MEDS: clonazePAM 0.5 MG Tablet PO (18:15)
[2022-09-22] MEDS: oxyCODONE 5 MG Tablet PO (19:06)
[2022-09-22] MEDS: Ondansetron 4 MG/2 ML Vial IV (19:31)
[2022-09-22] MEDS: 0.9% Saline Lock 10 ML Syringe IV (19:31)
[2022-09-22] MEDS: Propranolol LA 80 MG Capsule PO (20:53)
[2022-09-22 20:58] VITALS: BP 134/76; PULSE 86; RESP 18; TEMP 36.8; O2SAT 95
--- NOTE | 2022-09-23 | FLU_PTH ---
PATIENT: KRIS HOUSER LOC: MS3 U#:[id number] AGE/SX: 62/F ROOM: [facility] [place] RE09/21/[address]: Dr. Tristan Kamara DO : 1960 BED: 1 DIS: 09/23/2022 SPEC #: [id number] RECD: 09/24/22 10:00 STATUS: GAEL MACIAS #: [id number] JESSICA: 09/23/22 00:[address]: Tristan Kamara DEPT: CYTOLOGY RECD BY: Zhou Diaz ENTERED: 09/24/22 10:00 SP TYPE: Fluid OTHR DR: MD Dr. Jake Rocha MD Dr. Joseph Prah, MD Dr. Mansour Isckarus, MD Dr. Nana Yaa Koram, MD Dr. Paul Nielsen, MD Dr. Robert Field, MD Dr. Ryan Jin, MD Dr. Roger Macklis, MD Dr. Steve Walston, AdeleGolden [facility] Memorial HospitalSalima, GAS PUMP ATTENDANT- Tissues: THORACIC FLUID Procedures: Special Stain Group II Surgery Specimen Level IV Cytospin Fluid HEADER OPERATION: Thoracentesis PRE-OP DIAGNOSIS: Pleural effusion TISSUE SUBMITTED: Thoracentesis fluid for cytology DIAGNOSIS CYTOLOGY Thoracentesis fluid for cytology (cytospin and cell block): Negative for malignant cells. See comment. AYDIN:raffi 09/25/2022 COMMENT Clinical correlation and appropriate follow up are necessary. Please make reference to previous specimens ([id number]), left breast, lumpectomy with diagnosis ?invasive ductal carcinoma? and ([id number]) thoracentesis fluid for cytology with diagnosis of ?positive for malignant cells, non-small cell carcinoma.? CYTOLOGY STUDY Slides are reviewed. CYTOLOGY GROSS Received is 50 ml of red cloudy fluid labeled with the patient's name and and designated per the requisition as thoracentesis. Submitted for cytology preparation including cell block. / raffi 09/24/2022 TC:5 CPT: 76488, 27528
[2022-09-23] MEDS: Acetaminophen 325 MG Tablet 650 MG PO ×3 (00:07→10:08)
[2022-09-23 02:38] VITALS: BP 120/68; PULSE 70; RESP 18; TEMP 36.8; O2SAT 95
[2022-09-23 05:55] VITALS: BMI 28.6
[2022-09-23 05:56] LABS: Absolute Lymphocyte Count 2.47 X10^3/uL (0.83-4.51); Absolute Neutrophil Count 5.6 X10^3/uL (2.0-7.7); Basophil# 0.06 X10^3/uL; Basophil% 0.6 % (0-1); Eosinophil# 0.16 X10^3/uL; Eosinophils% 1.7 % (0-5); Hemoglobin 10.1 g/dL (12.0-15.0); Lymphocyte # 2.47 X10^3/ul (0.83-4.51); Lymphocyte % 25.7 % (19-41); Mean Corp Hgb Conc 33.7 g/dL (32-36); Mean Corpuscular Hgb 30.5 pg (27.0-32.0); Mean Corpuscular Volume 90.6 fL (81-99); Mean Platelet Vol. 9.4 fl (6.2-12.0); Monocyte# 1.32 X10^3/uL; Monocyte% 13.7 % (0-10); NRBC Flagged by Analyzer 0 % (0-5); Neutrophil # 5.59 X10^3/uL (2.7-7.7); Neutrophil % 58.1 % (47-70); Platelet Count 382 K/mm3 (150-450); RBC Distribution Width CV 12.8 % (11.6-14.6); RBC Distribution Width SD 42.1 fl (35.1-43.9); Red Blood Count 3.31 M/mm3 (4.2-5.4); White Blood Count 9.6 K/mm3 (4.4-11.0)
[2022-09-23 06:35] LABS: Anion Gap 8 (5-15); BUN 5 mg/dL (7-18); BUN/Creat Ratio 12.2 RATIO (10-20); Calcium,Total 8.6 mg/dL (8.5-10.1); Chloride 106 mmol/L (98-107); Creatinine, Serum 0.41 mg/dL (0.55-1.02); EST Glomerular Filtration Rate 167 mL/min (>60); Est Glom Filt Rate - Afr Amer 202 mL/min (>60); Estimated Creatinine Clearance 111.08 ml/min; Glucose 115 mg/dL (74-106); Potassium 3.1 mmol/L (3.5-5.1); Sodium Level 142 mmol/L (136-145)
--- NOTE | 2022-09-23 08:41 | ONC.CONSULT ---
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 (2) Shortness of breath: Status: Chronic Code(s): R06.02 - Shortness of breath Plan: May be related to increasing Pleural effusion-Progressive disease. To obtain Thoracentesis and see if she improves. If she improves, she can be discharged home for follow up as outpatient. Will not follow further on this admission. (3) Pleural effusion, malignant: Status: Chronic Code(s): J91.0 - Malignant pleural effusion Plan: Increasing R pleural effusion, agree with thoracentesis. Next Faslodex is due on 09/25/2022. HPI Consult Data Date of Service:: 09/23/22 PCP / Referring Provider: Dr. Almas Flores MD Attending: Dr. Tristan Kamara DO Chief Complaint Chief Complaint: Asked to see pt for metastatic breast cancer. History of Present Illness History of Present Illness: 62y.o.woman was diagnosed with L breast cancer, had L breast partial mastectomy with sentinel lymph node biopsy. Found to have Metastatic disease, started therapy with Femara and Ibrance from 25/09/1909/16/2020 to 04/29/2022 with no recurrence of malignant effusion. He was found to have progressive disease and started on Faslodex and Piqray on May 13, 2022. She presented with shortness of breath and right-sided chest pain. CTA shows increasing right pleural effusion. Advanced Directives Power of Vacation Guide: Yes Living Will: Yes [facility] Medical History (Updated 09/23/22 @ 12:[address] Octavio Carver MD) Anemia Anxiety and depression BMI 29.0-29.9,adult Bone metastases Breast cancer (12/2020) Essential hypertension Gastric reflux History of left breast cancer Lung metastases Migraine headache NARCISO treated with BiPAP Osteoporosis Panic disorder Pleural effusion, malignant Post-menopausal Regional lymph node metastasis present Wears glasses Home Medications propranolol 80 mg capsule,24 hr,extended release (Inderal LA) 80 mg PO QHS anxiety 11/25/17 [History Last Taken 09/20/22] ondansetron HCl 8 mg tablet 8 mg PO Q8H PRN PRN Nausea And Vomiting #60 tabs 10/12/21 [Rx Last Taken Unknown] calcium carbonate 600 mg calcium (1,500 mg) tablet (Calcium) 600 mg PO BID supplement 07/31/21 [History Last Taken 09/20/22] multivit with uschmido-zsyf-NE-lutein 8 mg iron-400 mcg-300 mcg tablet (Centrum Silver Women) 1 tab PO DAILY supplement 07/31/21 [History Last Taken 09/20/22] cyclobenzaprine 5 mg tablet 5 mg PO BID PRN BACK SPASMS 12/26/21 [History Last Taken Unknown] clonazepam 0.5 mg tablet 0.5 mg PO QHS anxiety 03/12/22 [History Last Taken 09/17/22] omeprazole 20 mg capsule,delayed release 20 mg PO DAILY GERD 03/12/22 [History Last Taken 09/20/22] sertraline 50 mg tablet 50 mg PO QHS depression 03/12/22 [History Last Taken 09/20/22] losartan 50 mg tablet 50 mg PO DAILY #90 tabs 04/17/22 [Rx Last Taken 09/21/22] trazodone 50 mg tablet 50 mg PO QHS PRN Sleep 07/31/22 [History Last Taken Unknown] alpelisib 300 mg/day (150 mg x 2) tablet (Piqray) 300 mg PO DAILY 30 days #30 tabs 09/17/22 [Rx Last Taken 09/16/22] Allergy/AdvReac Type Severity Reaction Status Date / Time No Known Allergies Allergy Verified 09/21/22 17:52 Family History Father Brain tumor Mother Alzheimers disease Breast cancer Brother Lung cancer Surgical History History of esophagogastroduodenoscopy (EGD) History of sinus surgery History of thoracentesis (03/23/21) S/P lumpectomy, left breast Social History household members: none housing: house number of children: 1 pets and animals: Yes pets and animals: dog(s) Smoking Status: Never smoker second hand exposure: No alcohol intake: current Alcohol type: wine details: wine 2-3 drinks per night substance use type: does not use lizzie/orthodoxy: None seatbelt use: always do you feel safe at home: Yes additional social history: has 4 grandchildren Physical Exam Const alert, oriented x3 and no apparent distress HEENT normocephalic Eyes PERRL and EOMs intact bilaterally Neck supple Lymph Lymphatic Narrative: + Left axillary node Chest Chest Narrative: + L breast nodule Resp Resp Narrative: Diminished BS R hemithorax. Cardio regular rate, regular rhythm, S1 normal heart sound, S2 normal heart sound and no murmurs GI normal to inspection, nondistended, normoactive bowel sounds Extremity normal to inspection and no clubbing, cyanosis or edema Skin no rashes or lesions noted Neuro CN's II-XII intact bilaterally Psych mental status grossly normal Vital Signs Temperature 98.3 F 09/23/22 02:38 Temperature Source Oral 09/23/22 02:38 Pulse Rate 70 09/23/22 02:38 Pulse Strength Normal (2+) 09/22/22 20:27 Respiratory Rate 18 09/23/22 02:38 Respiratory Effort Non-Labored 09/23/22 02:39 Respiratory Depth Normal 09/21/22 17:51 Respiratory Pattern Tachypnea 09/21/22 17:51 Blood Pressure 120/68 09/23/22 02:38 Blood Pressure Mean 85 09/23/22 02:38 Blood Pressure Source Monitor 09/23/22 02:38 Blood Pressure Position Semi-Fowlers 09/23/22 02:38 Blood Pressure Location Right Forearm 09/23/22 02:38 Pulse Ox 95 09/23/22 02:38 Oxygen Delivery Method Room Air 09/23/22 02:39 Laboratory Results - last 24 hr 09/23/22 05:40: WBC 9.6, RBC 3.31 L, Hgb 10.1 L, Hct 30.0 L, MCV 90.6, MCH 30.5, MCHC 33.7 D, RDW Std Deviation 42.1, RDW Coeff of Mike 12.8, Plt Count 382, MPV 9.4, Immature Gran % (Auto) 0.200, Neut % (Auto) 58.1, Lymph % (Auto) 25.7, Pine % (Auto) 13.7 H, Eos % (Auto) 1.7, Baso % (Auto) 0.6, Absolute Neuts (auto) 5.6, Absolute Lymphs (auto) 2.47, Nucleated RBC % 0 09/23/22 05:40: Sodium 142, Potassium 3.1 L, Chloride 106, Carbon Dioxide 28.0, Anion Gap 8, BUN 5 L, Creatinine 0.41 L, Estim Creat Clear Calc 111.08, Est GFR (MDRD) Af Amer 202, Est GFR (MDRD) Non-Af 167, BUN/Creatinine Ratio 12.2, Glucose 115 H, Calcium 8.6 Microbiology 09/21/22 23:00 Urine, Clean Catch Legionella Antigen - Final 09/21/22 23:00 Urine, Clean Catch Streptococcus pneumoniae Antigen (M - Final Diagnostic Data Chest CTA 09/21/22 18:04 IMPRESSION: Enlarging left breast mass and pathologic necrotic axillary lymphadenopathy suspicious for metastatic disease. Increased right lower lobe airspace disease and effusion. New nodularity and pleural reaction on the left posteriorly. Borderline mediastinal lymphadenopathy. Electronically Signed: Robert Lubin MD at 19:44 EST Reading Location ID and State: [facility] / [place] , Service support ,
[2022-09-23 08:47] LABS: Partial Thromboplast Time 27.1 Seconds (24.1-36.2)
[2022-09-23 08:55] LABS: International Normalized Ratio 1.1; Prothrombin Time (Protime)PT. 13.5 SECONDS (11.7-14.9)
[2022-09-23 10:00] VITALS: BP 123/70; PULSE 71; RESP 15; TEMP 36.6; O2SAT 99
[2022-09-23] MEDS: Magnesium Chloride 64 MG Delay Rel.Tablet 128 MG PO (10:00)
[2022-09-23] MEDS: Calcium (Elemental) 500 MG Tablet PO (10:00)
[2022-09-23] MEDS: Multivitamins,Ther W-Minerals Tablet 1 TABLET PO (10:00)
[2022-09-23] MEDS: Sertraline 50 MG Tablet PO (10:00)
[2022-09-23] MEDS: Na Biphos/Potassium Phosphate PACKET 1 PACKET PO ×3 (10:01→17:16)
[2022-09-23] MEDS: Enoxaparin 40 MG/0.4 ML Syringe SC (10:01)
[2022-09-23] MEDS: Losartan Potassium 50 MG Tablet PO (10:01)
[2022-09-23] MEDS: Pantoprazole Sodium 20 MG Tablet PO (10:08)
[2022-09-23] MEDS: oxyCODONE 5 MG Tablet PO (10:08)
[2022-09-23 10:19] VITALS: O2SAT 98
[2022-09-23] MEDS: Lidocaine 2% (20 ml mdv) 20 ML Vial INFILT (13:40)
[2022-09-23 13:41] VITALS: BP 104/54; BP 115/53; BP 121/65; PULSE 60; PULSE 66; PULSE 68; RESP 16; RESP 18; RESP 20; RESP 23; TEMP 36.6; O2SAT 90; O2SAT 94; O2SAT 99
--- NOTE | 2022-09-23 14:00 | RAD_ITS ---
STUDY: X-RAY CHEST REASON FOR EXAM: Female, 62 years old. Post thora TECHNIQUE: AP inspiration and expiration views. COMPARISON: Comparison is made with prior study dated 09/05/2021. FINDINGS: Surgical clips are once again seen in the left axillary region. The patient is status post right thoracentesis. No evidence of pneumothorax. Mild residual pleural-parenchymal changes seen at the right lung base. Azygous lobe. RAD/Chest Insp/Exp 2 View IMPRESSION: Status post right thoracentesis. No evidence of pneumothorax. Electronically Signed: Kiran Laurent MD at 14:12 EST ,
[2022-09-23 14:21] LABS: Body Fluid Mononuclear WBC # 1.623 10^3/uL; Body Fluid Mononuclear WBC % 97.8 %; Body Fluid Polynuclear WBC # 0.036 10^3/uL; Body Fluid Polynuclear WBC % 2.2 %; Body Fluid Total Cells Counted 1.746 10^3/ul; Red Cell Count/Body Fluid 0.041 10^6/ul; White Blood Count/Body Fluid 1.659 10^3/uL
[2022-09-23 14:22] LABS: Appearance/Body Fluid CLOUDY; Auto B Fluid Analyzer BKGD Ct COUNTS W/IN LIMITS (W/IN LIMITS); Color/Body Fluid RED; Source- Body Fluid THORACENTESIS
[2022-09-23 14:34] LABS: Glucose, Body Fluid 114 mg/dL (40-70)
[2022-09-23 14:40] LABS: LDH,Body Fluid 172 Units/l (Not Establ.); Protein, Body Fluid 3.7 g/dL (Not Establ.)
[2022-09-23 14:41] LABS: Body Fluid QC Type(s) BF1Q; Lymphocytes 87 %; Macrophages 9 %; Monocytes 1 %; Neutrophil (Segs) 3 %
--- NOTE | 2022-09-23 15:04 | CASEMGMT ---
TUAN REYES in to pt room, pt sitting up in bed in no distress. Pt is anxious to go home. She states she is having a grandchild stay with her tonight. Pt lives alone, reports that she is I in ADL's, drives. Pt does not have any DME in the home and denies need for. Pt reports having been working on obtaining her chemo med with the insurance company and pharmacy. She states the oncologist office and Ella are also working on this. She denies need of assistance from TUAN REYES on this. Pt reports she does feel weak but does not feel she needs any therapy for this at this time. She is aware that should she go home and change her mind, she can contact her PCP. Pt denies any homegoing needs.
--- NOTE | 2022-09-23 15:50 | NURSING ---
PT OFF UNIT VIA WC AT 1320 FOR THORACENTESIS. RETURNED 1440.
[2022-09-23 15:54] VITALS: BP 127/74; PULSE 63; RESP 17; TEMP 36.6; O2SAT 100
[2022-09-23] MEDS: Ensure Plus High Protein 120 ML LIQUID PO (17:16)
--- NOTE | 2022-09-23 17:30 | DCINST_ITS ---
Discharge Instructions Diet Discharge Diet: No restrictions Activity Discharge Activity: Return to Normal Activity Weight Bearing Status: Full weight bearing Follow Up Care Test Results: Test results from this visit will be discussed in further detail at your follow- up appointment, if applicable. Discharge Plan Admission Admit Date/Time: 09/21/22 21:04 Primary Reason for Your Visit: right pleural effusion Attending Provider: Tristan Kamara Primary Care Provider: Almas Flores Consulting Providers: Jake Johnston ; Octavio Carver ; Jeremy Aviles ; Esteban Ivy ; Laureano Gomez ; Xavi Morales ; Oscar Peña ; Adele Borrego NP ; Vicki Packer ; Anita Dela Cruz Instructions Patient Instructions: LIZET RN Thoracentesis Dc Discharge Orders/Prescriptions Prescriptions: Continued propranolol [Inderal LA] 80 mg capsule,extended release 24 hr 80 mg PO QHS calcium carbonate [Calcium 600] 600 mg calcium (1,500 mg) tablet 600 mg PO BID Centrum Silver Women 8 mg iron-400 mcg-300 mcg tablet 1 tab PO DAILY cyclobenzaprine 5 mg tablet 5 mg PO BID PRN (Reason: BACK SPASMS) sertraline 50 mg tablet 50 mg PO QHS omeprazole 20 mg capsule,delayed release(DR/EC) 20 mg PO DAILY clonazepam 0.5 mg tablet 0.5 mg PO QHS trazodone 50 mg tablet 50 mg PO QHS PRN (Reason: Sleep) ondansetron HCl 8 MG tablet 8 mg PO Q8H PRN PRN (Reason: Nausea And Vomiting) Qty: 60 6RF Piqray 300 mg/day (150 mg x 2) Tablet 300 mg PO DAILY 30 Days Qty: 30 12RF losartan 50 mg tablet 50 mg PO DAILY Qty: 90 3RF Referrals / Follow Up: Jeremy Aviles MD [Med Staff - Active Staff] - In 1 Week Almas Flores MD [Primary Care Provider] - Disposition Disposition (needs filled in before D/C Order can be placed): Home, Self Care
--- NOTE | 2022-09-23 17:35 | DS.PCM_ITS ---
Providers Date of Admission: 09/21/22 Date of Discharge: 09/23/22 Primary Care Physician: Dr. 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 Right-sided malignant pleural effusion due to metastatic breast cancer #2 essential hypertension #3 metastatic breast cancer to the bone and lungs #4 chronic depression Medications at Discharge Home Medications propranolol 80 mg capsule,24 hr,extended release (Inderal LA) 80 mg PO QHS anxiety 11/25/17 ondansetron HCl 8 mg tablet 8 mg PO Q8H PRN PRN Nausea And Vomiting #60 tabs 05/08/21 calcium carbonate 600 mg calcium (1,500 mg) tablet (Calcium) 600 mg PO BID suppl ement 07/31/21 multivit with fvxpkcfk-mnch-FV-lutein 8 mg iron-400 mcg-300 mcg tablet (Centrum Silver Women) 1 tab PO DAILY supplement 07/31/21 cyclobenzaprine 5 mg tablet 5 mg PO BID PRN BACK SPASMS 12/26/21 clonazepam 0.5 mg tablet 0.5 mg PO QHS anxiety 03/12/22 omeprazole 20 mg capsule,delayed release 20 mg PO DAILY GERD 03/12/22 sertraline 50 mg tablet 50 mg PO QHS depression 03/12/22 losartan 50 mg tablet 50 mg PO DAILY #90 tabs 04/17/22 trazodone 50 mg tablet 50 mg PO QHS PRN Sleep 07/31/22 alpelisib 300 mg/day (150 mg x 2) tablet (Piqray) 300 mg PO DAILY 30 days #30 tabs 09/17/22 Hospital Course Operations None Procedures Thoracentesis Summary of Care Provided Hospital Course: This 62-year-old white female was seen in the emergency room at [facility] with complaints of shortness of breath over several days. Work-up in the ER included an EKG which did not show any ischemic changes, white blood cell count was normal, troponin was normal, BNP was normal at 60.7. CT of the chest with and without contrast showed no evidence of pulmonary embolism, there is however a moderately sized right pleural effusion with right lower lobe airspace disease. Patient did not require supplemental oxygen given when ambulated. Patient was admitted to [place] [address], she was seen in consultation by oncology and underwent a right thoracentesis which resulted in the drainage of 380 cc of fluid. Patient tolerated the procedure well and there were no complications. On 09/23/2022, patient was seen and examined: On examination she appeared in good health and spirits, she does not appear to be in any distress. Vital signs as documented. Skin warm and dry and without overt rashes. Neck without JVD, thyroid appears normal, trachea is midline, neck is supple. Lungs clear, normal air movement was noted. Heart exam notable for regular rhythm, normal sounds and absence of murmurs, rubs or gallops. Abdomen unremarkable and without evidence of organomegaly, masses, or abdominal aortic enlargement, bowel sounds are present in all 4 quadrants, no abdominal tenderness was noted. Extremities nonedematous, no cyanosis was noted, no clubbing was noted. Neuro: Cranial nerves II through XII are grossly intact, no focal motor deficits were noted, sensation to light touch and pinprick is intact, motor exam 5/5 throughout. Psych: Patient is alert and oriented x3, she does not appear anxious or depressed, she does not appear agitated. Patient was discharged home in stable condition on 09/23/2022 Weight / BMI Weight Weight: 70.534 kg Body Mass Index (BMI) 28.6 ABG / Lab / Microbiology Data Result Diagrams: 09/23/22 05:40 09/23/22 05:40 Laboratory: Laboratory Results - last 24 hr 09/23/22 05:40: WBC 9.6, RBC 3.31 L, Hgb 10.1 L, Hct 30.0 L, MCV 90.6, MCH 30.5, MCHC 33.7 D, RDW Std Deviation 42.1, RDW Coeff of Mike 12.8, Plt Count 382, MPV 9.4, Immature Gran % (Auto) 0.200, Neut % (Auto) 58.1, Lymph % (Auto) 25.7, Todd % (Auto) 13.7 H, Eos % (Auto) 1.7, Baso % (Auto) 0.6, Absolute Neuts (auto) 5.6, Absolute Lymphs (auto) 2.47, Nucleated RBC % 0 09/23/22 05:40: Sodium 142, Potassium 3.1 L, Chloride 106, Carbon Dioxide 28.0, Anion Gap 8, BUN 5 L, Creatinine 0.41 L, Estim Creat Clear Calc 111.08, Est GFR (MDRD) Af Amer 202, Est GFR (MDRD) Non-Af 167, BUN/Creatinine Ratio 12.2, Glucose 115 H, Calcium 8.6 09/23/22 08:17: PT 13.5, INR 1.1, APTT 27.1 09/23/22 14:00: Fluid Glucose 114 H 09/23/22 14:00: Fluid Total Protein 3.7, Fluid LDH 172 09/23/22 14:00: Fluid Source THORACENTESIS, Fluid Color RED, Fluid Appearance CLOUDY, Fluid WBC 1.659, Fluid RBC 0.041, Fluid Tot Cell Count 1.746 H, Fld Polynuclear WBCs # 0.036, Fld Polynuclear WBCs % 2.2, Fluid Mononuclear WBCs 1.623, Fld Mononuclear WBCs % 97.8, Fluid Neutrophils 3, Fluid Lymphocytes 87, Fluid Monocytes 1, Fluid Macrophages 9, Fl Pathologist Comment May follow, Fluid Comment 2 SEE COMMENT Microbiology: Microbiology 09/21/22 23:00 Urine, Clean Catch Legionella Antigen - Final 09/21/22 23:00 Urine, Clean Catch Streptococcus pneumoniae Antigen (M - Final 09/21/22 21:40 Mucosa - Nasopharyngeal Respiratory Panel (PCR) - Final Radiography Diagnostic Testing: Radiology Impression Thoracentesis Ultrasound 09/22/22 16:13 IMPRESSION: Ultrasound-guided right thoracentesis. Electronically Signed: Kiran Laurent MD at 14:45 EST , Chest X-Ray 09/23/22 14:00 IMPRESSION: Status post right thoracentesis. No evidence of pneumothorax. Electronically Signed: Kiran Laurent MD at 14:12 EST Reading Location ID and State: [address] [place] [address] , Service support , D/C Instructions Discharge Diet: No restrictions Weight Bearing Status: Full weight bearing Meaningful Use Info Meaningful Use Diagnoses (Choose all that apply): None applicable Discharge Plan Admission Admit Date/Time: 09/21/22 21:04 Primary Reason for Your Visit: right pleural effusion Attending Provider: Tristan Kamara Primary Care Provider: Almas Flores Consulting Providers: Jake Johnston ; Octavio Carver ; Jeremy Aviles ; Esteban Ivy ; Laureano Gomez ; Xavi Morales ; Oscar Peña ; Adele Borrego NP ; Vicki Packer ; Anita Dela Cruz Instructions Patient Instructions: RAD RN Thoracentesis Dc Discharge Orders/Prescriptions Prescriptions: Continued propranolol [Inderal LA] 80 mg capsule,extended release 24 hr 80 mg PO QHS calcium carbonate [Calcium 600] 600 mg calcium (1,500 mg) tablet 600 mg PO BID Centrum Silver Women 8 mg iron-400 mcg-300 mcg tablet 1 tab PO DAILY cyclobenzaprine 5 mg tablet 5 mg PO BID PRN (Reason: BACK SPASMS) sertraline 50 mg tablet 50 mg PO QHS omeprazole 20 mg capsule,delayed release(DR/EC) 20 mg PO DAILY clonazepam 0.5 mg tablet 0.5 mg PO QHS trazodone 50 mg tablet 50 mg PO QHS PRN (Reason: Sleep) ondansetron HCl 8 MG tablet 8 mg PO Q8H PRN PRN (Reason: Nausea And Vomiting) Qty: 60 6RF Piqray 300 mg/day (150 mg x 2) Tablet 300 mg PO DAILY 30 Days Qty: 30 12RF losartan 50 mg tablet 50 mg PO DAILY Qty: 90 3RF Referrals / Follow Up: Jeremy Aviles MD [Med Staff - Active Staff] - In 1 Week Almas Flores MD [Primary Care Provider] - Disposition Disposition (needs filled in before D/C Order can be placed): Home, Self Care Charges/Coding Visit Charges Inpatient E&M: 90500 Disch Hosp >30min
[2022-09-26 09:10] LABS: Pathologist Comment/Body Fluid Reviewed
== END 2022-09-23 18:48 | disposition home or self-care (01) ==
LOC: ED 18:40 → MS3 21:18
PROVIDERS: Radiology Diagnostic Radiology; Student in an Organized Health Care Education/Training Program; Admitting Provider Family Medicine; Emergency Provider Emergency Medicine; PCP Family Medicine; Visit Provider Internal Medicine
DX: C78.01 Secondary malignant neoplasm of right lung (principal); C77.9 Secondary and unspecified malignant neoplasm of lymph node, unspecified; C50.112 Malignant neoplasm of central portion of left female breast; J91.0 Malignant pleural effusion; Z17.0 Estrogen receptor positive status [ER+]; D64.9 Anemia, unspecified; K21.9 Gastro-esophageal reflux disease without esophagitis; F41.9 Anxiety disorder, unspecified; Z80.3 Family history of malignant neoplasm of breast; I10 Essential (primary) hypertension; Z80.1 Family history of malignant neoplasm of trachea, bronchus and lung; Z79.899 Other long term (current) drug therapy; F32.A Depression, unspecified; R06.02 Shortness of breath
CPT/HCPCS: 32554; U0005; 32555; 36415; 71046; 71275; 80048; 80053; 82945; 83615; 83735; 83880; 84100; 84145; 84157; 84484; 85025; 85610; 85730; 87449; 87633; 87635; 88108; 88305; 88313; 89050; 93005; 94668; 96372; 96374; 96375; 99221; 99252; 99284; Q9967; A4216; G0378; G0463; J1940; J2405; U0003

== ENCOUNTER 2022-11-28 14:47 | Emergency (ER) | payer MEDICAID, SELFPAY ==
[2022-11-28] VITALS (7 sets, daily range): BP systolic 134–185; BP diastolic 69–109; PULSE 66–85; RESP 14–22; TEMP 35.8–36.8; O2SAT 93–97; BMI 27.6; BMI 28.8
--- NOTE | 2022-11-28 15:14 | EKG12_ITS ---
Test Reason : SOB Blood Pressure : / mmHG Vent. Rate : 077 BPM Atrial Rate : 077 BPM P-R Int : 146 ms QRS Dur : 076 ms QT Int : 380 ms P-R-T Axes : 026 012 019 degrees QTc Int : 430 ms Normal sinus rhythm Normal ECG Confirmed by GLENIS LAROSE, CATHY ([id number]), editorial assistant IVETH HURLEY ([id number]) on 12/02/2022 2:30:47 PM Referred By: EVENS BECKWITH Confirmed By:ANDRIY GALVIN MD
[2022-11-28] MEDS: Ipratropium/Albuterol Sulfate 3 ML AMPUL.NEB INHALATION (15:26)
[2022-11-28 15:31] LABS: Absolute Lymphocyte Count 2.17 X10^3/uL (0.83-4.51); Absolute Neutrophil Count 5.3 X10^3/uL (2.0-7.7); Basophil# 0.11 X10^3/uL; Basophil% 1.1 % (0-1); Differential Indicated SCAN CRITERIA MET; Eosinophil# 0.84 X10^3/uL; Eosinophils% 8.3 % (0-5); Hematocrit 38.3 % (37-47); Hemoglobin 12.5 g/dL (12.0-15.0); Lymphocyte # 2.17 X10^3/ul (0.83-4.51); Lymphocyte % 21.4 % (19-41); Mean Corp Hgb Conc 32.6 g/dL (32-36); Mean Corpuscular Hgb 29.6 pg (27.0-32.0); Mean Corpuscular Volume 90.5 fL (81-99); Mean Platelet Vol. 9.6 fl (6.2-12.0); Monocyte# 1.69 X10^3/uL; Monocyte% 16.7 % (0-10); NRBC Flagged by Analyzer 0 % (0-5); Neutrophil # 5.32 X10^3/uL (2.7-7.7); Neutrophil % 52.3 % (47-70); POSITIVE DIFFERENTIAL YES; Platelet Count 527 K/mm3 (150-450); RBC Distribution Width CV 14.8 % (11.6-14.6); RBC Distribution Width SD 49.2 fl (35.1-43.9); Red Blood Count 4.23 M/mm3 (4.2-5.4); White Blood Count 10.2 K/mm3 (4.4-11.0)
--- NOTE | 2022-11-28 15:50 | RAD_ITS ---
STUDY: X-RAY CHEST REASON FOR EXAM: Female, 62 years old. SOB TECHNIQUE: Frontal and lateral views of the chest. COMPARISON: 10/21/2022 FINDINGS: Patient is rotated. Small right pleural effusion increased. No pneumothorax. Subsegmental atelectasis left base. Lungs otherwise clear. There is no demonstrated pleural abnormality. Normal size heart. Normal mediastinum and crispin. Normal visualized pulmonary arteries. Normal visualized aortic arch and descending thoracic aorta. Normal visualized thoracic spine. Normal visualized ribs, clavicles, and shoulders. There is no demonstrated abnormality of the visualized soft tissue structures of the upper abdomen. RAD/Chest PA and Lateral IMPRESSION: Increased small right effusion Electronically Signed: Robert Lubin MD at 16:50 EDT ,
[2022-11-28 15:52] LABS: BNP,B-Type NATRIURETIC PEPTIDE 42.6 pg/mL (0-100)
[2022-11-28 15:53] LABS: Anion Gap 11 (5-15); BUN 6 mg/dL (7-18); BUN/Creat Ratio 7.6 RATIO (10-20); Calcium,Total 9.7 mg/dL (8.5-10.1); Chloride 106 mmol/L (98-107); Creatinine, Serum 0.79 mg/dL (0.55-1.02); EST Glomerular Filtration Rate 78 mL/min (>60); Est Glom Filt Rate - Afr Amer 94 mL/min (>60); Estimated Creatinine Clearance 57.65 ml/min; Glucose 144 mg/dL (74-106); Potassium 3.8 mmol/L (3.5-5.1); Sodium Level 140 mmol/L (136-145); Troponin-I HS 5 pg/mL (3.0-54.0)
[2022-11-28 16:01] LABS: D-Dimer Quantitative (DVT/PE) 2.38 FEU/ug/m (0.27-0.49)
--- NOTE | 2022-11-28 16:27 | ED.VIS.DYS ---
HPI History of Present Illness Chief Complaint: Shortness of Breath Informant: patient Narrative Narrative: Patient presents with dyspnea. Patient states she has been having dyspnea for many months. She did have a pleural effusion with a got out about a liter that helped her symptoms once. They then did a another thoracentesis and got a small amount out in August. This did not really help her symptoms. She states she has been having and waxing and waning symptoms but they seem to have gotten worse over the last couple weeks. She has a cough but no productivity. She also has soreness in her upper chest and shoulders but states this soreness is also been going on a long time. Denies any new medications. She denies history of chronic lung disease smoking asthma or COPD. No history of CHF. Patient does have a history of breast cancer that was diagnosed about 2 years ago. It is metastatic. It was the cause of her effusion she states. She used to be on Kisgali but is currently on Piqray. She denies fevers chills. She evidently also has some anxiety which considering her illness is understandable. She evidently had a panic attack in triage although that is better now. This does worsen her breathing but she thinks that her breathing issues also are separate from this. [facility] Medical History Anemia Anxiety and depression BMI 29.0-29.9,adult Bone metastases Breast cancer (12/2020) Essential hypertension Gastric reflux History of left breast cancer Hypokalemia Lung metastases Malignant neoplasm of central portion of left female breast Migraine headache NARCISO treated with BiPAP Osteoporosis Panic disorder Pleural effusion, malignant Post-menopausal Regional lymph node metastasis present Shortness of breath Wears glasses Home Medications propranolol 80 mg capsule,24 hr,extended release (Inderal LA) 80 mg PO QHS anxiety 11/25/17 [History Last Taken 09/20/22] ondansetron HCl 8 mg tablet 8 mg PO Q8H PRN PRN Nausea And Vomiting #60 tabs 05/08/21 [Rx Last Taken Unknown] calcium carbonate 600 mg calcium (1,500 mg) tablet (Calcium) 600 mg PO BID supplement 07/31/21 [History Last Taken 09/20/22] multivit with wgumltun-hapf-IM-lutein 8 mg iron-400 mcg-300 mcg tablet (Centrum Silver Women) 1 tab PO DAILY supplement 07/31/21 [History Last Taken 09/20/22] cyclobenzaprine 5 mg tablet 5 mg PO BID PRN BACK SPASMS 12/26/21 [History Last Taken Unknown] clonazepam 0.5 mg tablet 0.5 mg PO QHS anxiety 03/12/22 [History Last Taken 09/17/22] omeprazole 20 mg capsule,delayed release 20 mg PO DAILY GERD 03/12/22 [History Last Taken 09/20/22] sertraline 50 mg tablet 50 mg PO QHS depression 03/12/22 [History Last Taken 09/20/22] losartan 50 mg tablet 50 mg PO DAILY #90 tabs 04/17/22 [Rx Last Taken 09/21/22] trazodone 50 mg tablet 50 mg PO QHS PRN Sleep 07/31/22 [History Last Taken Unknown] alpelisib 300 mg/day (150 mg x 2) tablet (Piqray) 300 mg PO DAILY 30 days #30 tabs 09/17/22 [Rx Last Taken 09/16/22] potassium chloride 20 mEq tablet,extended release 20 meq PO DAILY #3 tabs 11/20/22 [Rx Last Taken Unknown] hydrocodone-acetaminophen 5-325mg 5mg-325mg 1 tab PO Q6H PRN PRN Pain 3 days #12 TABLETS 11/28/22 [Rx Last Taken Unknown] Allergy/AdvReac Type Severity Reaction Status Date / Time No Known Allergies Allergy Verified 11/28/22 14:56 Family History Father Brain tumor Mother Alzheimers disease Breast cancer Brother Lung cancer Surgical History History of esophagogastroduodenoscopy (EGD) History of sinus surgery History of thoracentesis (03/23/21) S/P lumpectomy, left breast Social History household members: none housing: house number of children: 1 pets and animals: Yes pets and animals: dog(s) Smoking Status: Never smoker second hand exposure: No alcohol intake: current Alcohol type: wine details: wine 2-3 drinks per night substance use type: does not use lizzie/mosque: None seatbelt use: always do you feel safe at home: Yes additional social history: has 4 grandchildren ROS ROS ED Constitutional Constitutional ED: Denies chills, fever(s) or sweats Eyes Eyes: Denies change in vision ENT ENT ED: Denies rhinorrhea Cardiovascular Cardiovascular: Reports chest pain and other Details: Soreness and aching in upper chest that has been going on for a while. ; Denies palpitations Respiratory/Chest Respiratory/Chest: Reports cough and dyspnea; Denies sputum Gastrointestinal Gastrointestinal: Denies nausea or vomiting Genitourinary Genitourinary ED: Denies dysuria Musculoskeletal Musculoskeletal: Reports myalgias and other Details: She does have soreness across her upper back that has been going on for some months. Integumentary Denies rash Neurologic Neurologic: Denies paresthesias or weakness Hematologic/Lymphatic Hematologic/Lymphatic: Denies easy bleeding or easy bruising Allergic/Immunologic Allergic/Immunologic ED: Denies urticaria EXAM Physical Exam Narrative Exam Narrative: CONSTITUTIONAL: Patient is nontoxic in appearance. Patient is breathing a little bit quickly but it slows down and gets more normal while I am in the room. HEENT: No notable trauma. Mucous membranes moist. No sinus tenderness. EYES: No conjunctival injection. No proptosis. NECK:No JVD. No stridor. CARDIOVASCULAR: Regular rate. Regular rhythm. No notable murmur. No JVD. RESPIRATORY: Patient has decreased breath sounds at the right. The rest of her lungs sound good. I agree do not have any wheezes. No rhonchi. She has an occasional very dry cough. Saturations remain normal throughout. GASTROINTESTINAL: Not distended. Bowel sounds are normal. No tenderness. No guarding. GENITOURINARY: No tenderness over the bladder. No CVA tenderness. MUSCULOSKELETAL: Atraumatic. No peripheral edema. No cord. No tenderness along the deep venous system. No asymmetry. No distended veins. NEUROLOGICAL: Patient is alert and appropriate. No focal deficit noted. SKIN: No noted rashes. No diaphoresis. PSYCHIATRIC: Patient is calm. Mood is appropriate. Const Vital Signs: 11/28/22 14:49 11/28/22 14:55 11/28/22 15:01 Temperature 96.5 F L 98.2 F Temperature Source Temporal Oral Pulse Rate 85 76 Respiratory Rate 22 H 19 H Respiratory Effort Short of Breath Respiratory Pattern Blood Pressure 155/109 H 185/102 H Blood Pressure Mean 124 129 Pulse Ox 97 95 Oxygen Delivery Method Room Air Room Air 11/28/22 15:28 11/28/22 17:03 11/28/22 17:34 Temperature 96.9 F L Temperature Source Temporal Pulse Rate 66 82 79 Respiratory Rate 18 14 16 Respiratory Effort Respiratory Pattern Normal Blood Pressure 185/102 H 144/69 H Blood Pressure Mean 129 94 Pulse Ox 93 95 Oxygen Delivery Method Room Air Room Air MDM MDM MDM Narrative Medical decision making narrative: Patient CBC shows no acute process. Patient's electrolytes show elevated glucose at 144 otherwise normal. Troponin is negative at 5. D-dimer was elevated at 2.38 and a CTA is ordered. BNP is normal at 42. My independent interpretation of the patient's chest x-ray is suspicious for right-sided effusion. This was suspected on exam. CTA showed no PE. No dissection. She does have bilateral effusions more on the right than the left. She had groundglass opacities. Multiple potential etiologies but neoplastic is likely considering her history. Enlarging left breast mass and axillary lymph nodes. But she has known metastatic cancer. We will get a walker to check her saturations. She is complaining of too much of a headache to walk. When I talk to her the headache is really pain along the back of the shoulders and neck which is what she has been having for months. This is not a new pain. She then states she is having so much pain that she cannot try to walk. She starts getting very anxious. She states she has not eaten today. She is beginning to get nauseated because of this. We talked with her try to keep her calm. I think this patient has real dyspnea due to a lot of the findings on the CT. But I do not think the effusions by themselves are causing this. They are certainly a component of it. We will get her meds for pain and for nausea. I will add COVID and influenza to make sure we do not have an overlying viral issue also. She will be reassessed again. COVID and influenza are negative. We did give her pain meds which helped her a lot. She now states that the breathing treatments seem to help. She has used MDIs before the do not seem to help as much. But she has never used 1 with a spacer. Patient is comfortable going home. We walked her and her saturations fluctuated 92 to 96%. She is comfortable. This patient has many reasons to be dyspneic. She has some groundglass changes worsening breast cancer and effusions but I do not think these effusions are significant. She was told by her doctor that they do not plan to retapped them and less they get quite large. I think this can be done as an outpatient if needed. We do not want exposure to infections in the hospital due to her immunosuppression and overall level of health. I will write for some pain meds because she has a lot of tightness in the musculature around the chest this been going on for months and she does feel better when this is reduced. We will get her an MDI with spacer here. She has follow-up arranged. Lab Data Attestation: I reviewed the patient's lab results. Labs: Laboratory Results - last 24 hr 11/28/22 11/28/22 11/28/22 15:20 15:20 15:20 WBC 10.2 RBC 4.23 Hgb 12.5 Hct 38.3 MCV 90.5 MCH 29.6 MCHC 32.6 RDW Std Deviation 49.2 H RDW Coeff of Mike 14.8 H Plt Count 527 H MPV 9.6 Immature Gran % (Auto) 0.200 Neut % (Auto) 52.3 Lymph % (Auto) 21.4 Dickens % (Auto) 16.7 H Eos % (Auto) 8.3 H Baso % (Auto) 1.1 H Absolute Neuts (auto) 5.3 Absolute Lymphs (auto) 2.17 Nucleated RBC % 0 D-Dimer Quant (PE/DVT) 2.38 H* Sodium 140 Potassium 3.8 Chloride 106 Carbon Dioxide 23.0 Anion Gap 11 BUN 6 L Creatinine 0.79 Estim Creat Clear Calc 57.65 Est GFR (MDRD) Af Amer 94 Est GFR (MDRD) Non-Af 78 BUN/Creatinine Ratio 7.6 L Glucose 144 H Calcium 9.7 Troponin I High Sens 5 B-Natriuretic Peptide 11/28/22 15:20 WBC RBC Hgb Hct MCV MCH MCHC RDW Std Deviation RDW Coeff of Mike Plt Count MPV Immature Gran % (Auto) Neut % (Auto) Lymph % (Auto) Dickens % (Auto) Eos % (Auto) Baso % (Auto) Absolute Neuts (auto) Absolute Lymphs (auto) Nucleated RBC % D-Dimer Quant (PE/DVT) Sodium Potassium Chloride Carbon Dioxide Anion Gap BUN Creatinine Estim Creat Clear Calc Est GFR (MDRD) Af Amer Est GFR (MDRD) Non-Af BUN/Creatinine Ratio Glucose Calcium Troponin I High Sens B-Natriuretic Peptide 42.6 Radiography Diagnostic Testing: Clinical Impression(s) from Imaging Studies Chest X-Ray 11/28/22 15:50 IMPRESSION: Increased small right effusion Electronically Signed: Robert Lubin MD at 16:50 EDT Reading Location ID and State: [address] [place] [address] , Service support , Chest CTA 11/28/22 16:42 IMPRESSION: Moderate bilateral effusions. Pathologic mediastinal or lymphadenopathy. Nonspecific multifocal bilateral groundglass opacities. Differential considerations include infectious, inflammatory, and neoplastic etiologies. Enlarging mass left breast and left axillary lymph nodes consistent with patient''s history of metastatic breast cancer. Old compression fracture T11 and L1 unchanged. Electronically Signed: Robert Lubin MD at 17:22 EDT , Discharge Plan Triage Chief Complaint: Shortness of Breath ED Provider: Bj Andre Dx/Rx/DC Orders Clinical Impression: Dyspnea, Breast cancer, Pleural effusion Instructions: ED Dyspnea Prescriptions: New hydrocodone-acetaminophen [hydrocodone-acetaminophen] 5-325 mg tablet 1 tab PO Q6H PRN PRN (Reason: Pain) 3 Days Qty: 12 0RF No Action propranolol [Inderal LA] 80 mg capsule,extended release 24 hr 80 mg PO QHS calcium carbonate [Calcium 600] 600 mg calcium (1,500 mg) tablet 600 mg PO BID Centrum Silver Women 8 mg iron-400 mcg-300 mcg tablet 1 tab PO DAILY cyclobenzaprine 5 mg tablet 5 mg PO BID PRN (Reason: BACK SPASMS) sertraline 50 mg tablet 50 mg PO QHS omeprazole 20 mg capsule,delayed release(DR/EC) 20 mg PO DAILY clonazepam 0.5 mg tablet 0.5 mg PO QHS trazodone 50 mg tablet 50 mg PO QHS PRN (Reason: Sleep) potassium chloride 20 mEq tablet extended release 20 meq PO DAILY Qty: 3 0RF ondansetron HCl 8 MG tablet 8 mg PO Q8H PRN PRN (Reason: Nausea And Vomiting) Qty: 60 6RF Piqray 300 mg/day (150 mg x 2) Tablet 300 mg PO DAILY 30 Days Qty: 30 12RF losartan 50 mg tablet 50 mg PO DAILY Qty: 90 3RF Primary Care Provider: Almas Flores Referrals: Jeremy Aviles MD [Med Staff - Active Staff] - As soon as possible Almas Flores MD [Primary Care Provider] - Disposition Disposition: Home, Self Care
--- NOTE | 2022-11-28 16:42 | CT_ITS ---
STUDY: CTA CHEST REASON FOR EXAM: Female, 62 years old. dyspnea d-dimer elevation RADIATION DOSAGE (If Supplied By Facility): CTDIvol = ( 8.86 ) mGy, DLP = ( 347.00 ) mGycm TECHNIQUE: The examination was performed with the intravenous administration of IV 75mL [id number]-[id number]. Post-processing of the angiographic images was performed, with multiplanar reformation and 3D reconstruction. Individualized dose optimization techniques were used for this CT. COMPARISON: Chest x-ray from November 28, 2022. CT chest September 21, 2022.. FINDINGS: Normal enhancement of the main pulmonary artery and right and left pulmonary arteries. Normal enhancement of the bilateral peripheral pulmonary arteries. There is no demonstrated pulmonary embolism. Normal thoracic aorta and visualized great vessels. There is no demonstrated aortic dissection. Cardiomegaly.. Prominent superior mediastinal lymph nodes. Largest conglomerate measures 2 cm in diameter. Normal hilar regions. Normal visualized trachea and bronchi. Ill-defined multiple bilateral groundglass opacities. Normal pulmonary parenchyma. Moderate bilateral pleural effusions. Spiculated mass left breast with central surgical clips appears larger. Overall measurements up to 2.7 cm in diameter. Pathologic left axillary lymphadenopathy also demonstrates interval enlargement measuring up to 2.4 cm in diameter. There appears be mediastinal shift to the right. Compression fractures T11 and L1 unchanged. Normal visualized upper abdomen. CT/CTA Chest W/WO Contrast IMPRESSION: Moderate bilateral effusions. Pathologic mediastinal or lymphadenopathy. Nonspecific multifocal bilateral groundglass opacities. Differential considerations include infectious, inflammatory, and neoplastic etiologies. Enlarging mass left breast and left axillary lymph nodes consistent with patient''s history of metastatic breast cancer. Old compression fracture T11 and L1 unchanged. Electronically Signed: Robert Lubin MD at 17:22 EDT Reading Location ID and State: [address] [place] [address] , Service support ,
[2022-11-28] MEDS: Ondansetron 4 MG/2 ML Vial IV (19:07)
[2022-11-28] MEDS: Morphine 4 MG/ML Syringe IV (19:07)
[2022-11-28] MEDS: Albuterol Sulfate 8 gm Inhaler (60 puffs) 2 PUFF INHALATION (21:20)
== END 2022-11-28 21:30 | disposition home or self-care (01) ==
PROVIDERS: Emergency Provider Emergency Medicine; PCP Family Medicine; Visit Provider Emergency Medicine
DX: R06.00 Dyspnea, unspecified (principal); C78.00 Secondary malignant neoplasm of unspecified lung; C79.51 Secondary malignant neoplasm of bone; C77.9 Secondary and unspecified malignant neoplasm of lymph node, unspecified; C50.112 Malignant neoplasm of central portion of left female breast; J91.8 Pleural effusion in other conditions classified elsewhere; I10 Essential (primary) hypertension; R11.0 Nausea; R59.0 Localized enlarged lymph nodes; R73.9 Hyperglycemia, unspecified; F32.A Depression, unspecified; F41.9 Anxiety disorder, unspecified; R79.89 Other specified abnormal findings of blood chemistry; G47.33 Obstructive sleep apnea (adult) (pediatric); Z20.822 Contact with and (suspected) exposure to COVID-19; Z79.899 Other long term (current) drug therapy
CPT/HCPCS: 71046; 71275; 80048; 83880; 84484; 85025; 85379; 87428; 93005; 94640; 94664; 96374; 96375; 99283; Q9967; A4216; J2405

== ENCOUNTER 2022-12-05 01:11 | Emergency (ER) | payer MEDICAID, SELFPAY ==
[2022-12-05 01:12] VITALS: BP 160/121; PULSE 88; RESP 25; TEMP 36; O2SAT 98; BMI 27.6
--- NOTE | 2022-12-05 01:20 | CT_ITS ---
STUDY: CT BRAIN WITHOUT CONTRAST REASON FOR EXAM: Female, 62 years old. Headache with nausea and vomiting RADIATION DOSAGE (If Supplied By Facility): CTDIvol = ( 47.06 ) mGy, DLP = ( 890.33 ) mGycm TECHNIQUE: Transaxial CT imaging of the brain was performed without administration of intravenous contrast material. Individualized dose optimization techniques were used for this CT. COMPARISON: No relevant priors. FINDINGS: Normal soft tissue structures. Normal calvarium. There is mild cerebral atrophy with widening of the extra-axial spaces and ventricular dilatation. There is mild bilateral periventricular and subcortical white matter hypoattenuation which is symmetric in distribution. Normal basal ganglia and thalami. Normal brainstem. Normal cerebellum. There is no intracranial hemorrhage. There are no findings of an acute ischemic infarction. Normal visualized paranasal sinuses. CT/Brain/Head without Contrast IMPRESSION: 1. No acute intracranial abnormality. 2. Mild bilateral periventricular and subcortical white matter chronic small vessel disease with age appropriate cerebral atrophy. Electronically Signed: Zhou Berg MD at 2:07 EDT ,
--- NOTE | 2022-12-05 01:21 | EDS_ITS ---
HPI History of Present Illness Chief Complaint: Headache Detail of Chief Complaint: Thunderclap headache with nausea and vomiting Informant: patient Onset/Context/Timing Onset: Hours (2330) Context: Sudden Timing: Continuous Quality -Headache: Positive for Similar Prior Headaches (Two prior headaches) Location: Occiput Current Severity: Severe Maximum Severity: Severe Worsened by: There is an anxiety component Relieved by: Nothing Associated Symptoms/Injury Associated Symptoms: Positive for Nausea, Vomiting (X1) and Photophobia; Negative for Fever, Sore Throat, Sinus Pressure, Numbness, Tingling, Preceding Aura, Visual Changes, Blurred Vision or Visual Loss Injury - BONNER: Negative for Direct Trauma, Fall or Assault Narrative Narrative: Patient was seen November 28 for chest pain and shortness of breath. She was worked up for pulmonary embolus in light of her history of metastatic breast cancer. Her breast cancer was diagnosed approximately 2 years ago. There is no mention of thunderclap headache. She was seen on September 21 for unrelated issue. She denies fever, chills night sweats. She does report occipital headache states its a 15 out of 10 and feels that her head is going to explode. She reports photophobia. She denies sonophobia. She denies trouble with speech or swallowing. She denies problems with balance or coordination. She denies paresthesia, anesthesia or motor weakness. She states she has vomited once. She is not on an anticoagulant and she is not on and antithrombotic. Patient states her oncologist is Dr. Liz. She is on anxiety medication. Patient has no other complaints. Prior similar symptoms: Yes Recent Illness/Hospitalization: Yes (As documented in the HPI narrative) [facility] Medical History Anemia Anxiety and depression BMI 29.0-29.9,adult Bone metastases Breast cancer (12/2020) Essential hypertension Gastric reflux History of left breast cancer Hypokalemia Lung metastases Malignant neoplasm of central portion of left female breast Migraine headache NARCISO treated with BiPAP Osteoporosis Panic disorder Pleural effusion, malignant Post-menopausal Regional lymph node metastasis present Shortness of breath Wears glasses Home Medications propranolol 80 mg capsule,24 hr,extended release (Inderal LA) 80 mg PO QHS anxiety 11/25/17 [History Last Taken 09/20/22] ondansetron HCl 8 mg tablet 8 mg PO Q8H PRN PRN Nausea And Vomiting #60 tabs 05/08/21 [Rx Last Taken Unknown] calcium carbonate 600 mg calcium (1,500 mg) tablet (Calcium) 600 mg PO BID supplement 07/31/21 [History Last Taken 09/20/22] multivit with [id number] 8 mg iron-400 mcg-300 mcg tablet (Centrum Silver Women) 1 tab PO DAILY supplement 07/31/21 [History Last Taken 09/20/22] cyclobenzaprine 5 mg tablet 5 mg PO BID PRN BACK SPASMS 12/26/21 [History Last Taken Unknown] clonazepam 0.5 mg tablet 0.5 mg PO QHS anxiety 03/12/22 [History Last Taken 09/17/22] omeprazole 20 mg capsule,delayed release 20 mg PO DAILY GERD 03/12/22 [History Last Taken 09/20/22] sertraline 50 mg tablet 50 mg PO QHS depression 03/12/22 [History Last Taken 09/20/22] losartan 50 mg tablet 50 mg PO DAILY #90 tabs 04/17/22 [Rx Last Taken 09/21/22] trazodone 50 mg tablet 50 mg PO QHS PRN Sleep 07/31/22 [History Last Taken Unknown] alpelisib 300 mg/day (150 mg x 2) tablet (Piqray) 300 mg PO DAILY 30 days #30 tabs 09/17/22 [Rx Last Taken 09/16/22] potassium chloride 20 mEq tablet,extended release 20 meq PO DAILY #3 tabs 11/20/22 [Rx Last Taken Unknown] hydrocodone-acetaminophen 5-325mg 5mg-325mg 1 tab PO Q6H PRN PRN Pain 3 days #12 TABLETS 11/28/22 [Rx Last Taken Unknown] hydrocodone-acetaminophen 5-325mg 5mg-325mg 1 tab PO Q6H PRN PRN Pain 2 days #6 TABLETS 12/05/22 [Rx Last Taken Unknown] Allergy/AdvReac Type Severity Reaction Status Date / Time No Known Allergies Allergy Verified 12/02/22 13:47 Family History Father Brain tumor Mother Alzheimers disease Breast cancer Brother Lung cancer Surgical History History of esophagogastroduodenoscopy (EGD) History of sinus surgery History of thoracentesis (03/23/21) S/P lumpectomy, left breast Social History household members: none housing: house number of children: 1 pets and animals: Yes pets and animals: dog(s) Smoking Status: Never smoker second hand exposure: No alcohol intake: current Alcohol type: wine details: wine 2-3 drinks per night substance use type: does not use lizzie/faith: None seatbelt use: always do you feel safe at home: Yes additional social history: has 4 grandchildren ROS ROS ED Constitutional Constitutional ED: Denies chills, fever(s), subjective, sweats or weight loss Eyes Eyes: Reports other Details: Photophobia. ; Denies blurry vision, change in vision or diplopia ENT ENT ED: Denies ear pain, rhinorrhea or sore throat Cardiovascular Cardiovascular: Denies chest pain, orthopnea, palpitations, paroxysmal nocturnal dyspnea or racing heartbeat Respiratory/Chest Respiratory/Chest: Denies cough, dyspnea, dyspnea on exertion, orthopnea or paroxysmal nocturnal dyspnea Gastrointestinal Gastrointestinal: Reports nausea and vomiting; Denies abdominal pain, constipation or diarrhea Genitourinary Genitourinary ED: Denies dysuria, hematuria or urinary frequency Musculoskeletal Musculoskeletal: Reports neck pain; Denies arthralgias, back pain or myalgias Integumentary Denies abscess, Abrasions or rash Neurologic Neurologic: Reports headache(s); Denies paresthesias or weakness Psychiatric Psychiatric: Reports anxiety Endocrine Endocrinology: Denies polydipsia, polyphagia or polyuria Hematologic/Lymphatic Hematologic/Lymphatic: Denies easy bleeding or easy bruising EXAM Physical Exam Const Vital Signs: 12/05/22 01:12 Temperature 96.8 F L Temperature Source Temporal Pulse Rate 88 Respiratory Rate 25 H Blood Pressure 160/121 H Blood Pressure Mean 134 Pulse Ox 98 Oxygen Delivery Method Room Air Positive well nourished and well developed Constitutional Narrative: Patient appears somewhat anxious. Patient is holding her head. General Appearance ED: well developed; Negative for cyanotic, diaphoretic, NAD or pallor HEENT Reports normocephalic, TM's clear and moist mucous membranes atraumatic; Negative for temporal artery tenderness or vesicular rash Face and Sinus: Negative for sinus tenderness Tympanic Membrane ED: Yes TM's clear Eyes PERRL and EOMs intact bilaterally Eyes Narrative: Patient does not have photophobia on funduscopic exam. Cup-to-disc ratio was normal. There is no obvious papilledema. There is AV nicking consistent with longstanding hypertension. General Eye ED: Negative for pale conjunctiva or scleral icterus Neck no lymphadenopathy, supple, no meningeal signs and no JVD Resp normal respiratory effort and clear to auscultation bilaterally Cardio regular rate, regular rhythm, S1 normal heart sound, S2 normal heart sound and no murmurs GI non-tender and non-distended Auscultation: normoactive bowel sounds, hyperactive bowel sounds and hypoactive bowel sounds Back/Spine no CVA tenderness Extremity normal to inspection and normal capillary refill General Extremety ED: Negative for edema or tenderness General Extremity: Negative for edema Neuro oriented x3, CN's II-XII intact bilaterally and no sensory deficits noted Neuro Narrative: There is no clonus or Babinski sign noted right or left. Raina Coma Scale: document GCS findings Spontaneous Obeys Commands Oriented 15 Sensorium / Orientation: awake and alert Speech: speech normal Motor Exam: strength 5/5 throughout Psych Mood & Affect: anxious Skin General Skin Exam: Negative for jaundice or pallor Lesions: no lesions Rashes: no rashes MDM MDM MDM Narrative Medical decision making narrative: With third thunderclap headache in the past several weeks need to evaluate for subarachnoid hemorrhage. Not on enhanced CT of the head was obtained to evaluate for hemorrhage. CBC was obtained to assess platelet count. Patient was treated with 4 mg of Zofran for her nausea and 2 mg of morphine for her pain. Suspect there is an overlying anxiety component. Patient states this occurred when she got out of the bathtub. Since her symptoms started less than 6 hours from onset if the CT of the head is negative and LP is not necessarily indicated. Prior records were reviewed. CT of the head was interpreted by radiologist as negative. Since CT was performed less than 6 hours from the onset of her headache lumbar puncture is not necessary. Furthermore she has no photophobia or any meningeal findings which 1 would anticipate if she had a subarachnoid hemorrhage. Suspect there is an anxiety component. Her laboratory studies are unremarkable. Plan is to discharge to home. Lab Data Attestation: I reviewed the patient's lab results. Lab results narrative: CBC is essentially unremarkable. Platelet count is 495 which is elevated. Labs: Laboratory Results - last 24 hr 12/05/22 12/05/22 01:25 01:25 WBC 10.5 RBC 4.20 Hgb 12.2 Hct 38.1 MCV 90.7 MCH 29.0 MCHC 32.0 RDW Std Deviation 49.0 H RDW Coeff of Mike 14.8 H Plt Count 495 H MPV 9.0 Immature Gran % (Auto) 0.300 Neut % (Auto) 66.2 Lymph % (Auto) 18.4 L Osborne % (Auto) 8.1 Eos % (Auto) 6.3 H Baso % (Auto) 0.7 Absolute Neuts (auto) 6.9 Absolute Lymphs (auto) 1.92 Nucleated RBC % 0 Sodium 139 Potassium 3.6 Chloride 105 Carbon Dioxide 23.0 Anion Gap 11 BUN 10 Creatinine 0.72 Estim Creat Clear Calc 63.25 Est GFR (MDRD) Af Amer 106 Est GFR (MDRD) Non-Af 87 BUN/Creatinine Ratio 14.0 Glucose 123 H Calcium 9.2 Radiography Diagnostic Testing: Clinical Impression(s) from Imaging Studies Brain CT 12/05/22 01:20 IMPRESSION: 1. No acute intracranial abnormality. 2. Mild bilateral periventricular and subcortical white matter chronic small vessel disease with age appropriate cerebral atrophy. Electronically Signed: Zhou Berg MD at 2:07 EDT , There is noCT of the head without contrast was reviewed by me at 0143 and there is no evidence of subarachnoid hemorrhage. There is no significant acute pathology noted. Fluid noted in the sphenoid sinus, frontal or maxillary. Awaiting formal read by radiologist. Discharge Plan Triage Chief Complaint: Headache ED Provider: Zechariah Ridley Dx/Rx/DC Orders Clinical Impression: Thunderclap headache, Essential hypertension, Nausea & vomiting, Anxiety attack, Breast cancer metastasized to bone, Breast cancer metastasized to lung Instructions: ED Headache, Tension Prescriptions: New hydrocodone-acetaminophen [hydrocodone-acetaminophen] 5-325 mg tablet 1 tab PO Q6H PRN PRN (Reason: Pain) 2 Days Qty: 6 0RF No Action propranolol [Inderal LA] 80 mg capsule,extended release 24 hr 80 mg PO QHS calcium carbonate [Calcium 600] 600 mg calcium (1,500 mg) tablet 600 mg PO BID Centrum Silver Women 8 mg iron-400 mcg-300 mcg tablet 1 tab PO DAILY cyclobenzaprine 5 mg tablet 5 mg PO BID PRN (Reason: BACK SPASMS) sertraline 50 mg tablet 50 mg PO QHS omeprazole 20 mg capsule,delayed release(DR/EC) 20 mg PO DAILY clonazepam 0.5 mg tablet 0.5 mg PO QHS trazodone 50 mg tablet 50 mg PO QHS PRN (Reason: Sleep) potassium chloride 20 mEq tablet extended release 20 meq PO DAILY Qty: 3 0RF ondansetron HCl 8 MG tablet 8 mg PO Q8H PRN PRN (Reason: Nausea And Vomiting) Qty: 60 6RF Piqray 300 mg/day (150 mg x 2) Tablet 300 mg PO DAILY 30 Days Qty: 30 12RF hydrocodone-acetaminophen [hydrocodone-acetaminophen] 5-325 mg tablet 1 tab PO Q6H PRN PRN (Reason: Pain) 3 Days Qty: 12 0RF losartan 50 mg tablet 50 mg PO DAILY Qty: 90 3RF Primary Care Provider: Almas Flores Referrals: Almas Flores MD [Primary Care Provider] - 3-5 Days Disposition Disposition: Home, Self Care
[2022-12-05] MEDS: Morphine 2 MG/ML Syringe IV (01:25)
[2022-12-05] MEDS: Ondansetron 4 MG/2 ML Vial IV (01:25)
[2022-12-05 01:29] LABS: Absolute Lymphocyte Count 1.92 X10^3/uL (0.83-4.51); Absolute Neutrophil Count 6.9 X10^3/uL (2.0-7.7); Basophil# 0.07 X10^3/uL; Basophil% 0.7 % (0-1); Eosinophil# 0.66 X10^3/uL; Eosinophils% 6.3 % (0-5); Hematocrit 38.1 % (37-47); Hemoglobin 12.2 g/dL (12.0-15.0); Lymphocyte # 1.92 X10^3/ul (0.83-4.51); Lymphocyte % 18.4 % (19-41); Mean Corpuscular Volume 90.7 fL (81-99); Monocyte# 0.85 X10^3/uL; Monocyte% 8.1 % (0-10); NRBC Flagged by Analyzer 0 % (0-5); Neutrophil # 6.92 X10^3/uL (2.7-7.7); Neutrophil % 66.2 % (47-70); Platelet Count 495 K/mm3 (150-450); RBC Distribution Width CV 14.8 % (11.6-14.6); White Blood Count 10.5 K/mm3 (4.4-11.0)
[2022-12-05 01:43] LABS: Anion Gap 11 (5-15); BUN 10 mg/dL (7-18); Calcium,Total 9.2 mg/dL (8.5-10.1); Chloride 105 mmol/L (98-107); Creatinine, Serum 0.72 mg/dL (0.55-1.02); EST Glomerular Filtration Rate 87 mL/min (>60); Est Glom Filt Rate - Afr Amer 106 mL/min (>60); Estimated Creatinine Clearance 63.25 ml/min; Glucose 123 mg/dL (74-106); Potassium 3.6 mmol/L (3.5-5.1); Sodium Level 139 mmol/L (136-145)
[2022-12-05 02:22] VITALS: BP 166/89; PULSE 79; RESP 16; O2SAT 94
== END 2022-12-05 02:39 | disposition home or self-care (01) ==
LOC: ED 02:23
PROVIDERS: Emergency Provider Emergency Medicine; PCP Family Medicine; Visit Provider Emergency Medicine
DX: G44.53 Primary thunderclap headache (principal); C79.51 Secondary malignant neoplasm of bone; C78.00 Secondary malignant neoplasm of unspecified lung; C50.919 Malignant neoplasm of unspecified site of unspecified female breast; G47.33 Obstructive sleep apnea (adult) (pediatric); R11.2 Nausea with vomiting, unspecified; I10 Essential (primary) hypertension; M54.2 Cervicalgia; F41.9 Anxiety disorder, unspecified; Z79.899 Other long term (current) drug therapy
CPT/HCPCS: 70450; 80048; 85025; 96374; 96375; 99283; A4216; J2405

== ENCOUNTER → 2022-12-11 | Outpatient (CLI) | payer MEDICAID, SELFPAY ==
--- NOTE | 2022-12-11 11:48 | RAD_ITS ---
STUDY: X-RAY - CERVICAL SPINE REASON FOR EXAM: Female, 62 years old. Spondylosis without myelopathy or radiculopathy, cervical region. TECHNIQUE: 2 view(s) of the cervical spine were obtained. COMPARISON: None FINDINGS: There are degenerative changes of the anterior atlantoaxial articulation. Normal odontoid process. Exaggerated cervical lordosis. Normal vertebral bodies and endplates. Normal disc space heights. There is no evidence of acute fracture or loss of vertebral axial height. There is maintenance of normal alignment. The soft tissue structures are unremarkable. RAD/Cerv Spine 2 or 3 Views IMPRESSION: No acute abnormality of the cervical spine. Electronically Signed: Miguel Rivera DO at 23:19 EDT ,
== END | disposition home or self-care (01) ==
LOC: RAD 11:47
PROVIDERS: PCP Family Medicine; Referring Provider Anesthesiology Pain Medicine; Visit Provider Anesthesiology Pain Medicine
DX: M47.812 Spondylosis without myelopathy or radiculopathy, cervical region (principal)
CPT/HCPCS: 72040

== ENCOUNTER 2022-12-26 10:33 | Day surgery (SDC) | payer MEDICAID, SELFPAY ==
--- NOTE | 2022-12-26 11:32 | PCM.HP.BLA ---
History and Physical Date of Admission: 12/26/22 Intake Vital Signs ? 12/18/2310:14 12/19/2310:01 12/19/2312:32 Height 5 ft 2 in 5 ft 2 in 5 ft 2 in Weight: ? 144 lb 4 oz 145 lb 2 oz BMI ? 26.4 26.5 BP ? 142/77 H 144/100 H Blood Pressure Location ? Rt brachial Rt brachial Position ? Sitting Sitting Respiration ? 18 16 Pulse ? 80 86 Pulse Source ? Monitor Monitor Temp ? 97.5 F L 96.6 F L Temp Source ? ? Temporal Pulse Oximetry (%) ? 92 96 Oxygen Delivery Method ? room air ? Intake Visit Reasons:?Port Placement Consult Chief Complaint: port placement consult Allergies No Known Allergies Allergy (Verified 12/19/22 13:33) PFSH Medical History? Anemia Anxiety and depression BMI 29.0-29.9,adult Bone metastases Breast cancer (12/2020) Essential hypertension Gastric reflux History of left breast cancer Hypokalemia Lung metastases Malignant neoplasm of central portion of left female breast Migraine headache NARCISO treated with BiPAP Osteoporosis Panic disorder Pleural effusion, malignant Post-menopausal Regional lymph node metastasis present Shortness of breath Wears glasses Surgical History? History of esophagogastroduodenoscopy (EGD) History of sinus surgery History of thoracentesis (03/23/21) S/P lumpectomy, left breast Family History? Father Brain tumorMother Alzheimers disease Breast cancerBrother Lung cancer Social History? household members:? none housing:? house number of children:? 1 pets and animals:? Yes pets and animals: dog(s) Smoking Status:? Never smoker second hand exposure:? No alcohol intake:? current Alcohol type: wine details:? wine 2-3 drinks per night substance use type:? does not use lizzie/hindu:? None seatbelt use:? always do you feel safe at home:? Yes additional social history:? has 4 grandchildren HPI HPI HPI: Patient is a 62-year-old female here for chest port for chemotherapy. ROS General General: Yes fatigue and breast cancer; No weight change, appetite, colon cancer or weakness HEENT HEENT: No difficulty swallowing, eye injury, eye surgery, swollen glands or hoarseness Endo Endocrine: No thyroid disease, diabetes mellitus, thyroid cancer, Hair loss, heat intolerance or cold intolerance Skin Skin: No rash or changing moles Breast Breast: No left breast lump, right breast lump, nipple discharge, breast pain, abnormal mammogram, abnormal US or breast enlargement Musc Musculoskeletal: No back problems, arthritis, rheumatoid arthritis, gout or joint pain Cardio Cardiovascular: Yes murmur and high blood pressure; No pacemaker, heart disease, atrial fibrillation, heart attack, heart stent, palpitations, shortness of breat with exertion or chest pain Psych Psychiatric: Yes depression and anxiety; No hearing voices Resp Respiratory: Yes shortness of breath, Yes sleep apnea, No cough, No COPD, No asthma, No emphysema and No wheezing Gastro Gastrointestinal: No abdominal pain, Yes nausea or vomiting, Yes diarrhea, No constipation, No blood in stool, No acid reflux, Yes hemorrhoids, No ulcers, No gallbladder problem and No black,tarry stools Jerel Hematologic: No blood thinners, No blood disorders, No bleeding, No anemia and No blood clots Neuro Neurologic: No system reviewed and no additional complaints, except as documented, No as per HPI, No abnormal gait, No abnormal hearing, No abnormal movements, No abnormal speech, No behavioral changes, No burning sensations, No confusion, No convulsions, No disequilibrium, No dizziness, No localized weakness, No frequent falls, No headache(s), No lack of coordination, No loss of vision, No memory loss, No numbness, No other visual disturbances, No radicular pain, No restless legs, No sensory deficit, No syncope, No tingling, No tremor(s), No weakness and No other Exam Const General: cooperative Orientation: alert and oriented x3 HENMT Head: normal to inspection Neck Neck: normal visual inspection and full ROM Chest Chest palpation & inspection: normal inspection of the chest Resp Effort & Inspection: normal respiratory effort Auscultation: clear to auscultation bilaterally Cardio Rate: regular rate Rhythm: regular rhythm GI Inspection: non-distended Palpation: soft and nontender Skin General: no rashes or lesions noted Neuro General: patient alert and patient oriented x3 Extrem General: full ROM Psych Appearance: grossly normal Mental Status: mental status grossly normal Assessment and Plan Assessment and Plan (1) Encounter for insertion of venous access port: ?Status:?Acute ?Plan: Patient requires chemotherapy and is here to discuss right chest port placement.? I discussed chest port placement with the patient in detail.? I discussed the risks including but not limited to bleeding, infection, pneumothorax or DVT.? Patient understands the risks and is willing to proceed. Chuck Anglin MD Pager: [facility] [address] [place] [address], [address] [place] [address] Office: I have examined the patient and the H&P has been reviewed. There are no clinical changes since date of exam.
[2022-12-26 11:38] VITALS: BP 140/85; PULSE 83; RESP 18; TEMP 36.4; O2SAT 94; BMI 25.8
[2022-12-26] MEDS: Cefazolin 2 GM in 0.9% Normal Saline 100 ML IV (11:49)
[2022-12-26] MEDS: Lidocaine 1%/Epi 1:200 (30ml) 30 ML AMPUL (12:09)
[2022-12-26] MEDS: Bupivacaine Mpf 0.5% 30 ML VIAL (12:09)
[2022-12-26 12:34] VITALS: BP 111/80; BP 140/85; PULSE 79; RESP 16; TEMP 36.2; O2SAT 97
--- NOTE | 2022-12-26 12:35 | OP.PCM_ITS ---
Report of Operation Date of Procedure: 12/26/22 Pre-Operative Diagnosis: Breast cancer, need for vascular access for chemothera py Post-Operative Diagnosis: Same Surgery/Procedure Performed:: Ultrasound and fluoroscopy guided right chest port placement utilizing right IJ Description of Procedure: After obtaining informed consent patient was brought back to the operating room MAC anesthesia was induced and the right chest and neck were prepped in normal sterile fashion. Ultrasound was used to evaluate both IJs and the right IJ was selected. Next, using a needle, the right IJ was accessed and a guidewire was passed on into the superior vena cava under fluoroscopy guidance. A small incision was made over the puncture site and the dilator introducer was placed over the guidewire. Next this was capped and the pocket was made for the port. 1% lidocaine with epinephrine was injected in the proposed port site. An incision was made with scalpel. Electrocautery was used to make a pocket under the skin and subcutaneous tissue. Hemostasis was obtained. Next, the catheter was tunneled up to the neck incision site and placed through the introducer. The peel-away introducer was removed and the position of the catheter was confir med on fluoroscopy. Next, the catheter was trimmed and attached to the port with the locking device. Interrupted 2-0 Vicryl sutures were used to anchor the port to the chest wall and then the port was placed inside the pocket. The pocket was then flushed with saline and the port irrigated with saline. There was good blood return and the port flushed easily. Next, heparin was injected into the port. The skin was closed with subcutaneous interrupted 3-0 Vicryl sutures. A single 3-0 Vicryl sutures placed under the skin at the neck incision site. Steri-Strips were placed as well as op sites. Patient tolerated procedure well, was taken to PACU in stable condition. Chest x-ray will be obtained. Grafts/Implants Used: 8 [place] PowerPort Admit VTE Documentation VTE Mechan Device Prophylaxis: SCD's
--- NOTE | 2022-12-26 12:36 | DCINST_ITS ---
Discharge Instructions Procedure Port-A-Cath Diet Discharge Diet: Light diet - advance as tolerated (Pain medication may cause nausea. You should typically eat light foods as you take your pain medication.) Activity Discharge Activity: Return to Normal Activity and May Shower (with your bandage in place in 1-2 days after surgery. DO NOT SHOWER WHEN YOUR PORT IS ACCESSED.) Dressing / Incision Call your doctor if your incision/area has: Continuous Slow Oozing, Sudden Increased Bleeding, Increased Pain/ Swelling, Increased Redness and Foul Smelling Discharge Call your doctor if you observe: Fever of 101 or Higher Remove Dressing in: 2 days Cleanse incision/area with: Soap & Water Follow Up Care Please Follow Up With: Chuck Anglin MD When: as needed [phone] Test Results: Test results from this visit will be discussed in further detail at your follow- up appointment, if applicable. Discharge Plan Admission Attending Provider: Chuck Anglin Primary Care Provider: Almas Flores Instructions Additional Instructions / Restrictions: Ibuprofen and Tylenol alternating for pain Discharge Orders/Prescriptions Prescriptions: No Action propranolol [Inderal LA] 80 mg capsule,extended release 24 hr 80 mg PO QHS calcium carbonate [Calcium 600] 600 mg calcium (1,500 mg) tablet 600 mg PO BID Centrum Silver Women 8 mg iron-400 mcg-300 mcg tablet 1 tab PO DAILY cyclobenzaprine 5 mg tablet 5 mg PO BID PRN (Reason: BACK SPASMS) sertraline 50 mg tablet 100 mg PO QHS omeprazole 20 mg capsule,delayed release(DR/EC) 20 mg PO DAILY clonazepam 0.5 mg tablet 1 mg PO QHS potassium chloride 20 mEq tablet extended release 20 meq PO DAILY Qty: 3 0RF tizanidine 2 mg tablet 1 mg PO Q8H PRN (Reason: Spasms) ondansetron HCl 8 mg tablet 8 mg PO Q8H PRN PRN (Reason: Nausea And Vomiting) Qty: 60 6RF lidocaine-prilocaine 2.5-2.5 % cream 1 applic topical ONCE PRN (Reason: port access) 30 Days Qty: 30 2RF dexamethasone 4 mg tablet 8 mg PO DAILY Qty: 12 3RF Rx Instructions: Take 8 mg PO the day before, the day of and the day after chemotherapy ONLY Piqray 300 mg/day (150 mg x 2) Tablet 300 mg PO DAILY 30 Days Qty: 30 12RF losartan 50 mg tablet 50 mg PO DAILY Qty: 90 3RF Referrals / Follow Up: Almas Flores MD [Primary Care Provider] - Disposition Disposition (needs filled in before D/C Order can be placed): Home, Self Care
[2022-12-26 12:40] VITALS: BP 121/62; BP 140/85; PULSE 78; RESP 16; O2SAT 96
--- NOTE | 2022-12-26 12:41 | RAD_ITS ---
STUDY: X-RAY CHEST REASON FOR EXAM: Female, 62 years old. PORT PLACEMENT -- STAT WET READ TECHNIQUE: Single AP portable view of the chest. COMPARISON: Comparison is made with prior study dated November 28, 2022. FINDINGS: A right-sided portacatheter is seen with the tip at the junction of the superior vena cava and right atrium. EKG electrodes are seen. Surgical clips are seen in the left axillary region. Increasing bilateral pleural effusions with bibasilar atelectasis and/or infiltrate worse on the left side. Normal size heart. Normal mediastinum and crispin. Normal visualized pulmonary arteries. There is atherosclerotic calcification of the aortic arch with tortuosity. There are diffuse degenerative changes of the visualized thoracic spine. Normal visualized ribs, clavicles, and shoulders. There is no demonstrated abnormality of the visualized soft tissue structures of the upper abdomen. RAD/CXR for Line Placement IMPRESSION: The tip of the right armando catheter is at the junction of the superior vena cava and right atrium. Increasing bilateral pleural effusions with bibasilar atelectasis and/or infiltrates worse on the left side. Electronically Signed: Kiran Laurent MD at 13:14 EDT ,
[2022-12-26 12:45] VITALS: BP 136/88; BP 140/85; PULSE 76; RESP 14; O2SAT 98
[2022-12-26 12:48] VITALS: BP 140/85
[2022-12-26 13:45] VITALS: BP 140/85; BP 144/68; PULSE 87; RESP 16; TEMP 36.1; O2SAT 92
== END 2022-12-26 14:00 | disposition home or self-care (01) ==
LOC: SDC 10:34 → AC 10:36
PROVIDERS: PCP Family Medicine; Referring Provider Surgery; Visit Provider Surgery
PROC: (CPT 36561; principal; 2022-12-26 12:45)
DX: Z45.2 Encounter for adjustment and management of vascular access device (principal); C79.51 Secondary malignant neoplasm of bone; C78.00 Secondary malignant neoplasm of unspecified lung; C77.9 Secondary and unspecified malignant neoplasm of lymph node, unspecified; C50.112 Malignant neoplasm of central portion of left female breast; Z78.0 Asymptomatic menopausal state; I10 Essential (primary) hypertension
CPT/HCPCS: 36561; 00532; 71045; 77001; J7120; C1788; J2405

== ENCOUNTER → 2022-12-30 | Outpatient (CLI) | payer MEDICAID, SELFPAY ==
--- NOTE | 2022-12-30 16:51 | MRI_ITS ---
EXAM: MR brain with and without contrast. HISTORY: WORSENING HEADACHES- New dx breast CA TECHNIQUE: MR Brain WO/W Contrast COMPARISON: Head CT December 05, 2022. MRI brain August 01, 2022. LIMITATIONS: None. BRAIN: At least 4 enhancing lesions in the parieto-occipital region bilaterally as well as the left frontotemporal region near the vertex. These lesions are new or increased in size since the prior MR exam. The largest is in the left parieto-occipital region on image 82 of postcontrast axial series 12. This lesion measures 8 x 5 mm and is new since the prior MR exam. Increased T2/FLAIR signal of this lesion. No diffusion abnormalities. Mild white matter changes are nonspecific, but are similar to the prior exam and likely secondary to chronic microvascular ischemia. VENTRICLES: No hydrocephalus. EXTRA-AXIAL SPACES: No hemorrhage. CALVARIUM/SKULL BASE: Normal. FACE/SINUSES: Visualized portions normal. SOFT TISSUES: Normal. OTHER: None. CONCLUSION: At least 4 subcentimeter enhancing lesions bilaterally concerning for metastatic disease. These are new or increased in size since the prior MRI. Electronically Signed: Cheo Delgado MD at 6:42 EDT , MRI/Brain W/WO Contrast IMPRESSION: undefined
== END | disposition home or self-care (01) ==
LOC: MRI 16:47
PROVIDERS: PCP Family Medicine; Referring Provider Internal Medicine Hematology & Oncology; Visit Provider Internal Medicine Hematology & Oncology
DX: C50.919 Malignant neoplasm of unspecified site of unspecified female breast (principal)
CPT/HCPCS: 70553; A9575

== ENCOUNTER 2022-12-31 14:38 | Outpatient (CLI) | payer MEDICAID, SELFPAY ==
--- NOTE | 2022-12-31 14:50 | RAD_ITS ---
STUDY: X-RAY CHEST REASON FOR EXAM: Female, 62 years old. Pleural effusion- ?thoracentesis TECHNIQUE: PA and lateral views of the chest. COMPARISON: Comparison is made with prior study from first 2022. FINDINGS: A right-sided portacatheter is seen with the tip at the junction of superior vena cava and right atrium. Surgical clips are seen in the left axillary region. Bilateral pleural effusions left greater than right. The right pleural effusion has increased in size as compared to prior study. Nodular density in the right midlung suggestive of fluid in the right major fissure. There is no demonstrated pleural abnormality. There is mild cardiac enlargement. Normal mediastinum and crispin. Normal visualized pulmonary arteries. Normal visualized aortic arch and descending thoracic aorta. There is demineralization of the osseous structures. Mild loss of height of a lower dorsal vertebrae. There is degenerative osteoarthritis of the bilateral shoulders. There is no demonstrated abnormality of the visualized soft tissue structures of the upper abdomen. RAD/Chest PA and Lateral IMPRESSION: Bilateral pleural effusions left greater than right. The right pleural effusion has increased in size as compared to prior study. Electronically Signed: Kiran Laurent MD at 15:15 EDT ,
== END 2022-12-31 23:59 | disposition home or self-care (01) ==
LOC: RAD 14:40
PROVIDERS: PCP Family Medicine; Referring Provider Nurse Practitioner Family; Visit Provider Nurse Practitioner Family
DX: J90 Pleural effusion, not elsewhere classified (principal)
CPT/HCPCS: 71046

== ENCOUNTER → 2023-01-01 | Outpatient (CLI) | payer MEDICAID, SELFPAY ==
--- NOTE | 2023-01-01 11:50 | US_ITS ---
PROCEDURE: ULTRASOUND GUIDED THORACENTESIS. DATE: January 01, 2023. INDICATION: Female, 62 years old. Left pleural effusion. PHYSICIAN: Kiran Laurent M.D. PROCEDURE: The risks, benefits, and alternatives to the procedure were explained to the patient. The specific risks of bleeding, infection, and pneumothorax requiring chest tube insertion were discussed and accepted. Written informed consent was obtained. Ultrasonographic evaluation of the left lower pleural space was carried out. An adequate pocket was identified. The patient was placed in the sitting, upright position. The overlying skin was prepped and draped in sterile fashion. 1% lidocaine was administered subcutaneously for local anesthesia. Under ultrasound guidance, a 5 Iraqi thoracentesis needle/catheter system was advanced into the left posterior lower pleural fluid collection. Approximately 900 mL of juliette-colored fluid fluid was drained. The catheter was removed, and a sterile dressing was applied. The patient tolerated the procedure well. A chest x-ray was ordered. US/Thoracentesis W US IMPRESSION: Ultrasound-guided left thoracentesis. Electronically Signed: Kiran Laurent MD at 12:49 EDT ,
[2023-01-01 12:10] VITALS: BP 134/76; BP 145/66; BP 149/75; PULSE 81; PULSE 82; PULSE 83; RESP 16; TEMP 36.3; O2SAT 94; O2SAT 95; O2SAT 96
[2023-01-01] MEDS: Lidocaine 2% (20 ml mdv) 20 ML Vial INFILT (12:10)
--- NOTE | 2023-01-01 12:25 | RAD_ITS ---
STUDY: X-RAY CHEST REASON FOR EXAM: Female, 62 years old. Post thora TECHNIQUE: AP inspiration and expiration views. COMPARISON: Comparison is made with prior study dated December 31, 2022. FINDINGS: The patient is status post left thoracentesis. No evidence of pneumothorax. Residual bilateral pleural-parenchymal changes. RAD/Chest Insp/Exp 2 View IMPRESSION: Status post left thoracentesis. No evidence of pneumothorax. Persistent bilateral pleural-parenchymal changes. Electronically Signed: Kiran Laurent MD at 12:53 EDT ,
== END | disposition home or self-care (01) ==
LOC: US 11:49
PROVIDERS: PCP Family Medicine; Referring Provider Nurse Practitioner Family; Visit Provider Nurse Practitioner Family
DX: J90 Pleural effusion, not elsewhere classified (principal)
CPT/HCPCS: 32555; 71046

== ENCOUNTER 2023-01-09 07:26 | Inpatient (IN) | payer MEDICAID, SELFPAY ==
[2023-01-09] VITALS (14 sets, daily range): BP systolic 111–151; BP diastolic 57–90; PULSE 65–100; RESP 16–22; TEMP 36.2–36.7; O2SAT 88–97; BMI 27.3; BMI 25.7
--- NOTE | 2023-01-09 07:31 | EKG12_ITS ---
Test Reason : SOB Blood Pressure : / mmHG Vent. Rate : 094 BPM Atrial Rate : 094 BPM P-R Int : 126 ms QRS Dur : 074 ms QT Int : 350 ms P-R-T Axes : 022 012 010 degrees QTc Int : 437 ms Normal sinus rhythm Normal ECG Confirmed by GLENIS LAROSE, CATHY ([id number]), photo editor IVETH HURLEY ([id number]) on 01/13/2023 10:15:41 A M Referred By: Confirmed By:ANDRIY GALVIN MD
--- NOTE | 2023-01-09 07:37 | EDS_ITS ---
HPI <Dr. Zechariah Ridley MD - Last Filed: 01/09/23 11:30> History of Present Illness Chief Complaint: Shortness of Breath Detail of Chief Complaint: Palpitations and shortness of breath Informant: patient and EMS Onset/Context/Timing Onset: Yesterday Context: sudden Timing: Continuous and Waxes and wanes Quality: Positive for Dyspnea on exertion; Negative for Orthopnea, PND or Wheezing Current Severity: Mild Maximum Severity: Moderate Worsened by: Exertion and Coughing; Not Worsened By Lying flat Relieved by: Nothing and Oxygen (Improved) Associated Symptoms cough, rhinorrhea and post nasal drip; Negative for ear pain, fever, sore t hroat, subjective, chills, sweats, clear sputum, white sputum, yellow sputum or green sputum Chest Pain: Positive for None, Intermittent and Pleuritic Narrative Narrative: Patient is a 62-year-old woman with stage IV breast cancer. She was scheduled for chemotherapy today. She had recent thoracentesis on January 01. Patient presents with shortness of breath that started last evening palpitations. She does report pleuritic chest pain. She denies history of PE or DVT. She denies leg pain, swelling discoloration. She also endorses upper respiratory symptoms. Her cough is nonproductive. She states she had a cough for some time. She denies documented fever or subjective fever. She denies shaking chills. She denies abdominal pain, nausea, vomiting or diarrhea. She has a mild headache presently. 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 PE Risk Factors: Positive for Cancer; Negative for OCP + Smoking + > 35, Prior DVT or PE, Recent immobilization, Recent surgery or Recent travel Prior similar symptoms: No Recent Illness/Hospitalization: No PFSH <Dr. Zechariah Ridley MD - Last Filed: 01/09/23 11:30> PFSH Medical History Alcohol use Anemia Anxiety and depression Arthritis BMI 29.0-29.9,adult Bone metastases Breast cancer (12/2020) Cardiology follow-up encounter Essential hypertension Gastric reflux History of echocardiogram History of left breast cancer Hypokalemia Lung metastases Malignant neoplasm of central portion of left female breast Migraine headache Non-smoker Osteoporosis Panic disorder Pleural effusion, malignant Post-menopausal Regional lymph node metastasis present Shortness of breath Shortness of breath on exertion Syncope Wears glasses Home Medications propranolol 80 mg capsule,24 hr,extended release (Inderal LA) 80 mg PO QHS anxiety 11/25/17 [History Last Taken 01/08/23] calcium carbonate 600 mg calcium (1,500 mg) tablet (Calcium) 600 mg PO BID supplement 07/31/21 [History Last Taken 01/08/23] multivit with ewhaaque-wjex-OU-lutein 8 mg iron-400 mcg-300 mcg tablet (Centrum Silver Women) 1 tab PO DAILY supplement 07/31/21 [History Last Taken 01/08/23] omeprazole 20 mg capsule,delayed release 20 mg PO DAILY GERD 03/12/22 [History Last Taken 01/08/23] sertraline 50 mg tablet 100 mg PO QHS depression 03/12/22 [History Last Taken 01/08/23] losartan 50 mg tablet 50 mg PO DAILY #90 tabs 04/17/22 [Rx Last Taken 01/08/23] potassium chloride 20 mEq tablet,extended release 20 meq PO DAILY #3 tabs 11/20/22 [Rx Last Taken 01/08/23] tizanidine 2 mg tablet 1 mg PO Q8H PRN Spasms 12/18/22 [History Last Taken 01/08/23] dexamethasone 4 mg tablet 8 mg PO DAILY #12 tabs 12/19/22 [Rx Last Taken 01/06/23] lidocaine-prilocaine 2.5 %-2.5 % topical cream 1 applic topical ONCE PRN port access 30 days #30 grams 12/19/22 [Rx Last Taken 01/06/23] ondansetron HCl 8 mg tablet 8 mg PO Q8H PRN PRN Nausea And Vomiting #60 tabs 12/19/22 [Rx Last Taken 01/08/23] clonazepam 1 mg tablet 1 mg PO QHS ANXIETY 01/09/23 [History Last Taken 01/08/23] Allergy/AdvReac Type Severity Reaction Status Date / Time No Known Allergies Allergy Verified 01/09/23 07:27 Family History Father Brain tumor Mother Alzheimers disease Breast cancer Brother Lung cancer Surgical History History of esophagogastroduodenoscopy (EGD) History of sinus surgery History of thoracentesis (03/23/21) S/P lumpectomy, left breast Social History household members: none housing: house number of children: 1 pets and animals: Yes pets and animals: dog(s) Smoking Status: Never smoker second hand exposure: No alcohol intake: current Alcohol type: wine details: wine 2-3 drinks per night substance use type: does not use lizzie/methodist: None seatbelt use: always do you feel safe at home: Yes additional social history: has 4 grandchildren ROS <Dr. Zechariah Ridley MD - Last Filed: 01/09/23 11:30> ROS ED Constitutional Constitutional ED: Reports weight loss; Denies chills, fever(s) or sweats Eyes Eyes: Denies blurry vision, change in vision or diplopia ENT ENT ED: Reports rhinorrhea and sore throat; Denies ear pain Cardiovascular Cardiovascular: Reports chest pain and palpitations; Denies orthopnea, paroxysma l nocturnal dyspnea or racing heartbeat Respiratory/Chest Respiratory/Chest: Reports cough, dyspnea and dyspnea on exertion; Denies orthopnea, paroxysmal nocturnal dyspnea or sputum Gastrointestinal Gastrointestinal: Denies abdominal pain, constipation, diarrhea, melena, nausea or vomiting Genitourinary Genitourinary ED: Denies dysuria, hematuria or urinary frequency Musculoskeletal Musculoskeletal: Reports back pain and other Details: Breast cancer metastasis to bone ; Denies arthralgias, myalgias or neck pain Integumentary Denies abscess or rash Neurologic Neurologic: Reports headache(s) and other Details: History of chronic headaches due to metastasis to brain ; Denies paresthesias or weakness Psychiatric Psychiatric: Reports anxiety Endocrine Endocrinology: Denies cold intolerance or heat intolerance Hematologic/Lymphatic Hematologic/Lymphatic: Denies easy bleeding or easy bruising EXAM <Dr. Zechariah Ridley MD - Last Filed: 01/09/23 11:30> Physical Exam Narrative Exam Narrative: Vital signs remarkable for a pulse ox 80% on room air. Patient does not wear oxygen at home. Const Vital Signs: 01/09/23 07:28 01/09/23 07:45 01/09/23 08:27 Temperature 97.1 F L Temperature Source Rectal Pulse Rate 100 85 Respiratory Rate 20 H 22 H Respiratory Effort Short of Breath Respiratory Depth Normal Respiratory Pattern Normal Blood Pressure 151/90 H 125/75 H Blood Pressure Mean 110 91 Pulse Ox 88 94 Oxygen Delivery Method Room Air Nasal Cannula Nasal Cannula Oxygen Flow Rate (L/min) 2 2 01/09/23 09:00 01/09/23 10:00 01/09/23 11:00 Temperature Temperature Source Pulse Rate 82 Respiratory Rate 16 16 18 Respiratory Effort Respiratory Depth Respiratory Pattern Blood Pressure 111/67 Blood Pressure Mean 81 Pulse Ox 94 Oxygen Delivery Method Nasal Cannula Oxygen Flow Rate (L/min) 2 Positive well nourished and well developed Constitutional Narrative: Patient appears older than reported age. General Appearance ED: well developed, NAD and pallor HEENT Reports moist mucous membranes HEENT Narrative: Head is atraumatic normocephalic. Ears are normal. Nares are patent. Uvula is midline. Posterior pharynx is normal. atraumatic Eyes PERRL and EOMs intact bilaterally General Eye ED: Negative for pale conjunctiva or scleral icterus Neck no lymphadenopathy, supple, no meningeal signs and no JVD Resp normal respiratory effort and clear to auscultation bilaterally Auscultation: diminished lung sounds right lower Cardio regular rate, regular rhythm, S1 normal heart sound and no murmurs GI non-tender, non-distended and no masses Auscultation: normoactive bowel sounds Palpation: soft Back/Spine no CVA tenderness Extremity normal to inspection General Extremety ED: Negative for edema or tenderness General Extremity: Negative for edema Neuro oriented x3, CN's II-XII intact bilaterally and no sensory deficits noted Waldo Coma Scale: document GCS findings Spontaneous Obeys Commands Oriented 15 Sensorium / Orientation: alert Psych Mood & Affect: depressed and anxious Skin no wounds and skin turgor normal General Skin Exam: pallor; Negative for jaundice Lesions: no lesions Rashes: no rashes <Dr. Anita Dela Cruz MD - Last Filed: 01/09/23 11:25> Physical Exam Const Vital Signs: 01/09/23 07:28 01/09/23 07:45 01/09/23 08:27 Temperature 97.1 F L Temperature Source Rectal Pulse Rate 100 85 Respiratory Rate 20 H 22 H Respiratory Effort Short of Breath Respiratory Depth Normal Respiratory Pattern Normal Blood Pressure 151/90 H 125/75 H Blood Pressure Mean 110 91 Pulse Ox 88 94 Oxygen Delivery Method Room Air Nasal Cannula Nasal Cannula Oxygen Flow Rate (L/min) 2 2 01/09/23 09:00 01/09/23 10:00 01/09/23 11:00 Temperature Temperature Source Pulse Rate 82 Respiratory Rate 16 16 18 Respiratory Effort Respiratory Depth Respiratory Pattern Blood Pressure 111/67 Blood Pressure Mean 81 Pulse Ox 94 Oxygen Delivery Method Nasal Cannula Oxygen Flow Rate (L/min) 2 Neuro Raina Coma Scale: document GCS findings 15 MDM <Dr. Zechariah Ridley MD - Last Filed: 01/09/23 11:30> [facility] Narrative Medical decision making narrative: Patient with stage IV breast cancer. Patient does have a living will. Patient states she would like everything done to keep her alive. Patient was scheduled for chemotherapy today. Dr. Liz is her oncologist. Patient was diagnosed with breast cancer in 2000. Patient had recent thoracentesis on left. The fluid was malignant. This was performed on January 01. She has had a drop in hemoglobin from 13 3-11.7 from December 18 to January 06. Chest x-ray performed on January 01 revealed bilateral pleural effusion much more significant on the left. Last CT was performed in 2020. With abrupt onset of shortness of breath palpitations/tachycardia need to consider pulmonary embolus, obstructive pneumonia, recurrence of pleural effusion, anemia since there is been a recent drop. Comprehensive metabolic panel was obtained to assess renal function and electrolytes as well as calcium since she has history of metastasis to bone. EKG was obtained to determine if there is any evidence of right heart strain which would increase probability of pulmonary embolus. Lab Data Attestation: I reviewed the patient's lab results. Lab results narrative: White count is slightly elevated at 12,000 with out shift. There is mild anemia and unchanged from January 06, 2023. Labs: Laboratory Results - last 24 hr 01/09/23 01/09/23 01/09/23 07:40 07:40 07:40 WBC 12.0 H RBC 4.01 L Hgb 11.8 L Hct 36.0 L MCV 89.8 MCH 29.4 MCHC 32.8 RDW Std Deviation 48.3 H RDW Coeff of Mike 14.8 H Plt Count 459 H MPV 9.7 Immature Gran % (Auto) 0.300 Neut % (Auto) 64.1 Lymph % (Auto) 14.1 L [place] % (Auto) 19.6 H Eos % (Auto) 1.4 Baso % (Auto) 0.5 Absolute Neuts (auto) 7.7 Absolute Lymphs (auto) 1.70 Nucleated RBC % 0 Diff Path Review May Sodium 137 Potassium 3.1 L Chloride 105 Carbon Dioxide 24.0 Anion Gap 8 BUN 7 Creatinine 0.47 L Estim Creat Clear Calc 92.45 Est GFR (MDRD) Af Amer 171 Est GFR (MDRD) Non-Af 142 BUN/Creatinine Ratio 14.9 Glucose 104 Lactic Acid 0.8 Calcium 8.8 Total Bilirubin 0.40 AST 17 ALT 20 Alkaline Phosphatase 83 Total Protein 6.9 Albumin 2.9 L Globulin 4.0 Albumin/Globulin Ratio 0.7 L Radiography Chest X-Ray - ED: 2 View and Read by ED Physician (Independently reviewed interpreted by me at 0809. Patient has bilateral pleural effusions. There is worsening since January 01. Port is noted on the right. There is obscuring of the right and left heart border. There is no widening of the mediastinum. There is no obvious abnormality of the osseous) Diagnostic Testing: Clinical Impression(s) from Imaging Studies Chest X-Ray 01/09/23 07:55 IMPRESSION: Progressive increase in the right pleural effusion with persistent infiltration and/or atelectasis at the right lung base. Interval improvement and left pleural effusion although persistent left lower lobe infiltrate and/or atelectasis. Electronically Signed: Kiran Laurent MD at 8:18 EDT , Chest CTA 01/09/23 10:02 IMPRESSION: Bilateral pleural effusions left greater than right with bibasilar infiltration and/or atelectasis. No evidence of pulmonary embolism. Nodular density in the right upper lobe. Enlargement of the adrenal Stable mediastinal lymph nodes. Findings suggestive of necrotic lymph nodes in the left axilla. Electronically Signed: Kiran Laurent MD at 10:21 EDT , CT a of the chest reveals bilateral pleural effusions left much greater than right. There is collapse due to the effusion. There is no evidence of pulmonary embolus. There is no evidence of pneumothorax. Awaiting formal read by radiologist. There appears to be lymphadenopathy suspected due to metastatic breast cancer. This was independently reviewed by me at 1017. Rhythm Strip Rhythm Strip: Sinus Rhythm Rate: 99 Ectopy: None EKG Initial EKG: Attestation: I personally reviewed and interpreted this EKG as follows: Interpretation: Sinus Rhythm (Rate is 94. The EKG is normal. FL interval is 126 ms. Cures duration 74 ms. QT duration 350 ms. Vance is normal. 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, aortic dissection Reason(s) Aortic dissection less likely:: Positive for normal vascular exam, no history of HTN, normal neurological exam, no significant risk factors for dissection, no widened mediastinum on CXR, pain not sudden onset, no ripping/tearing pain, no pain to back and blood pressure appropriate in ED and CHF Reason(s) CHF less likely: Positive for no significant peripheral edema, no orthopnea, no evidence of fluid overload on CXR and other (Evidence of malignant bilateral pleural effusion noted on x-ray that is worse than images obtained on January 01.) Treatment and Re-Evaluation :: Kendell was informed at 0747 the patient has significant headache. She did take 3 Tylenol at home with no improvement. She is also on hydrocodone. Will prescribe 1 mg of Dilaudid IV push. At approximately 0916 patient was informed of laboratory results and reason for CTA. She informing that her headache is resolved. She desaturated on 2 L to 88% with good waveform. She is presently on 4 L by nasal cannula. Since patient is requiring oxygen will contact hospitalist for admission patient in all likelihood will need bilateral thoracentesis is performed. Case was discussed with Anita Dela Cruz hospitalist <Dr. Anita Dela Cruz MD - Last Filed: 01/09/23 11:25> [facility] Lab Data Labs: Laboratory Results - last 24 hr 01/09/23 01/09/23 01/09/23 07:40 07:40 07:40 WBC 12.0 H RBC 4.01 L Hgb 11.8 L Hct 36.0 L MCV 89.8 MCH 29.4 MCHC 32.8 RDW Std Deviation 48.3 H RDW Coeff of Mike 14.8 H Plt Count 459 H MPV 9.7 Immature Gran % (Auto) 0.300 Neut % (Auto) 64.1 Lymph % (Auto) 14.1 L [place] % (Auto) 19.6 H Eos % (Auto) 1.4 Baso % (Auto) 0.5 Absolute Neuts (auto) 7.7 Absolute Lymphs (auto) 1.70 Nucleated RBC % 0 Diff Path Review May foll Sodium 137 Potassium 3.1 L Chloride 105 Carbon Dioxide 24.0 Anion Gap 8 BUN 7 Creatinine 0.47 L Estim Creat Clear Calc 92.45 Est GFR (MDRD) Af Amer 171 Est GFR (MDRD) Non-Af 142 BUN/Creatinine Ratio 14.9 Glucose 104 Lactic Acid 0.8 Calcium 8.8 Total Bilirubin 0.40 AST 17 ALT 20 Alkaline Phosphatase 83 Total Protein 6.9 Albumin 2.9 L Globulin 4.0 Albumin/Globulin Ratio 0.7 L Radiography Diagnostic Testing: Clinical Impression(s) from Imaging Studies Chest X-Ray 01/09/23 07:55 IMPRESSION: Progressive increase in the right pleural effusion with persistent infiltration and/or atelectasis at the right lung base. Interval improvement and left pleural effusion although persistent left lower lobe infiltrate and/or atelectasis. Electronically Signed: Kiran Laurent MD at 8:18 EDT , Chest CTA 01/09/23 10:02 IMPRESSION: Bilateral pleural effusions left greater than right with bibasilar infiltration and/or atelectasis. No evidence of pulmonary embolism. Nodular density in the right upper lobe. Enlargement of the adrenal Stable mediastinal lymph nodes. Findings suggestive of necrotic lymph nodes in the left axilla. Electronically Signed: Kiran Laurent MD at 10:21 EDT , Discharge Plan Dx/Rx/DC Orders Clinical Impression: Acute respiratory failure with hypoxia, Headache, Essential hypertension, Bilateral pleural effusion, Stage IV breast cancer in female, Breast cancer metastasized to brain Disposition Disposition: Acute Care [facility]
[2023-01-09 07:55] LABS: Absolute Neutrophil Count 7.7 X10^3/uL (2.0-7.7); Basophil# 0.06 X10^3/uL; Basophil% 0.5 % (0-1); Eosinophil# 0.17 X10^3/uL; Eosinophils% 1.4 % (0-5); Hemoglobin 11.8 g/dL (12.0-15.0); Lymphocyte % 14.1 % (19-41); Mean Corp Hgb Conc 32.8 g/dL (32-36); Mean Corpuscular Hgb 29.4 pg (27.0-32.0); Mean Corpuscular Volume 89.8 fL (81-99); Mean Platelet Vol. 9.7 fl (6.2-12.0); Monocyte# 2.36 X10^3/uL; Monocyte% 19.6 % (0-10); NRBC Flagged by Analyzer 0 % (0-5); Neutrophil # 7.69 X10^3/uL (2.7-7.7); Neutrophil % 64.1 % (47-70); POSITIVE DIFFERENTIAL YES; Platelet Count 459 K/mm3 (150-450); RBC Distribution Width CV 14.8 % (11.6-14.6); RBC Distribution Width SD 48.3 fl (35.1-43.9); Red Blood Count 4.01 M/mm3 (4.2-5.4)
--- NOTE | 2023-01-09 07:55 | RAD_ITS ---
STUDY: X-RAY CHEST REASON FOR EXAM: Female, 62 years old. Shortness of breath, decreased breath sounds right TECHNIQUE: AP and lateral views of the chest. COMPARISON: Comparison is made with prior study dated January 01, 2023. FINDINGS: EKG electrodes are seen. A right-sided portacatheter seen with the tip in the right atrium. Surgical clips are seen in the left axilla. Since prior study, there has been an increase in the right pleural effusion with right basilar atelectasis. Slight decrease in size of the left pleural effusion with persistent left lower lobe infiltration which has progressed. Normal size heart. Normal mediastinum and crispin. Normal visualized pulmonary arteries. There is atherosclerotic tortuosity of the aortic arch and descending thoracic aorta. There are diffuse degenerative changes of the visualized thoracic spine. Increased kyphosis. Normal visualized ribs, clavicles, and shoulders. There is no demonstrated abnormality of the visualized soft tissue structures of the upper abdomen. RAD/Chest PA and Lateral IMPRESSION: Progressive increase in the right pleural effusion with persistent infiltration and/or atelectasis at the right lung base. Interval improvement and left pleural effusion although persistent left lower lobe infiltrate and/or atelectasis. Electronically Signed: Kiran Laurent MD at 8:18 EDT ,
[2023-01-09 08:03] LABS: Differential Indicated SCAN CRITERIA MET
[2023-01-09] MEDS: HYDROmorphone 1 MG/ML Syringe IV (08:04)
[2023-01-09] MEDS: Ondansetron 4 MG/2 ML Vial IV (08:04)
[2023-01-09 08:13] LABS: ALB/GLOB Ratio 0.7 RATIO (0.9-2.4); AST(SGOT) 17 U/L (15-37); Alanine Aminotransfer ALT/SGPT 20 U/L (13-56); Albumin, Serum 2.9 g/dL (3.2-5.0); Alkaline Phosphatase 83 U/L (45-117); Anion Gap 8 (5-15); BUN 7 mg/dL (7-18); BUN/Creat Ratio 14.9 RATIO (10-20); Calcium,Total 8.8 mg/dL (8.5-10.1); Chloride 105 mmol/L (98-107); Creatinine, Serum 0.47 mg/dL (0.55-1.02); EST Glomerular Filtration Rate 142 mL/min (>60); Est Glom Filt Rate - Afr Amer 171 mL/min (>60); Estimated Creatinine Clearance 92.45 ml/min; Glucose 104 mg/dL (74-106); Potassium 3.1 mmol/L (3.5-5.1); Protein, Total 6.9 g/dL (6.4-8.2); Sodium Level 137 mmol/L (136-145)
[2023-01-09 08:23] LABS: Lactic Acid 0.8 mmol/L (0.4-1.9)
--- NOTE | 2023-01-09 10:02 | CT_ITS ---
STUDY: CTA CHEST REASON FOR EXAM: Female, 62 years old. Hypoxia, pleuritic chest pain. History of breast cancer with metastasis to the brain and lung. RADIATION DOSAGE (If Supplied By Facility): CTDIvol = ( 5.96 ) mGy, DLP = ( 225.89 ) mGycm TECHNIQUE: The examination was performed with the intravenous administration of IV 100mL Isovue-370. Post-processing of the angiographic images was performed, with multiplanar reformation and 3D reconstruction. Individualized dose optimization techniques were used for this CT. COMPARISON: Comparison is made with prior study dated November 28, 2022. FINDINGS: A right-sided portacatheter is seen with the tip in the superior vena cava. Left axillary lymph nodes with decreased attenuation suggestive of a possible necrotic component. The largest lymph node measures 2.3 cm x 2.5 cm. 2.2 cm x 1.7 cm mass in the left breast. Normal enhancement of the main pulmonary artery and right and left pulmonary arteries. Normal enhancement of the bilateral peripheral pulmonary arteries. There is no demonstrated pulmonary embolism. Normal thoracic aorta and visualized great vessels. There is no demonstrated aortic dissection. Normal heart and pericardium. Enlarged mediastinal lymph nodes. Normal hilar regions. There is an 8.1 mm in space related nodule in the peripheral lateral aspect of the right upper lobe as seen on axial image #149. Focal infiltrate in the lingular segment of the left upper lobe. Fluid is seen in the right major fissure. Bibasilar atelectasis and/or infiltrates. Normal pulmonary parenchyma. Bilateral pleural effusions left greater than right. Normal chest wall structures. Impression fractures of the T11 and L1 vertebrae. Enlargement of both adrenal glands. Fatty infiltration of the liver. CT/CTA Chest W/WO Contrast IMPRESSION: Bilateral pleural effusions left greater than right with bibasilar infiltration and/or atelectasis. No evidence of pulmonary embolism. Nodular density in the right upper lobe. Enlargement of the adrenal Stable mediastinal lymph nodes. Findings suggestive of necrotic lymph nodes in the left axilla. Electronically Signed: Kiran Laurent MD at 10:21 EDT ,
--- NOTE | 2023-01-09 11:07 | CM.ED ---
Social Work CM Assessment SW Face to Face with patient for initial transition planning/care coordination assessment. SW introduced self and role at [facility]. Patient lying in bed, alert and oriented. Patient willing to participate in assessment and is able to answer all questions appropriately. Pt's daughter, Cedrick, also present in the room.? Care providers, pharmacy, and demographics verified. Patient wishes to discharge home, but is unsure of what her needs will be at this time. Pt reports she is having difficulty caring for self independently recently. SW to follow for discharge planning needs that may arise. PCP: Dr. Plunkett Specialists: No Preferred Pharmacy: [facility] Insurance: [employer] Medicaid Prescription Benefit:?Yes Living Will/HPOA: Yes, reports it is on file. Daughter present is HCPOA. LNOK: Cedrick Martinez Living Arrangements: Independent in an apartment. Pt reports 14 steps to home. Transportation: Daughter DME/HHC: Pt denies any previous SNF, rehab or HHC. Pt denies having any DME in her home. Denies cane, walker, or any assistive devices. Disposition Plan: If patient is discharged home, DME/HHC likely needed. SW/CM to follow for patient needs. Toshia Marion MOLD INSERT CHANGER, CODIFIER
--- NOTE | 2023-01-09 11:25 | PCM.HP.STD ---
HPI - General General Date of Admission: 01/09/23 Date of Service: 01/09/23 Chief Complaint: shortness of breath HPI Narrative KRIS HOUSER, is a 62 F with a PMH as outlined who presents via the ED on 01/09/2023 with a complaint of shortness of breath. She has a history of metastatic breast cancer and was due to have chemotherapy today. She had a left thoracentesis on January 01. She started feeling short of breath few days prior to this presentation and the shortness of breath has worsened. She is not able to lie down flat without getting short of breath and also has pleuritic chest pain associated with her shortness of breath. She denied any nausea or vomiting, fever or chills and does not have a productive cough. She denied any lower extremity swelling. Review of negative. Her daughter was by her bedside. Vitals in the ED were BP of 111/67, WA of 82, RR of 18 and oxygen sats of 94% on 2L of oxygen. CBC showed hb of 11.8, wbc of 12 and platelets of 459. Chemistry showed sodium of 137 with potassium of 3.1 and Cr of 0.47. CXR showed progressive increase in the right pleural effusion with persistent infiltration and/or atelectasis and interval improvement of left pleural effusion although peristent left lower lobe infiltrate and/or atelectasis. CTA chest shwoed bilateral pleural effusion sleft greater than right with bibasilar infiltration and/or atelectasis with nodular density in the right upper lobe and stable mediastinal lymph nodes. She is being admitted to be managed for hypoxia due to bilateral recurrent malignant pleural effusion. [facility] Medical History (Updated 01/09/23 @ 12:28 by Yumiko Eubanks) Alcohol use Anemia Anxiety and depression Arthritis BMI 29.0-29.9,adult Bone metastases Breast cancer (12/2020) Cancer Cardiology follow-up encounter CPAP (continuous positive airway pressure) dependence Essential hypertension Gastric reflux History of echocardiogram History of left breast cancer Hypokalemia Irregular heart beat Lung metastases Malignant neoplasm of central portion of left female breast Migraine headache Non-smoker Osteoporosis Panic disorder Pleural effusion, malignant Post-menopausal Regional lymph node metastasis present Shortness of breath Shortness of breath on exertion Syncope Wears glasses Home Medications propranolol 80 mg capsule,24 hr,extended release (Inderal LA) 80 mg PO QHS anxiety 11/25/17 [History Last Taken 01/08/23] calcium carbonate 600 mg calcium (1,500 mg) tablet (Calcium) 600 mg PO BID supplement 07/31/21 [History Last Taken 01/08/23] multivit with [id number] 8 mg iron-400 mcg-300 mcg tablet (Centrum Silver Women) 1 tab PO DAILY supplement 07/31/21 [History Last Taken 01/08/23] omeprazole 20 mg capsule,delayed release 20 mg PO DAILY GERD 03/12/22 [History Last Taken 01/08/23] sertraline 50 mg tablet 100 mg PO QHS depression 03/12/22 [History Last Taken 01/08/23] losartan 50 mg tablet 50 mg PO DAILY #90 tabs 04/17/22 [Rx Last Taken 01/08/23] potassium chloride 20 mEq tablet,extended release 20 meq PO DAILY #3 tabs 11/20/22 [Rx Last Taken 01/08/23] tizanidine 2 mg tablet 1 mg PO Q8H PRN Spasms 12/18/22 [History Last Taken 01/08/23] dexamethasone 4 mg tablet 8 mg PO DAILY #12 tabs 12/19/22 [Rx Last Taken 01/06/23] lidocaine-prilocaine 2.5 %-2.5 % topical cream 1 applic topical ONCE PRN port access 30 days #30 grams 12/19/22 [Rx Last Taken 01/06/23] ondansetron HCl 8 mg tablet 8 mg PO Q8H PRN PRN Nausea And Vomiting #60 tabs 12/19/22 [Rx Last Taken 01/08/23] clonazepam 1 mg tablet 1 mg PO QHS ANXIETY 01/09/23 [History Last Taken 01/08/23] Allergy/AdvReac Type Severity Reaction Status Date / Time No Known Allergies Allergy Verified 01/09/23 07:27 Family History Father Brain tumor Mother Alzheimers disease Breast cancer Brother Lung cancer Surgical History History of esophagogastroduodenoscopy (EGD) History of sinus surgery History of thoracentesis (03/23/21) S/P lumpectomy, left breast Social History household members: none housing: house number of children: 1 pets and animals: Yes pets and animals: dog(s) Smoking Status: Never smoker second hand exposure: No alcohol intake: current Alcohol type: wine details: wine 2-3 drinks per night substance use type: does not use lizzie/yazidism: None seatbelt use: always do you feel safe at home: Yes additional social history: has 4 grandchildren ROS Review of Systems ROS Unobtainable: due to encephalopathy Constitutional Constitutional: Reports fatigue, malaise and weakness; Denies anorexia, change in weight, chills or fever(s) Eyes Eyes: Denies change in vision ENT HEENT: Denies dysphagia, headache(s) or nasal congestion Cardiovascular Cardiovascular: Reports dyspnea on exertion and orthopnea; Denies chest pain, edema, lightheadedness, palpitations, paroxysmal nocturnal dyspnea, rapid heart rate or syncope Respiratory/Chest Respiratory/Chest: Reports cough, dyspnea and shortness of breath with exertion; Denies excessive phlegm production, hemoptysis, productive cough or wheezing Gastrointestinal Gastrointestinal: Reports nausea and vomiting; Denies abdominal pain, constipation or diarrhea Genitourinary Genitourinary: Denies dysuria Musculoskeletal Musculoskeletal: Denies arthralgias Neurologic Neurologic: Denies confusion, dizziness, focal weakness, headache(s), seizure-like activity or seizures Psychiatric Psychiatric: Denies anxiety Endocrine Endocrinology: Denies cold intolerance Vital Signs Vital Signs Vital Signs: 01/09/23 07:28 01/09/23 07:45 01/09/23 08:27 Temperature 97.1 F L Temperature Source Rectal Pulse Rate 100 85 Respiratory Rate 20 H 22 H Respiratory Effort Short of Breath Respiratory Depth Normal Respiratory Pattern Normal Blood Pressure 151/90 H 125/75 H Blood Pressure Mean 110 91 Pulse Ox 88 94 Oxygen Delivery Method Room Air Nasal Cannula Nasal Cannula Oxygen Flow Rate (L/min) 2 2 01/09/23 09:00 01/09/23 10:00 01/09/23 11:00 Temperature Temperature Source Pulse Rate 82 Respiratory Rate 16 16 18 Respiratory Effort Respiratory Depth Respiratory Pattern Blood Pressure 111/67 Blood Pressure Mean 81 Pulse Ox 94 Oxygen Delivery Method Nasal Cannula Oxygen Flow Rate (L/min) 2 Weight Weight: 148 lb 9.465 oz Body Mass Index (BMI) 27.3 Physical Exam Const alert, oriented x3 and no apparent distress General Appearance: cooperative HEENT normocephalic, head/scalp atraumatic and hearing grossly normal bilaterally Eyes PERRL, EOMs intact bilaterally and conjunctivae normal Neck no lymphadenopathy and supple Resp Resp Narrative: moderately diminished breath sounds bibasally, no wheezes or crackles. On 2L of oxygen by nasal canula Cardio regular rate, regular rhythm, S1 normal heart sound, S2 normal heart sound and no murmurs GI normal to inspection, nondistended, normoactive bowel sounds, soft to palpation, non-tender and non-distended Extremity normal to inspection, full ROM and no clubbing, cyanosis or edema Neuro oriented x3, CN's II-XII intact bilaterally and moves all extremities Sensorium / Orientation: awake and alert Motor Exam: strength 5/5 throughout Psych affect normal Results Lab / Micro Data Result Diagrams: 01/09/23 07:40 01/09/23 07:40 Labs: Laboratory Results - last 24 hr 01/09/23 07:40: WBC 12.0 H, RBC 4.01 L, Hgb 11.8 L, Hct 36.0 L, MCV 89.8, MCH 29.4, MCHC 32.8, RDW Std Deviation 48.3 H, RDW Coeff of Mike 14.8 H, Plt Count 459 H, MPV 9.7, Immature Gran % (Auto) 0.300, Neut % (Auto) 64.1, Lymph % (Auto) 14.1 L, [place] % (Auto) 19.6 H, Eos % (Auto) 1.4, Baso % (Auto) 0.5, Absolute Neuts (auto) 7.7, Absolute Lymphs (auto) 1.70, Nucleated RBC % 0, Diff Path Review November01/09/23 07:40: Sodium 137, Potassium 3.1 L, Chloride 105, Carbon Dioxide 24.0, Anion Gap 8, BUN 7, Creatinine 0.47 L, Estim Creat Clear Calc 92.45, Est GFR (MDRD) Af Amer 171, Est GFR (MDRD) Non-Af 142, BUN/Creatinine Ratio 14.9, Glucose 104, Calcium 8.8, Total Bilirubin 0.40, AST 17, ALT 20, Alkaline Phosphatase 83, Total Protein 6.9, Albumin 2.9 L, Globulin 4.0, Albumin/Globulin Ratio 0.7 L 01/09/23 07:40: Lactic Acid 0.8 Rhythm Strip Rhythm Strip: Sinus Rhythm Rate: 99 Ectopy: None Radiology Impression Chest X-Ray 01/09/23 07:55 IMPRESSION: Progressive increase in the right pleural effusion with persistent infiltration and/or atelectasis at the right lung base. Interval improvement and left pleural effusion although persistent left lower lobe infiltrate and/or atelectasis. Electronically Signed: Kiran Laurent MD at 8:18 EDT , Chest CTA 01/09/23 10:02 IMPRESSION: Bilateral pleural effusions left greater than right with bibasilar infiltration and/or atelectasis. No evidence of pulmonary embolism. Nodular density in the right upper lobe. Enlargement of the adrenal Stable mediastinal lymph nodes. Findings suggestive of necrotic lymph nodes in the left axilla. Electronically Signed: Kiran Laurent MD at 10:21 EDT , Assessment & Plan Assessment/Plan (1) Near syncope: (2) Acute respiratory failure with hypoxia: (3) Metastasis to brain: (4) Bilateral pleural effusion: PLAN: Plan #Bilateral malignant pleural effusion Due to metastatic breast cancer. She has stage IV breast cancer and was due to undergo chemotherapy today but could not because of her symptoms. She has had pleural effusion in the past and had to have a recurrent thoracentesis with the last being about 7 days ago. Chest x-ray today showed progressive increase in the right pleural effusion with persistent infiltration and or atelectasis at that right lung base with interval improvement of left pleural effusion though persistent left lower lobe infiltrates remain. CTA of the chest showed bilateral pleural effusions with the left greater than the right with basilar infiltration and atelectasis with no evidence of PE and nodular density in the right upper lobe and enlargement of the adrenal gland as well as stable mediastinal lymph nodes. For therapeutic thoracentesis tomorrow. Breathing treatments of bronchodilators. #Hypokalemia: Potassium is 3.1. Replace and trend. #Hypertension: On losartan and propranolol #History of left breast cancer with mets to the bone, lungs of the brain She is s/p partial left mastectomy. On Decadron. Was to undergo chemotherapy today but this will most common. I did speak to her oncologist Dr. Pearson's unfold who stated that chemotherapy would likely be done early next week. #Depression and anxiety: On sertraline and trazodone #GERD: On PPI #NARCISO: On BiPAP nightly DVT prophylaxis: Lovenox CODE STATUS: Full code Patient counseled extensively about different types of CODE STATUS including full code, DNR CCA and DNR CCA. Patient elects to be full code. Total [id number] time 17 minutes. Charges/Coding Visit Charges Inpatient E&M: 50533 Init Hosp L3 Procedures Hospitalists Procedures: 96095 Advncd Care Plan 30 Min
--- NOTE | 2023-01-09 11:35 | NURSING ---
MED SURG KORAM RESP FAILURE WITH HYPOXIA, BILATERAL MALIGNANT EFFUSION
--- NOTE | 2023-01-09 11:47 | CHAPLAIN ---
Type of Pastoral Visit _x__ Initial Visit ___ Follow-up Visit ___ On-call Visit ___ General Patient Visit ___ Spiritual Assessment ___ Family Conference ___ Bereavement ___ Rapid Response ___ Code Blue ___ Other (describe below) Pastoral Care Referral From _x__ Patient ___ Family ___ Nurse ___ Physician ___ Appeals Manager ___ Wood Polisher _x__ Other (describe below) Sacrament/Intervention _x__ Active listening ___ Anointing ___ Adventism ___ Bereavement ___ Communion _x__ Irma exploration ___ ___ Life review _x__ Prayer ___ Reconciliation ___ Sacrament of Sick _x__ Supportive presence ___ Wedding ___ Other (describe below) Pastoral Comments patient was a referral to be seen in [facility] but had gone to ED; pt found there and is welcoming of support; daughter is in the room and pt asks daughter to leave while this currency exchange specialist sits at the bedside; pt is tearful and states that she is feeling like I have no control and that I'm never going to have a good day again; pt speaks of like I'm losing my mind; pt feelings are validated and fears heard; pt does not want her children to become caregivers and thus she becomes a burden; pt has feelings of abandonment as well; pt is hesitant to have others involved in her life; these areas are discussed and processed; level of irma is explored; consideration of what is still positive and hopeful for the patient is examined; offer of prayer and presence welcomed now and in the future;
[2023-01-09] MEDS: 0.9% Normal Saline 1,000 ML 100 ML IV ×2 (12:47→21:54)
[2023-01-09] MEDS: Morphine 4 MG/ML Syringe IV (13:09)
[2023-01-09] MEDS: tiZANidine HCl 2 MG Tablet 1 MG PO ×2 (13:09→21:51)
[2023-01-09 13:40] LABS: Pathologist Review Reviewed
--- NOTE | 2023-01-09 14:02 | NURSING ---
while doing admit questions. pt stated that she has had thoughts of hurting herself. when asked pt teared up and stated she recently was diagnosed with brain cancer, has had migraines, her dog just . she stated that sometimes she wished that she was with her dog. that things would be easier if she just ended it. when asked she stated she did not have a plan just thoughts. social service notified and sitter placed at bedside.
[2023-01-09] MEDS: Acetaminophen 325 MG Tablet 650 MG PO ×2 (15:49→21:52)
--- NOTE | 2023-01-09 15:57 | CASEMGMT ---
Discharge Planning HH list created and given to RN AMY. Tatum Clayton, Discharge Planning Asst.
--- NOTE | 2023-01-09 16:26 | CM.ED ---
Social Work Psychiatric Assessment Reason for consult: SI Informant(s): Patient/Medical Record Chief Complaint: SI reported to nursing staff. Marital/Social History/Living Situation: Patient is a 62 year-old single female. Patient has been battling cancer for years which started in her breast and has spread to other locations. Pt recently diagnosed with brain cancer. Pt has found it increasingly difficult to care for herself independently which she has always done previously. Pt reports chronic pain with migraines. History: None Education and Employment History: High school graduate. 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 Mental Health Treatment/History: Pt denies any major mental health history except for depression and anxiety. Pt reports taking medication for both. Pt reports increase in anxiety/depression symptoms, specifically since debilitating migraines have increased. Pt has no hx of psych placement. Substance Abuse Hx: Denies substance abuse. Abuse Issues/Trauma HX: Denies abuse/trauma hx. Risk to Self/Others: Pt reports SI but no plan/intent. Pt has no previous attempts. Pt denies SI in the past and reports it is more about not wanting to live in pain and the way she is now. Pt has lost some independence and has major medical decisions and treatments currently. Pt has recent brain cancer diagnosis and SI has been in line with this diagnosis and feeling poorly most of the time. Denies HI. Triggers/Stressors/Risk factors: Chronic pain, loss of independence, terminal illness, loss of a pet this year Coping Skills: Gardening, dog, grandchildren Support/Resources: Patient?s daughter and grandchildren are supportive. Pt has many doctors and medical supports. Mental Status Exam: Pt is oriented x4 with fair memory. Pt reports having some difficulty with her memory lately. Appearance/General Behavior/Mood/Affect: Pt presents as well-kept. Pt has cooperative behavior with overall depressed/anxious mood. Affect congruent to mood. Communication Pattern/Thought process: Pt communicates effectively and presents with appropriate thought processes. Pt denies AVH. General Intellectual Functioning:?? Average Judgment/Insight: Pt has good judgment/insight. Assessment: Patient indicated thoughts of suicide to nurse and sitter was placed in patient?s room. SW did risk assessment to evaluate need for sitter or possible psychiatric placement. Patient has recently been diagnosed with brain cancer and has cancer throughout her body that she reports started as breast cancer. Since the brain cancer diagnosis, patient reports loss of energy, frequent migraines, increase in anxiety depression, lack of appetite, chronic pain, difficulty sleeping and reduced independence. Patient reports she is able to take the bad days with the good but it has all been ?bad days? lately. Patient expressed she has been exhausted but she is also not eating well and reports she may need to speak with a manufacturing assembler. Pt has feelings of hopelessness and worthlessness. Pt?s dog earlier this year and she sometimes wishes to go be with her dog. Overall, patient has very conflicting feelings. Pt is going to fight the cancer and have radiation and chemo, ?I am too young for this, I am not ready to .? However, on the other hand patient does not want to live debilitated and with chronic pain. Patient has passive SI without a plan or intent. Pt has no previous attempts. On a scale from 0-10 with 10 being ?I am going to hurt myself,? patient reports a 0. Pt does not want to harm herself or take her own life but is having passive SI due to significant medical concerns/symptoms. Patient?s feelings and thoughts are appropriate according to patient?s situation. Patient is fearful and anxious about her situation and what her future will look like. Patient reports she has not been able to process her feelings and emotions regarding her situation since her recent diagnosis. SW provided emotional support and assisted patient in processing her emotions. Patient does not present as a danger to self at this time and does not meet inpatient psych placement criteria. Plan: Patient is not in need of a sitter at this time as she does not present as a danger to self. Pt would benefit from counseling, cancer support, and nutrition counseling. SW to follow up with patient/provide resources and patient has been advised to ask for 7th grade social studies teacher as needed. Pt advised to notify staff if thoughts worsen, or she feels she may harm herself. Toshia Marion HEALTHCARE PROJECT MANAGER, DIE TRIPPER
[2023-01-09] MEDS: Calcium (Elemental) 500 MG Tablet PO (17:16)
[2023-01-09] MEDS: Ensure Plus High Protein 120 ML LIQUID PO ×2 (17:24→20:27)
--- NOTE | 2023-01-09 17:26 | CASEMGMT ---
TUAN REYES NOTE: TUAN REYES to room. Discussed discharge planning. Pt states she has been weak and it becoming more difficult @ home. She states she lives in a 2-story home w/bathroom on the 2nd floor. There is railing on one side. Pt states she thinks a WW would be helpful but does not know how to navigate w/the stairs. Discussed option of having 2 walkers--one on each floor. She states thinks that is a good idea and is interested in doing this. She was made aware insurance will cover for only one walker and made aware of locations another one can be purchased. She states her family can help look into getting a 2nd walker for her. Discussed DME co's for WW and O2, should she qualify for home O2. She was made aware [employer] is affiliated w/[facility] and she chose [employer]. Discussed Home o2 set up process. Pt does not have a pulse ox, but states it would be affordable to purchase one and made aware of locations that sell these. Pt interested in HHC for therapy and SN. Questions answered. A list of HHC providers including quality and resource use data and consistent with the patient?s preferred geographic region, medical needs, and insurance network were provided from the [employer] Guide. Pt states will review list and aware to choose top 3 preferences. TUAN REYES to f/u with pt tomorrow re: HHC preferences. Maite KAPOOR RN, CM
--- NOTE | 2023-01-09 19:41 | NURSING ---
This RN called [facility]. Blood is not ready yet d/t antibody. Blood Bank will keep us posted.
[2023-01-09] MEDS: Ipratropium/Albuterol Sulfate 3 ML AMPUL.NEB INHALATION (20:00)
[2023-01-09] MEDS: clonazePAM 1 MG Tablet PO (20:25)
[2023-01-09] MEDS: Propranolol LA 80 MG Capsule PO (20:26)
[2023-01-09] MEDS: Sertraline 50 MG Tablet 100 MG PO (20:26)
[2023-01-10] VITALS (13 sets, daily range): BP systolic 95–142; BP diastolic 52–82; PULSE 72–99; RESP 18–20; TEMP 36.5–36.9; O2SAT 85–96
--- NOTE | 2023-01-10 | IMM_PTH ---
PATIENT: KRIS HOUSER LOC: MS3 U#:[id number] AGE/SX: 62/F ROOM: SD312 RE01/09/[address]: Dr. Jameel Burgos MD : 1960 BED: 1 DIS: 01/16/2023 SPEC #: [id number] RECD: 01/13/23 13:26 STATUS: GAEL REQ #: [id number] JESSICA: 01/10/23 00:[address]: Anita Dela Cruz DEPT: IMMUNOHISTOCHEMISTRY RECD BY: Laure Ball ENTERED: 01/13/23 13:28 SP TYPE: IMMUNO OTHR DR: MD Dr. Giovanny Best DO Dr. David Kantorowitz, MD Dr. Joseph Prah, MD Dr. Lee Ann Baggott, MD Dr. Mansour Isckarus, MD Dr. Nicholas F Kotsonis, MD Dr. Paul Nielsen, MD Dr. Robert Field, MD Dr. Ryan Jin, MD Dr. Roger Macklis, MD Dr. Steve Walston, DO Dr. Tanmay Panchabhai, MD Dr. Tamera Robotham, MD Christina Muller, CATALYST SUPERVISOR-C Adele Borrego CATALYST SUPERVISOR-C Tissues: THORACIC FLUID Procedures: RCC (add) NAPSIN A (add) CK5-6 (add) CK7 (add) CK8 (add) E-CAD (add) HER2 ALDA (add) KI-67 (add) MAMM (add) P53 (add) OK (add) TTF1 (add) Pankeratin (add) GATA3 (add) P40 (add) ER (initial) PHYSICIAN & INSTITUTION [address] [address] SPECIMEN INFORMATION: Tissue Source: Thoracentesis fluid Clinical Info: Pleural effusion Specimen Number: [id number] CPT code: 67277, 14992 x15 METHODOLOGY: Deparaffinized sections of prefer/formalin-fixed tissue or PAP/DQ stained slides are incubated with monoclonal/polyclonal antibodies/oligonucleotide probes. Localization is made via biotin free immunoperoxidase method. Appropriate controls are performed and reacted as expected. Results on target cell population are indicated in the following table: RESULTS: ANTIBODY / CLONE RESULT ER (6F11) positive OK (1E2) positive, rare Her-2neu (CB11) negative E-Cad (ECH-6) positive Mammaglobin (31A5) positive GATA3 (L50-823) positive AE1-3 (AE1/AE3/PCK26) positive CK7 (OV-TL12/30) negative CK8 (78nhaiD60) positive TTF-1 (8G7G3/1) negative Napsin A (Rabbit Polyclonal) negative RCC (PN-15) negative CK5-6 (D5 & 1684) negative P40 (BC28) negative P53 (DO-7) negative Ki-67 (30-9) positive, 1% These tests were developed and their performance characteristics determined by [facility]. They may not have been cleared or approved by the U.S. Food and Drug Administration. The FDA has determined that such clearance or approval is not necessary. The above immunohistochemical/dualISH markers are ordered and reviewed by the Pathologist. INTERPRETATION: Thoracentesis fluid (cell block): Metastatic carcinoma consistent with breast primary. AM:raffi 01/14/2023
--- NOTE | 2023-01-10 | FLU_PTH ---
PATIENT: KRIS HOUSER LOC: MS3 U#:[id number] AGE/SX: 62/F ROOM: VT312 RE01/09/[address]: Dr. Jameel Burgos MD : 1960 BED: 1 DIS: 01/16/2023 SPEC #: [id number] RECD: 01/10/23 10:30 STATUS: GAEL MARTINEZAngelita #: [id number] JESSICA: 01/10/23 00:[address]: Anita Dela Cruz DEPT: CYTOLOGY RECD BY: Emily Rodriguez ENTERED: 01/10/23 10:58 SP TYPE: Fluid OTHR DR: Dr. Almas Flores MD Tissues: THORACIC FLUID Procedures: Special Stain Group II Surgery Specimen Level IV Cytospin Fluid HEADER OPERATION: Thoracentesis PRE-OP DIAGNOSIS: Pleural effusion TISSUE SUBMITTED: Thoracentesis fluid for cytology DIAGNOSIS CYTOLOGY Thoracentesis fluid for cytology (cytospin and cell block): Positive for malignant cells. See comment. AM:raffi 01/13/2023 COMMENT The immunohistochemical analysis is consistent with metastatic breast carcinoma ([id number]). Reference is made to the patient's previous left breast lumpectomy ([id number]) in which invasive ductal carcinoma and ductal carcinoma in situ were identified. CYTOLOGY STUDY Slides are reviewed. CYTOLOGY GROSS Received is 85 ml of yellow cloudy fluid labeled with the patient's name and and designated per the requisition as thoracentesis. Submitted for cytology preparation including cell block. / raffi 01/10/2023 TC:0 CPT: 14706, 90268
[2023-01-10] MEDS: Ipratropium/Albuterol Sulfate 3 ML AMPUL.NEB INHALATION (03:12)
[2023-01-10] MEDS: Ondansetron 4 MG/2 ML Vial IV ×2 (03:20→16:15)
[2023-01-10] MEDS: Ibuprofen 400 MG Tablet PO ×2 (03:21→17:08)
[2023-01-10 06:19] LABS: Absolute Lymphocyte Count 0.85 X10^3/uL (0.83-4.51); Absolute Neutrophil Count 8.9 X10^3/uL (2.0-7.7); Basophil# 0.08 X10^3/uL; Basophil% 0.6 % (0-1); Eosinophil# 0.63 X10^3/uL; Hematocrit 34.9 % (37-47); Lymphocyte # 0.85 X10^3/ul (0.83-4.51); Lymphocyte % 6.8 % (19-41); Mean Corp Hgb Conc 31.5 g/dL (32-36); Mean Corpuscular Hgb 28.9 pg (27.0-32.0); Mean Corpuscular Volume 91.8 fL (81-99); Mean Platelet Vol. 9.8 fl (6.2-12.0); Monocyte# 1.96 X10^3/uL; Monocyte% 15.7 % (0-10); NRBC Flagged by Analyzer 0 % (0-5); Neutrophil # 8.91 X10^3/uL (2.7-7.7); Neutrophil % 71.5 % (47-70); POSITIVE DIFFERENTIAL YES; Platelet Count 413 K/mm3 (150-450); RBC Distribution Width CV 14.9 % (11.6-14.6); RBC Distribution Width SD 49.7 fl (35.1-43.9); White Blood Count 12.5 K/mm3 (4.4-11.0)
[2023-01-10 06:21] LABS: Differential Indicated SCAN CRITERIA MET
[2023-01-10 06:46] LABS: Anion Gap 7 (5-15); BUN 6 mg/dL (7-18); BUN/Creat Ratio 18.8 RATIO (10-20); Calcium,Total 8.3 mg/dL (8.5-10.1); Chloride 104 mmol/L (98-107); Creatinine, Serum 0.32 mg/dL (0.55-1.02); EST Glomerular Filtration Rate 221 mL/min (>60); Est Glom Filt Rate - Afr Amer 268 mL/min (>60); Estimated Creatinine Clearance 142.32 ml/min; Glucose 97 mg/dL (74-106); Sodium Level 137 mmol/L (136-145)
[2023-01-10 06:56] LABS: Differential Comment SCANNED
[2023-01-10] MEDS: guaiFENesin 10 ML UDC (200MG/10ML) 20 ML PO (07:44)
[2023-01-10] MEDS: tiZANidine HCl 2 MG Tablet 1 MG PO (07:44)
[2023-01-10] MEDS: Potassium Chloride Oral Tablet 20 MEQ 60 MEQ PO (07:44)
[2023-01-10] MEDS: 0.9% Normal Saline 1,000 ML 100 ML IV ×2 (07:44→17:06)
[2023-01-10] MEDS: Losartan Potassium 50 MG Tablet PO (07:46)
[2023-01-10] MEDS: Multivitamins,Ther W-Minerals Tablet 1 TABLET PO (07:46)
[2023-01-10] MEDS: Pantoprazole Sodium 20 MG Tablet PO (07:47)
--- NOTE | 2023-01-10 08:45 | RAD_ITS ---
STUDY: X-RAY CHEST REASON FOR EXAM: Female, 62 years old. Post thoracentesis TECHNIQUE: AP inspiration and expiration views. COMPARISON: Comparison is made with prior study dated January 09, 2023. FINDINGS: The patient is status post left thoracentesis. There is no evidence of pneumothorax. Residual pleural parenchymal changes are seen at the left lung base. Right pleural effusion with right basilar atelectasis. RAD/Chest Insp/Exp 2 View IMPRESSION: Status post left thoracentesis. No evidence of pneumothorax. Electronically Signed: Kiran Laurent MD at 10:57 EDT ,
--- NOTE | 2023-01-10 09:00 | US_ITS ---
PROCEDURE: ULTRASOUND GUIDED THORACENTESIS. DATE: January 10, 2023.. INDICATION: Female, 62 years old. Left pleural effusion. PHYSICIAN: Kiran Laurent M.D. PROCEDURE: The risks, benefits, and alternatives to the procedure were explained to the patient. The specific risks of bleeding, infection, and pneumothorax requiring chest tube insertion were discussed and accepted. Written informed consent was obtained. Ultrasonographic evaluation of the left lower pleural space was carried out. An adequate pocket was identified. The patient was placed in the sitting, upright position. The overlying skin was prepped and draped in sterile fashion. 1% lidocaine was administered subcutaneously for local anesthesia. Under ultrasound guidance, a 5 Yemeni thoracentesis needle/catheter system was advanced into the left posterior lower pleural fluid collection. Approximately 1160 mL of juliette-colored fluid was drained. The catheter was removed, and a sterile dressing was applied. A specimen was collected and sent to the laboratory for analysis, as requested by the referring clinician. The patient tolerated the procedure well. A chest x-ray was ordered. US/Thoracentesis W US IMPRESSION: Ultrasound-guided left thoracentesis. Electronically Signed: Kiran Laurent MD at 10:55 EDT ,
--- NOTE | 2023-01-10 09:23 | NURSING ---
pt in radiology for procedure
[2023-01-10 09:30] LABS: Pathologist Review Reviewed
[2023-01-10] MEDS: Lidocaine 2% (20 ml mdv) 20 ML Vial INFILT (10:08)
[2023-01-10] MEDS: Enoxaparin 40 MG/0.4 ML Syringe SC (10:42)
[2023-01-10] MEDS: Calcium (Elemental) 500 MG Tablet PO ×2 (10:42→16:15)
[2023-01-10] MEDS: Potassium Chloride Oral Tablet 20 MEQ PO (10:43)
[2023-01-10] MEDS: Ensure Plus High Protein 120 ML LIQUID PO ×4 (10:45→21:07)
[2023-01-10 11:09] LABS: Body Fluid Mononuclear WBC # 0.632 10^3/uL; Body Fluid Mononuclear WBC % 96.4 %; Body Fluid Polynuclear WBC # 0.024 10^3/uL; Body Fluid Polynuclear WBC % 3.6 %; Body Fluid Total Cells Counted 0.892 10^3/ul; White Blood Count/Body Fluid 0.656 10^3/uL
[2023-01-10 11:32] LABS: Glucose, Body Fluid 99 mg/dL (40-70); LDH,Body Fluid 307 Units/l (Not Establ.); Protein, Body Fluid 3.5 g/dL (Not Establ.)
--- NOTE | 2023-01-10 11:47 | CASEMGMT ---
Social Work SW followed up with patient to provide resources and check on mental status. SW provided emotional support, positive reinforcement and explored coping skills with patient. SW provided coping skills information for anxiety and depression. Pt also given counseling resources, crisis numbers, [place] information and cancer support hotlines. Pt appreciative and receptive of information. Toshia Marion STRETCH BOX TENDER, FLOTATION OPERATOR
--- NOTE | 2023-01-10 12:44 | CASEMGMT ---
Discharge Planning HH referral sent to [facility], [facility], and [facility] per patient request. Tatum Clayton, Discharge Planning Asst.
[2023-01-10 12:58] LABS: Lymphocytes 26 %; Macrophages 2 %; Monocytes 25 %; Neutrophil (Segs) 5 %
[2023-01-10 13:06] LABS: Appearance/Body Fluid SL CLDY; Auto B Fluid Analyzer BKGD Ct COUNTS W/IN LIMITS (W/IN LIMITS); Color/Body Fluid YELLOW; Mesothelial Cells 42 %; Source- Body Fluid THORACENTESIS
[2023-01-10 13:07] LABS: Body Fluid QC Type(s) BF1Q; Red Cell Count/Body Fluid 985 /mm3
--- NOTE | 2023-01-10 16:13 | CASEMGMT ---
Addendum entered by Leni Garcia 01/10/23 17:42: [facility] unable to accept d/t their contract michel/Milagros KURTZ has not been finalized. Addendum entered by Leni Garcia 01/10/23 17:41: Per Tatum [facility] ([facility]viously [facility]) unable to accept. Original Note: Discharge Planning Patients first 3 HH choices declined d/t being out of service area. Patient consented to referrals being made to [facility], [facility], [facility], [facility], [facility], and [facility]. Referral sent to all via [facility]. Tatum Clayton, Discharge Planning Asst.
--- NOTE | 2023-01-10 16:55 | PN_ITS ---
Subjective Subjective Patient seen and examined. She says her shortness of breath is improving. She did have thoracentesis with removal of 1160mls of juliette colored fluid. She denied any chest pain, palpitaitoins, dizziness, nausea, vomiting or diarrhea. Review of systems is otherwise negative. She has remained hemodynamically stable. Objective Data Objective Data Vital Signs: Vital Signs Temp Pulse Resp BP Pulse Ox O2 Del Method O2 Flow Rate 97.7 F L 85 20 H 130/71 H 95 Nasal Cannula 4 01/10/23 16:25 01/10/23 16:27 01/10/23 16:25 01/10/23 16:25 01/10/23 16:25 01/10/23 16:25 01/10/23 16:25 Oxygen Flow Rate (L/min) [3] 4 Oxygen Flow Rate (L/min) [2] 4 Oxygen Flow Rate (L/min) [1 ( 4 Initial Baseline)] Oxygen Flow Rate (L/min) 4 Oxygen Delivery Method [3] Nasal Cannula Oxygen Delivery Method [2] Nasal Cannula Oxygen Delivery Method [1 ( Nasal Cannula Initial Baseline)] Oxygen Delivery Method Nasal Cannula Weight: 141 lb Body Mass Index (BMI) 25.7 Intake & Output: Intake and Output for Last 24 Hours 01/08/23 01/09/23 01/10/23 23:59 23:59 23:59 Intake Total 1211.67 / 1211.67 1233.33 / 1233.33 Output Total 1160 / 1160 Balance 1211.67 / 1211.67 73.33 / 73.33 Medical Nutrition Assessment Dietitian: Malnutrition Criteria Met Start: 01/09/23 16:12 Freq: Status: Active Protocol: Document 01/09/23 16:12 (Rec: 01/09/23 16:12 [id number]) Nutrition Malnutrition Evidence of Malnutrition Exists Yes Malnutrition (severe): Chronic Evidenced By Suboptimal Energy Intake ( Severe),Weight Loss (Severe) Clinical Problem Chronic Disease or Condition Related Malnutrition Etiology severe related to breast cancer with brain and bone mets Signs/Symptoms as evidenced by <75% PO intake of estimated energy needs for >1 month and 9.8lbs (6.4%) weight loss in 1 month Status Active Problem Recommendation Dietitian Recommendations/Changes RD will liberalize diet to Regular - DONALD to optimize oral intakes RD will change EPHP to 4x daily with medpass to provide supplemental energy. Lab / Micro Data Result Diagrams: 01/10/23 05:28 01/10/23 05:28 Labs: Laboratory Results - last 24 hr 01/10/23 05:28: WBC 12.5 H, RBC 3.80 L, Hgb 11.0 L, Hct 34.9 L, MCV 91.8, MCH 28.9, MCHC 31.5 L, RDW Std Deviation 49.7 H, RDW Coeff of Mike 14.9 H, Plt Count 413, MPV 9.8, Immature Gran % (Auto) 0.400, Neut % (Auto) 71.5 H, Lymph % (Auto) 6.8 L, [place] % (Auto) 15.7 H, Eos % (Auto) 5.0, Baso % (Auto) 0.6, Absolute Neuts (auto) 8.9 H, Absolute Lymphs (auto) 0.85, Nucleated RBC % 0, Differential Comment SCANNED, Diff Path Review Reviewed 01/10/23 05:28: Sodium 137, Potassium 3.0 L, Chloride 104, Carbon Dioxide 26.0, Anion Gap 7, BUN 6 L, Creatinine 0.32 L, Estim Creat Clear Calc 142.32, Est GFR (MDRD) Af Amer 268, Est GFR (MDRD) Non-Af 221, BUN/Creatinine Ratio 18.8, Glucose 97, Calcium 8.3 L 01/10/23 10:15: Fluid Glucose 99 H, Fluid Total Protein 3.5, Fluid LDH 307 01/10/23 10:15: Fluid Source THORACENTESIS, Fluid Color YELLOW, Fluid Appearance SL CLDY, Fluid WBC 0.656, Fluid RBC 985, Fluid Tot Cell Count 0.892 H, Fld Polynuclear WBCs # 0.024, Fld Polynuclear WBCs % 3.6, Fluid Mononuclear WBCs 0.632, Fld Mononuclear WBCs % 96.4, Fluid Neutrophils 5, Fluid Lymphocytes 26, Fluid Monocytes 25, Fluid Macrophages 2, Fld Mesothelial Cells 42, Fl Pathologist Comment May follow, Fluid Comment 2 SEE COMMENT Radiography Diagnostic Testing: Radiology Impression Chest X-Ray 01/10/23 08:45 IMPRESSION: Status post left thoracentesis. No evidence of pneumothorax. Electronically Signed: Kiran Laurent MD at 10:57 EDT , Thoracentesis Ultrasound 01/10/23 09:00 IMPRESSION: Ultrasound-guided left thoracentesis. Electronically Signed: Kiran Laurent MD at 10:55 EDT , Rhythm Strip Rhythm Strip: Sinus Rhythm Rate: 99 Ectopy: None Physical Exam Const alert, oriented x3 and no apparent distress General Appearance: cooperative HEENT normocephalic, head/scalp atraumatic and hearing grossly normal bilaterally Eyes PERRL, EOMs intact bilaterally and conjunctivae normal Neck no lymphadenopathy and supple Resp Resp Narrative: moderately diminished breath sounds bibasally, no wheezes or crackles. On 4L of oxygen by nasal canula Cardio regular rate, regular rhythm, S1 normal heart sound, S2 normal heart sound and no murmurs GI normal to inspection, nondistended, normoactive bowel sounds, soft to palpation, non-tender and non-distended Extremity normal to inspection, full ROM, normal capillary refill and no clubbing, cyanos is or edema Neuro oriented x3, CN's II-XII intact bilaterally and moves all extremities Sensorium / Orientation: awake and alert Motor Exam: strength 5/5 throughout Psych thought process normal, cooperative and affect normal Appearance: appropriate Assessment & Plan Assessment/Plan (1) Near syncope: (2) Acute respiratory failure with hypoxia: (3) Metastasis to brain: (4) Bilateral pleural effusion: PLAN: Plan #Bilateral malignant pleural effusion * Due to metastatic breast cancer. She has stage IV breast cancer and was due to undergo chemotherapy today but could not because of her symptoms. * She has had pleural effusion in the past and had to have a recurrent thoracentesis with the last being about 7 days ago. * Chest x-ray showed progressive increase in the right pleural effusion with persistent infiltration and or atelectasis at that right lung base with interval improvement of left pleural effusion though persistent left lower lobe infiltrates remain. * CTA of the chest showed bilateral pleural effusions with the left greater than the right with basilar infiltration and atelectasis with no evidence of PE and nodular density in the right upper lobe and enlargement of the adrenal gland as well as stable mediastinal lymph nodes. * had therapeutic thoracentesis today with removal of 1160mls of juliette colored fluid from the left side. * Titrate oxygen to maintain sats >90% * Breathing treatments of bronchodilators. #Hypokalemia: Potassium is 3.0. Will replace and trend. #Hypertension: On losartan and propranolol #History of left breast cancer with mets to the bone, lungs of the brain * She is s/p partial left mastectomy. On Decadron. * Was to undergo chemotherapy on day of admission but this was deferred due to her shortness of breath. * I spoke to her oncologist Dr Green who stated that chemo would be started next week. #Depression and anxiety: On sertraline and trazodone #GERD: On PPI #NARCISO: On BiPAP nightly DVT prophylaxis: Lovenox CODE STATUS: Full code * Charges/Coding Visit Charges Inpatient E&M: 41150 Subs Hosp L2
--- NOTE | 2023-01-10 17:43 | CASEMGMT ---
TUAN REYES NOTE: TUAN REYES made aware pt inquiring about getting a cane vs WW. TUAN REYES to room. Questions answered. Pt states therapy has recommended a WW. TUAN REYES made her aware WW would be the best support and this can be delivered to her room before discharge. She is agreeable to this. Made aware canes are not covered by insurance, but she could purchase one if she would like. Made aware of places she can get one. Pt states she has concerns w/her stairs at home. Discussed possibility of her bed being moved to the main floor and using a BSC. Pt states although she doesn't like the idea as It makes me feel like I'm an old person, she states this would be the safest plan and states someone in her family would be able to bring her bed down to the 1st floor and also someone would be able to stop by periodically to empty the BSC for her. She was made aware, if she discharges home over the w/e, BSC would not be able to be delivered to her. Discussed places BSC could be purchased and she states someone in her family could get one for her. A script for BSC provided to pt at this time as well for pt to have if wishes to get one through insurance. Pt made aware unable to find accepting HHC agency at this time. She was made, if she discharges home over the W/E, CM can f/u with her @ home on Friday to try and assist w/HHC. Initially, pt states is okay with going home w/out HHC being set up, stating she plans to have a family member stay w/her for awhile. Upon further discussion, pt states she may be agreeable to going to [facility] at discharge, but she is not sure yet, she wishes to think about it more. She was made aware TUAN REYES unsure if a bed would be available and discussed process of insurance approval. She voices understanding. Maite KAPOOR RN, CM
[2023-01-10] MEDS: Sertraline 50 MG Tablet 100 MG PO (21:07)
[2023-01-10] MEDS: Propranolol LA 80 MG Capsule PO (21:08)
[2023-01-10] MEDS: Acetaminophen 325 MG Tablet 650 MG PO (21:08)
[2023-01-10] MEDS: clonazePAM 1 MG Tablet PO (21:08)
[2023-01-11] VITALS (17 sets, daily range): BP systolic 108–183; BP diastolic 50–105; PULSE 78–100; RESP 20–26; TEMP 36.3–36.9; O2SAT 4–98
[2023-01-11] MEDS: guaiFENesin 10 ML UDC (200MG/10ML) 20 ML PO ×3 (01:00→14:25)
[2023-01-11] MEDS: 0.9% Normal Saline 1,000 ML 100 ML IV ×3 (01:00→21:52)
[2023-01-11] MEDS: Ipratropium/Albuterol Sulfate 3 ML AMPUL.NEB INHALATION ×2 (01:13→19:29)
[2023-01-11] MEDS: Ibuprofen 400 MG Tablet PO ×2 (03:13→14:26)
[2023-01-11 07:13] LABS: Absolute Lymphocyte Count 1.42 X10^3/uL (0.83-4.51); Absolute Neutrophil Count 7.6 X10^3/uL (2.0-7.7); Basophil# 0.05 X10^3/uL; Basophil% 0.4 % (0-1); Eosinophil# 0.77 X10^3/uL; Eosinophils% 6.5 % (0-5); Hematocrit 32.6 % (37-47); Hemoglobin 10.6 g/dL (12.0-15.0); Lymphocyte # 1.42 X10^3/ul (0.83-4.51); Mean Corp Hgb Conc 32.5 g/dL (32-36); Mean Corpuscular Hgb 29.6 pg (27.0-32.0); Mean Corpuscular Volume 91.1 fL (81-99); Mean Platelet Vol. 9.8 fl (6.2-12.0); Monocyte# 1.99 X10^3/uL; Monocyte% 16.8 % (0-10); NRBC Flagged by Analyzer 0 % (0-5); Neutrophil # 7.55 X10^3/uL (2.7-7.7); POSITIVE DIFFERENTIAL YES; Platelet Count 421 K/mm3 (150-450); RBC Distribution Width CV 14.9 % (11.6-14.6); RBC Distribution Width SD 49.8 fl (35.1-43.9); Red Blood Count 3.58 M/mm3 (4.2-5.4); White Blood Count 11.8 K/mm3 (4.4-11.0)
[2023-01-11 07:42] LABS: Anion Gap 4 (5-15); BUN 9 mg/dL (7-18); BUN/Creat Ratio 30.5 RATIO (10-20); Calcium,Total 8.1 mg/dL (8.5-10.1); Chloride 109 mmol/L (98-107); EST Glomerular Filtration Rate 243 mL/min (>60); Est Glom Filt Rate - Afr Amer 294 mL/min (>60); Estimated Creatinine Clearance 151.81 ml/min; Glucose 106 mg/dL (74-106); Sodium Level 136 mmol/L (136-145)
[2023-01-11 07:50] LABS: Differential Indicated SCAN CRITERIA MET
[2023-01-11] MEDS: Ondansetron 4 MG/2 ML Vial IV ×2 (09:06→16:28)
[2023-01-11] MEDS: 0.9% Saline Lock 10 ML Syringe IV ×3 (09:06→12:34)
[2023-01-11] MEDS: Morphine 2 MG/ML Syringe IV (09:07)
[2023-01-11] MEDS: Multivitamins,Ther W-Minerals Tablet 1 TABLET PO (09:11)
[2023-01-11] MEDS: Pantoprazole Sodium 20 MG Tablet PO (09:12)
[2023-01-11] MEDS: Potassium Chloride Oral Tablet 20 MEQ PO (09:12)
[2023-01-11] MEDS: Calcium (Elemental) 500 MG Tablet PO (09:12)
[2023-01-11] MEDS: Losartan Potassium 50 MG Tablet PO (09:12)
[2023-01-11] MEDS: Ensure Plus High Protein 120 ML LIQUID PO ×2 (09:13→14:26)
[2023-01-11] MEDS: Acetaminophen 325 MG Tablet 650 MG PO ×2 (09:15→21:33)
--- NOTE | 2023-01-11 09:34 | RAD_ITS ---
INDICATION: sob EXAMINATION/TECHNIQUE: X-RAY - XR Chest 2 Views COMPARISON: January 10, 2023 FINDINGS: LINES/DEVICES: Mediport catheter is again visualized with its tip at the SVC/RA junction. LUNGS: There is a progressive right middle and right lower lobe infiltrate as well as left perihilar, lingular, and left lower lobe infiltrates. There are moderate bilateral pleural effusions which appear stable right slightly larger than left. MEDIASTINUM AND CARDIOVASCULAR STRUCTURES: Mild cardiomegaly stable. BONES AND SOFT TISSUES: Unremarkable. RAD/Chest PA and Lateral IMPRESSION: Progressive bilateral pneumonitis as above. Electronically Signed: Tristan Mas MD, DONNY at 9:51 EDT ,
--- NOTE | 2023-01-11 09:47 | PCM.PROGNOTE ---
Subjective Subjective Patient seen and examined. She says she is feeling much more short of breath today. She is also coughing. She denies any fever or chills or any other complaints. Review of systems is otherwise negative. She has remained otherwise stable. Objective Data Objective Data Vital Signs: Vital Signs Temp Pulse Resp BP Pulse Ox O2 Del Method O2 Flow Rate 97.3 F L 87 24 H 153/75 H 95 Venturi Mask 4 01/11/23 09:05 01/11/23 09:17 01/11/23 09:17 01/11/23 09:05 01/11/23 09:17 01/11/23 09:17 01/11/23 09:17 Oxygen Flow Rate (L/min) [3] 4 Oxygen Flow Rate (L/min) [2] 4 Oxygen Flow Rate (L/min) [1 ( 4 Initial Baseline)] Oxygen Flow Rate (L/min) 4 Oxygen Delivery Method [3] Nasal Cannula Oxygen Delivery Method [2] Nasal Cannula Oxygen Delivery Method [1 ( Nasal Cannula Initial Baseline)] Oxygen Delivery Method Venturi Mask Weight: 141 lb Body Mass Index (BMI) 25.7 Intake & Output: Intake and Output for Last 24 Hours 01/09/23 01/10/23 01/11/23 23:59 23:59 23:59 Intake Total 1211.67 / 1211.67 2370.00 / 2870.00 2128.33 / 2128.33 Output Total 1160 / 1160 Balance 1211.67 / 1211.67 1210.00 / 1710.00 2128.33 / 2128.33 Medical Nutrition Assessment Dietitian: Malnutrition Criteria Met Start: 01/09/23 16:12 Freq: Status: Active Protocol: Document 01/09/23 16:12 (Rec: 01/09/23 16:12 [id number]) Nutrition Malnutrition Evidence of Malnutrition Exists Yes Malnutrition (severe): Chronic Evidenced By Suboptimal Energy Intake ( Severe),Weight Loss (Severe) Clinical Problem Chronic Disease or Condition Related Malnutrition Etiology severe related to breast cancer with brain and bone mets Signs/Symptoms as evidenced by <75% PO intake of estimated energy needs for >1 month and 9.8lbs (6.4%) weight loss in 1 month Status Active Problem Recommendation Dietitian Recommendations/Changes RD will liberalize diet to Regular - DONALD to optimize oral intakes RD will change EPHP to 4x daily with medpass to provide supplemental energy. Lab / Micro Data Result Diagrams: 01/11/23 06:43 01/11/23 06:43 Labs: Laboratory Results - last 24 hr 01/10/23 10:15: Fluid Glucose 99 H, Fluid Total Protein 3.5, Fluid LDH 307 01/10/23 10:15: Fluid Source THORACENTESIS, Fluid Color YELLOW, Fluid Appearance SL CLDY, Fluid WBC 0.656, Fluid RBC 985, Fluid Tot Cell Count 0.892 H, Fld Polynuclear WBCs # 0.024, Fld Polynuclear WBCs % 3.6, Fluid Mononuclear WBCs 0.632, Fld Mononuclear WBCs % 96.4, Fluid Neutrophils 5, Fluid Lymphocytes 26, Fluid Monocytes 25, Fluid Macrophages 2, Fld Mesothelial Cells 42, Fl Pathologist Comment May follow, Fluid Comment 2 SEE COMMENT 01/11/23 06:43: WBC 11.8 H, RBC 3.58 L, Hgb 10.6 L, Hct 32.6 L, MCV 91.1, MCH 29.6, MCHC 32.5, RDW Std Deviation 49.8 H, RDW Coeff of Mike 14.9 H, Plt Count 421, MPV 9.8, Immature Gran % (Auto) 0.300, Neut % (Auto) 64.0, Lymph % (Auto) 12.0 L, [place] % (Auto) 16.8 H, Eos % (Auto) 6.5 H, Baso % (Auto) 0.4, Absolute Neuts (auto) 7.6, Absolute Lymphs (auto) 1.42, Nucleated RBC % 0, Diff Path Review November01/11/23 06:43: Sodium 136, Potassium 4.0, Chloride 109 H, Carbon Dioxide 23.0, Anion Gap 4 L, BUN 9, Creatinine 0.30 L, Estim Creat Clear Calc 151.81, Est GFR (MDRD) Af Amer 294, Est GFR (MDRD) Non-Af 243, BUN/Creatinine Ratio 30.5 H, Glucose 106, Calcium 8.1 L Radiography Diagnostic Testing: Radiology Impression Chest X-Ray 01/10/23 08:45 IMPRESSION: Status post left thoracentesis. No evidence of pneumothorax. Electronically Signed: Kiran Laurent MD at 10:57 EDT , Thoracentesis Ultrasound 01/10/23 09:00 IMPRESSION: Ultrasound-guided left thoracentesis. Electronically Signed: Kiran Laurent MD at 10:55 EDT , Rhythm Strip Rhythm Strip: Sinus Rhythm Rate: 99 Ectopy: None Physical Exam Const alert, oriented x3 and no apparent distress General Appearance: cooperative HEENT normocephalic, head/scalp atraumatic and hearing grossly normal bilaterally Eyes PERRL, EOMs intact bilaterally and conjunctivae normal Neck no lymphadenopathy and supple Resp Resp Narrative: moderately diminished breath sounds bibasally, no wheezes or crackles. On 4L of oxygen by nasal canula, tachypneic Cardio regular rate, regular rhythm, S1 normal heart sound, S2 normal heart sound and no murmurs GI normal to inspection, nondistended, normoactive bowel sounds, soft to palpation, non-tender and non-distended Extremity normal to inspection, full ROM, normal capillary refill and no clubbing, cyanosis or edema Skin General Skin Exam: no breakdown Neuro oriented x3, CN's II-XII intact bilaterally, moves all extremities and no focal motor deficits Sensorium / Orientation: awake and alert Motor Exam: strength 5/5 throughout Psych thought process normal, cooperative and affect normal Appearance: appropriate Assessment & Plan Assessment/Plan (1) Near syncope: (2) Acute respiratory failure with hypoxia: (3) Metastasis to brain: (4) Bilateral pleural effusion: PLAN: Plan #Bilateral malignant pleural effusion s/p right sided thoracentesis with removal of 1.16L of fluid Due to metastatic breast cancer. She has stage IV breast cancer and was due to undergo chemotherapy today but could not because of her symptoms. She has had pleural effusion in the past and had to have a recurrent thoracentesis with the last being about 7 days prior to admission Chest x-ray showed progressive increase in the right pleural effusion with persistent infiltration and or atelectasis at that right lung base with interval improvement of left pleural effusion though persistent left lower lobe infiltrates remain. CTA of the chest showed bilateral pleural effusions with the left greater than the right with basilar infiltration and atelectasis with no evidence of PE and nodular density in the right upper lobe and enlargement of the adrenal gland as well as stable mediastinal lymph nodes. still feeling short of breath today Pulmonology consulted. Patient will likely benefit from a Pleurx catheter due to recurrent malignant pleural effusion. Stat chest x-ray ordered to evaluate for need for repeat thoracentesis. Titrate oxygen to maintain sats >90% Breathing treatments of bronchodilators. #Hypokalemia: resolved. Potassium is 4. #Hypertension: On losartan and propranolol #History of left breast cancer with mets to the bone, lungs of the brain She is s/p partial left mastectomy. On Decadron. Was to undergo chemotherapy on day of admission but this was deferred due to her shortness of breath. I spoke to her oncologist Dr Green who stated that chemo would be started next week. #Depression and anxiety: On sertraline and trazodone #GERD: On PPI #NARCISO: On BiPAP nightly DVT prophylaxis: Lovenox CODE STATUS: Full code Charges/Coding Visit Charges Inpatient E&M: 78759 Subs Hosp L2
--- NOTE | 2023-01-11 11:51 | EX.PCM.CONCC ---
Assessment & Plan Assessment/Plan (1) Malignant pleural effusion: PLAN: Esequiel pleural effusions unfortunately reaccumulate rapidly, which portends a poor prognosis. She is extremely dyspneic, even after a liter of left pleural fluid was removed yesterday; there are bilateral persistent moderate effusions. She had a right thoracentesis of 900 cc chest 10 days ago, with some relief but rapid recurrence of severe dyspnea. - Pleurx catheter at the earliest availability by invasive radiology, probably on Friday. I will order the IR consultation. - Hold Eliquis - Use SCDs - Therapeutic thoracentesis on the left today at bedside. Patient was told of increased risk of bleeding on Eliquis, she also has the usual risk of pain, pneumothorax, bleeding, dyspnea, infection. She is familiar with the procedure and would like to proceed. (2) Breast cancer metastasized to brain: PLAN: Management per primary (3) Lung metastases: QUALIFIERS: Laterality: unspecified laterality Qualified Code(s): C78.00 - Secondary malignant neoplasm of unspecified lung PLAN: Management per primary (4) Essential hypertension: PLAN: Stable (5) NARCISO (obstructive sleep apnea): PLAN: Not on CPAP. I will prescribe it to help provide relief of dyspnea and recurrent atelectasis. She should be on it continuously to help relieve respiratory muscle work. PLAN: Plan Patient was seen and examined at bedside, data reviewed, record review, coordination with primary care, in order for invasive radiology surgical procedure (Pleurx catheter placement) discharge does not include procedures. Elton Luo MD [facility] FACP Pulmonary Medicine [facility] Dictated January 11, 2023 12:06 PM. HPI Consult Data Date of Consult: 01/11/23 HPI Narrative HPI Narrative: KRIS HOUSER, is a 62 F who presents with shortness of breath and recurrent malignant bilateral pleural effusions to breast cancer. The patient had a right thoracentesis of 900 cc on January 01. Unfortunately fluid reaccumulated rapidly her dyspnea increased and she presented again on the with pleural effusion. She had an ultrasound thoracentesis by invasive radiology yesterday on the left with removal of 1000 cc, her dyspnea is somewhat improved but today's chest x-ray she had moderate bilateral residual pleural effusions without reexpansion pulmonary edema. She denies any pleurisy today. She did have mild pleurisy for part of yesterday after her thoracentesis and had some after her first thoracentesis on January 01. She has a right subclavian port in place She is now on 4 L/min, visibly dyspneic, speaking 5 word sentences, using accessory muscles to breathe, with adequate saturation. She would like to have additional fluid removed if it would help her dyspnea. Past medical history: Sleep apnea on CPAP. Vocal cord dysfunction, left breast cancer, metastatic to bone, lung, brain (on 8 mg dexamethasone daily since January 06), lymph nodes, and pleura. Chronic respiratory failure with hypoxemia. Neutropenia palpitations chest pain and hypertension on propranolol 80 mg at bedtime (for anxiety) and losartan, anemia of chronic disease, osteoporosis, anxiety on clonazepam 1 mg at bedtime, GERD on omeprazole 20 mg daily. Medications include DuoNeb every 6, calcium, clonazepam 1 mill milligram at bedtime, enoxaparin 40 mg daily, guaifenesin, heparin 50 units IV flush for the port, ibuprofen 400 mg twice daily as needed, losartan 50 mg daily, morphine IV as needed, Zofran, pantoprazole, propranolol, sertraline 100 mg at bedtime, tizanidine. [facility] Medical History (Updated 01/09/23 @ 12:28 by Yumiko Eubanks) Alcohol use Anemia Anxiety and depression Arthritis BMI 29.0-29.9,adult Bone metastases Breast cancer (12/2020) Cancer Cardiology follow-up encounter CPAP (continuous positive airway pressure) dependence Essential hypertension Gastric reflux History of echocardiogram History of left breast cancer Hypokalemia Irregular heart beat Lung metastases Malignant neoplasm of central portion of left female breast Migraine headache Non-smoker Osteoporosis Panic disorder Pleural effusion, malignant Post-menopausal Regional lymph node metastasis present Shortness of breath Shortness of breath on exertion Syncope Wears glasses Home Medications propranolol 80 mg capsule,24 hr,extended release (Inderal LA) 80 mg PO QHS anxiety 11/25/17 [History Last Taken 01/08/23] calcium carbonate 600 mg calcium (1,500 mg) tablet (Calcium) 600 mg PO BID supplement 07/31/21 [History Last Taken 01/08/23] multivit with klbcalzh-oqbt-GY-lutein 8 mg iron-400 mcg-300 mcg tablet (Centrum Silver Women) 1 tab PO DAILY supplement 01/04/22 [History Last Taken 01/08/23] omeprazole 20 mg capsule,delayed release 20 mg PO DAILY GERD 03/12/22 [History Last Taken 01/08/23] sertraline 50 mg tablet 100 mg PO QHS depression 03/12/22 [History Last Taken 01/08/23] losartan 50 mg tablet 50 mg PO DAILY #90 tabs 04/17/22 [Rx Last Taken 01/08/23] potassium chloride 20 mEq tablet,extended release 20 meq PO DAILY #3 tabs 11/20/22 [Rx Last Taken 01/08/23] tizanidine 2 mg tablet 1 mg PO Q8H PRN Spasms 12/18/22 [History Last Taken 01/08/23] dexamethasone 4 mg tablet 8 mg PO DAILY #12 tabs 12/19/22 [Rx Last Taken 01/06/23] lidocaine-prilocaine 2.5 %-2.5 % topical cream 1 applic topical ONCE PRN port access 30 days #30 grams 12/19/22 [Rx Last Taken 01/06/23] ondansetron HCl 8 mg tablet 8 mg PO Q8H PRN PRN Nausea And Vomiting #60 tabs 12/19/22 [Rx Last Taken 01/08/23] clonazepam 1 mg tablet 1 mg PO QHS ANXIETY 01/09/23 [History Last Taken 01/08/23] Allergy/AdvReac Type Severity Reaction Status Date / Time No Known Allergies Allergy Verified 01/09/23 07:27 Family History Father Brain tumor Mother Alzheimers disease Breast cancer Brother Lung cancer Surgical History History of esophagogastroduodenoscopy (EGD) History of sinus surgery History of thoracentesis (03/23/21) S/P lumpectomy, left breast Social History household members: none housing: house number of children: 1 pets and animals: Yes pets and animals: dog(s) Smoking Status: Never smoker second hand exposure: No alcohol intake: current Alcohol type: wine details: wine 2-3 drinks per night substance use type: does not use lizzie/christianity: None seatbelt use: always do you feel safe at home: Yes additional social history: has 4 grandchildren Physical Exam Narrative Well-developed chronically ill-appearing woman with alopecia in moderate respiratory distress, speaking 5 word sentences. HEENT exam is unremarkable, no thrush Chest has use of accessory muscles of respiration, symmetrical, trachea midline, visibly dyspneic and tachypneic. There are dullness at both lung bases, crackles at both lung bases, a fresh left thoracentesis needle junior which is sealed and not bleeding or oozing. No wheezing. Heart normal S1-S2 with no murmurs rubs or gallops Abdomen soft nontender Extremities have no clubbing cyanosis or edema, skin pale Medical Records Data Attestation: I reviewed the patient's medical records Medical records narrative: And discussed her case with Anita Dela Cruz MD Medical Nutrition Assessment Dietitian: Malnutrition Criteria Met Start: 01/09/23 16:12 Freq: Status: Active Protocol: Document 01/09/23 16:12 (Rec: 01/09/23 16:12 [id number]) Nutrition Malnutrition Evidence of Malnutrition Exists Yes Malnutrition (severe): Chronic Evidenced By Suboptimal Energy Intake ( Severe),Weight Loss (Severe) Clinical Problem Chronic Disease or Condition Related Malnutrition Etiology severe related to breast cancer with brain and bone mets Signs/Symptoms as evidenced by <75% PO intake of estimated energy needs for >1 month and 9.8lbs (6.4%) weight loss in 1 month Status Active Problem Recommendation Dietitian Recommendations/Changes RD will liberalize diet to Regular - DONALD to optimize oral intakes RD will change EPHP to 4x daily with medpass to provide supplemental energy. Lab / Micro Data Attestation: I reviewed the patient's lab results. Result Diagrams: 01/11/23 06:43 01/11/23 06:43 Labs: Laboratory Results - last 24 hr 01/10/23 10:15: Fluid Source THORACENTESIS, Fluid Color YELLOW, Fluid Appearance SL CLDY, Fluid WBC 0.656, Fluid RBC 985, Fluid Tot Cell Count 0.892 H, Fld Polynuclear WBCs # 0.024, Fld Polynuclear WBCs % 3.6, Fluid Mononuclear WBCs 0.632, Fld Mononuclear WBCs % 96.4, Fluid Neutrophils 5, Fluid Lymphocytes 26, Fluid Monocytes 25, Fluid Macrophages 2, Fld Mesothelial Cells 42, Fl Pathologist Comment May follow, Fluid Comment 2 SEE COMMENT 01/11/23 06:43: WBC 11.8 H, RBC 3.58 L, Hgb 10.6 L, Hct 32.6 L, MCV 91.1, MCH 29.6, MCHC 32.5, RDW Std Deviation 49.8 H, RDW Coeff of Mike 14.9 H, Plt Count 421, MPV 9.8, Immature Gran % (Auto) 0.300, Neut % (Auto) 64.0, Lymph % (Auto) 12.0 L, [place] % (Auto) 16.8 H, Eos % (Auto) 6.5 H, Baso % (Auto) 0.4, Absolute Neuts (auto) 7.6, Absolute Lymphs (auto) 1.42, Nucleated RBC % 0, Diff Path Review November01/11/23 06:43: Sodium 136, Potassium 4.0, Chloride 109 H, Carbon Dioxide 23.0, Anion Gap 4 L, BUN 9, Creatinine 0.30 L, Estim Creat Clear Calc 151.81, Est GFR (MDRD) Af Amer 294, Est GFR (MDRD) Non-Af 243, BUN/Creatinine Ratio 30.5 H, Glucose 106, Calcium 8.1 L Micro: Chest CTA and x-rays were personally reviewed. There was moderate persistent pleural effusion bilaterally after yesterday's left-sided thoracentesis. Rhythm Strip Rhythm Strip: Sinus Rhythm Rate: 99 Ectopy: None Radiology Impression Chest X-Ray 01/11/23 09:34 IMPRESSION: Progressive bilateral pneumonitis as above. Electronically Signed: Junior Mas MD, DONNY at 9:51 EDT , Charges/Coding Visit Charges Inpatient E&M: 52953 Init Hosp L3
--- NOTE | 2023-01-11 12:28 | NURSING ---
CT Staff informed of Consult for Dr. Beck from Dr. Luo.
[2023-01-11] MEDS: Morphine 4 MG/ML Syringe IV ×2 (12:33→21:28)
--- NOTE | 2023-01-11 14:36 | CPS ---
Pt is a mouth breather and doesn't feel like she is getting enough oxygen with the nasal cannula, changed to 40% VM and pt feels less SOB.
--- NOTE | 2023-01-11 18:35 | CASEMGMT ---
TUAN REYES NOTE: Pt meets criteria for Palliative referra. Dr Dela Cruz gave order. Palliative referral sent to [facility] Palliative via e-mail Maite KAPOOR RN, CM
[2023-01-11] MEDS: Enoxaparin 40 MG/0.4 ML Syringe SC (21:27)
[2023-01-11] MEDS: tiZANidine HCl 2 MG Tablet 1 MG PO (21:32)
[2023-01-11] MEDS: Sertraline 50 MG Tablet 100 MG PO (21:32)
[2023-01-11] MEDS: Ondansetron 8 MG Tablet PO (21:32)
[2023-01-11] MEDS: Propranolol LA 80 MG Capsule PO (21:33)
[2023-01-11] MEDS: clonazePAM 1 MG Tablet PO (21:34)
[2023-01-12] VITALS (17 sets, daily range): BP systolic 129–175; BP diastolic 82–115; PULSE 75–105; RESP 12–32; TEMP 36.4–37; O2SAT 95–99
[2023-01-12] MEDS: Ibuprofen 400 MG Tablet PO ×3 (01:56→22:28)
[2023-01-12] MEDS: Morphine 4 MG/ML Syringe IV ×2 (02:01→08:35)
[2023-01-12] MEDS: 0.9% Saline Lock 10 ML Syringe IV ×2 (02:07→08:36)
[2023-01-12] MEDS: Ipratropium/Albuterol Sulfate 3 ML AMPUL.NEB INHALATION ×4 (02:34→19:17)
[2023-01-12] MEDS: Acetaminophen 325 MG Tablet 650 MG PO ×2 (06:44→15:43)
[2023-01-12] MEDS: 0.9% Normal Saline 1,000 ML 100 ML IV ×2 (06:47→15:46)
[2023-01-12 07:29] LABS: Anion Gap 6 (5-15); BUN 5 mg/dL (7-18); BUN/Creat Ratio 22.8 RATIO (10-20); Calcium,Total 8.2 mg/dL (8.5-10.1); Chloride 109 mmol/L (98-107); Creatinine, Serum 0.22 mg/dL (0.55-1.02); EST Glomerular Filtration Rate 343 mL/min (>60); Est Glom Filt Rate - Afr Amer 414 mL/min (>60); Estimated Creatinine Clearance 207.01 ml/min; Glucose 88 mg/dL (74-106); Potassium 5.1 mmol/L (3.5-5.1); Sodium Level 129 mmol/L (136-145)
[2023-01-12] MEDS: Ondansetron 4 MG/2 ML Vial IV ×2 (08:35→22:10)
[2023-01-12] MEDS: Ensure Plus High Protein 120 ML LIQUID PO ×2 (08:35→16:48)
[2023-01-12] MEDS: Enoxaparin 40 MG/0.4 ML Syringe SC (08:35)
[2023-01-12] MEDS: Multivitamins,Ther W-Minerals Tablet 1 TABLET PO (08:36)
[2023-01-12] MEDS: Pantoprazole Sodium 20 MG Tablet PO (08:36)
[2023-01-12] MEDS: Calcium (Elemental) 500 MG Tablet PO ×2 (08:36→15:44)
[2023-01-12] MEDS: Losartan Potassium 50 MG Tablet PO (08:36)
[2023-01-12] MEDS: Potassium Chloride Oral Tablet 20 MEQ PO (08:36)
[2023-01-12 09:26] LABS: Absolute Lymphocyte Count 1.15 X10^3/uL (0.83-4.51); Absolute Neutrophil Count 10.4 X10^3/uL (2.0-7.7); Basophil# 0.06 X10^3/uL; Basophil% 0.4 % (0-1); Eosinophil# 0.17 X10^3/uL; Eosinophils% 1.2 % (0-5); Hematocrit 34.5 % (37-47); Hemoglobin 10.9 g/dL (12.0-15.0); Lymphocyte # 1.15 X10^3/ul (0.83-4.51); Lymphocyte % 8.3 % (19-41); Mean Corp Hgb Conc 31.6 g/dL (32-36); Mean Corpuscular Hgb 29.4 pg (27.0-32.0); Mean Platelet Vol. 9.6 fl (6.2-12.0); Monocyte# 1.96 X10^3/uL; Monocyte% 14.2 % (0-10); NRBC Flagged by Analyzer 0 % (0-5); Neutrophil % 75.3 % (47-70); POSITIVE DIFFERENTIAL YES; Platelet Count 471 K/mm3 (150-450); RBC Distribution Width CV 14.6 % (11.6-14.6); RBC Distribution Width SD 49.7 fl (35.1-43.9); Red Blood Count 3.71 M/mm3 (4.2-5.4); White Blood Count 13.8 K/mm3 (4.4-11.0)
[2023-01-12 09:27] LABS: Differential Indicated SCAN CRITERIA MET
--- NOTE | 2023-01-12 11:06 | PN_ITS ---
Subjective Subjective Patient seen and examined. She is still short of breath though it has not worsened. She also complains of a headache. Review of systems is otherwise negative. Objective Data Objective Data Vital Signs: Vital Signs Temp Pulse Resp BP Pulse Ox O2 Del Method O2 Flow Rate 98 F 85 24 H 156/90 H 98 Nasal Cannula 4 01/12/23 08:52 01/12/23 08:52 01/12/23 08:52 01/12/23 08:52 01/12/23 08:52 01/12/23 08:54 01/12/23 08:54 FiO2 40 01/11/23 14:36 Oxygen Flow Rate (L/min) [3] 4 Oxygen Flow Rate (L/min) [2] 4 Oxygen Flow Rate (L/min) [1 ( 4 Initial Baseline)] Oxygen Flow Rate (L/min) 4 Oxygen Delivery Method [3] Nasal Cannula Oxygen Delivery Method [2] Nasal Cannula Oxygen Delivery Method [1 ( Nasal Cannula Initial Baseline)] Oxygen Delivery Method Nasal Cannula Weight: 141 lb Body Mass Index (BMI) 25.7 Intake & Output: Intake and Output for Last 24 Hours 01/10/23 01/11/23 01/12/23 23:59 23:59 23:59 Intake Total 2370.00 / 2870.00 3065.00 / 3065.00 891.67 / 891.67 Output Total 1160 / 1160 Balance 1210.00 / 1710.00 3065.00 / 3065.00 891.67 / 891.67 Medical Nutrition Assessment Dietitian: Malnutrition Criteria Met Start: 01/09/23 16:12 Freq: Status: Active Protocol: Document 01/09/23 16:12 (Rec: 01/09/23 16:12 [id number]) Nutrition Malnutrition Evidence of Malnutrition Exists Yes Malnutrition (severe): Chronic Evidenced By Suboptimal Energy Intake ( Severe),Weight Loss (Severe) Clinical Problem Chronic Disease or Condition Related Malnutrition Etiology severe related to breast cancer with brain and bone mets Signs/Symptoms as evidenced by <75% PO intake of estimated energy needs for >1 month and 9.8lbs (6.4%) weight loss in 1 month Status Active Problem Recommendation Dietitian Recommendations/Changes RD will liberalize diet to Regular - DONALD to optimize oral intakes RD will change EPHP to 4x daily with medpass to provide supplemental energy. Lab / Micro Data Result Diagrams: 01/12/23 09:16 01/12/23 06:00 Labs: Laboratory Results - last 24 hr 01/12/23 06:00: Sodium 129 L, Potassium 5.1, Chloride 109 H, Carbon Dioxide 14.0 L, Anion Gap 6, BUN 5 L, Creatinine 0.22 L, Estim Creat Clear Calc 207.01, Est GFR (MDRD) Af Amer 414, Est GFR (MDRD) Non-Af 343, BUN/Creatinine Ratio 22.8 H, Glucose 88, Calcium 8.2 L 01/12/23 09:16: WBC 13.8 H, RBC 3.71 L, Hgb 10.9 L, Hct 34.5 L, MCV 93.0, MCH 29.4, MCHC 31.6 L, RDW Std Deviation 49.7 H, RDW Coeff of Mike 14.6, Plt Count 471 H, MPV 9.6, Immature Gran % (Auto) 0.600, Neut % (Auto) 75.3 H, Lymph % ( Auto) 8.3 L, [place] % (Auto) 14.2 H, Eos % (Auto) 1.2, Baso % (Auto) 0.4, Absolute Neuts (auto) 10.4 H, Absolute Lymphs (auto) 1.15, Nucleated RBC % 0, Diff Path Review November Rhythm Strip Rhythm Strip: Sinus Rhythm Rate: 99 Ectopy: None Physical Exam Const alert, oriented x3 and no apparent distress General Appearance: cooperative HEENT normocephalic, head/scalp atraumatic and hearing grossly normal bilaterally Eyes PERRL, EOMs intact bilaterally and conjunctivae normal Neck no lymphadenopathy and supple Resp Resp Narrative: moderately diminished breath sounds bibasally, no wheezes or crackles. On 4L of oxygen by nasal canula, still tachypneic Cardio regular rate, regular rhythm, S1 normal heart sound, S2 normal heart sound and no murmurs GI normal to inspection, nondistended, normoactive bowel sounds, soft to palpation, non-tender and non-distended Extremity normal to inspection, full ROM, normal capillary refill and no clubbing, cyanosis or edema Skin General Skin Exam: no breakdown Neuro oriented x3, CN's II-XII intact bilaterally, moves all extremities and no focal motor deficits Sensorium / Orientation: awake and alert Motor Exam: strength 5/5 throughout Psych thought process normal, cooperative and affect normal Appearance: appropriate Assessment & Plan Assessment/Plan (1) Near syncope: (2) Acute respiratory failure with hypoxia: (3) Metastasis to brain: (4) Bilateral pleural effusion: PLAN: Plan #Bilateral malignant pleural effusion * s/p right sided thoracentesis with removal of 1.16L of fluid * Due to metastatic breast cancer. She has stage IV breast cancer and was due to undergo chemotherapy today but could not because of her symptoms. * She has had pleural effusion in the past and had to have a recurrent thoracentesis with the last being about 7 days prior to admission * Chest x-ray showed progressive increase in the right pleural effusion with persistent infiltration and or atelectasis at that right lung base with interval improvement of left pleural effusion though persistent left lower lobe infiltrates remain. * CTA of the chest showed bilateral pleural effusions with the left greater than the right with basilar infiltration and atelectasis with no evidence of PE and nodular density in the right upper lobe and enlargement of the adrenal gland as well as stable mediastinal lymph nodes. * still feeling short of breath today * Pulmonology consulted. Patient will likely benefit from a Pleurx catheter due to recurrent malignant pleural effusion. * Stat chest x-ray ordered to evaluate for need for repeat thoracentesis. * Titrate oxygen to maintain sats >90% * Breathing treatments of bronchodilators. * Pleurex catheter ordered for tomorrow #Hypokalemia: resolved. Potassium is 4. #Hypertension: On losartan and propranolol #History of left breast cancer with mets to the bone, lungs of the brain * She is s/p partial left mastectomy. On Decadron. * Was to undergo chemotherapy on day of admission but this was deferred due to her shortness of breath. * I spoke to her oncologist Dr Green who stated that chemo would be started next week once shortness of breath resolved. #Depression and anxiety: On sertraline and trazodone #GERD: On PPI #NARCISO: On BiPAP nightly DVT prophylaxis: Lovenox CODE STATUS: Full code * Charges/Coding Visit Charges Inpatient E&M: 72224 Subs Hosp L2
--- NOTE | 2023-01-12 13:25 | NURSING ---
JAYLEEN Mejia reported to this RN that pt was having trouble breathing. This RN went into pt's room to find pulse ox at 96% on 4L O2, audible expiratory wheezes and use of accessory muscles. This RN called respiratory for a breathing treatment per pt's request. Respiratory asked Dr Luo to call them. Dr Luo told respiratory to apply bipap on pt and continue to monitor. Bipap was applied at 40%. Will plan on pleurex catheter placement tomorrow 01/13. Pt stable at this time
--- NOTE | 2023-01-12 14:14 | PN.CC_ITS ---
Assessment & Plan Assessment/Plan (1) Malignant pleural effusion: PLAN: Jennifer's pleural effusions reaccumulate rapidly, which portends a poor prognosis. She is not dyspneic this morning on rounds after sedation with morphine, but later in the day respiratory reported another panic attack with severe dyspnea and partially self -induced upper airway wheezing and tachypnea. - Pleurx catheter is usually not recommended by some of our oncologists during chemotherapy. We will ask for their input on Friday. - Hold Eliquis pending procedure - Use SCDs for DVT prophylaxis - The left-sided thoracentesis I had planned for yesterday was not done due to multiple severely ill ICU admissions arriving simultaneously in the evening. (2) Breast cancer metastasized to brain: PLAN: Management per primary/oncology (3) Lung metastases: QUALIFIERS: Laterality: unspecified laterality Qualified Code(s): C78.00 - Secondary malignant neoplasm of unspecified lung PLAN: Management per primary/oncology. (4) Essential hypertension: PLAN: Stable (5) NARCISO (obstructive sleep apnea): PLAN: Not on CPAP. I prescribed BiPAP 10/03 today to use as needed for panic attacks and relief of dyspnea/work of breathing. She can use it as needed PLAN: Plan Patient was seen and examined at bedside, data reviewed, record review, coordination with colleagues. Elton Luo MD FCCP FACP [facility] [place] Subjective Subjective Patient was resting comfortably in bed after dose of morphine this morning. Reportedly later in the day she became very agitated, anxious, with inspiratory and expiratory wheezes noted by respiratory therapy and required BiPAP, with no oxygen desaturation. Notably, she did not respond to nebulizer therapy. Objective Data Objective Data The patient was seen and examined at the bedside this morning. Events from the last 24 hours have been reviewed. The patient's most recent labs microbiology and imaging have been personally reviewed. The case was discussed with her oncologist last evening by telephone, the oncology nurse practitioner by telephone, and Dr. Murphy yesterday and today. Overnight: More calm with palliative morphine prescribed by hospitalist team Pertinent events include: Another panic attack this afternoon with induced upper airway wheezing, tachypnea, tachycardia, no desaturation. Patient was pres cribed BiPAP as needed. Oncology stated that the new chemotherapeutic agent starting this week will take at least 6 weeks to work, therefore malignant pleural effusions are not expected to subside anytime soon, and continue to re-accumulate rapidly. Thoracentesis was deferred today, awaiting more discussion and decisions about Pleurx catheter placement. Patient expressed a desire to do everything possible to live as long as possible with metastatic breast cancer. Vital Signs: Vital Signs Temp Pulse Resp BP Pulse Ox O2 Del Method O2 Flow Rate 98 F 75 20 H 156/90 H 97 Nasal Cannula 4 01/12/23 08:52 01/12/23 13:18 01/12/23 13:18 01/12/23 08:52 01/12/23 13:18 01/12/23 08:54 01/12/23 08:54 FiO2 40 01/12/23 13:18 Oxygen Flow Rate (L/min) [3] 4 Oxygen Flow Rate (L/min) [2] 4 Oxygen Flow Rate (L/min) [1 ( 4 Initial Baseline)] Oxygen Flow Rate (L/min) 4 Oxygen Delivery Method [3] Nasal Cannula Oxygen Delivery Method [2] Nasal Cannula Oxygen Delivery Method [1 ( Nasal Cannula Initial Baseline)] Oxygen Delivery Method Nasal Cannula Weight: 141 lb Body Mass Index (BMI) 25.7 Intake & Output: Intake and Output for Last 24 Hours 01/10/23 01/11/23 01/12/23 23:59 23:59 23:59 Intake Total 2370.00 / 2870.00 3065.00 / 3065.00 891.67 / 891.67 Output Total 1160 / 1160 Balance 1210.00 / 1710.00 3065.00 / 3065.00 891.67 / 891.67 Medical Nutrition Assessment Dietitian: Malnutrition Criteria Met Start: 01/09/23 16:12 Freq: Status: Active Protocol: Document 01/09/23 16:12 (Rec: 01/09/23 16:12 [id number]) Nutrition Malnutrition Evidence of Malnutrition Exists Yes Malnutrition (severe): Chronic Evidenced By Suboptimal Energy Intake ( Severe),Weight Loss (Severe) Clinical Problem Chronic Disease or Condition Related Malnutrition Etiology severe related to breast cancer with brain and bone mets Signs/Symptoms as evidenced by <75% PO intake of estimated energy needs for >1 month and 9.8lbs (6.4%) weight loss in 1 month Status Active Problem Recommendation Dietitian Recommendations/Changes RD will liberalize diet to Regular - DONALD to optimize oral intakes RD will change EPHP to 4x daily with medpass to provide supplemental energy. Lab / Micro Data Result Diagrams: 01/12/23 09:16 01/12/23 06:00 Labs: Laboratory Results - last 24 hr 01/12/23 06:00: Sodium 129 L, Potassium 5.1, Chloride 109 H, Carbon Dioxide 14.0 L, Anion Gap 6, BUN 5 L, Creatinine 0.22 L, Estim Creat Clear Calc 207.01, Est GFR (MDRD) Af Amer 414, Est GFR (MDRD) Non-Af 343, BUN/Creatinine Ratio 22.8 H, Glucose 88, Calcium 8.2 L 01/12/23 09:16: WBC 13.8 H, RBC 3.71 L, Hgb 10.9 L, Hct 34.5 L, MCV 93.0, MCH 29.4, MCHC 31.6 L, RDW Std Deviation 49.7 H, RDW Coeff of Mike 14.6, Plt Count 471 H, MPV 9.6, Immature Gran % (Auto) 0.600, Neut % (Auto) 75.3 H, Lymph % (Auto) 8.3 L, [place] % (Auto) 14.2 H, Eos % (Auto) 1.2, Baso % (Auto) 0.4, Absolute Neuts (auto) 10.4 H, Absolute Lymphs (auto) 1.15, Nucleated RBC % 0, Diff Path Review November Rhythm Strip Rhythm Strip: Sinus Rhythm Rate: 99 Ectopy: None Physical Exam Narrative Well-developed chronically ill-appearing woman with alopecia, sedated and in no respiratory distress, speaking full sentences. HEENT exam is unremarkable, no thrush Chest has no use of accessory muscles of respiration, symmetrical, trachea midline, no dyspnea. There are dullness at both lung bases, No cough or wheezing. Heart normal S1-S2 with no murmurs rubs or gallops Abdomen soft nontender Extremities have no clubbing cyanosis or edema, skin pale Charges/Coding Visit Charges Inpatient E&M: 38609 Subs Hosp L2
--- NOTE | 2023-01-12 15:44 | EX.PCM.CON.S ---
Assessment & Plan Assessment/Plan (1) Recurrent pleural effusion on left: (2) Cancer of central portion of left breast: PLAN: Plan Discussed the procedure with the patient. Also discussed that she would be at higher risk for infection. Discussed with patient that Dr. Aviles typically does not advise having a Pleurx catheter with getting chemotherapy and talking with Adele Eddy- he would not give chemo with a pleurx catheter in. d/w pt she can talk to oncology tomorrow and we can make her NPO after midnight incase she decides she wants to go through with pleurx and possibly forgo chemo. Molly Murphy M.D. Pager: [phone] [facility] [address] [place] [address], Outpatient Pavilion, [address] [place] [address] Office: [phone] HPI Consult Data Date of Consult: 01/13/23 HPI Narrative Reason for Consultation: Possible Pleurx catheter placement HPI Narrative: KRIS HOUSER, is a 62 F who is admitted due to shortness of breath patient does have metastatic left breast cancer. Was to start chemo last Friday but came to the ER by squad due to shortness of breath. Patient did have a recent thoracentesis on the left for 1160 cc on 01/10/2023-- before that she had 900 cc out of the left on 01/01/2023. In late August patient did have a right paracentesis as well for [address] Aviles with oncology. Requested possible Pleurx catheter placement. COUNT INCLUDES THE [facility] Medical History (Updated 01/12/23 @ 15:[address] Molly Murphy MD) Alcohol use Anemia Anxiety and depression Arthritis BMI 29.0-29.9,adult Bone metastases Breast cancer (12/2020) Cancer Cardiology follow-up encounter CPAP (continuous positive airway pressure) dependence Essential hypertension Gastric reflux History of echocardiogram History of left breast cancer Hypokalemia Irregular heart beat Lung metastases Malignant neoplasm of central portion of left female breast Migraine headache Non-smoker Osteoporosis Panic disorder Pleural effusion, malignant Post-menopausal Regional lymph node metastasis present Shortness of breath Shortness of breath on exertion Syncope Wears glasses Home Medications propranolol 80 mg capsule,24 hr,extended release (Inderal LA) 80 mg PO QHS anxiety 11/25/17 [History Last Taken 01/08/23] calcium carbonate 600 mg calcium (1,500 mg) tablet (Calcium) 600 mg PO BID supplement 07/31/21 [History Last Taken 01/08/23] multivit with vhbrgepz-bzbj-YY-lutein 8 mg iron-400 mcg-300 mcg tablet (Centrum Silver Women) 1 tab PO DAILY supplement 07/31/21 [History Last Taken 01/08/23] omeprazole 20 mg capsule,delayed release 20 mg PO DAILY GERD 03/12/22 [History Last Taken 01/08/23] sertraline 50 mg tablet 100 mg PO QHS depression 03/12/22 [History Last Taken 01/08/23] losartan 50 mg tablet 50 mg PO DAILY #90 tabs 04/17/22 [Rx Last Taken 01/08/23] potassium chloride 20 mEq tablet,extended release 20 meq PO DAILY #3 tabs 11/20/22 [Rx Last Taken 01/08/23] tizanidine 2 mg tablet 1 mg PO Q8H PRN Spasms 12/18/22 [History Last Taken 01/08/23] dexamethasone 4 mg tablet 8 mg PO DAILY #12 tabs 12/19/22 [Rx Last Taken 01/06/23] lidocaine-prilocaine 2.5 %-2.5 % topical cream 1 applic topical ONCE PRN port access 30 days #30 grams 12/19/22 [Rx Last Taken 01/06/23] ondansetron HCl 8 mg tablet 8 mg PO Q8H PRN PRN Nausea And Vomiting #60 tabs 12/19/22 [Rx Last Taken 01/08/23] clonazepam 1 mg tablet 1 mg PO QHS ANXIETY 01/09/23 [History Last Taken 01/08/23] Allergy/AdvReac Type Severity Reaction Status Date / Time No Known Allergies Allergy Verified 01/09/23 07:27 Family History Father Brain tumor Mother Alzheimers disease Breast cancer Brother Lung cancer Surgical History History of esophagogastroduodenoscopy (EGD) History of sinus surgery History of thoracentesis (03/23/21) S/P lumpectomy, left breast Social History household members: none housing: house number of children: 1 pets and animals: Yes pets and animals: dog(s) Smoking Status: Never smoker second hand exposure: No alcohol intake: current Alcohol type: wine details: wine 2-3 drinks per night substance use type: does not use lizzie/worship: None seatbelt use: always do you feel safe at home: Yes additional social history: has 4 grandchildren ROS Constitutional Constitutional: Denies anorexia Eyes Eyes: Denies loss of central vision ENT HEENT: Denies dysphagia Cardiovascular Cardiovascular: Denies chest pain Respiratory/Chest Respiratory/Chest: Reports dyspnea, shortness of breath at rest and shortness of breath with exertion Gastrointestinal Gastrointestinal: Denies abdominal pain Genitourinary Genitourinary: Denies dysuria Musculoskeletal Musculoskeletal: Denies joint swelling Integumentary Integumentary: Denies rash Neurologic Neurologic: Denies focal weakness Psychiatric Psychiatric: Reports anxiety Hematologic/Lymphatic Hematologic/Lymphatic: Denies easy bleeding Physical Exam Const alert and oriented x3 HEENT normocephalic Resp Auscultation: diminished lung sounds left Cardio Rate: regular rate GI soft to palpation and non-tender Extremity normal to inspection Skin no rashes or lesions noted Neuro CN's II-XII intact bilaterally Psych Mood & Affect: anxious Medical Records Data Medical Nutrition Assessment Dietitian: Malnutrition Criteria Met Start: 01/09/23 16:12 Freq: Status: Active Protocol: Document 01/09/23 16:12 (Rec: 01/09/23 16:12 [id number]) Nutrition Malnutrition Evidence of Malnutrition Exists Yes Malnutrition (severe): Chronic Evidenced By Suboptimal Energy Intake ( Severe),Weight Loss (Severe) Clinical Problem Chronic Disease or Condition Related Malnutrition Etiology severe related to breast cancer with brain and bone mets Signs/Symptoms as evidenced by <75% PO intake of estimated energy needs for >1 month and 9.8lbs (6.4%) weight loss in 1 month Status Active Problem Recommendation Dietitian Recommendations/Changes RD will liberalize diet to Regular - DONALD to optimize oral intakes RD will change EPHP to 4x daily with medpass to provide supplemental energy. Lab / Micro Data Result Diagrams: 01/13/23 06:05 01/13/23 06:05 Labs: Laboratory Results - last 24 hr 01/12/23 06:00: Sodium 129 L, Potassium 5.1, Chloride 109 H, Carbon Dioxide 14.0 L, Anion Gap 6, BUN 5 L, Creatinine 0.22 L, Estim Creat Clear Calc 207.01, Est GFR (MDRD) Af Amer 414, Est GFR (MDRD) Non-Af 343, BUN/Creatinine Ratio 22.8 H, Glucose 88, Calcium 8.2 L 01/12/23 09:16: WBC 13.8 H, RBC 3.71 L, Hgb 10.9 L, Hct 34.5 L, MCV 93.0, MCH 29.4, MCHC 31.6 L, RDW Std Deviation 49.7 H, RDW Coeff of Mike 14.6, Plt Count 471 H, MPV 9.6, Immature Gran % (Auto) 0.600, Neut % (Auto) 75.3 H, Lymph % (Auto) 8.3 L, [place] % (Auto) 14.2 H, Eos % (Auto) 1.2, Baso % (Auto) 0.4, Absolute Neuts (auto) 10.4 H, Absolute Lymphs (auto) 1.15, Nucleated RBC % 0, Diff Path Review May foll Rhythm Strip Rhythm Strip: Sinus Rhythm Rate: 99 Ectopy: None Charges/Coding Visit Charges Inpatient E&M: 41463 Init Hosp L3
[2023-01-12] MEDS: Sertraline 50 MG Tablet 100 MG PO (22:16)
[2023-01-12] MEDS: Propranolol LA 80 MG Capsule PO (22:16)
[2023-01-12] MEDS: clonazePAM 1 MG Tablet PO (22:18)
[2023-01-12] MEDS: Bisacodyl 5 MG Tablet PO (22:18)
[2023-01-13] VITALS (18 sets, daily range): BP systolic 120–195; BP diastolic 78–113; PULSE 72–110; RESP 12–32; TEMP 36–37.4; O2SAT 92–98
--- NOTE | 2023-01-13 | FLU_PTH ---
PATIENT: KRIS HOUSER LOC: MS3 U#:[id number] AGE/SX: 62/F ROOM: [facility] [place] RE01/09/[address]: Dr. Jameel Burgos MD : 1960 BED: 1 DIS: 01/16/2023 SPEC #: [id number] RECD: 01/13/23 15:39 STATUS: GAEL REQ #: [id number] JESSICA: 01/13/23 00:[address]: Elton Luo DEPT: CYTOLOGY RECD BY: Bonnie Allen ENTERED: 01/14/23 09:36 SP TYPE: Fluid OTHR DR: MD Dr. Giovanny Best DO Dr. David Kantorowitz, MD Dr. Joseph Prah, MD Dr. Lee Ann Baggott, MD Dr. Mansour Isckarus, MD Dr. Nana Yaa Koram, MD Dr. Nicholas F Kotsonis, MD Dr. Paul Nielsen, MD Dr. Robert Field, MD Dr. Ryan Jin, MD Dr. Roger Macklis, MD Dr. Steve Walston, DO Dr. Tanmay Panchabhai, MD Dr. Tamera Robotham, MD Christina Muller, NP-C Adele Borrego NP-C Tissues: THORACIC FLUID Procedures: Special Stain Group II Surgery Specimen Level IV Cytospin Fluid Comments: @ Ordering doctor for SSII edited from to @ by DAMION at 01/14/23 1325 @ Ordering doctor for SUIV edited from to @ by [email or web address] at 01/14/23 1325 @ Ordering doctor for CYSPIN edited from to @ by RGOOD at 01/14/23 1325 @ Submitting doctor edited from to @ by DAMION at 01/14/23 1325 HEADER OPERATION: Ultrasound-guided thoracentesis left PRE-OP DIAGNOSIS: Left pleural effusion TISSUE SUBMITTED: Thoracentesis fluid for cytology DIAGNOSIS CYTOLOGY Left pleural effusion fluid for cytology (cytospin and cell block): Metastatic carcinoma. See comment. AM:raffi 01/15/2023 COMMENT Immunohistochemistry ([id number]) supports a breast primary. Clinical correlation is suggested. CYTOLOGY STUDY Slides are reviewed. CYTOLOGY GROSS Received is 85 ml of red cloudy fluid labeled with the patient's name and and designated per the requisition as thoracentesis. Submitted for cytology preparation including cell block. / raffi 01/14/2023 TC:0 CPT: 49499, 00581
--- NOTE | 2023-01-13 | IMM_PTH ---
PATIENT: KRIS HOUSER LOC: MS3 U#:[id number] AGE/SX: 62/F [place] [facility] [place]09/[address]: Dr. Jameel Burgos MD : 1960 BED: 1 DIS: 01/16/2023 SPEC #: [id number] RECD: 01/15/23 11:28 STATUS: GAEL REQ #: [id number] JESSICA: 01/13/23 00:[address]: Elton Luo DEPT: IMMUNOHISTOCHEMISTRY RECD BY: Laure Ball ENTERED: 01/15/23 11:29 SP TYPE: IMMUNO OTHR DR: MD Dr. Giovanny Best DO Dr. David Kantorowitz, MD Dr. Joseph Prah, MD Dr. Lee Ann Baggott, MD Dr. Mansour Isckarus, MD Dr. Nana Yaa Koram, MD Dr. Nicholas F Kotsonis, MD Dr. Paul Nielsen, MD Dr. Robert Field, MD Dr. Ryan Jin, MD Dr. Roger Macklis, MD Dr. Steve Walston, DO Dr. Tanmay Panchabhai, MD Dr. Tamera Robotham, MD Christina Muller, BODY COMPONENT ENGINEER-C Adele Borrego BODY COMPONENT ENGINEER-C Tissues: THORACIC FLUID Procedures: E-CAD (initial) CK8 (add) MAMM (add) Pankeratin (add) GATA3 (add) Comments: @ Ordering doctor for ECAD edited from to @ by RGOOD at 01/15/23 1130 @ Ordering doctor for CK8. edited from to @ by RGOOD at 01/15/23 1130 @ Ordering doctor for JESSICA. edited from to DR.LBAGGO Coronel by DAMION at 01/15/23 1130 @ Ordering doctor for PANK. edited from to DR.LBAGGO Coronel by RGOOD at 01/15/23 1130 @ Ordering doctor for GATA3 edited from to DR.LBAGGO Coronel by DAMION at 01/15/23 1130 @ Submitting doctor edited from to @ by RGOOD at 01/15/23 1130 PHYSICIAN & [place] [id number] SPECIMEN INFORMATION: Tissue Source: Left pleural effusion Clinical Info: Left pleural effusion Specimen Number: [id number] CPT code: 92927, 02645 x4 METHODOLOGY: Deparaffinized sections of prefer/formalin-fixed tissue or PAP/DQ stained slides are incubated with monoclonal/polyclonal antibodies/oligonucleotide probes. Localization is made via biotin free immunoperoxidase method. Appropriate controls are performed and reacted as expected. Results on target cell population are indicated in the following table: RESULTS: ANTIBODY / CLONE RESULT GATA3 (L50-823) positive Mammaglobin (31A5) positive E-Cad (ECH-6) positive CK8 (09ukebG32) positive AE1-3 (AE1/AE3/PCK26) positive These tests were developed and their performance characteristics determined by [facility]. They may not have been cleared or approved by the U.S. Food and Drug Administration. The FDA has determined that such clearance or approval is not necessary. The above immunohistochemical/dualISH markers are ordered and reviewed by the Pathologist. INTERPRETATION: Left pleural effusion fluid for cytology (cell block): Metastatic carcinoma consistent with breast primary. AM:raffi 01/16/2023
[2023-01-13] MEDS: 0.9% Normal Saline 1,000 ML 100 ML IV ×3 (00:20→21:11)
[2023-01-13] MEDS: Acetaminophen 325 MG Tablet 650 MG PO (03:29)
[2023-01-13] MEDS: Ipratropium/Albuterol Sulfate 3 ML AMPUL.NEB INHALATION ×3 (03:38→19:54)
[2023-01-13 06:23] LABS: Absolute Lymphocyte Count 1.28 X10^3/uL (0.83-4.51); Basophil# 0.04 X10^3/uL; Basophil% 0.3 % (0-1); Eosinophil# 0.35 X10^3/uL; Eosinophils% 2.3 % (0-5); Hematocrit 33.5 % (37-47); Hemoglobin 10.8 g/dL (12.0-15.0); Lymphocyte # 1.28 X10^3/ul (0.83-4.51); Lymphocyte % 8.6 % (19-41); Mean Corp Hgb Conc 32.2 g/dL (32-36); Mean Corpuscular Hgb 29.5 pg (27.0-32.0); Mean Corpuscular Volume 91.5 fL (81-99); Mean Platelet Vol. 9.5 fl (6.2-12.0); Monocyte# 2.17 X10^3/uL; Monocyte% 14.5 % (0-10); NRBC Flagged by Analyzer 0 % (0-5); Neutrophil # 11.03 X10^3/uL (2.7-7.7); Neutrophil % 73.6 % (47-70); POSITIVE DIFFERENTIAL YES; Platelet Count 487 K/mm3 (150-450); RBC Distribution Width CV 14.6 % (11.6-14.6); RBC Distribution Width SD 49.2 fl (35.1-43.9); Red Blood Count 3.66 M/mm3 (4.2-5.4)
[2023-01-13 06:44] LABS: Anion Gap 6 (5-15); BUN 5 mg/dL (7-18); BUN/Creat Ratio 18.1 RATIO (10-20); Calcium,Total 8.8 mg/dL (8.5-10.1); Chloride 105 mmol/L (98-107); Creatinine, Serum 0.28 mg/dL (0.55-1.02); EST Glomerular Filtration Rate 262 mL/min (>60); Est Glom Filt Rate - Afr Amer 317 mL/min (>60); Estimated Creatinine Clearance 162.65 ml/min; Glucose 102 mg/dL (74-106); Potassium 4.1 mmol/L (3.5-5.1); Sodium Level 134 mmol/L (136-145)
[2023-01-13 06:49] LABS: Differential Indicated SCAN CRITERIA MET
[2023-01-13 06:52] LABS: Platelet Estimate SLT INC (ADEQ)
--- NOTE | 2023-01-13 09:48 | PCM.PN.INT ---
Assessment & Plan Assessment/Plan (1) Recurrent pleural effusion on left: (2) NARCISO (obstructive sleep apnea): PLAN: Plan RECOMMENDATIONS: 1. Proceed with therapeutic thoracentesis 2. Continue with chemotherapy per oncology 3. Consider scheduling thoracic ultrasound in 1 week with thoracentesis if indicated 4. Wean oxygen to keep saturations between 90 and 94% 5. Walking oximetry prior to discharge IMPRESSIONS: 1. Acute hypoxic respiratory failure secondary to recurrent malignant pleural effusion Patient with recurrent left-sided pleural effusion. Last pleural drainage was approximately 10 days ago. Patient is undergoing chemotherapy without significant improvement in recurrence rate. Oncology is not comfortable with a Pleurx catheter. Therefore would recommend a therapeutic thoracentesis. High likelihood of recurrence. Consider arranging for a thoracic ultrasound in 7 to 10 days after discharge with thoracentesis if necessary. Hopefully, malignancy will respond to chemotherapy and rate will improve with time 2. NARCISO/ongoing chemotherapy/hypertension/anemia/osteoporosis Complicates care, management, recovery and prognosis. Patient would benefit from positive pressure with sleep. Unfortunately, patient would likely require another sleep study to arrange for BiPAP at home. Subjective Subjective Patient seen on BiPAP therapy. Patient states that she was feeling good while on BiPAP. Patient did have dyspnea on minimal exertion. Patient states that she was told that the chemotherapy would stop it for Pleurx catheter were placed. Patient does not want to stop chemotherapy for this reason. Objective Data Objective Data Vital Signs: Vital Signs Temp Pulse Resp BP Pulse Ox O2 Del Method O2 Flow Rate 36.0 C L 80 17 120/83 H 96 Bi-pap 8 01/13/23 06:45 01/13/23 07:01 01/13/23 07:01 01/13/23 06:45 01/13/23 07:10 01/13/23 08:21 01/12/23 16:03 FiO2 35 01/13/23 07:10 Oxygen Flow Rate (L/min) [3] 4 Oxygen Flow Rate (L/min) [2] 4 Oxygen Flow Rate (L/min) [1 ( 4 Initial Baseline)] Oxygen Flow Rate (L/min) 8 Oxygen Delivery Method [3] Nasal Cannula Oxygen Delivery Method [2] Nasal Cannula Oxygen Delivery Method [1 ( Nasal Cannula Initial Baseline)] Oxygen Delivery Method Bi-pap Weight: 63.957 kg Body Mass Index (BMI) 25.7 Intake & Output: Intake and Output for Last 24 Hours 01/11/23 01/12/23 01/13/23 23:59 23:59 23:59 Intake Total 3065.00 / 3065.00 1790.00 / 1890.00 1006.67 / 1006.67 Output Total 300 / 500 550 / 550 Balance 3065.00 / 3065.00 1490.00 / 1390.00 456.67 / 456.67 Medical Nutrition Assessment Dietitian: Malnutrition Criteria Met Start: 01/09/23 16:12 Freq: Status: Active Protocol: Document 01/09/23 16:12 LO (Rec: 01/09/23 16:12 LO [id number]) Nutrition Malnutrition Evidence of Malnutrition Exists Yes Malnutrition (severe): Chronic Evidenced By Suboptimal Energy Intake ( Severe),Weight Loss (Severe) Clinical Problem Chronic Disease or Condition Related Malnutrition Etiology severe related to breast cancer with brain and bone mets Signs/Symptoms as evidenced by <75% PO intake of estimated energy needs for >1 month and 9.8lbs (6.4%) weight loss in 1 month Status Active Problem Recommendation Dietitian Recommendations/Changes RD will liberalize diet to Regular - DONALD to optimize oral intakes RD will change EPHP to 4x daily with medpass to provide supplemental energy. Lab / Micro Data Attestation: I reviewed the patient's lab results. Result Diagrams: 01/13/23 06:05 01/13/23 06:05 Labs: Laboratory Results - last 24 hr 01/12/23 09:16: Diff Path Review Layla rush 01/13/23 06:05: WBC 15.0 H, RBC 3.66 L, Hgb 10.8 L, Hct 33.5 L, MCV 91.5, MCH 29.5, MCHC 32.2, RDW Std Deviation 49.2 H, RDW Coeff of Mike 14.6, Plt Count 487 H, MPV 9.5, Immature Gran % (Auto) 0.700, Neut % (Auto) 73.6 H, Lymph % (Auto) 8.6 L, [place] % (Auto) 14.5 H, Eos % (Auto) 2.3, Baso % (Auto) 0.3, Absolute Neuts (auto) 11.0 H, Absolute Lymphs (auto) 1.28, Nucleated RBC % 0, Diff Path Review Layla rush, Platelet Estimate SLT INC 01/13/23 06:05: Sodium 134 L, Potassium 4.1, Chloride 105, Carbon Dioxide 23.0, Anion Gap 6, BUN 5 L, Creatinine 0.28 L, Estim Creat Clear Calc 162.65, Est GFR (MDRD) Af Amer 317, Est GFR (MDRD) Non-Af 262, BUN/Creatinine Ratio 18.1, Glucose 102, Calcium 8.8 Rhythm Strip Rhythm Strip: Sinus Rhythm Rate: 91 Ectopy: None Physical Exam Const alert and oriented x3 Constitutional Narrative: On Bipap with good synchrony HEENT normocephalic Eyes PERRL and EOMs intact bilaterally Neck full ROM Resp Effort and Inspection: Negative for tachypneic or actively coughing Auscultation: rales left and diminished lung sounds left Percussion: dullness Lower: left Cardio regular rate, regular rhythm, S1 normal heart sound, S2 normal heart sound, no murmurs, no rub and no gallops GI soft to palpation and non-tender Extremity normal to inspection Skin no rashes or lesions noted Neuro oriented x3 and CN's II-XII intact bilaterally Psych cooperative and affect normal Charges/Coding Visit Charges Inpatient E&M: 06127 Subs Hosp L2
[2023-01-13] MEDS: Morphine 4 MG/ML Syringe IV (10:17)
[2023-01-13] MEDS: Ondansetron 4 MG/2 ML Vial IV (10:17)
--- NOTE | 2023-01-13 11:04 | PN.HOSP_ITS ---
Subjective Subjective Plan for thoracentesis today, she is not a candidate for catheter if she wants to continue with chemotherapy Objective Data Objective Data Vital Signs: Vital Signs Temp Pulse Resp BP Pulse Ox O2 Del Method O2 Flow Rate 96.8 F L 77 20 H 120/83 H 95 Bi-pap 8 01/13/23 06:45 01/13/23 10:40 01/13/23 10:40 01/13/23 06:45 01/13/23 10:40 01/13/23 08:21 01/12/23 16:03 FiO2 35 01/13/23 10:40 Oxygen Flow Rate (L/min) [3] 4 Oxygen Flow Rate (L/min) [2] 4 Oxygen Flow Rate (L/min) [1 ( 4 Initial Baseline)] Oxygen Flow Rate (L/min) 8 Oxygen Delivery Method [3] Nasal Cannula Oxygen Delivery Method [2] Nasal Cannula Oxygen Delivery Method [1 ( Nasal Cannula Initial Baseline)] Oxygen Delivery Method Bi-pap Weight: 141 lb Body Mass Index (BMI) 25.7 Intake & Output: Intake and Output for Last 24 Hours 01/12/23 01/13/23 01/14/23 03:59 03:59 03:59 Intake Total 1775.00 / 1775.00 2746.67 / 2746.67 1043.33 / 1043.33 Output Total 500 / 500 350 / 350 Balance 1775.00 / 1775.00 2246.67 / 2246.67 693.33 / 693.33 Medical Nutrition Assessment Dietitian: Malnutrition Criteria Met Start: 01/09/23 16:12 Freq: Status: Active Protocol: Document 01/09/23 16:12 (Rec: 01/09/23 16:12 [id number]) Nutrition Malnutrition Evidence of Malnutrition Exists Yes Malnutrition (severe): Chronic Evidenced By Suboptimal Energy Intake ( Severe),Weight Loss (Severe) Clinical Problem Chronic Disease or Condition Related Malnutrition Etiology severe related to breast cancer with brain and bone mets Signs/Symptoms as evidenced by <75% PO intake of estimated energy needs for >1 month and 9.8lbs (6.4%) weight loss in 1 month Status Active Problem Recommendation Dietitian Recommendations/Changes RD will liberalize diet to Regular - DONALD to optimize oral intakes RD will change EPHP to 4x daily with medpass to provide supplemental energy. Lab / Micro Data Result Diagrams: 01/13/23 06:05 01/13/23 06:05 Labs: Laboratory Results - last 24 hr 01/13/23 06:05: WBC 15.0 H, RBC 3.66 L, Hgb 10.8 L, Hct 33.5 L, MCV 91.5, MCH 29.5, MCHC 32.2, RDW Std Deviation 49.2 H, RDW Coeff of Mike 14.6, Plt Count 487 H, MPV 9.5, Immature Gran % (Auto) 0.700, Neut % (Auto) 73.6 H, Lymph % (Auto) 8.6 L, [place] % (Auto) 14.5 H, Eos % (Auto) 2.3, Baso % (Auto) 0.3, Absolute Neuts (auto) 11.0 H, Absolute Lymphs (auto) 1.28, Nucleated RBC % 0, Diff Path Review November, Platelet Estimate SLT INC 01/13/23 06:05: Sodium 134 L, Potassium 4.1, Chloride 105, Carbon Dioxide 23.0, Anion Gap 6, BUN 5 L, Creatinine 0.28 L, Estim Creat Clear Calc 162.65, Est GFR (MDRD) Af Amer 317, Est GFR (MDRD) Non-Af 262, BUN/Creatinine Ratio 18.1, Glucose 102, Calcium 8.8 Rhythm Strip Rhythm Strip: Sinus Rhythm Rate: 91 Ectopy: None Physical Exam Narrative General: Alert, Oriented x3, Cooperative, No apparent distress HEENT: Atraumatic, PERRLA, EOMI, Normocephalic Oral: Moist Mucosa Neck: Supple, No JVD Lungs: Diminished bilateral bases, Normal air movement, No rhonchi, No wheeze, rales Cardiovascular: Regular rate, Regular Rhythm, Normal S1, Normal S2, No murmurs Abdomen: Soft, Non Tender, Non-Distended, No Hepato-splenomegaly Extremities: No edema, Capillary Refill Less than 3 Seconds Skin: No rashes, No breakdown Musculoskeletal: No Tenderness to Palpation of Joints or Extremities Neurological: Cranial nerves II-XII grossly intact, Motor Exam 5/5 strength throughout, Sensory exam intact to light touch and pain Psych/Mental Status: Flat affect Assessment & Plan Assessment/Plan (1) Near syncope: (2) Acute respiratory failure with hypoxia: (3) Metastasis to brain: (4) Bilateral pleural effusion: PLAN: Plan #Bilateral malignant pleural effusion * s/p left sided thoracentesis with removal of 1.16L of fluid * Due to metastatic breast cancer. She has stage IV breast cancer and was due to undergo chemotherapy today but could not because of her symptoms. * She has had pleural effusion in the past and had to have a recurrent thoracentesis with the last being about 7 days prior to admission * Chest x-ray showed progressive increase in the right pleural effusion with persistent infiltration and or atelectasis at that right lung base with interval improvement of left pleural effusion though persistent left lower lobe infiltrates remain. * CTA of the chest showed bilateral pleural effusions with the left greater than the right with basilar infiltration and atelectasis with no evidence of PE and nodular density in the right upper lobe and enlargement of the adrenal gland as well as stable mediastinal lymph nodes. * Plan for repeat thoracentesis if this helps with her shortness of breath can plan for discharge and outpatient evaluation at tertiary facility for a pleurodesis * Pulmonology consulted. #Hypertension: On losartan and propranolol #History of left breast cancer with mets to the bone, lungs of the brain * She is s/p partial left mastectomy. On Decadron. * Was to undergo chemotherapy on day of admission but this was deferred due to her shortness of breath. * I spoke to her oncologist Dr Green who stated that chemo would be started next week once shortness of breath resolved. #Depression and anxiety: On sertraline and trazodone #GERD: On PPI #NARCISO: On BiPAP nightly DVT prophylaxis: Lovenox Charges/Coding Visit Charges Inpatient E&M: 37493 Subs Hosp L2
--- NOTE | 2023-01-13 11:09 | CASEMGMT ---
Social Work SW spoke w/pt in room in regard to discharge plan. Pt on bipapp. She did write down to SW that the doctor told her she needs to go home to do chemo. So at present she continues to plan to return home. SW will continue to follow should the plan change and for any supportive needs. HOUSTON [place]
--- NOTE | 2023-01-13 12:07 | US_ITS ---
PROCEDURE: ULTRASOUND GUIDED THORACENTESIS. DATE: 01/13/2023. INDICATION: Female, 62 years old. Left pleural effusion. PHYSICIAN: Anderson Sheth DO PROCEDURE: The risks, benefits, and alternatives to the procedure were explained to the patient. The specific risks of bleeding, infection, and pneumothorax requiring chest tube insertion were discussed and accepted. Written informed consent was obtained. Ultrasonographic evaluation of the left lower pleural space was carried out. An adequate pocket was identified. The patient was placed in the sitting, upright position. The overlying skin was prepped and draped in sterile fashion. 1% lidocaine was administered subcutaneously for local anesthesia. Under ultrasound guidance, a 5 Thai thoracentesis needle/catheter system was advanced into the left posterior lower pleural fluid collection. Approximately 1250 mL of reddish, clear fluid was drained. The catheter was removed, and a sterile dressing was applied. 100 cc of the collected fluid was sent to the laboratory for analysis, as requested by the referring clinician. The patient tolerated the procedure well. A chest x-ray was ordered which demonstrated no significant pneumothorax. The patient was returned to the floor in stable condition. US/Thoracentesis W US IMPRESSION: Ultrasound-guided therapeutic and diagnostic left-sided thoracentesis. Electronically Signed: Anderson Sheth DO at 16:00 EDT ,
[2023-01-13 13:00] LABS: Pathologist Review Reviewed
[2023-01-13 13:07] LABS: Pathologist Review Reviewed
[2023-01-13 13:13] LABS: Pathologist Review Reviewed
[2023-01-13] MEDS: LORazepam 2 MG/ML Syringe 0.5 MG IV (14:31)
--- NOTE | 2023-01-13 14:43 | CHAPLAIN ---
Type of Pastoral Visit ___ Initial Visit _x__ Follow-up Visit ___ On-call Visit ___ General Patient Visit ___ Spiritual Assessment ___ Family Conference ___ Bereavement ___ Rapid Response ___ Code Blue ___ Other (describe below) Pastoral Care Referral From _x__ Patient ___ Family ___ Nurse ___ Physician ___ Logistics Intern ___ Strength And Conditioning Coach ___ Other (describe below) Sacrament/Intervention _x__ Active listening ___ Anointing ___ Faith ___ Bereavement ___ Communion ___ Irma exploration ___ ___ Life review _x__ Prayer ___ Reconciliation ___ Sacrament of Sick _x__ Supportive presence ___ Wedding ___ Other (describe below) Pastoral Comments patient was on bi-pap but alert and able to talk; time and attention needed to hear and understand pt in this circumstance; pt able to state that what she needs right now is someone to be with her and give her someone to talk with; this electronics processing supervisor gave opportunity for this to be accomplished; pt states that she will have procedure to remove fluid from lungs and then she wants to start her chemo; pt said she was offered hospice but not wiling to go that route because she wants to live and to try for improvement; offer of presence, support, and prayer received
--- NOTE | 2023-01-13 15:35 | RAD_ITS ---
STUDY: X-RAY CHEST REASON FOR EXAM: Female, 62 years old. post thoracentesis TECHNIQUE: PA and lateral views of the chest. COMPARISON: 01/11/2023 FINDINGS: Right port in place. Similar small effusion on the right compared to prior with nearly resolved left effusion. There is no demonstrated pleural abnormality. Normal size heart. Normal mediastinum and crispin. Normal visualized pulmonary arteries. There is atherosclerotic calcification of the aortic arch with tortuosity. Normal visualized thoracic spine. Normal visualized ribs, clavicles, and shoulders. There is no demonstrated abnormality of the visualized soft tissue structures of the upper abdomen. RAD/Chest Insp/Exp 2 View IMPRESSION: Compared to prior there is nearly resolved left effusion with similar-appearing right effusion. Electronically Signed: Kareem Colbert DO at 16:05 EDT ,
--- NOTE | 2023-01-13 16:05 | MDS.RN ---
153Ros called xray after procedure was done, and she valerie it well.
--- NOTE | 2023-01-13 16:08 | NURSING ---
1550 pt is back in room, Bernard DICKERSON notified, she is on 6l nc currently, she valerie. procedure well.
[2023-01-13 16:18] LABS: Body Fluid Mononuclear WBC # 1.976 10^3/uL; Body Fluid Mononuclear WBC % 79.3 %; Body Fluid Polynuclear WBC # 0.517 10^3/uL; Body Fluid Polynuclear WBC % 20.7 %; Body Fluid Total Cells Counted 2.768 10^3/ul; Red Cell Count/Body Fluid 0.037 10^6/ul; White Blood Count/Body Fluid 2.493 10^3/uL
[2023-01-13 16:22] LABS: Appearance/Body Fluid TURBID; Auto B Fluid Analyzer BKGD Ct COUNTS W/IN LIMITS (W/IN LIMITS); Color/Body Fluid RED; Source- Body Fluid THORACENTESIS
[2023-01-13] MEDS: Multivitamins,Ther W-Minerals Tablet 1 TABLET PO (16:22)
[2023-01-13] MEDS: Calcium (Elemental) 500 MG Tablet PO (16:22)
[2023-01-13] MEDS: Potassium Chloride Oral Tablet 20 MEQ PO (16:23)
[2023-01-13] MEDS: Pantoprazole Sodium 20 MG Tablet PO (16:23)
[2023-01-13] MEDS: Losartan Potassium 50 MG Tablet PO (16:23)
[2023-01-13] MEDS: Ensure Plus High Protein 120 ML LIQUID PO (16:27)
[2023-01-13 17:07] LABS: LDH,Body Fluid 333 Units/l (Not Establ.)
[2023-01-13 17:13] LABS: Lymphocytes 62 %; Monocytes 12 %; Neutrophil (Segs) 18 %; Other Cell Type/BF 8 %
[2023-01-13 17:14] LABS: Body Fluid QC Type(s) BF4Q
[2023-01-13] MEDS: Ibuprofen 400 MG Tablet PO (20:50)
[2023-01-13] MEDS: clonazePAM 1 MG Tablet PO (20:51)
[2023-01-13] MEDS: Propranolol LA 80 MG Capsule PO (20:51)
[2023-01-13] MEDS: Sertraline 50 MG Tablet 100 MG PO (20:51)
[2023-01-14] VITALS (13 sets, daily range): BP systolic 129–178; BP diastolic 81–103; PULSE 83–106; RESP 12–34; TEMP 36.4–37.2; O2SAT 93–96
[2023-01-14] MEDS: Acetaminophen 325 MG Tablet 650 MG PO ×2 (06:09→15:55)
[2023-01-14] MEDS: 0.9% Normal Saline 1,000 ML 100 ML IV ×2 (06:19→15:41)
--- NOTE | 2023-01-14 07:23 | RAD_ITS ---
INDICATION: Increased O2 requirements after thoracentesis EXAMINATION/TECHNIQUE: X-RAY - XR Chest 1 View COMPARISON: January 13, 2023 FINDINGS: LINES/DEVICES: There is a right-sided central venous catheter in place terminating within the expected region of the superior vena cava. LUNGS: There is a stable right pleural effusion. There is increased opacification of the left lung base. MEDIASTINUM AND CARDIOVASCULAR STRUCTURES: Cardiac silhouette not enlarged. Central airways and mediastinal contour are unremarkable. BONES AND SOFT TISSUES: Unremarkable. RAD/Chest 1 View (Portable) IMPRESSION: Increased opacification of the left lung base may be secondary to an effusion and/or consolidation. Stable right pleural effusion, cannot exclude associated right basilar consolidation. Electronically Signed: Shweta Kat MD at 9:40 EDT ,
[2023-01-14] MEDS: Ipratropium/Albuterol Sulfate 3 ML AMPUL.NEB INHALATION ×3 (07:31→19:28)
[2023-01-14] MEDS: Multivitamins,Ther W-Minerals Tablet 1 TABLET PO (08:09)
[2023-01-14] MEDS: Calcium (Elemental) 500 MG Tablet PO ×2 (08:09→18:06)
--- NOTE | 2023-01-14 10:14 | PN.HOSP_ITS ---
Subjective Subjective Still requiring a fair amount of oxygen after having other 1200 cc drained from her lung. We will repeat chest x-ray this morning Objective Data Objective Data Vital Signs: Vital Signs Temp Pulse Resp BP Pulse Ox O2 Del Method O2 Flow Rate 98.2 F 83 22 H 129/94 H 94 Venturi Mask 12 01/14/23 06:06 01/14/23 07:31 01/14/23 07:44 01/14/23 06:06 01/14/23 07:31 01/14/23 07:44 01/14/23 06:15 FiO2 40 01/14/23 07:44 Oxygen Flow Rate (L/min) [3] 4 Oxygen Flow Rate (L/min) [2] 4 Oxygen Flow Rate (L/min) [1 ( 4 Initial Baseline)] Oxygen Flow Rate (L/min) 12 Oxygen Delivery Method [3] Nasal Cannula Oxygen Delivery Method [2] Nasal Cannula Oxygen Delivery Method [1 ( Nasal Cannula Initial Baseline)] Oxygen Delivery Method Venturi Mask Weight: 141 lb Body Mass Index (BMI) 25.7 Intake & Output: Intake and Output for Last 24 Hours 01/13/23 01/14/23 01/15/23 03:59 03:59 03:59 Intake Total 2746.67 / 2746.67 2043.33 / 2043.33 913.33 / 913.33 Output Total 500 / 500 550 / 550 450 / 450 Balance 2246.67 / 2246.67 1493.33 / 1493.33 463.33 / 463.33 Medical Nutrition Assessment Dietitian: Malnutrition Criteria Met Start: 01/09/23 16:12 Freq: Status: Active Protocol: Document 01/09/23 16:12 (Rec: 01/09/23 16:12 [id number]) Nutrition Malnutrition Evidence of Malnutrition Exists Yes Malnutrition (severe): Chronic Evidenced By Suboptimal Energy Intake ( Severe),Weight Loss (Severe) Clinical Problem Chronic Disease or Condition Related Malnutrition Etiology severe related to breast cancer with brain and bone mets Signs/Symptoms as evidenced by <75% PO intake of estimated energy needs for >1 month and 9.8lbs (6.4%) weight loss in 1 month Status Active Problem Recommendation Dietitian Recommendations/Changes RD will liberalize diet to Regular - DONALD to optimize oral intakes RD will change EPHP to 4x daily with medpass to provide supplemental energy. Lab / Micro Data Result Diagrams: 01/13/23 06:05 01/13/23 06:05 Labs: Laboratory Results - last 24 hr 01/11/23 06:43: Diff Path Review Reviewed 01/12/23 09:16: Diff Path Review Reviewed 01/13/23 06:05: Diff Path Review Reviewed 01/13/23 15:15: Fluid Glucose 94 H, Fluid Total Protein 3.0, Fluid LDH 333 01/13/23 15:15: Fluid Source THORACENTESIS, Fluid Color RED, Fluid Appearance TURBID, Fluid WBC 2.493, Fluid RBC 0.037, Fluid Tot Cell Count 2.768 H, Fld Polynuclear WBCs # 0.517, Fld Polynuclear WBCs % 20.7, Fluid Mononuclear WBCs 1.976, Fld Mononuclear WBCs % 79.3, Fluid Neutrophils 18, Fluid Lymphocytes 62, Fluid Monocytes 12, Fluid Plasma Cells Not Reportable, Fluid Other Cells 8, Fl Pathologist Comment May follow, Fluid Comment 2 SEE COMMENT Micro: Microbiology 01/13/23 15:15 Fluid - Pleural (Lung) Body Fluid Culture - Preliminary No growth-Final to follow Radiography Diagnostic Testing: Radiology Impression Thoracentesis Ultrasound 01/13/23 12:07 IMPRESSION: Ultrasound-guided therapeutic and diagnostic left-sided thoracentesis. Electronically Signed: Anderson Sheth DO at 16:00 EDT , Chest X-Ray 01/13/23 15:35 IMPRESSION: Compared to prior there is nearly resolved left effusion with similar-appearing right effusion. Electronically Signed: Kareem Colbert DO at 16:05 EDT , Chest X-Ray 01/14/23 07:23 IMPRESSION: Increased opacification of the left lung base may be secondary to an effusion and/or consolidation. Stable right pleural effusion, cannot exclude associated right basilar consolidation. Electronically Signed: Shweta Kat MD at 9:40 EDT , Rhythm Strip Rhythm Strip: Sinus Rhythm Rate: 91 Ectopy: None Physical Exam Narrative General: Alert, Oriented x3, Cooperative, No apparent distress HEENT: Atraumatic, PERRLA, EOMI, Normocephalic Oral: Moist Mucosa Neck: Supple, No JVD Lungs: Diminished bilateral bases, Normal air movement, left rhonchi, No wheeze, rales Cardiovascular: Regular rate, Regular Rhythm, Normal S1, Normal S2, No murmurs Abdomen: Soft, Non Tender, Non-Distended, No Hepato-splenomegaly Extremities: No edema, Capillary Refill Less than 3 Seconds Skin: No rashes, No breakdown Musculoskeletal: No Tenderness to Palpation of Joints or Extremities Neurological: Cranial nerves II-XII grossly intact, Motor Exam 5/5 strength throughout, Sensory exam intact to light touch and pain Psych/Mental Status: Flat affect Assessment & Plan Assessment/Plan (1) Near syncope: (2) Acute respiratory failure with hypoxia: (3) Metastasis to brain: (4) Bilateral pleural effusion: PLAN: Plan #Bilateral malignant pleural effusion * s/p left sided thoracentesis with removal of 1.16L of fluid 01/10/2023 * Due to metastatic breast cancer. She has stage IV breast cancer and was due to undergo chemotherapy today but could not because of her symptoms. * She has had pleural effusion in the past and had to have a recurrent thoracentesis with the last being about 7 days prior to admission * Chest x-ray continues to demonstrate consolidation due to atelectasis on the left, will encourage BiPAP for expansion * CTA of the chest showed bilateral pleural effusions with the left greater than the right with basilar infiltration and atelectasis with no evidence of PE and nodular density in the right upper lobe and enlargement of the adrenal gland as well as stable mediastinal lymph nodes. * Another 1200 cc were drained from her left lung 01/13/2023 * Pulmonology consulted. #Hypertension: On losartan and propranolol #History of left breast cancer with mets to the bone, lungs of the brain * She is s/p partial left mastectomy. On Decadron. * Was to undergo chemotherapy on day of admission but this was deferred due to her shortness of breath. * I spoke to her oncologist Dr Green who stated that chemo would be started next week once shortness of breath resolved. #Depression and anxiety: On sertraline and trazodone #GERD: On PPI #NARCISO: On BiPAP nightly DVT prophylaxis: Lovenox Charges/Coding Visit Charges Inpatient E&M: 48554 Subs Hosp L2
[2023-01-14] MEDS: Pantoprazole Sodium 20 MG Tablet PO (11:10)
[2023-01-14] MEDS: Enoxaparin 40 MG/0.4 ML Syringe SC (11:10)
[2023-01-14] MEDS: Losartan Potassium 50 MG Tablet PO (11:10)
[2023-01-14] MEDS: Potassium Chloride Oral Tablet 20 MEQ PO (11:10)
[2023-01-14] MEDS: Ensure Plus High Protein 120 ML LIQUID PO ×3 (11:11→18:09)
[2023-01-14 12:10] LABS: Pathologist Comment/Body Fluid Reviewed
[2023-01-14 12:10] LABS: Pathologist Comment/Body Fluid Reviewed
[2023-01-14] MEDS: LORazepam 2 MG/ML Syringe 0.5 MG IV (12:21)
--- NOTE | 2023-01-14 12:25 | NURSING ---
Pt wore bipap from [id number], tolerated well.
[2023-01-14] MEDS: tiZANidine HCl 2 MG Tablet 1 MG PO (15:55)
--- NOTE | 2023-01-14 16:13 | CASEMGMT ---
Pt nurse made TUAN REYES aware pt had questions. TUAN REYES into pt room. Pt asking what palliative care services are. Explained to pt. Pt asked if she can still receive treatment, pt is aware that she can. Pt became tearful and states that she is not sure that she can even go home now. She states I can't even walk to the bathroom. Pt is aware that TUAN REYES and ANTONY are following along in her care and will be available to her to assist in a dc plan. Pt relieved with this. Spoke with hospitalist who states pt may be trf'd to tertiary facility in the next couple of days pending pt status.
[2023-01-14] MEDS: Albuterol 2.5 MG/3 ML VIAL.NEB. INHALATION (16:17)
--- NOTE | 2023-01-14 18:19 | CM.ED ---
Social Work SW checked in with patient as pt requested to see SW. Pt reports she thinks she will do palliative care. SW provided emotional support. Toshia Marion DRUG ABUSE PROGRAM COORDINATOR, TOMATO GRADER
[2023-01-14] MEDS: Propranolol LA 80 MG Capsule PO (22:47)
[2023-01-14] MEDS: Sertraline 50 MG Tablet 100 MG PO (22:47)
[2023-01-14] MEDS: Ibuprofen 400 MG Tablet PO (22:54)
[2023-01-14] MEDS: clonazePAM 1 MG Tablet PO (22:55)
[2023-01-15] VITALS (23 sets, daily range): BP systolic 121–179; BP diastolic 92–99; PULSE 78–109; RESP 12–28; TEMP 36.4–37.2; O2SAT 92–96
[2023-01-15] MEDS: 0.9% Normal Saline 1,000 ML 100 ML IV ×3 (00:39→20:15)
[2023-01-15] MEDS: Ipratropium/Albuterol Sulfate 3 ML AMPUL.NEB INHALATION ×4 (01:01→18:53)
[2023-01-15] MEDS: Acetaminophen 325 MG Tablet 650 MG PO ×2 (06:06→20:16)
[2023-01-15 06:41] LABS: Absolute Lymphocyte Count 1.43 X10^3/uL (0.83-4.51); Basophil# 0.07 X10^3/uL; Basophil% 0.4 % (0-1); Eosinophil# 0.32 X10^3/uL; Hematocrit 32.1 % (37-47); Hemoglobin 10.6 g/dL (12.0-15.0); Lymphocyte # 1.43 X10^3/ul (0.83-4.51); Lymphocyte % 8.8 % (19-41); Mean Corpuscular Hgb 29.4 pg (27.0-32.0); Mean Corpuscular Volume 89.2 fL (81-99); Mean Platelet Vol. 9.8 fl (6.2-12.0); Monocyte# 2.26 X10^3/uL; NRBC Flagged by Analyzer 0 % (0-5); Neutrophil # 12.01 X10^3/uL (2.7-7.7); Neutrophil % 74.2 % (47-70); POSITIVE DIFFERENTIAL YES; Platelet Count 538 K/mm3 (150-450); RBC Distribution Width CV 14.6 % (11.6-14.6); RBC Distribution Width SD 47.2 fl (35.1-43.9); White Blood Count 16.2 K/mm3 (4.4-11.0)
[2023-01-15 06:48] LABS: Differential Indicated SCAN CRITERIA MET
[2023-01-15 07:03] LABS: Anion Gap 6 (5-15); BUN 5 mg/dL (7-18); BUN/Creat Ratio 31.1 RATIO (10-20); Calcium,Total 8.2 mg/dL (8.5-10.1); Chloride 106 mmol/L (98-107); Creatinine, Serum 0.16 mg/dL (0.55-1.02); EST Glomerular Filtration Rate 489 mL/min (>60); Est Glom Filt Rate - Afr Amer 591 mL/min (>60); Estimated Creatinine Clearance 284.64 ml/min; Glucose 102 mg/dL (74-106); Potassium 3.7 mmol/L (3.5-5.1); Sodium Level 138 mmol/L (136-145)
[2023-01-15 07:04] LABS: Differential Comment SCANNED
[2023-01-15] MEDS: Enoxaparin 40 MG/0.4 ML Syringe SC (09:05)
--- NOTE | 2023-01-15 10:07 | PN.HOSP_ITS ---
Subjective Subjective She does have significant anxiety and refused to take off BiPAP to take her pills Objective Data Objective Data Vital Signs: Vital Signs Temp Pulse Resp BP Pulse Ox O2 Del Method O2 Flow Rate 98.5 F 79 20 H 154/95 H 92 Venturi Mask 12 01/15/23 05:53 01/15/23 07:57 01/15/23 08:53 01/15/23 05:53 01/15/23 08:00 01/15/23 08:53 01/14/23 06:15 FiO2 40 01/15/23 08:53 Oxygen Flow Rate (L/min) [3] 4 Oxygen Flow Rate (L/min) [2] 4 Oxygen Flow Rate (L/min) [1 ( 4 Initial Baseline)] Oxygen Flow Rate (L/min) 12 Oxygen Delivery Method [3] Nasal Cannula Oxygen Delivery Method [2] Nasal Cannula Oxygen Delivery Method [1 ( Nasal Cannula Initial Baseline)] Oxygen Delivery Method Venturi Mask Weight: 141 lb Body Mass Index (BMI) 25.7 Intake & Output: Intake and Output for Last 24 Hours 01/14/23 01/15/23 01/16/23 03:59 03:59 03:59 Intake Total 2043.33 / 2043.33 2746.67 / 2746.67 Output Total 550 / 550 1150 / 1150 200 / 200 Balance 1493.33 / 1493.33 1596.67 / 1596.67 -200 / -200 Medical Nutrition Assessment Dietitian: Malnutrition Criteria Met Start: 01/09/23 16:12 Freq: Status: Active Protocol: Document 01/09/23 16:12 [email or web address] (Rec: 01/09/23 16:12 [id number]) Nutrition Malnutrition Evidence of Malnutrition Exists Yes Malnutrition (severe): Chronic Evidenced By Suboptimal Energy Intake ( Severe),Weight Loss (Severe) Clinical Problem Chronic Disease or Condition Related Malnutrition Etiology severe related to breast cancer with brain and bone mets Signs/Symptoms as evidenced by <75% PO intake of estimated energy needs for >1 month and 9.8lbs (6.4%) weight loss in 1 month Status Active Problem Recommendation Dietitian Recommendations/Changes RD will liberalize diet to Regular - DONALD to optimize oral intakes RD will change EPHP to 4x daily with medpass to provide supplemental energy. Lab / Micro Data Result Diagrams: 01/15/23 05:55 01/15/23 05:55 Labs: Laboratory Results - last 24 hr 01/10/23 10:15: Fl Pathologist Comment Reviewed 01/13/23 15:15: Fl Pathologist Comment Reviewed 01/15/23 05:55: WBC 16.2 H, RBC 3.60 L, Hgb 10.6 L, Hct 32.1 L, MCV 89.2, MCH 29.4, MCHC 33.0, RDW Std Deviation 47.2 H, RDW Coeff of Mike 14.6, Plt Count 538 H, MPV 9.8, Immature Gran % (Auto) 0.600, Neut % (Auto) 74.2 H, Lymph % (Auto) 8.8 L, [place] % (Auto) 14.0 H, Eos % (Auto) 2.0, Baso % (Auto) 0.4, Absolute Neuts (auto) 12.0 H, Absolute Lymphs (auto) 1.43, Nucleated RBC % 0, Differential Comment SCANNED, Diff Path Review November01/15/23 05:55: Sodium 138, Potassium 3.7, Chloride 106, Carbon Dioxide 26.0, Anion Gap 6, BUN 5 L, Creatinine 0.16 L, Estim Creat Clear Calc 284.64, Est GFR (MDRD) Af Amer 591, Est GFR (MDRD) Non-Af 489, BUN/Creatinine Ratio 31.1 H, Glucose 102, Calcium 8.2 L Micro: Microbiology 01/13/23 15:15 Fluid - Pleural (Lung) Gram Stain - Final 01/13/23 15:15 Fluid - Pleural (Lung) Body Fluid Culture - Preliminary No growth-Final to follow Rhythm Strip Rhythm Strip: Sinus Rhythm Rate: 91 Ectopy: None Physical Exam Narrative General: Alert, Oriented x3, Cooperative, No apparent distress HEENT: Atraumatic, PERRLA, EOMI, Normocephalic Oral: Moist Mucosa Neck: Supple, No JVD Lungs: Diminished bilateral bases, Normal air movement, left rhonchi, No wheeze, rales Cardiovascular: Regular rate, Regular Rhythm, Normal S1, Normal S2, No murmurs Abdomen: Soft, Non Tender, Non-Distended, No Hepato-splenomegaly Extremities: No edema, Capillary Refill Less than 3 Seconds Skin: No rashes, No breakdown Musculoskeletal: No Tenderness to Palpation of Joints or Extremities Neurological: Cranial nerves II-XII grossly intact, Motor Exam 5/5 strength throughout, Sensory exam intact to light touch and pain Psych/Mental Status: Flat affect, anxious Assessment & Plan Assessment/Plan (1) Near syncope: (2) Acute respiratory failure with hypoxia: (3) Metastasis to brain: (4) Bilateral pleural effusion: PLAN: Plan #Bilateral malignant pleural effusion * s/p left sided thoracentesis with removal of 1.16L of fluid 01/10/2023 * Due to metastatic breast cancer. She has stage IV breast cancer and was due to undergo chemotherapy today but could not because of her symptoms. * She has had pleural effusion in the past and had to have a recurrent thoracentesis with the last being about 7 days prior to admission * Chest x-ray continues to demonstrate consolidation due to atelectasis on the left, will encourage BiPAP for expansion * CTA of the chest showed bilateral pleural effusions with the left greater than the right with basilar infiltration and atelectasis with no evidence of PE and nodular density in the right upper lobe and enlargement of the adrenal gland as well as stable mediastinal lymph nodes. * Another 1200 cc were drained from her left lung 01/13/2023 * We will recheck a chest x-ray PA and lateral in the morning and if it shows significant reocclusion may need to have a chest tube placed and consider transfer to a tertiary center for pleurodesis * Pulmonology consulted. #Hypertension: On losartan and propranolol #History of left breast cancer with mets to the bone, lungs of the brain * She is s/p partial left mastectomy. On Decadron. * Was to undergo chemotherapy on day of admission but this was deferred due to her shortness of breath. * I spoke to her oncologist Dr Green who stated that chemo would be started next week once shortness of breath resolved. #Depression and anxiety: On sertraline and trazodone #GERD: On PPI #NARCISO: On BiPAP nightly DVT: Lovenox Charges/Coding Visit Charges Inpatient E&M: 47646 Subs Hosp L2
--- NOTE | 2023-01-15 13:35 | CASEMGMT ---
Per Milagros LOYA's website, the following tertiary facilities are in network: [facility], [facility], [facility], [facility], [place] and [facility].
[2023-01-15] MEDS: 0.9% Saline Lock 10 ML Syringe IV ×2 (14:41→17:52)
[2023-01-15] MEDS: Morphine 2 MG/ML Syringe IV ×2 (14:41→17:52)
[2023-01-15] MEDS: Ondansetron 4 MG/2 ML Vial IV ×2 (14:47→21:18)
[2023-01-15] MEDS: Propranolol LA 80 MG Capsule PO (20:16)
[2023-01-15] MEDS: Sertraline 50 MG Tablet 100 MG PO (20:16)
[2023-01-15] MEDS: Pantoprazole Sodium 20 MG Tablet PO (20:18)
[2023-01-15] MEDS: Ibuprofen 400 MG Tablet PO (22:39)
[2023-01-15] MEDS: clonazePAM 1 MG Tablet PO (22:40)
[2023-01-16] VITALS (18 sets, daily range): BP systolic 148–155; BP diastolic 71–104; PULSE 61–84; RESP 12–24; TEMP 36.4–36.9; O2SAT 93–95
[2023-01-16] MEDS: Ipratropium/Albuterol Sulfate 3 ML AMPUL.NEB INHALATION ×3 (01:37→13:50)
[2023-01-16] MEDS: LORazepam 0.5 MG Tablet PO (05:18)
[2023-01-16] MEDS: Acetaminophen 325 MG Tablet 650 MG PO (05:19)
[2023-01-16] MEDS: 0.9% Normal Saline 1,000 ML 100 ML IV (05:24)
--- NOTE | 2023-01-16 08:40 | RAD_ITS ---
HISTORY: SOB and repeated L pleural effusions. TECHNIQUE: XR Chest 2 Views. COMPARISON: 01/14/2023. FINDINGS: LINES/TUBES: Right chest wall port again seen. CARDIOMEDIASTINAL BORDERS: Stable. LUNGS: Moderate mixed interstitial and alveolar opacities increased in the left upper lobe. PLEURA: Persistent moderate right and mild left pleural effusions. OTHER: Chronic lower thoracic compression fracture noted on the lateral view. RAD/Chest PA and Lateral IMPRESSION: Persistent pleural effusions with increased pulmonary edema or pneumonia. Electronically Signed: Marianela Ochoa MD at 9:37 EDT ,
--- NOTE | 2023-01-16 08:53 | PN.HOSP_ITS ---
Subjective Subjective Afebrile but she does remain on BiPAP and has had a climbing leukocytosis Objective Data Objective Data Vital Signs: Vital Signs Temp Pulse Resp BP Pulse Ox O2 Del Method O2 Flow Rate 98.4 F 61 15 148/104 H 94 Bi-pap 4 01/16/23 05:22 01/16/23 07:28 01/16/23 06:57 01/16/23 05:22 01/16/23 07:28 01/16/23 07:28 01/15/23 13:47 FiO2 35 01/16/23 06:57 Oxygen Flow Rate (L/min) [3] 4 Oxygen Flow Rate (L/min) [2] 4 Oxygen Flow Rate (L/min) [1 ( 4 Initial Baseline)] Oxygen Flow Rate (L/min) 4 Oxygen Delivery Method [3] Nasal Cannula Oxygen Delivery Method [2] Nasal Cannula Oxygen Delivery Method [1 ( Nasal Cannula Initial Baseline)] Oxygen Delivery Method Bi-pap Weight: 141 lb Body Mass Index (BMI) 25.7 Intake & Output: Intake and Output for Last 24 Hours 01/15/23 01/16/23 01/17/23 03:59 03:59 03:59 Intake Total 2746.67 / 2746.67 2060 / 2060 915 / 915 Output Total 1150 / 1150 1200 / 1200 Balance 1596.67 / 1596.67 860 / 860 915 / 915 Medical Nutrition Assessment Dietitian: Malnutrition Criteria Met Start: 01/09/23 16:12 Freq: Status: Active Protocol: Document 01/15/23 14:22 [email or web address] (Rec: 01/15/23 14:22 [id number]) Nutrition Malnutrition Evidence of Malnutrition Exists Yes Malnutrition (severe): Chronic Evidenced By Suboptimal Energy Intake ( Severe),Weight Loss (Severe) Clinical Problem Chronic Disease or Condition Related Malnutrition Etiology severe related to breast cancer with brain and bone mets Signs/Symptoms as evidenced by <75% PO intake of estimated energy needs for >1 month and 9.8lbs (6.4%) weight loss in 1 month Status Active Problem Recommendation Dietitian Recommendations/Changes Continue Regular - DONALD to optimize oral intakes Continue EPHP to 4x daily with medpass to provide supplemental energy. Lab / Micro Data Result Diagrams: 01/15/23 05:55 01/15/23 05:55 Micro: Microbiology 01/13/23 15:15 Fluid - Pleural (Lung) Gram Stain - Final 01/13/23 15:15 Fluid - Pleural (Lung) Body Fluid Culture - Final Culture exhibits no growth. 01/13/23 15:15 Fluid - Pleural (Lung) Anaerobic Culture - Preliminary No anaerobic bacteria isolated. Rhythm Strip Rhythm Strip: Sinus Rhythm Rate: 91 Ectopy: None Physical Exam Narrative General: Alert, Oriented x3, Cooperative, mild distress unclear if it is respiratory or anxiety HEENT: Atraumatic, PERRLA, EOMI, Normocephalic Oral: Moist Mucosa Neck: Supple, No JVD Lungs: Diminished bilateral bases, Normal air movement, left rhonchi, No wheeze, rales Cardiovascular: Regular rate, Regular Rhythm, Normal S1, Normal S2, No murmurs Abdomen: Soft, Non Tender, Non-Distended, No Hepato-splenomegaly Extremities: No edema, Capillary Refill Less than 3 Seconds Skin: No rashes, No breakdown Musculoskeletal: No Tenderness to Palpation of Joints or Extremities Neurological: Cranial nerves II-XII grossly intact, Motor Exam 5/5 strength throughout, Sensory exam intact to light touch and pain Psych/Mental Status: Flat affect, anxious Assessment & Plan Assessment/Plan (1) Near syncope: (2) Acute respiratory failure with hypoxia: (3) Metastasis to brain: (4) Bilateral pleural effusion: PLAN: Plan #Bilateral malignant pleural effusion * s/p left sided thoracentesis with removal of 1.16L of fluid 01/10/2023 * Due to metastatic breast cancer. She has stage IV breast cancer and was due to undergo chemotherapy today but could not because of her symptoms. * She has had pleural effusion in the past and had to have a recurrent thoracentesis with the last being about 7 days prior to admission * Chest x-ray continues to demonstrate consolidation due to atelectasis on the left, will encourage BiPAP for expansion * CTA of the chest showed bilateral pleural effusions with the left greater than the right with basilar infiltration and atelectasis with no evidence of PE and nodular density in the right upper lobe and enlargement of the adrenal gland as well as stable mediastinal lymph nodes. * Another 1200 cc were drained from her left lung 01/13/2023 * Will obtain a PA and lateral film today to evaluate her left lung given her leukocytosis we will plan for antibiotics and sputum culture * Pulmonology consulted. #Hypertension: On losartan and propranolol #History of left breast cancer with mets to the bone, lungs of the brain * She is s/p partial left mastectomy. On Decadron. * Was to undergo chemotherapy on day of admission but this was deferred due to her shortness of breath. * I spoke to her oncologist Dr Green who stated that chemo would be started next week once shortness of breath resolved. As he wants to do chemo she does not qualify for a Pleurx catheter #Depression and anxiety: On sertraline and trazodone #GERD: On PPI #NARCISO: On BiPAP nightly DVT: Lovenox Charges/Coding Visit Charges Inpatient E&M: 34295 Subs Hosp L2
[2023-01-16] MEDS: Ceftriaxone 1 GM/50 ML BAG IV (09:24)
[2023-01-16] MEDS: Losartan Potassium 50 MG Tablet PO (09:30)
[2023-01-16] MEDS: Enoxaparin 40 MG/0.4 ML Syringe SC (09:31)
[2023-01-16] MEDS: Pantoprazole Sodium 20 MG Tablet PO (09:31)
[2023-01-16 13:38] LABS: Pathologist Review Reviewed
[2023-01-16] MEDS: LORazepam 2 MG/ML Syringe 0.5 MG IV ×2 (13:50→18:34)
[2023-01-16] MEDS: 0.9% Saline Lock 10 ML Syringe IV ×3 (13:51→18:34)
--- NOTE | 2023-01-16 14:12 | CPS ---
This RT added a humidifier to V60 and placed on skin barrier because her nose was pink, both done for pt comfort.
--- NOTE | 2023-01-16 14:27 | CHAPLAIN ---
Type of Pastoral Visit ___ Initial Visit ___ Follow-up Visit ___ On-call Visit ___ General Patient Visit ___ Spiritual Assessment ___ Family Conference ___ Bereavement ___ Rapid Response ___ Code Blue ___ Other (describe below) Pastoral Care Referral From ___ Patient ___ Family ___ Nurse ___ Physician ___ Manager Adobe ___ Stone Polisher Hand ___ Other (describe below) Sacrament/Intervention ___ Active listening ___ Anointing ___ Quaker ___ Bereavement ___ Communion ___ Irma exploration ___ ___ Life review ___ Prayer ___ Reconciliation ___ Sacrament of Sick ___ Supportive presence ___ Wedding ___ Other (describe below) Pastoral Comments patient is sleeping
[2023-01-16] MEDS: Morphine 2 MG/ML Syringe IV (15:03)
--- NOTE | 2023-01-16 15:03 | NURSING ---
primary RN updated have a bed at [facility] H6 tower, [facility] tele unit. bed [id number]. nurse to nurse report to be called to [phone]
--- NOTE | 2023-01-16 15:10 | DS.PCM_ITS ---
Providers Date of Admission: 01/09/23 Primary Care Physician: Dr. Almas Flores MD Consultations 01/11/23 09:51 Consult: Technical Sales Support Manager / Pulmonary Medicine Routine Consulting Provider: [facility] Reason for Consult: recurrent pleural effusion EMERGENT Consult: No Notified: Yes Date Notified: 01/11/23 Time Notified: 09:52 Method of Notification: Verbal 01/12/23 13:03 Consult: General Surgery Routine Consulting Provider: Molly Murphy Reason for Consult: malignant recurrent bilat. pleural effusions, pleur-X catheter recommended EMERGENT Consult: No Notified: Yes Date Notified: 01/12/23 Time Notified: 13:03 Method of Notification: Text Method of Consult:: In-Person Comments:: Had left thoracentesis on Friday. Significant residual 01/12/23 15:56 Consult: Oncology/Hematology Routine Consulting Provider: [facility] ([facility]) Reason for Consult: discussion for chemo vs pleurx--ok to see in AM EMERGENT Consult: No Notified: Yes Date Notified: 01/12/23 Time Notified: 15:56 Method of Notification: Verbal Reason For Visit: RESPIRATORY FAILURE W/ HYPOXIA, Diagnosis Discharge Diagnosis (1) Near syncope: Status: Acute Code(s): R55 - Syncope and collapse (2) Acute respiratory failure with hypoxia: Status: Acute Code(s): J96.01 - Acute respiratory failure with hypoxia (3) Metastasis to brain: Status: Acute Code(s): C79.31 - Secondary malignant neoplasm of brain (4) Bilateral pleural effusion: Status: Acute Code(s): J90 - Pleural effusion, not elsewhere classified Medications at Discharge Home Medications propranolol 80 mg capsule,24 hr,extended release (Inderal LA) 80 mg PO QHS anxiety 11/25/17 calcium carbonate 600 mg calcium (1,500 mg) tablet (Calcium) 600 mg PO BID supplement 07/31/21 multivit with agdrrdkw-dglv-EK-lutein 8 mg iron-400 mcg-300 mcg tablet (Centrum Silver Women) 1 tab PO DAILY supplement 07/31/21 omeprazole 20 mg capsule,delayed release 20 mg PO DAILY GERD 03/12/22 sertraline 50 mg tablet 100 mg PO QHS depression 03/12/22 losartan 50 mg tablet 50 mg PO DAILY #90 tabs 04/17/22 potassium chloride 20 mEq tablet,extended release 20 meq PO DAILY #3 tabs 11/20/22 tizanidine 2 mg tablet 1 mg PO Q8H PRN Spasms 12/18/22 dexamethasone 4 mg tablet 8 mg PO DAILY #12 tabs 12/19/22 lidocaine-prilocaine 2.5 %-2.5 % topical cream 1 applic topical ONCE PRN port access 30 days #30 grams 12/19/22 ondansetron HCl 8 mg tablet 8 mg PO Q8H PRN PRN Nausea And Vomiting #60 tabs 12/19/22 clonazepam 1 mg tablet 1 mg PO QHS ANXIETY 01/09/23 azithromycin 500 mg intravenous solution 500 mg IV Q24 #0 ea 01/16/23 ceftriaxone 1 gram/50 mL in dextrose (iso-osmot) intravenous piggyback 1 g (50 mL) IV Q24 #0 ea 01/16/23 Hospital Course Operations None Procedures Thoracentesis Summary of Care Provided Minutes Spent on Discharge: 40 Hospital Course: Per HPI: KRIS HOUSER, is a 62 F with a PMH as outlined who presents via the ED on 01/09/2023 with a complaint of shortness of breath. She has a history of metastatic breast cancer and was due to have chemotherapy today. She had a left thoracentesis on January 01. She started feeling short of breath few days prior to this presentation and the shortness of breath has worsened.? She is not able to lie down flat without getting short of breath and also has pleuritic chest pain associated with her shortness of breath.? She denied any nausea or vomiting, fever or chills and does not have a productive cough.? She denied any lower extremity swelling.? Review of negative.? Her daughter was by her bedside. Vitals in the ED were BP of 111/67, CO of 82, RR of 18 and oxygen sats of 94% on 2L of oxygen. CBC showed hb of 11.8, wbc of 12 and platelets of 459. Chemistry showed sodium of 137 with potassium of 3.1 and Cr of 0.47. CXR showed progressive increase in the right pleural effusion with persistent infiltration and/or atelectasis and interval improvement of left pleural effusion although peristent left lower lobe infiltrate and/or atelectasis. CTA chest shwoed bilateral pleural effusion sleft greater than right with bibasilar infiltration and/or atelectasis with nodular density in the right upper lobe and stable mediastinal lymph nodes. She is being admitted to be managed for hypoxia due to bilateral recurrent malignant pleural effusion. Hospital Course: 1. 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 59-year-old female presented to the hospital with increased shortness of breath. She had already had a thoracentesis on January 01 and presented with recurrent pleural effusion. She had about 1.2 L drained on 01/10/2023 and then had a repeat thoracentesis for another 1.2 L on 01/13/2023. She has remained short of breath during her hospitalization and has been maintained on BiPAP. Unfortunately oncology will not pursue chemotherapy if she were to have a Pleurx catheter in place secondary to infection risk and given how quickly she is reaccumulating fluid I discussed with thoracic surgery at [facility] the p ossibility for pleurodesis. They did accept her in transfer. In the meantime I did start her on Rocephin and azithromycin secondary to a climbing white blood cell count and a sputum culture is pending. I discussed with her the plan for discharge for possible pleurodesis and she expressed understanding of the risks and benefits of the transfer and would like to go today if possible. Of note she did have a very strong family history of breast cancer she never did with a mammogram until she felt a breast lump. She does have metastatic disease with her pleural effusion as well as to bone. She has received Femara and ribociclib between March 2021 and April 2022 and then she was on alpelisib from April 2022 to December 2022, her cancer is ER positive. She also has received a dose of Prolia in May 2021 and Xgeva in 2021. 2. Hypertension, anxiety, depression all chronic medical conditions which complicate her care. Her home medications were continued where appropriate Medical Records Data Medical Nutrition Assessment Dietitian: Malnutrition Criteria Met Start: 01/09/23 16:12 Freq: Status: Active Protocol: Document 01/15/23 14:22 LO (Rec: 01/15/23 14:22 LO [id number]) Nutrition Malnutrition Evidence of Malnutrition Exists Yes Malnutrition (severe): Chronic Evidenced By Suboptimal Energy Intake ( Severe),Weight Loss (Severe) Clinical Problem Chronic Disease or Condition Related Malnutrition Etiology severe related to breast cancer with brain and bone mets Signs/Symptoms as evidenced by <75% PO intake of estimated energy needs for >1 month and 9.8lbs (6.4%) weight loss in 1 month Status Active Problem Recommendation Dietitian Recommendations/Changes Continue Regular - DONALD to optimize oral intakes Continue EPHP to 4x daily with medpass to provide supplemental energy. Weight / BMI Weight Weight: 141 lb Body Mass Index (BMI) 25.7 ABG / Lab / Microbiology Data Result Diagrams: 01/15/23 05:55 01/15/23 05:55 Laboratory: Laboratory Results - last 24 hr 01/15/23 05:55: Diff Path Review Reviewed Microbiology: Microbiology 01/13/23 15:15 Fluid - Pleural (Lung) Gram Stain - Final 01/13/23 15:15 Fluid - Pleural (Lung) Body Fluid Culture - Final Culture exhibits no growth. 01/13/23 15:15 Fluid - Pleural (Lung) Anaerobic Culture - Preliminary No anaerobic bacteria isolated. Radiography Diagnostic Testing: Radiology Impression Chest X-Ray 01/16/23 08:40 IMPRESSION: Persistent pleural effusions with increased pulmonary edema or pneumonia. Electronically Signed: Marianela Ochoa MD at 9:37 EDT Reading Location ID and State: [facility] / [place] Tel , Service support , Meaningful Use Info Meaningful Use Diagnoses (Choose all that apply): None applicable Discharge Plan Admission Admit Date/Time: 01/09/23 11:46 Attending Provider: Jameel Burgos Primary Care Provider: Almas Flores Consulting Providers: Armin Anderson ; Giovanny Quinteros ; Elton Luo ; Rich Carrasquillo ; Phyllis Castillo BEAN SNIPPER ; Molly Murphy ; Jake Johnston ; Octavio Carver ; Jeremy Aviles ; Esteban Ivy ; Laureano Gomez ; Xavi Morales ; Oscar Peña ; Adele Borrego BEAN SNIPPER ; Anita Dela Cruz Instructions Patient Instructions: RAD RN Thoracentesis Dc Discharge Orders/Prescriptions Prescriptions: New azithromycin 500 mg Recon Soln 500 mg IV Q24 Qty: 0 0RF ceftriaxone in dextrose,iso-os 1 gram/50 mL Piggyback 1 g IV Q24 Qty: 0 0RF Continued propranolol [Inderal LA] 80 mg capsule,extended release 24 hr 80 mg PO QHS calcium carbonate [Calcium 600] 600 mg calcium (1,500 mg) tablet 600 mg PO BID Centrum Silver Women 8 mg iron-400 mcg-300 mcg tablet 1 tab PO DAILY sertraline 50 mg tablet 100 mg PO QHS omeprazole 20 mg capsule,delayed release(DR/EC) 20 mg PO DAILY potassium chloride 20 mEq tablet extended release 20 meq PO DAILY Qty: 3 0RF tizanidine 2 mg tablet 1 mg PO Q8H PRN (Reason: Spasms) ondansetron HCl 8 mg tablet 8 mg PO Q8H PRN PRN (Reason: Nausea And Vomiting) Qty: 60 6RF lidocaine-prilocaine 2.5-2.5 % cream 1 applic topical ONCE PRN (Reason: port access) 30 Days Qty: 30 2RF dexamethasone 4 mg tablet 8 mg PO DAILY Qty: 12 3RF Rx Instructions: Take 8 mg PO the day before, the day of and the day after chemotherapy ONLY clonazepam 1 mg tablet 1 mg PO QHS losartan 50 mg tablet 50 mg PO DAILY Qty: 90 3RF Referrals / Follow Up: Almas Flores MD [Primary Care Provider] - Disposition Disposition (needs filled in before D/C Order can be placed): Acute Care Hospital [facility] Charges/Coding Visit Charges Inpatient E&M: 64109 Disch Hosp >30min
--- NOTE | 2023-01-16 16:02 | PHA.DC.MR ---
Pharmacy Service has performed discharge medication reconciliation for this patient. The patient's discharge medication list was reviewed for discrepancies and discrepancies were resolved. Home Medications propranolol 80 mg capsule,24 hr,extended release (Inderal LA) 80 mg PO QHS anxiety 11/25/17 calcium carbonate 600 mg calcium (1,500 mg) tablet (Calcium) 600 mg PO BID supplement 07/31/21 multivit with luomcoft-dzpj-XH-lutein 8 mg iron-400 mcg-300 mcg tablet (Centrum Silver Women) 1 tab PO DAILY supplement 07/31/21 omeprazole 20 mg capsule,delayed release 20 mg PO DAILY GERD 03/12/22 sertraline 50 mg tablet 100 mg PO QHS depression 03/12/22 losartan 50 mg tablet 50 mg PO DAILY #90 tabs 04/17/22 potassium chloride 20 mEq tablet,extended release 20 meq PO DAILY #3 tabs 11/20/22 tizanidine 2 mg tablet 1 mg PO Q8H PRN Spasms 12/18/22 dexamethasone 4 mg tablet 8 mg PO DAILY #12 tabs 12/19/22 lidocaine-prilocaine 2.5 %-2.5 % topical cream 1 applic topical ONCE PRN port access 30 days #30 grams 12/19/22 ondansetron HCl 8 mg tablet 8 mg PO Q8H PRN PRN Nausea And Vomiting #60 tabs 12/19/22 clonazepam 1 mg tablet 1 mg PO QHS ANXIETY 01/09/23 azithromycin 500 mg intravenous solution 500 mg IV Q24 #0 ea 01/16/23 ceftriaxone 1 gram/50 mL in dextrose (iso-osmot) intravenous piggyback 1 g (50 mL) IV Q24 #0 ea 01/16/23
--- NOTE | 2023-01-16 16:07 | NURSING ---
Report called to [facility] [phone] to nurse Una. 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
--- NOTE | 2023-01-16 16:30 | NURSING ---
recieved call from romero loaiza at [facility] stating that patient is being changed to a lung unit and bed coordinator will call with new bed number. she is aware of when transport is arriving and states she will call the appropriate unit with the report we gave already.
--- NOTE | 2023-01-16 16:34 | NURSING ---
Called daughter and informed her that we have a bed for her at [facility] and the pick up man time is between 18:00 and and 19:00. She will sign pt form for transportation since she is the POA.
--- NOTE | 2023-01-16 16:55 | NURSING ---
Seth called back and changed the unit pt will be going to. So she will now be going to [facility] bed 114, report called to Evgeny. Pt will be picked up between 18:00 and 19:00 this evening.
[2023-01-16] MEDS: Ondansetron 4 MG/2 ML Vial IV (18:34)
[2023-01-20 16:47] LABS: Glucose, Body Fluid 95 mg/dL (40-70)
== END 2023-01-16 19:15 | disposition short-term general hospital (02) | DRG 136 ==
LOC: ED 10:51 → MS3 12:27
PROVIDERS: Internal Medicine; Admitting Provider Student in an Organized Health Care Education/Training Program; Emergency Provider Emergency Medicine; PCP Family Medicine; Visit Provider Family Medicine
DX: C78.00 Secondary malignant neoplasm of unspecified lung (principal); J96.01 Acute respiratory failure with hypoxia; E43 Unspecified severe protein-calorie malnutrition; C78.2 Secondary malignant neoplasm of pleura; C77.9 Secondary and unspecified malignant neoplasm of lymph node, unspecified; C79.51 Secondary malignant neoplasm of bone; C50.112 Malignant neoplasm of central portion of left female breast; C79.31 Secondary malignant neoplasm of brain; J91.0 Malignant pleural effusion; D63.8 Anemia in other chronic diseases classified elsewhere; K21.9 Gastro-esophageal reflux disease without esophagitis; G47.33 Obstructive sleep apnea (adult) (pediatric); E87.6 Hypokalemia; I10 Essential (primary) hypertension; F41.9 Anxiety disorder, unspecified; Z17.0 Estrogen receptor positive status [ER+]; R55 Syncope and collapse; Z68.25 Body mass index [BMI] 25.0-25.9, adult; M81.0 Age-related osteoporosis without current pathological fracture; F32.A Depression, unspecified; Z79.52 Long term (current) use of systemic steroids; Z90.12 Acquired absence of left breast and nipple; Z80.3 Family history of malignant neoplasm of breast; Z80.1 Family history of malignant neoplasm of trachea, bronchus and lung
CPT/HCPCS: 32555; 36415; 36591; 71045; 71046; 71275; 80048; 80053; 82945; 83605; 83615; 84157; 85025; 87070; 87075; 87205; 88108; 88305; 88313; 88341; 88342; 89050; 93005; 94002; 94003; 94640; 94762; 97162; 97530; 97802; 97803; 99285; J7030; Q9967; A4216; J2405

== ENCOUNTER 2023-02-20 11:39 | Inpatient (IN) | payer MEDICAID, SELFPAY ==
[2023-02-20] VITALS (15 sets, daily range): BP systolic 119–191; BP diastolic 66–121; PULSE 89–117; RESP 12–32; TEMP 34.5–36.7; O2SAT 92–100; BMI 27.7; BMI 24.3
--- NOTE | 2023-02-20 11:53 | EKG12_ITS ---
Test Reason : ALC Blood Pressure : / mmHG Vent. Rate : 116 BPM Atrial Rate : 116 BPM P-R Int : 164 ms QRS Dur : 088 ms QT Int : 312 ms P-R-T Axes : 048 -21 047 degrees QTc Int : 433 ms Sinus tachycardia Nonspecific ST abnormality Abnormal ECG Confirmed by NATHALIA LAROSE, MOISES ([id number]), commissioning editor IVETH HURLEY ([id number]) on 02/21/2023 9:15:32 AM Referred By: Confirmed By:MOISES SLOAN MD
--- NOTE | 2023-02-20 11:54 | EDS_ITS ---
HPI History of Present Illness Chief Complaint: Unresponsive Informant: family Narrative Narrative: Patient is a 62-year-old female with history of obstructive sleep apnea, primary breast cancer with metastasis to the brain, recurrent pleural effusions on the left with a recent pleurodesis at [facility] presenting with respiratory distress. Patient was in the infusion center and was pretreated with Solu-Cortef, 100 mg of IV Benadryl and Taxol was started. About 15 minutes into the station patient was complaining of shortness of breath and then started having decreased responsiveness. On the way over here patient stopped breathing. She desatted into the 70s but was able to be bagged up. Daughters at the bedside who states that patient does often complaining of shortness of breath so that was not unusual. She never had a reaction like this before. She is also never received a dose of IV Benadryl like this. [facility] Medical History Alcohol use Anemia Anxiety and depression Arthritis BMI 29.0-29.9,adult Bone metastases Breast cancer (12/2020) Cancer Cardiology follow-up encounter CPAP (continuous positive airway pressure) dependence Essential hypertension Gastric reflux History of echocardiogram History of left breast cancer Hypokalemia Irregular heart beat Lung metastases Malignant neoplasm of central portion of left female breast Migraine headache Non-smoker Osteoporosis Panic disorder Pleural effusion, malignant Post-menopausal Regional lymph node metastasis present Shortness of breath Shortness of breath on exertion Syncope Wears glasses Home Medications propranolol 80 mg capsule,24 hr,extended release (Inderal LA) 80 mg PO QHS an xiety 11/25/17 [History Last Taken 01/08/23] calcium carbonate 600 mg calcium (1,500 mg) tablet (Calcium) 600 mg PO BID supplement 07/31/21 [History Last Taken 01/08/23] klosxbti-ncey-umei 8 mg-folic 400 mcg-K 50 mcg-lutein 300 mcg tablet (Centrum Silver Women) 1 tab PO DAILY supplement 07/31/21 [History Last Taken 01/08/23] omeprazole 20 mg capsule,delayed release 20 mg PO DAILY GERD 03/12/22 [History Last Taken 01/08/23] sertraline 50 mg tablet 100 mg PO QHS depression 03/12/22 [History Last Taken 01/08/23] losartan 50 mg tablet 50 mg PO DAILY #90 tabs 04/17/22 [Rx Last Taken 01/08/23] potassium chloride 20 mEq tablet,extended release 20 meq PO DAILY #3 tabs 11/20/22 [Rx Last Taken 01/08/23] dexamethasone 4 mg tablet 8 mg (2 x 4 mg) PO DAILY #12 tabs 12/19/22 [Rx Last Taken 01/06/23] lidocaine-prilocaine 2.5 %-2.5 % topical cream 1 applic topical ONCE PRN port access 30 days #30 grams 12/19/22 [Rx Last Taken 01/06/23] ondansetron HCl 8 mg tablet 8 mg PO Q8H PRN PRN Nausea And Vomiting #60 tabs 12/19/22 [Rx Last Taken 01/08/23] clonazepam 1 mg tablet 1 mg PO QHS ANXIETY 01/09/23 [History Last Taken 01/08/23] furosemide 40 mg tablet mg PO 02/17/23 [History Last Taken Unknown] metoclopramide HCl 10 mg tablet mg PO 02/17/23 [History Last Taken Unknown] albuterol sulfate 90 mcg/actuation breath activated powder inhaler 2 inh inhalation Q4H PRN 02/18/23 [History Last Taken Unknown] Allergy/AdvReac Type Severity Reaction Status Date / Time No Known Allergies Allergy Verified 02/18/23 08:23 Family History Father Brain tumor Mother Alzheimers disease Breast cancer Brother Lung cancer Surgical History History of esophagogastroduodenoscopy (EGD) History of sinus surgery History of thoracentesis (03/23/21) S/P lumpectomy, left breast Social History household members: none housing: house number of children: 1 pets and animals: Yes pets and animals: dog(s) Smoking Status: Never smoker second hand exposure: No alcohol intake: current Alcohol type: wine details: wine 2-3 drinks per night substance use type: does not use lizzie/adventism: None seatbelt use: always do you feel safe at home: Yes additional social history: has 4 grandchildren ROS ROS ED Review of Systems ROS Unobtainable: other Details: Acuity of condition EXAM Physical Exam Const Vital Signs: 02/20/23 11:40 02/20/23 11:46 02/20/23 12:08 Temperature 98.1 F Temperature Source Temporal Pulse Rate 114 H 115 H 117 H Respiratory Rate 22 H 22 H 25 H Respiratory Pattern Blood Pressure 191/121 H 191/121 H 155/117 H Blood Pressure Mean 144 144 129 Pulse Ox 100 97 Oxygen Delivery Method Non-Rebreather Non-Rebreather Bi-pap Fraction of Inspired Oxygen (FIO2) 02/20/23 12:20 02/20/23 12:47 02/20/23 11:50 Temperature Temperature Source Pulse Rate 116 H 113 H 89 Respiratory Rate 25 H 28 H 24 H Respiratory Pattern Tachypnea Blood Pressure 155/117 H 146/103 H Blood Pressure Mean 129 117 Pulse Ox 96 95 96 Oxygen Delivery Method Bi-pap Bi-pap Fraction of Inspired Oxygen (FIO2) 100 02/20/23 14:58 02/20/23 15:08 Temperature Temperature Source Pulse Rate 106 H 115 H Respiratory Rate 31 H 28 H Respiratory Pattern Tachypnea Blood Pressure 119/66 Blood Pressure Mean 83 Pulse Ox 92 98 Oxygen Delivery Method Fraction of Inspired Oxygen (FIO2) 100 Positive well nourished and well developed Constitutional Narrative: Acute respiratory distress General Appearance ED: well developed HEENT Reports moist mucous membranes Eyes Eyes Narrative: Dilated pupils, minimally reactive Neck supple and no JVD Chest Wall inspection of chest normal and palpation of chest normal Chest Narrative: Medical port of the right anterior chest wall Resp Resp Narrative: Diminished respiratory effort, bilateral breath sounds with bagging, scattered expiratory wheeze on the left lung Cardio regular rhythm and no murmurs Rate: tachycardic GI normal to inspection, nondistended, normoactive bowel sounds and non-tender Extremity normal to inspection General Extremety ED: Negative for edema or tenderness General Extremity: Negative for edema Skin no rashes or lesions noted and no wounds MDM MDM MDM Narrative Medical decision making narrative: Patient is evaluated for respiratory depression. Upon arrival patient is borderline apneic and is getting bagged. When I walk in the room she has O2 saturation in the 70s. It does come up with bagging. Patient does have some respiratory effort and is responsive to painful stimuli. Will attempt BiPAP as she does have underlying respiratory effort however I suspect she has an anticholinergic toxidrome associated with 2 doses of IV Benadryl especially given her dilated pupils, tachycardia and hypertension. Patient is slowly improved in the ER. Initial ABG is consistent with a respiratory acidosis. I did speak with her oncologist, Dr. Leal, who tells me that per protocol she was premedicated with Benadryl and Decadron before receiving her first dose of Taxol. About 15 minutes after receiving the Taxol she developed chest discomfort and felt short of breath. He did not note any findings consistent with anaphylaxis and would consider this a nonanaphylactic allergic reaction to the Taxol. Per the protocol patient then received Solu- Medrol and additional 50 mg of IV Benadryl. After the IV Benadryl dosage as the patient became minimally responsive. Daughters at the bedside who states that patient was not complaining of any acute respiratory symptoms including cough, new chest pain or recent fever before this infusion today. She does have chronic shortness of breath and chest discomfort as well as a lot of anxiety per her daughter. While in the ER patient slowly started improving her mentation with BiPAP. Work-up is otherwise largely unremarkable. She does have a leukocytosis of 20.4 which is nonspecific given that she is receiving Decadron and Solu-Medrol already today alone. With no report of any fever or new systemic symptoms before this episode of apnea will not treat for infection. Chest x-ray 1 view reviewed by myself shows improvement of pleural effusions with continued changes. Radiologist did read as CHF as well as right upper lobe infiltrate however this clinically does not fit the picture. I do not think it is a hypertensive emergency/flash pulmonary edema. EKG is nonischemic. Patient does have a significant elevation of her platelet count which is nonspecific in this clinical setting. A repeat EKG continues to show respiratory acidosis but has improvement. Discussed with admitting physician and will admit patient for PCU for continued BiPAP for this acute respiratory acidosis likely compounded by received IV Benadryl and underlying obstructive sleep apnea as well as chronic hypoxic respiratory failure. Lab Data Labs: Laboratory Results - last 24 hr 02/20/23 02/20/23 12:00 12:05 WBC 20.4 H RBC 3.29 L Hgb 9.7 L Hct 32.0 L MCV 97.3 MCH 29.5 MCHC 30.3 L RDW Std Deviation 57.1 H RDW Coeff of Mike 15.9 H Plt Count 758 H* MPV 9.4 Immature Gran % (Auto) 3.500 H Neut % (Auto) 76.8 H Lymph % (Auto) 13.1 L [place] % (Auto) 6.0 Eos % (Auto) 0.4 Baso % (Auto) 0.2 Absolute Neuts (auto) 15.7 H Absolute Lymphs (auto) 2.67 Nucleated RBC % 0 Differential Comment SCANNED Diff Path Review May foll Platelet Estimate MKD INC Sodium 135 L Potassium 5.7 H Chloride 103 Carbon Dioxide 26.0 Anion Gap 6 BUN 10 Creatinine 0.78 Estim Creat Clear Calc 55.71 Est GFR (MDRD) Af Amer 96 Est GFR (MDRD) Non-Af 80 BUN/Creatinine Ratio 12.9 Glucose 338 H Calcium 8.8 Troponin I High Sens 18 POC Glucose 283 H ABG Data ABG results: ABG 02/20/23 02/20/23 12:29 14:23 Specimen Type ART ART Sample Site R Radial R Radial pH 7.07 L* 7.12 L* Bicarbonate Actual 25.4 26.4 H Total CO2 28 29 Base Excess -5 L -3 L O2 Saturation 95 94 L O2 % 100 100 ABG pCO2 86.7 H* 80.5 H* ABG pO2 105 H 96 Adair Test Positive Positive Respiration Rate 12 O2 Delivery Device BiPAP BiPAP Vent Mode BiLevel POC PEEP 6 POC Pressure Suppt 14 Crit Call To/Read Back Yes Yes Blood Gas Notified Whom [facility] Radiography Diagnostic Testing: Clinical Impression(s) from Imaging Studies Chest X-Ray 02/20/23 12:35 IMPRESSION: Persistent small bilateral pleural effusions with bibasilar infiltration and/or atelectasis. Right upper lobe infiltrate. CHF. Electronically Signed: Kiran Laurent MD at 12:54 EDT , Rhythm Strip Rhythm Strip: Sinus Tach Rate: 116 Ectopy: None EKG Initial EKG: Attestation: I personally reviewed and interpreted this EKG as follows: Interpretation: Sinus Tachycardia Comments: Sinus tachycardia rate of 116 bpm Normal intervals Normal ST segments Nonspecific ST abnormality Management Discussion w/another healthcare provider: Hospitalist and Congressional Assistant Discharge Plan Triage Chief Complaint: Unresponsive ED Provider: Jennifer Asif Dx/Rx/DC Orders Clinical Impression: Acute hypercapnic respiratory failure, Leukocytosis, Adverse effects of medication Primary Care Provider: Almas Flores Disposition Disposition: Acute Care Hospital [facility]
--- NOTE | 2023-02-20 12:07 | ED.RN ---
Blood drawn and sent to lab
--- NOTE | 2023-02-20 12:09 | ED.RN ---
Patient opens eyes with calling of name.
[2023-02-20 12:16] LABS: Absolute Lymphocyte Count 2.67 X10^3/uL (0.83-4.51); Absolute Neutrophil Count 15.7 X10^3/uL (2.0-7.7); Basophil# 0.04 X10^3/uL; Basophil% 0.2 % (0-1); Eosinophil# 0.09 X10^3/uL; Eosinophils% 0.4 % (0-5); Hemoglobin 9.7 g/dL (12.0-15.0); Lymphocyte # 2.67 X10^3/ul (0.83-4.51); Lymphocyte % 13.1 % (19-41); Mean Corp Hgb Conc 30.3 g/dL (32-36); Mean Corpuscular Hgb 29.5 pg (27.0-32.0); Mean Corpuscular Volume 97.3 fL (81-99); Mean Platelet Vol. 9.4 fl (6.2-12.0); Monocyte# 1.22 X10^3/uL; NRBC Flagged by Analyzer 0 % (0-5); Neutrophil % 76.8 % (47-70); POSITIVE COUNT YES; Platelet Count 758 K/mm3 (150-450); RBC Distribution Width CV 15.9 % (11.6-14.6); RBC Distribution Width SD 57.1 fl (35.1-43.9); Red Blood Count 3.29 M/mm3 (4.2-5.4); White Blood Count 20.4 K/mm3 (4.4-11.0)
[2023-02-20 12:18] LABS: Bedside Glucose 283 mg/dL (74-106)
[2023-02-20 12:18] LABS: Differential Indicated SCAN CRITERIA MET
--- NOTE | 2023-02-20 12:20 | ED.RN ---
Patient answering questions with head nod when asked. Awaiting results.
[2023-02-20 12:33] LABS: Allen Test Positive; Base Excess -5 mmol/L (-2 to +2); Bicarbonate 25.4 mmol/L (22-26); Blood Gas Specimen Type ART; FI02 100; O2 Delivery Device BiPAP; PO2 105 mmHG (75-100); SITE R Radial; SO2 95 % (95-99); Total Carbon Dioxide 28 mmol/L; pCO2 86.7 mmHg (35-45); pH 7.07 (7.35-7.45)
--- NOTE | 2023-02-20 12:35 | CPS ---
Critical values verified times two. Reported results to DR. Asif.
--- NOTE | 2023-02-20 12:35 | RAD_ITS ---
STUDY: X-RAY CHEST REASON FOR EXAM: Female, 62 years old. Dyspnea TECHNIQUE: Single AP portable view of the chest. COMPARISON: Comparison is made with prior study dated January 16, 2023. FINDINGS: A right-sided Port-A-Cath are seen within it at the junction of the superior vena cava and right atrium. Surgical clips are seen in the left axilla. EKG electrodes are seen. Residual small bilateral pleural effusions with bibasilar atelectasis and/or infiltrates. Infiltrate is also seen in the right upper lobe. CHF. There is mild cardiac enlargement. Normal mediastinum and crispin. Normal visualized pulmonary arteries. There is atherosclerotic calcification of the aortic arch with tortuosity. There are diffuse degenerative changes of the visualized thoracic spine. There is degenerative osteoarthritis of the bilateral shoulders. There is no demonstrated abnormality of the visualized soft tissue structures of the upper abdomen. RAD/Chest 1 View (Portable) IMPRESSION: Persistent small bilateral pleural effusions with bibasilar infiltration and/or atelectasis. Right upper lobe infiltrate. CHF. Electronically Signed: Kiran Laurent MD at 12:54 EDT ,
[2023-02-20 12:39] LABS: Anion Gap 6 (5-15); BUN 10 mg/dL (7-18); BUN/Creat Ratio 12.9 RATIO (10-20); Calcium,Total 8.8 mg/dL (8.5-10.1); Chloride 103 mmol/L (98-107); Creatinine, Serum 0.78 mg/dL (0.55-1.02); EST Glomerular Filtration Rate 80 mL/min (>60); Est Glom Filt Rate - Afr Amer 96 mL/min (>60); Estimated Creatinine Clearance 55.71 ml/min; Glucose 338 mg/dL (74-106); Potassium 5.7 mmol/L (3.5-5.1); Sodium Level 135 mmol/L (136-145); Troponin-I HS 18 pg/mL (3.0-54.0)
[2023-02-20 12:44] LABS: Differential Comment SCANNED; Platelet Estimate MKD INC (ADEQ)
--- NOTE | 2023-02-20 12:46 | ED.RN ---
Ice packs placed behind patient neck per request. Patient answering questions when asked. Bipap continues. Awaiting results daughter at bedside.
[2023-02-20 14:28] LABS: Allen Test Positive; Base Excess -3 mmol/L (-2 to +2); Bicarbonate 26.4 mmol/L (22-26); Blood Gas Specimen Type ART; FI02 100; Mode BiLevel; O2 Delivery Device BiPAP; PEEP 6; PO2 96 mmHG (75-100); PS 14; RR 12; SITE R Radial; SO2 94 % (95-99); Total Carbon Dioxide 29 mmol/L; pCO2 80.5 mmHg (35-45); pH 7.12 (7.35-7.45)
--- NOTE | 2023-02-20 14:44 | PCM.HP.STD ---
HPI - General General Date of Admission: 02/20/23 Date of Service: 02/20/23 Chief Complaint: shortness of breath, altered mental status HPI Narrative KRIS HOUSER, is a 62 F with an extensive PMH as outlined which includes metastatic breast cancer with mets to the lung and brain who presents from the infusion center with a complaint of shortness of breath and altered mental status. She was recently admitted for recurrent pleural effusion, and had thoracentesis done. She was subsequently transferred to [facility] for VATS and pleurodesis. She came for chemotherapy today and was at the infusion center. She was premedicated with IV benadryl before the chemo.She became short of breath and nearly passed out. A rapid response was called and she was brouoght to the ER. She was bagged and placed on BIPAP. Vitals in the ED were temp of 98.1F, KS of 113, BP of 146/103 and RR of 28. She was on BIPAP. CBC showed Hb of 9.7, wbc of 20.4 and platelets of 758. ABG on admission showed pH of 7.07, pCO2 of 86.7 and pO2 of 105 whilst on BIPAP. She was placed on BIPAP and repeat ABG showed pH of 7.12, pCO2 of 80.5, pO2 of 96. Chemistry showed sodium of 135, potassium of 5.7 and Cr of 0.78. She is being admitted to be managed for acute hypoxic and hypercapnic respiratory failure. [facility] Medical History Alcohol use Anemia Anxiety and depression Arthritis BMI 29.0-29.9,adult Bone metastases Breast cancer (12/2020) Cancer Cardiology follow-up encounter CPAP (continuous positive airway pressure) dependence Essential hypertension Gastric reflux History of echocardiogram History of left breast cancer Hypokalemia Irregular heart beat Lung metastases Malignant neoplasm of central portion of left female breast Migraine headache Non-smoker Osteoporosis Panic disorder Pleural effusion, malignant Post-menopausal Regional lymph node metastasis present Shortness of breath Shortness of breath on exertion Syncope Wears glasses Home Medications propranolol 80 mg capsule,24 hr,extended release (Inderal LA) 80 mg PO QHS anxiety 11/25/17 [History Last Taken 02/19/23] calcium carbonate 600 mg calcium (1,500 mg) tablet (Calcium) 600 mg PO BID supplement 07/31/21 [History Last Taken 02/19/23] kveuzzil-oeqn-zxtx 8 mg-folic 400 mcg-K 50 mcg-lutein 300 mcg tablet (Centrum Silver Women) 1 tab PO DAILY supplement 07/31/21 [History Last Taken 02/19/23] omeprazole 20 mg capsule,delayed release 20 mg PO DAILY GERD 03/12/22 [History Last Taken 02/19/23] sertraline 50 mg tablet 100 mg PO QHS depression 03/12/22 [History Last Taken 02/19/23] losartan 50 mg tablet 50 mg PO DAILY BP #90 tabs 04/17/22 [Rx Last Taken 01/08/23] potassium chloride 20 mEq tablet,extended release 20 meq PO DAILY health maintenance #3 tabs 11/20/22 [Rx Last Taken 02/19/23] dexamethasone 4 mg tablet 8 mg (2 x 4 mg) PO DAILY before chemo #12 tabs 12/19/22 [Rx Last Taken 02/20/23] lidocaine-prilocaine 2.5 %-2.5 % topical cream 1 applic topical ONCE PRN port access 30 days #30 grams 12/19/22 [Rx Last Taken 02/20/23] ondansetron HCl 8 mg tablet 8 mg PO Q8H PRN PRN Nausea And Vomiting #60 tabs 12/19/22 [Rx Last Taken 02/19/23] clonazepam 1 mg tablet 1 mg PO QHS ANXIETY 01/09/23 [History Last Taken 02/19/23] furosemide 40 mg tablet 40 mg PO BID diuretic 02/17/23 [History Last Taken 02/19/23] metoclopramide HCl 10 mg tablet 10 mg PO .daily HS nausea 02/17/23 [History Last Taken 02/19/23] albuterol sulfate 90 mcg/actuation breath activated powder inhaler 2 inh inhalation Q4H PRN shortness of breath or wheezing 02/18/23 [History Last Taken 02/19/23] lidocaine 5 % topical patch 1 patch topical Q24H pain 02/20/23 [History Last Taken 02/19/23] Allergy/AdvReac Type Severity Reaction Status Date / Time paclitaxel AdvReac Severe Shortness Unverified 02/21/23 13:16 of breath Family History Father Brain tumor Mother Alzheimers disease Breast cancer Brother Lung cancer Surgical History History of esophagogastroduodenoscopy (EGD) History of sinus surgery History of thoracentesis (03/23/21) S/P lumpectomy, left breast Social History household members: none housing: house number of children: 1 pets and animals: Yes pets and animals: dog(s) Smoking Status: Never smoker second hand exposure: No alcohol intake: current Alcohol type: wine details: wine 2-3 drinks per night substance use type: does not use lizzie/sikh: None seatbelt use: always do you feel safe at home: Yes additional social history: has 4 grandchildren ROS Constitutional Constitutional: Reports fatigue, malaise and weakness; Denies anorexia, chills or fever(s) Eyes Eyes: Denies change in vision ENT HEENT: Denies dysphagia or headache(s) Cardiovascular Cardiovascular: Denies chest pain, edema, orthopnea, palpitations, paroxysmal nocturnal dyspnea or syncope Respiratory/Chest Respiratory/Chest: Reports shortness of breath at rest; Denies cough, shortness of breath with exertion or wheezing Gastrointestinal Gastrointestinal: Denies abdominal pain, diarrhea, nausea or vomiting Genitourinary Genitourinary: Denies dysuria Musculoskeletal Musculoskeletal: Denies joint pain Integumentary Integumentary: Denies dry skin Neurologic Neurologic: Denies confusion, headache(s) or seizures Psychiatric Psychiatric: Reports anxiety; Denies depression Vital Signs Vital Signs Vital Signs: 02/20/23 11:40 02/20/23 11:46 02/20/23 12:08 Temperature 98.1 F Temperature Source Temporal Pulse Rate 114 H 115 H 117 H Respiratory Rate 22 H 22 H 25 H Respiratory Pattern Blood Pressure 191/121 H 191/121 H 155/117 H Blood Pressure Mean 144 144 129 Pulse Ox 100 97 Oxygen Delivery Method Non-Rebreather Non-Rebreather Bi-pap Fraction of Inspired Oxygen (FIO2) 02/20/23 12:20 02/20/23 12:47 02/20/23 11:50 Temperature Temperature Source Pulse Rate 116 H 113 H 89 Respiratory Rate 25 H 28 H 24 H Respiratory Pattern Tachypnea Blood Pressure 155/117 H 146/103 H Blood Pressure Mean 129 117 Pulse Ox 96 95 96 Oxygen Delivery Method Bi-pap Bi-pap Fraction of Inspired Oxygen (FIO2) 100 Weight Weight: 150 lb 11.094 oz Body Mass Index (BMI) 27.7 Physical Exam Const alert and oriented x3 General Appearance: cooperative HEENT normocephalic and head/scalp atraumatic Eyes PERRL and EOMs intact bilaterally Neck no lymphadenopathy and supple Lymph Lymphatic: no lymphadenopathy noted Resp Resp Narrative: on BIPAP. Moderately diminished breath sounds bibasally, no wheezes or crackles. on BIPAP, tachypneic Cardio regular rhythm, S1 normal heart sound, S2 normal heart sound and no murmurs Rate: tachycardic GI normal to inspection, nondistended, normoactive bowel sounds, soft to palpation, non-tender and non-distended Extremity normal capillary refill and no clubbing, cyanosis or edema Skin General Skin Exam: no breakdown Neuro CN's II-XII intact bilaterally, no focal motor deficits, no sensory deficits noted and deep tendon reflexes 2+ bilaterally Psych thought process normal, cooperative and affect normal Mood & Affect: anxious Results Lab / Micro Data 02/21/23 04:53 02/21/23 04:53 Labs: Laboratory Results - last 24 hr 02/20/23 12:00: POC Glucose 283 H 02/20/23 12:05: WBC 20.4 H, RBC 3.29 L, Hgb 9.7 L, Hct 32.0 L, MCV 97.3, MCH 29.5, MCHC 30.3 L, RDW Std Deviation 57.1 H, RDW Coeff of Mike 15.9 H, Plt Count 758 H*, MPV 9.4, Immature Gran % (Auto) 3.500 H, Neut % (Auto) 76.8 H, Lymph % (Auto) 13.1 L, [place] % (Auto) 6.0, Eos % (Auto) 0.4, Baso % (Auto) 0.2, Absolute Neuts (auto) 15.7 H, Absolute Lymphs (auto) 2.67, Nucleated RBC % 0, Differential Comment SCANNED, Diff Path Review May foll, Platelet Estimate MKD INC, Sodium 135 L, Potassium 5.7 H, Chloride 103, Carbon Dioxide 26.0, Anion Gap 6, BUN 10, Creatinine 0.78, Estim Creat Clear Calc 55.71, Est GFR (MDRD) Af Amer 96, Est GFR (MDRD) Non-Af 80, BUN/Creatinine Ratio 12.9, Glucose 338 H, Calcium 8.8, Troponin I High Sens 18 ABG Data ABG results: ABG 02/20/23 02/20/23 12:29 14:23 Specimen Type ART ART Sample Site R Radial R Radial pH 7.07 L* 7.12 L* Bicarbonate Actual 25.4 26.4 H Total CO2 28 29 Base Excess -5 L -3 L O2 Saturation 95 94 L O2 % 100 100 ABG pCO2 86.7 H* 80.5 H* ABG pO2 105 H 96 Adair Test Positive Positive Respiration Rate 12 O2 Delivery Device BiPAP BiPAP Vent Mode BiLevel POC PEEP 6 POC Pressure Suppt 14 Crit Call To/Read Back Yes Yes Blood Gas Notified Whom [facility] Radiology Impression Chest X-Ray 02/20/23 12:35 IMPRESSION: Persistent small bilateral pleural effusions with bibasilar infiltration and/or atelectasis. Right upper lobe infiltrate. CHF. Electronically Signed: Kiran Laurent MD at 12:54 EDT , Assessment & Plan Assessment/Plan (1) Respiratory failure: PLAN: Plan #Acute on chronic hypoxic and hypercapnic respiratory failure likely precipitated by benadryl that patient received. She received 100mg IV of benadryl, which likely caused her to become drowsy. titrate oxygen to maintain sats >90% initial ABG showed pH of 7.07 with pCO2 of 86.7. She was placed on BIPAP, and pCO2 came down to 80.5, with pH coming up to 7.17 CXR showed:pwersistent small bilateral pleural effusions, CHF and right upper lobe infiltrate. titrate oxygen to maintain sats >90% Hyperkalemia: potassium is 5.7. Will hold any meds that cause hyperkalemia. EKG showed no acute changes. Give kayexalate #Leucocytosis: wbc is 20. Likely due to steroids. Will monitor. No evidence of infection #Hypertension: On losartan and propranolol #History of left breast cancer with mets to the bone, lungs of the brain She is s/p partial left mastectomy. On Decadron. couldnt have chemotherapy today as she became lethargic from bendadryl . #Depression and anxiety: On sertraline and trazodone #GERD: On PPI #NARCISO: On BiPAP nightly DVT prophylaxis: Lovenox Code status: full code Patient counseled extensively about different types of CODE STATUS including full code, DNR CCA and DNR CCA. Patient elects to be full code. Total [id number] time 17 minutes. Charges/Coding Visit Charges Inpatient E&M: 24067 Init Hosp L3 Procedures Hospitalists Procedures: 94894 Advncd Care Plan 30 Min
--- NOTE | 2023-02-20 14:49 | NURSING ---
DR SEEMA MUONZ
[2023-02-20] MEDS: Ondansetron 4 MG/2 ML Vial IV ×2 (16:14→20:20)
--- NOTE | 2023-02-20 16:18 | NURSING ---
104 OBS KORAM ACUTE HYPERCAPNIC RESP DISTRESS
--- NOTE | 2023-02-20 16:20 | ED.RN ---
PT REFUSED TYLENOL
[2023-02-20] MEDS: Ketorolac 15 MG/ML Vial IV (20:53)
--- NOTE | 2023-02-20 20:59 | PCM.HOSP.N ---
Hospitalist Note Patient with BONNER with BIPAP in place. Will add low dose toradol for headache.
[2023-02-21] VITALS (21 sets, daily range): BP systolic 111–149; BP diastolic 65–84; PULSE 88–112; RESP 14–28; TEMP 36.4–36.8; O2SAT 40–100
[2023-02-21] MEDS: Morphine 2 MG/ML Syringe IV ×2 (02:28→11:05)
[2023-02-21 06:24] LABS: Absolute Lymphocyte Count 1.81 X10^3/uL (0.83-4.51); Absolute Neutrophil Count 9.5 X10^3/uL (2.0-7.7); Basophil# 0.01 X10^3/uL; Basophil% 0.1 % (0-1); Hemoglobin 9.2 g/dL (12.0-15.0); Lymphocyte # 1.81 X10^3/ul (0.83-4.51); Lymphocyte % 13.5 % (19-41); Mean Corp Hgb Conc 30.7 g/dL (32-36); Mean Corpuscular Hgb 29.4 pg (27.0-32.0); Mean Corpuscular Volume 95.8 fL (81-99); Mean Platelet Vol. 9.8 fl (6.2-12.0); Monocyte# 2.02 X10^3/uL; Monocyte% 15.1 % (0-10); NRBC Flagged by Analyzer 0 % (0-5); Neutrophil # 9.45 X10^3/uL (2.7-7.7); Neutrophil % 70.6 % (47-70); POSITIVE DIFFERENTIAL YES; Platelet Count 652 K/mm3 (150-450); RBC Distribution Width CV 15.9 % (11.6-14.6); RBC Distribution Width SD 55.6 fl (35.1-43.9); Red Blood Count 3.13 M/mm3 (4.2-5.4); White Blood Count 13.4 K/mm3 (4.4-11.0)
[2023-02-21] MEDS: Ipratropium/Albuterol Sulfate 3 ML AMPUL.NEB INHALATION ×4 (06:53→19:09)
[2023-02-21 06:59] LABS: Anion Gap 7 (5-15); BUN 14 mg/dL (7-18); BUN/Creat Ratio 33.4 RATIO (10-20); Calcium,Total 8.6 mg/dL (8.5-10.1); Chloride 104 mmol/L (98-107); Creatinine, Serum 0.42 mg/dL (0.55-1.02); EST Glomerular Filtration Rate 162 mL/min (>60); Est Glom Filt Rate - Afr Amer 196 mL/min (>60); Estimated Creatinine Clearance 108.43 ml/min; Glucose 88 mg/dL (74-106); Potassium 4.9 mmol/L (3.5-5.1); Sodium Level 137 mmol/L (136-145)
[2023-02-21 07:16] LABS: Differential Indicated SCAN CRITERIA MET
[2023-02-21] MEDS: 0.9% Saline Lock 10 ML Syringe IV ×6 (08:17→22:09)
[2023-02-21] MEDS: Ketorolac 15 MG/ML Vial IV ×2 (08:17→20:28)
[2023-02-21 08:33] LABS: Differential Comment SCANNED
--- NOTE | 2023-02-21 08:37 | NURSING ---
Updated Respiratory Yas to taking pt off bipap at this time, Pt placed on NC 5L w/ spo2 in mid 90's. Pt w/ labored breathing and requesting nonrebreather. Same applied. Pt appears to be resting comfortably with spo2 still mid 90's.
[2023-02-21] MEDS: Enoxaparin 40 MG/0.4 ML Syringe SC (09:38)
[2023-02-21 09:59] LABS: Pathologist Review Reviewed
[2023-02-21] MEDS: Ondansetron 4 MG/2 ML Vial IV (10:09)
--- NOTE | 2023-02-21 10:26 | PN_ITS ---
Subjective Subjective Patient seen and examined. She couldnt be weaned off BIPAP overnight as she desaturated when it was taken off. She said she felt uncomfortable with the BIPAP on and wanted it to be taken off. She denied any chest pain, palpitations, dizziness, coughing, chest pain or any other symptoms. Review of systems was otherwise negative. Objective Data Objective Data Vital Signs: Vital Signs Temp Pulse Resp BP Pulse Ox O2 Del Method O2 Flow Rate 98.2 F 102 H 19 H 138/73 H 95 Non-Rebreather 15 02/21/23 10:00 02/21/23 10:00 02/21/23 10:00 02/21/23 10:00 02/21/23 10:00 02/21/23 10:00 02/21/23 09:22 FiO2 65 02/21/23 06:54 Oxygen Flow Rate (L/min) 15 Oxygen Delivery Method Non-Rebreather Weight: 132 lb 14.4 oz Body Mass Index (BMI) 24.3 Intake & Output: Intake and Output for Last 24 Hours 02/19/23 02/20/23 02/21/23 23:59 23:59 23:59 Intake Total 0 / 0 Output Total 0 / 0 Balance 0 / 0 Lab / Micro Data 02/21/23 04:53 02/21/23 04:53 Labs: Laboratory Results - last 24 hr 02/20/23 12:00: POC Glucose 283 H 02/20/23 12:05: WBC 20.4 H, RBC 3.29 L, Hgb 9.7 L, Hct 32.0 L, MCV 97.3, MCH 29.5, MCHC 30.3 L, RDW Std Deviation 57.1 H, RDW Coeff of Mike 15.9 H, Plt Count 758 H*, MPV 9.4, Immature Gran % (Auto) 3.500 H, Neut % (Auto) 76.8 H, Lymph % (Auto) 13.1 L, [place] % (Auto) 6.0, Eos % (Auto) 0.4, Baso % (Auto) 0.2, Absolute Neuts (auto) 15.7 H, Absolute Lymphs (auto) 2.67, Nucleated RBC % 0, Differential Comment SCANNED, Diff Path Review Reviewed, Platelet Estimate MKD INC, Sodium 135 L, Potassium 5.7 H, Chloride 103, Carbon Dioxide 26.0, Anion Gap 6, BUN 10, Creatinine 0.78, Estim Creat Clear Calc 55.71, Est GFR (MDRD) Af Amer 96, Est GFR (MDRD) Non-Af 80, BUN/Creatinine Ratio 12.9, Glucose 338 H, Calcium 8.8, Troponin I High Sens 18 02/21/23 04:53: WBC 13.4 H, RBC 3.13 L, Hgb 9.2 L, Hct 30.0 L, MCV 95.8, MCH 29.4, MCHC 30.7 L, RDW Std Deviation 55.6 H, RDW Coeff of Mike 15.9 H, Plt Count 652 H, MPV 9.8, Immature Gran % (Auto) 0.700, Neut % (Auto) 70.6 H, Lymph % (Auto) 13.5 L, [place] % (Auto) 15.1 H, Eos % (Auto) 0.0, Baso % (Auto) 0.1, Absolute Neuts (auto) 9.5 H, Absolute Lymphs (auto) 1.81, Nucleated RBC % 0, Differential Comment SCANNED, Diff Path Review November, Sodium 137, Potassium 4.9, Chloride 104, Carbon Dioxide 26.0, Anion Gap 7, BUN 14, Creatinine 0.42 L, Estim Creat Clear Calc 108.43, Est GFR (MDRD) Af Amer 196, Est GFR (MDRD) Non-Af 162, BUN/Creatinine Ratio 33.4 H, Glucose 88, Calcium 8.6 ABG Data ABG results: ABG 02/20/23 02/20/23 12:29 14:23 Specimen Type ART ART Sample Site R Radial R Radial pH 7.07 L* 7.12 L* Bicarbonate Actual 25.4 26.4 H Total CO2 28 29 Base Excess -5 L -3 L O2 Saturation 95 94 L O2 % 100 100 ABG pCO2 86.7 H* 80.5 H* ABG pO2 105 H 96 Adair Test Positive Positive Respiration Rate 12 O2 Delivery Device BiPAP BiPAP Vent Mode BiLevel POC PEEP 6 POC Pressure Suppt 14 Crit Call To/Read Back Yes Yes Blood Gas Notified Whom [facility] Radiography Diagnostic Testing: Radiology Impression Chest X-Ray 02/20/23 12:35 IMPRESSION: Persistent small bilateral pleural effusions with bibasilar infiltration and/or atelectasis. Right upper lobe infiltrate. CHF. Electronically Signed: Kiran Laurent MD at 12:54 EDT , Rhythm Strip Rhythm Strip: Sinus Tach Rate: 116 Ectopy: None Physical Exam Const alert and oriented x3 General Appearance: cooperative HEENT normocephalic, head/scalp atraumatic and moist oral mucous membranes Eyes PERRL and EOMs intact bilaterally Neck no lymphadenopathy and supple Lymph Lymphatic: no lymphadenopathy noted Resp Resp Narrative: on BIPAP. Moderately diminished breath sounds bibasally, no wheezes or crackles. Cardio regular rhythm, S1 normal heart sound, S2 normal heart sound and no murmurs Rate: tachycardic GI normal to inspection, nondistended, normoactive bowel sounds, soft to palpation, non-tender and non-distended Extremity normal capillary refill and no clubbing, cyanosis or edema Skin General Skin Exam: no breakdown Neuro CN's II-XII intact bilaterally, no focal motor deficits, no sensory deficits noted and deep tendon reflexes 2+ bilaterally Motor Exam: strength 5/5 throughout Psych thought process normal, cooperative and affect normal Mood & Affect: anxious Assessment & Plan Assessment/Plan (1) Respiratory failure: PLAN: Plan #Acute on chronic hypoxic and hypercapnic respiratory failure * likely precipitated by benadryl that patient received. She received 100mg IV of benadryl, which likely caused her to become drowsy. * titrate oxygen to maintain sats >90% * initial ABG showed pH of 7.07 with pCO2 of 86.7. She was placed on BIPAP, and pCO2 came down to 80.5, with pH coming up to 7.17 * CXR showed:pwersistent small bilateral pleural effusions, CHF and right upper lobe infiltrate. * titrate oxygen to maintain sats >90% * to wean off BIPAP and place on oxygen by nasal canula * Hyperkalemia: resolved. Potassium is 4.9 #Leucocytosis: Likely due to steroids. Will monitor. No evidence of infection. wbc is down to 13.4. #Hypertension: On losartan and propranolol #History of left breast cancer with mets to the bone, lungs of the brain * She is s/p partial left mastectomy. On Decadron. * couldnt have chemotherapy on admission as she became lethargic from bendadryl * follow up with oncology on outpatient basis * . #Depression and anxiety: On sertraline and trazodone #GERD: On PPI #NARCISO: On BiPAP nightly DVT prophylaxis: Lovenox Code status: full code * Charges/Coding Visit Charges Inpatient E&M: 06615 Subs Hosp L2
[2023-02-21] MEDS: proCHLORPERazine 10 MG/2 ML Vial IV (10:42)
--- NOTE | 2023-02-21 12:45 | CASEMGMT ---
Addendum entered by Leni Garcia 02/21/23 14:35: RN AMY spoke w/Danica @ [facility]. New Palliative referral sent via e-mail at this time. Addendum entered by Leni Garcia 02/21/23 14:22: Dtr requested info on Medical Alert button. Info taken into pt's room at this time and left on bedside table, as dtr is not in the room. Original Note: RN?CM?VIOLENT CRIMES DETECTIVE?CM?to room to meet with patient for initial transition planning/care coordination?assessment.?Pt resting in bed w/eyes closed and BIPAP in place and kept eyes closed the whole time while RN CM in room. DtrCedrick, @ bedside. RN?CM?introduced self and role at [facility].? Dtr voices understanding and consents to?assessment?at this time.? Care providers, pharmacy, and demographics verified/updated at this time. PCP: Dr. Plunkett Specialists: Dr Aviles--oncology, Dr Peña- radiation onc, Dr Quinteros/Phyllis Adame, HOSPITAL RECEPTIONIST-pulmonology Palliative: Referral to [facility] Palliative made during last admission, but then pt tx'd to tertiary hosp. Dtr is not aware of Palliative contacting pt yet. [facility] to inquire if they received the referral or if another referral is needed. No answer. VM left. Awaiting response. Preferred Pharmacy: [facility] Insurance: [place] Medicaid Prescription Benefit:?Yes Living Will/HPOA: Yes. Cedrick Rodriges, is HCPOA. LNOK: Cedrick Rodriges Living Arrangements: Pt lives alone in an apt w/14 steps to enter. Per Cedrick, pt was just d/c'd from [facility] on Friday and she has been staying w/her since then 17/02. She states pt was able to get up and do some things on her own in the apt, but has been weak. She has been able to navigate the stairs to get into the apt, as there is railing on one side, but they are in the process of getting railing put in on both sides. Pt able to do some meals, but mostly it is just warming food items up. Dtr has been getting groceries for pt and doing her laundry. Transportation: Daughter DME: Pt has a shower chair, RTS, walker, pulse ox, [facility]. Pt has a concentrator and portable O2 tank, which dtr states she can bring in for pt to go home on. Call to [facility] who verified O2 orders are 3 l/m continuous. Dtr states pt does not use a PAP @ home. SNF/HHC: Pt just d/c'd from [facility] on Sat. She has not had HHC in the past. During previous admission, HHC set-up was attempted w/out success as unable to find HHC that was in-network w/pt's insurance and also able to cover pt's area. Dtr states [facility] also attempted to set-up HHC for pt when she d/c'd from there and they were also unsuccessful. Dtr is hoping pt will be able to discharge home and is still interested in pt having HHC. She states has no preference in what HHC agency is set up and would like any of them contacted who may be able to accept pt. Call to Avani @ [facility] and referral made. Per Avani, pt is outside of their service area. bárbara Winn/c merchandise planner, aware and will attempt getting HHC for pt, if possible. Dtr was made aware, if she or pt feels pt is too weak to return home, that SNF referral could be made, if needed. She voices appreciation for all the info. Plan: Dtr hoping pt can return home w/HHC. PT/OT evals pending. Maite THORNTONN RN CM
--- NOTE | 2023-02-21 13:13 | CASEMGMT ---
Discharge Planning HH referrals sent to [facility], [facility], and [facility] via [facility]. Tatum Clayton, Discharge Planning Asst.
--- NOTE | 2023-02-21 14:26 | CASEMGMT ---
Discharge Planning Referral sent to [facility] via [facility]. Tatum Clayton, Discharge Planning Asst.
--- NOTE | 2023-02-21 16:23 | CASEMGMT ---
Discharge Planning Patient has been declined by Xin (not an [facility] provider), Oliverio (at [facility] capacity), Ravi (unable to do PT/OT at this time), and Celsa (does not service [place]). Msg left for [place]. Tatum Clayton, Discharge Planning Asst.
--- NOTE | 2023-02-21 21:37 | CPS ---
Fio2 decreased to 45% at this time by RN
[2023-02-21] MEDS: LORazepam 2 MG/ML Syringe 0.5 MG IV (22:08)
[2023-02-21] MEDS: Propranolol LA 80 MG Capsule PO (22:37)
[2023-02-21] MEDS: Sertraline 100 MG Tablet PO (22:37)
[2023-02-21] MEDS: Metoclopramide 10 MG Tablet PO (22:37)
[2023-02-22] VITALS (15 sets, daily range): BP systolic 108–133; BP diastolic 65–77; PULSE 86–108; RESP 13–23; TEMP 36.2–36.9; O2SAT 95–100
[2023-02-22] MEDS: clonazePAM 1 MG Tablet PO ×2 (00:18→21:01)
[2023-02-22] MEDS: Ipratropium/Albuterol Sulfate 3 ML AMPUL.NEB INHALATION ×6 (01:12→18:56)
[2023-02-22] MEDS: 0.9% Saline Lock 10 ML Syringe IV ×2 (02:26→09:21)
[2023-02-22] MEDS: Ketorolac 15 MG/ML Vial IV ×3 (02:28→20:11)
[2023-02-22 06:28] LABS: Absolute Lymphocyte Count 1.63 X10^3/uL (0.83-4.51); Absolute Neutrophil Count 8.9 X10^3/uL (2.0-7.7); Basophil# 0.04 X10^3/uL; Basophil% 0.3 % (0-1); Eosinophil# 0.03 X10^3/uL; Eosinophils% 0.2 % (0-5); Hematocrit 29.1 % (37-47); Hemoglobin 8.9 g/dL (12.0-15.0); Lymphocyte # 1.63 X10^3/ul (0.83-4.51); Mean Corp Hgb Conc 30.6 g/dL (32-36); Mean Corpuscular Hgb 29.2 pg (27.0-32.0); Mean Corpuscular Volume 95.4 fL (81-99); Mean Platelet Vol. 9.6 fl (6.2-12.0); Monocyte# 1.83 X10^3/uL; Monocyte% 14.6 % (0-10); NRBC Flagged by Analyzer 0 % (0-5); Neutrophil # 8.92 X10^3/uL (2.7-7.7); Neutrophil % 71.2 % (47-70); POSITIVE DIFFERENTIAL YES; Platelet Count 635 K/mm3 (150-450); RBC Distribution Width CV 16.1 % (11.6-14.6); RBC Distribution Width SD 56.7 fl (35.1-43.9); Red Blood Count 3.05 M/mm3 (4.2-5.4); White Blood Count 12.5 K/mm3 (4.4-11.0)
[2023-02-22 06:46] LABS: Differential Indicated SCAN CRITERIA MET
[2023-02-22 07:08] LABS: Anion Gap 6 (5-15); BUN 15 mg/dL (7-18); BUN/Creat Ratio 39.1 RATIO (10-20); Calcium,Total 8.5 mg/dL (8.5-10.1); Chloride 104 mmol/L (98-107); Creatinine, Serum 0.38 mg/dL (0.55-1.02); Differential Comment SCANNED; EST Glomerular Filtration Rate 179 mL/min (>60); Est Glom Filt Rate - Afr Amer 217 mL/min (>60); Estimated Creatinine Clearance 119.85 ml/min; Glucose 85 mg/dL (74-106); Potassium 3.9 mmol/L (3.5-5.1); Sodium Level 139 mmol/L (136-145)
[2023-02-22] MEDS: dexAMETHasone 4 MG Tablet 8 MG PO (09:52)
[2023-02-22] MEDS: Furosemide 40 MG Tablet PO ×2 (09:53→17:50)
[2023-02-22] MEDS: Multivitamins,Ther W-Minerals Tablet 1 TABLET PO (09:53)
[2023-02-22] MEDS: Potassium Chloride Oral Tablet 20 MEQ PO (09:53)
[2023-02-22] MEDS: Lidocaine 5% Patch 1 PATCH TOPICAL (09:53)
[2023-02-22] MEDS: Enoxaparin 40 MG/0.4 ML Syringe SC (09:55)
[2023-02-22] MEDS: Pantoprazole Sodium 20 MG Tablet PO (09:56)
--- NOTE | 2023-02-22 10:46 | PN_ITS ---
Subjective Subjective Patient seen and examined. She is on BIPAP, on the AVAPS setting. She was taken off of bipap yesterday, but had to be put back on it due to shortness of breath. Review of systems is otherwise negative. She has remained hemodynamically stable. Objective Data Objective Data Vital Signs: Vital Signs Temp Pulse Resp BP Pulse Ox O2 Del Method O2 Flow Rate 97.8 F 90 23 H 123/77 H 95 Bi-pap 8 02/22/23 07:42 02/22/23 09:12 02/22/23 09:12 02/22/23 07:42 02/22/23 09:12 02/22/23 07:48 02/21/23 23:00 FiO2 30 02/22/23 09:12 Oxygen Flow Rate (L/min) 8 Oxygen Delivery Method Bi-pap Weight: 132 lb 14.4 oz Body Mass Index (BMI) 24.3 Intake & Output: Intake and Output for Last 24 Hours 02/20/23 02/21/23 02/22/23 23:59 23:59 23:59 Intake Total 0 / 240 340 / 340 Output Total 0 / 0 150 / 150 Balance 0 / 240 190 / 190 Medical Nutrition Assessment Dietitian: Malnutrition Criteria Met Start: 02/21/23 13:47 Freq: Status: Active Protocol: Document 02/21/23 13:47 SLA (Rec: 02/21/23 13:47 SLA [id number]) Nutrition Malnutrition Evidence of Malnutrition Exists Yes Malnutrition (severe): Acute Illness/Injury Evidenced By Suboptimal Energy Intake ( Severe),Weight Loss (Severe) Clinical Problem Acute Disease or Injury Related Malnutrition Etiology related to resp failure and inadequate energy intake Signs/Symptoms as evidenced by 5.2% unintended wt loss and po intake <50% of 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 Lab / Micro Data 02/22/23 05:47 02/22/23 05:47 Labs: Laboratory Results - last 24 hr 02/22/23 05:47: WBC 12.5 H, RBC 3.05 L, Hgb 8.9 L, Hct 29.1 L, MCV 95.4, MCH 29.2, MCHC 30.6 L, RDW Std Deviation 56.7 H, RDW Coeff of Mike 16.1 H, Plt Count 635 H, MPV 9.6, Immature Gran % (Auto) 0.700, Neut % (Auto) 71.2 H, Lymph % (Auto) 13.0 L, [place] % (Auto) 14.6 H, Eos % (Auto) 0.2, Baso % (Auto) 0.3, Absolute Neuts (auto) 8.9 H, Absolute Lymphs (auto) 1.63, Nucleated RBC % 0, Differential Comment SCANNED, Diff Path Review November foll, Sodium 139, Potassium 3.9, Chloride 104, Carbon Dioxide 29.0, Anion Gap 6, BUN 15, Creatinine 0.38 L, Estim Creat Clear Calc 119.85, Est GFR (MDRD) Af Amer 217, Est GFR (MDRD) Non-Af 179, BUN/Creatinine Ratio 39.1 H, Glucose 85, Calcium 8.5 Rhythm Strip Rhythm Strip: Sinus Tach Rate: 116 Ectopy: None Physical Exam Const alert and oriented x3 General Appearance: cooperative HEENT normocephalic, head/scalp atraumatic and moist oral mucous membranes Eyes PERRL and EOMs intact bilaterally Neck no lymphadenopathy and supple Lymph Lymphatic: no lymphadenopathy noted Resp Resp Narrative: on BIPAP. Moderately diminished breath sounds bibasally, no wheezes or crackles. On AVAP mode on BIPAP Cardio regular rate, regular rhythm, S1 normal heart sound, S2 normal heart sound and no murmurs GI normal to inspection, nondistended, normoactive bowel sounds, soft to palpation, non-tender and non-distended Extremity normal capillary refill, no clubbing, cyanosis or edema and no calf tenderness Skin General Skin Exam: no breakdown Neuro CN's II-XII intact bilaterally, no focal motor deficits, no sensory deficits noted and deep tendon reflexes 2+ bilaterally Motor Exam: strength 5/5 throughout Psych thought process normal, cooperative and affect normal Appearance: appropriate Assessment & Plan Assessment/Plan (1) Respiratory failure: PLAN: Plan #Acute on chronic hypoxic and hypercapnic respiratory failure * likely precipitated by benadryl that patient received. She received 100mg IV of benadryl, which likely caused her to become drowsy. * titrate oxygen to maintain sats >90% * initial ABG showed pH of 7.07 with pCO2 of 86.7. She was placed on BIPAP, and pCO2 came down to 80.5, with pH coming up to 7.17 * CXR showed:persistent small bilateral pleural effusions, CHF and right upper lobe infiltrate. * cant be weaned of BIPAP. * pulmonology consulted. * titrate oxygen to maintain sats >90% * Hyperkalemia: resolved. #Leucocytosis: wbc is down to 12.5. Will monitor #Hypertension: On losartan and propranolol #History of left breast cancer with mets to the bone, lungs of the brain * She is s/p partial left mastectomy. On Decadron. * couldnt have chemotherapy on day of admission as she became lethargic from benadryl * to follow up with oncology on outpatient basis * . #Depression and anxiety: On sertraline and trazodone #GERD: On PPI #NARCISO: On BiPAP nightly DVT prophylaxis: Lovenox Code status: full code * Charges/Coding Visit Charges Inpatient E&M: 57997 Subs Hosp L2
--- NOTE | 2023-02-22 13:04 | CASEMGMT ---
TUAN REYES NOTE: TUAN REYES to room. Pt sitting up in chair in room. Awake/alert/oriented. Pt made aware TUAN REYES unable to find accepting [facility] agency. Pt voices understanding. She declines wanting to go to a SNF or . She states she is still weak, but she was weak after returning home from [facility] and feels about the same as when @ home. She states she has been up to the bathroom a couple of times and it has felt good to get up. She states she still wishes to return home and is okay w/going home w/out [facility]. She states her dtr and granddaughter's are very supportive and states one of her dtr's is an EMT. She denies having other discharge planning needs or concerns. Maite KAPOOR RN, CM
[2023-02-22] MEDS: MELATONIN 3 MG TABLET PO (20:57)
[2023-02-22] MEDS: Sertraline 100 MG Tablet PO (20:58)
[2023-02-22] MEDS: Metoclopramide 10 MG Tablet PO (20:58)
[2023-02-22] MEDS: Propranolol LA 80 MG Capsule PO (20:58)
[2023-02-23] VITALS (7 sets, daily range): BP systolic 105–114; BP diastolic 64–65; PULSE 83–100; RESP 18–22; TEMP 36.2–36.6; O2SAT 94–99
--- NOTE | 2023-02-23 02:56 | CPS ---
3L Oxygen bled into home CPAP
[2023-02-23] MEDS: Ketorolac 15 MG/ML Vial IV ×2 (03:27→10:52)
[2023-02-23 04:52] LABS: Absolute Lymphocyte Count 2.01 X10^3/uL (0.83-4.51); Absolute Neutrophil Count 7.9 X10^3/uL (2.0-7.7); Basophil# 0.01 X10^3/uL; Basophil% 0.1 % (0-1); Eosinophil# 0.02 X10^3/uL; Eosinophils% 0.2 % (0-5); Hematocrit 31.5 % (37-47); Hemoglobin 9.6 g/dL (12.0-15.0); Lymphocyte # 2.01 X10^3/ul (0.83-4.51); Lymphocyte % 16.6 % (19-41); Mean Corp Hgb Conc 30.5 g/dL (32-36); Mean Corpuscular Hgb 28.3 pg (27.0-32.0); Mean Corpuscular Volume 92.9 fL (81-99); Mean Platelet Vol. 9.6 fl (6.2-12.0); Monocyte# 2.09 X10^3/uL; Monocyte% 17.2 % (0-10); NRBC Flagged by Analyzer 0 % (0-5); Neutrophil # 7.92 X10^3/uL (2.7-7.7); Neutrophil % 65.3 % (47-70); POSITIVE DIFFERENTIAL YES; Platelet Count 683 K/mm3 (150-450); RBC Distribution Width CV 15.8 % (11.6-14.6); RBC Distribution Width SD 53.3 fl (35.1-43.9); Red Blood Count 3.39 M/mm3 (4.2-5.4); White Blood Count 12.1 K/mm3 (4.4-11.0)
[2023-02-23 04:55] LABS: Differential Indicated SCAN CRITERIA MET
[2023-02-23 05:22] LABS: Anion Gap 5 (5-15); BUN 11 mg/dL (7-18); BUN/Creat Ratio 21.7 RATIO (10-20); Calcium,Total 8.7 mg/dL (8.5-10.1); Chloride 98 mmol/L (98-107); Creatinine, Serum 0.51 mg/dL (0.55-1.02); EST Glomerular Filtration Rate 130 mL/min (>60); Est Glom Filt Rate - Afr Amer 158 mL/min (>60); Glucose 98 mg/dL (74-106); Potassium 3.1 mmol/L (3.5-5.1); Sodium Level 136 mmol/L (136-145)
[2023-02-23 06:17] LABS: Differential Comment SCANNED
--- NOTE | 2023-02-23 06:22 | CON.PCM.CC_ITS ---
Assessment & Plan Assessment/Plan (1) Acute hypercapnic respiratory failure: PLAN: Plan RECOMMENDATIONS: 1. Continue baseline 3 L/min oxygen requirement, per outpatient regimen. 2. Continue nocturnal PAP therapy. 3. Continue bronchodilators. 4. Continue appropriate DVT prophylaxis. 5. Continue diuretics as ordered. 6. Encourage incentive spirometer use and mobilize patient as tolerated. 7. Outpatient pulmonary follow-up as scheduled. 8. Given that the patient is at her baseline from a respiratory perspective, we will sign off. Please call with any additional questions. IMPRESSIONS: 1. Acute on chronic respiratory failure with hypoxemia and hypercapnia The patient initially presented to the emergency department from the outpatient oncology infusion suite after developing shortness of breath and altered mental status. I do suspect that her encephalopathy was likely the consequence of the Benadryl that she received during her treatment. This, led to decreased respiratory drive and acute CO2 retention. The patient was initially managed with noninvasive positive pressure ventilatory support. She likely had an underlying component of pulmonary edema as well. All of this has responded to her current medical therapy, including twice daily diuretics. The patient does have a baseline oxygen requirement of 3 L/min. She is currently maintaining appropriate oxygen saturations at her baseline requirement. She has been compliant with use of nocturnal PAP therapy. At this time, I do not see any indication for any additional pulmonary work-up or intervention. 2. History of metastatic breast CA Continue outpatient medical therapy per oncology recommendations. 3. History of recurrent pleural effusion status post VATS and talc pleurodesis in December 2022/chronic hypoxemic respiratory failure The patient does have a baseline oxygen requirement of 3 L/min. Continue the aforementioned and follow-up in the pulmonary medicine clinic as scheduled. 4. Obstructive sleep apnea Continue nocturnal PAP therapy, per home regimen. This note was generated with [facility] software. It may contain incorrect words, spelling, and punctuation that were not noted in checking the note before signing. HPI Consult Data Date of Consult: 02/23/23 HPI Narrative Reason for Consultation: Acute on chronic respiratory failure HPI Narrative: The patient is a 62-year-old female, with a history as outlined below, who presented to the emergency department on February 20 with shortness of breath and decreased responsiveness. The patient has a known history of obstructive sleep apnea along with chronic hypoxemic respiratory failure with a 3 L/min baseline requirement, metastatic breast cancer and recurrent pleural effusions status post VATS and bilateral talc pleurodesis in December 2022 at [facility]. The patient was last seen in the pulmonary medicine clinic on February 18. The patient was apparently at the oncology infusion center receiving treatment when she began to develop shortness of breath and altered mental status. A rapid response team was called and the patient was transition to the emergency department for evaluation. On presentation to the emergency department, the patient was noted to be afebrile hemodynamically stable. She was, nevertheless, hypertensive with a blood pressure of 191/121 mmHg. The patient was initially placed on a nonrebreather, but was then transition to BiPAP. Initial laboratory evaluation revealed a white blood cell count of 20,000. Platelet count was elevated at 758,000. Chemistry profile was notable for a sodium of 135 and potassium of 5.7. Troponin was negative. Arterial blood gas demonstrated a pH of 7.07 with a PCO2 of 86 and PO2 of 105. Chest x-ray demonstrated residual effusions and a right upper lobe infiltrate. There was initial concern that the Benadryl that she received as premedication in the infusion center led to her decreased responsiveness and subsequent CO2 retention. This morning, the patient reported that she is feeling quite well from a respiratory perspective. She is on her baseline 3 L/min oxygen requirement. She has been compliant with the use of nocturnal PAP therapy. The patient remains on scheduled bronchodilators and diuretics. [facility] Medical History Alcohol use Anemia Anxiety and depression Arthritis BMI 29.0-29.9,adult Bone metastases Breast cancer (12/2020) Cancer Cardiology follow-up encounter CPAP (continuous positive airway pressure) dependence Essential hypertension Gastric reflux History of echocardiogram History of left breast cancer Hypokalemia Irregular heart beat Lung metastases Malignant neoplasm of central portion of left female breast Migraine headache Non-smoker Osteoporosis Panic disorder Pleural effusion, malignant Post-menopausal Regional lymph node metastasis present Shortness of breath Shortness of breath on exertion Syncope Wears glasses Home Medications propranolol 80 mg capsule,24 hr,extended release (Inderal LA) 80 mg PO QHS anxiety 11/25/17 [History Last Taken 02/19/23] calcium carbonate 600 mg calcium (1,500 mg) tablet (Calcium) 600 mg PO BID supplement 07/31/21 [History Last Taken 02/19/23] oxyybbef-hexe-rkat 8 mg-folic 400 mcg-K 50 mcg-lutein 300 mcg tablet (Centrum [place] Women) 1 tab PO DAILY supplement 07/31/21 [History Last Taken 02/19/23] omeprazole 20 mg capsule,delayed release 20 mg PO DAILY GERD 03/12/22 [History Last Taken 02/19/23] sertraline 50 mg tablet 100 mg PO QHS depression 03/12/22 [History Last Taken 02/19/23] losartan 50 mg tablet 50 mg PO DAILY BP #90 tabs 04/17/22 [Rx Last Taken 01/08/23] potassium chloride 20 mEq tablet,extended release 20 meq PO DAILY health maintenance #3 tabs 11/20/22 [Rx Last Taken 02/19/23] dexamethasone 4 mg tablet 8 mg (2 x 4 mg) PO DAILY before chemo #12 tabs 12/19/22 [Rx Last Taken 02/20/23] lidocaine-prilocaine 2.5 %-2.5 % topical cream 1 applic topical ONCE PRN port access 30 days #30 grams 12/19/22 [Rx Last Taken 02/20/23] ondansetron HCl 8 mg tablet 8 mg PO Q8H PRN PRN Nausea And Vomiting #60 tabs 12/19/22 [Rx Last Taken 02/19/23] clonazepam 1 mg tablet 1 mg PO QHS ANXIETY 01/09/23 [History Last Taken 02/19/23] furosemide 40 mg tablet 40 mg PO BID diuretic 02/17/23 [History Last Taken 02/19/23] metoclopramide HCl 10 mg tablet 10 mg PO .daily HS nausea 02/17/23 [History Last Taken 02/19/23] albuterol sulfate 90 mcg/actuation breath activated powder inhaler 2 inh inhalation Q4H PRN shortness of breath or wheezing 02/18/23 [History Last Taken 02/19/23] lidocaine 5 % topical patch 1 patch topical Q24H pain 02/20/23 [History Last Taken 02/19/23] Allergy/AdvReac Type Severity Reaction Status Date / Time paclitaxel AdvReac Severe Shortness Unverified 02/21/23 13:16 of breath Family History Father Brain tumor Mother Alzheimers disease Breast cancer Brother Lung cancer Surgical History History of esophagogastroduodenoscopy (EGD) History of sinus surgery History of thoracentesis (03/23/21) S/P lumpectomy, left breast Social History household members: none housing: house number of children: 1 pets and animals: Yes pets and animals: dog(s) Smoking Status: Never smoker second hand exposure: No alcohol intake: current Alcohol type: wine details: wine 2-3 drinks per night substance use type: does not use lizzie/congregational: None seatbelt use: always do you feel safe at home: Yes additional social history: has 4 grandchildren ROS ROS Narrative 10 systems were reviewed with pertinent positives as noted in the HPI above. Physical Exam Const alert and no apparent distress General Appearance: cooperative HEENT normocephalic, head/scalp atraumatic and moist oral mucous membranes Eyes PERRL, EOMs intact bilaterally and conjunctivae normal Neck supple General: trachea midline Chest Chest Narrative: Stable chest wall port. Resp normal respiratory effort Auscultation: rales bilateral lower Cardio regular rate and regular rhythm GI normal to inspection, nondistended, normoactive bowel sounds Extremity no clubbing, cyanosis or edema Skin no rashes or lesions noted Neuro CN's II-XII intact bilaterally and no focal motor deficits Psych cooperative and affect normal Medical Records Data Medical Nutrition Assessment Dietitian: Malnutrition Criteria Met Start: 02/21/23 13:47 Freq: Status: Active Protocol: Document 02/21/23 13:[address] [facility] (Rec: 02/21/23 13:[address] 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 Lab / Micro Data 02/23/23 04:15 02/23/23 04:15 Labs: Laboratory Results - last 24 hr 02/22/23 05:47: WBC 12.5 H, RBC 3.05 L, Hgb 8.9 L, Hct 29.1 L, MCV 95.4, MCH 29.2, MCHC 30.6 L, RDW Std Deviation 56.7 H, RDW Coeff of Mike 16.1 H, Plt Count 635 H, MPV 9.6, Immature Gran % (Auto) 0.700, Neut % (Auto) 71.2 H, Lymph % (Auto) 13.0 L, [place] % (Auto) 14.6 H, Eos % (Auto) 0.2, Baso % (Auto) 0.3, Absolute Neuts (auto) 8.9 H, Absolute Lymphs (auto) 1.63, Nucleated RBC % 0, Differential Comment SCANNED, Diff Path Review November foll, Sodium 139, Potassium 3.9, Chloride 104, Carbon Dioxide 29.0, Anion Gap 6, BUN 15, Creatinine 0.38 L, Estim Creat Clear Calc 119.85, Est GFR (MDRD) Af Amer 217, Est GFR (MDRD) Non-Af 179, BUN/Creatinine Ratio 39.1 H, Glucose 85, Calcium 8.5 02/23/23 04:15: WBC 12.1 H, RBC 3.39 L, Hgb 9.6 L, Hct 31.5 L, MCV 92.9, MCH 28.3, MCHC 30.5 L, RDW Std Deviation 53.3 H, RDW Coeff of Mike 15.8 H, Plt Count 683 H, MPV 9.6, Immature Gran % (Auto) 0.600, Neut % (Auto) 65.3, Lymph % (Auto) 16.6 L, [place] % (Auto) 17.2 H, Eos % (Auto) 0.2, Baso % (Auto) 0.1, Absolute Neuts (auto) 7.9 H, Absolute Lymphs (auto) 2.01, Nucleated RBC % 0, Differential Comment SCANNED, Diff Path Review May foll, Sodium 136, Potassium 3.1 L, Chloride 98, Carbon Dioxide 33.0 H, Anion Gap 5, BUN 11, Creatinine 0.51 L, Estim Creat Clear Calc 89.30, Est GFR (MDRD) Af Amer 158, Est GFR (MDRD) Non-Af 130, BUN/Creatinine Ratio 21.7 H, Glucose 98, Calcium 8.7 Rhythm Strip Rhythm Strip: Sinus Tach Rate: 116 Ectopy: None Charges/Coding Visit Charges Inpatient E&M: 28103 Init Hosp L2
[2023-02-23] MEDS: Ipratropium/Albuterol Sulfate 3 ML AMPUL.NEB INHALATION ×2 (06:38→11:26)
[2023-02-23] MEDS: Potassium Chloride Oral Tablet 20 MEQ 40 MEQ PO (09:01)
[2023-02-23] MEDS: Lidocaine 5% Patch 1 PATCH TOPICAL (09:02)
[2023-02-23] MEDS: Furosemide 40 MG Tablet PO (09:02)
[2023-02-23] MEDS: Multivitamins,Ther W-Minerals Tablet 1 TABLET PO (09:02)
[2023-02-23] MEDS: Enoxaparin 40 MG/0.4 ML Syringe SC (09:03)
[2023-02-23] MEDS: Pantoprazole Sodium 20 MG Tablet PO (09:03)
[2023-02-23] MEDS: 0.9% Saline Lock 10 ML Syringe IV ×2 (10:52→13:07)
--- NOTE | 2023-02-23 11:30 | DS.PCM_ITS ---
Providers Date of Admission: 02/20/23 Date of Discharge: 02/23/23 Primary Care Physician: Dr. Almas Flores MD Consultations 02/22/23 07:38 Consult: Relations Specialist / Pulmonary Medicine Routine Consulting Provider: Pulmonary Medicine silvino Erickson Reason for Consult: acute on chronic hypoxic resp failure EMERGENT Consult: No MD Notified: Yes Date Notified: 02/22/23 Time Notified: 07:39 Method of Notification: Text Reason For Visit: ACUTE HYPOXIC AND HYPERCAPNIC RESPIRATORY FAILURE Diagnosis Discharge Diagnosis (1) Acute hypercapnic respiratory failure: Status: Acute Code(s): J96.02 - Acute respiratory failure with hypercapnia Plan #Acute on chronic hypoxic and hypercapnic respiratory failure * likely precipitated by benadryl that patient received. She received 100mg IV of benadryl, which likely caused her to become drowsy. * titrate oxygen to maintain sats >90% * initial ABG showed pH of 7.07 with pCO2 of 86.7. She was placed on BIPAP, and pCO2 came down to 80.5, with pH coming up to 7.17 * CXR showed:persistent small bilateral pleural effusions, CHF and right upper lobe infiltrate. * cant be weaned of BIPAP. * pulmonology consulted. * titrate oxygen to maintain sats >90% * Hyperkalemia: resolved. #Leucocytosis: wbc is down to 12.5. Will monitor #Hypertension: On losartan and propranolol #History of left breast cancer with mets to the bone, lungs of the brain * She is s/p partial left mastectomy. On Decadron. * couldnt have chemotherapy on day of admission as she became lethargic from benadryl * to follow up with oncology on outpatient basis * . #Depression and anxiety: On sertraline and trazodone #GERD: On PPI #NARCISO: On BiPAP nightly DVT prophylaxis: Lovenox Code status: full code * Medications at Discharge Home Medications propranolol 80 mg capsule,24 hr,extended release (Inderal LA) 80 mg PO QHS anxiety 11/25/17 calcium carbonate 600 mg calcium (1,500 mg) tablet (Calcium) 600 mg PO BID supplement 07/31/21 [id number] 8 mg-folic 400 mcg-K 50 mcg-lutein 300 mcg tablet (Centrum Silver Women) 1 tab PO DAILY supplement 07/31/21 omeprazole 20 mg capsule,delayed release 20 mg PO DAILY GERD 03/12/22 sertraline 50 mg tablet 100 mg PO QHS depression 03/12/22 losartan 50 mg tablet 50 mg PO DAILY BP #90 tabs 04/17/22 potassium chloride 20 mEq tablet,extended release 20 meq PO DAILY health maintenance #3 tabs 11/20/22 dexamethasone 4 mg tablet 8 mg (2 x 4 mg) PO DAILY before chemo #12 tabs 12/19/22 lidocaine-prilocaine 2.5 %-2.5 % topical cream 1 applic topical ONCE PRN port access 30 days #30 grams 12/19/22 ondansetron HCl 8 mg tablet 8 mg PO Q8H PRN PRN Nausea And Vomiting #60 tabs 12/19/22 clonazepam 1 mg tablet 1 mg PO QHS ANXIETY 01/09/23 furosemide 40 mg tablet 40 mg PO BID diuretic 02/17/23 metoclopramide HCl 10 mg tablet 10 mg PO .daily HS nausea 02/17/23 albuterol sulfate 90 mcg/actuation breath activated powder inhaler 2 inh inhalation Q4H PRN shortness of breath or wheezing 02/18/23 lidocaine 5 % topical patch 1 patch topical Q24H pain 02/20/23 Hospital Course Operations None Procedures None Summary of Care Provided Minutes Spent on Discharge: 45 Hospital Course: KRIS HOUSER, is a 62 F with an extensive PMH as outlined which includes metastatic breast cancer with mets to the lung and brain who presents from the infusion center with a complaint of shortness of breath and altered mental status. She was recently admitted for recurrent pleural effusion, and had thoracentesis done. She was subsequently transferred to [facility] for VATS and pleurodesis. She came for chemotherapy today and was at the infusion center. She was premedicated with IV benadryl before the chemo.She became short of breath a nd nearly passed out. A rapid response was called and she was brouoght to the ER. She was bagged and placed on BIPAP. Vitals in the ED were temp of 98.1F, IN of 113, BP of 146/103 and RR of 28. She was on BIPAP. CBC showed Hb of 9.7, wbc of 20.4 and platelets of 758. ABG on admission showed pH of 7.07, pCO2 of 86.7 and pO2 of 105 whilst on BIPAP. She was placed on BIPAP and repeat ABG showed pH of 7.12, pCO2 of 80.5, pO2 of 96. Chemistry showed sodium of 135, potassium of 5.7 and Cr of 0.78. She is being admitted to be managed for acute hypoxic and hypercapnic respiratory failure which was thought to have been precipitated by the sedating effects of the high dose of benadryl she received. She was placed on BiPAP. She was initially still short of breath and had to be transitioned to AVAPS during her course of stay. However her breathing gradually improved. Pulmonology was consulted. She was weaned down to her baseline 3 L of oxygen. She remained stable and was discharged home on 02/23/2023 on her baseline 3 L of oxygen. She is to follow-up with her primary care doctor and oncologist within 1 to 2 weeks. Patient seen and examined prior to discharge. She had no complaints and felt well. She had an uneventful night and felt much better. She wanted to be discharged home. Review of systems otherwise negative. Labs and vitals reviewed. Home medication reviewed and reconciled. Physical Exam Const alert, oriented x3 and no apparent distress General Appearance: cooperative and comfortable HEENT normocephalic, head/scalp atraumatic, hearing grossly normal bilaterally and moist oral mucous membranes Mouth: oral and palatal mucosa normal Eyes PERRL, EOMs intact bilaterally and conjunctivae normal Neck no lymphadenopathy and supple Lymph Lymphatic: no lymphadenopathy noted Resp Resp Narrative: on 3L of oxygen which is her baseline, diminished breath sounds bibasally, few crackles bilaterally, likely from recent pleurodesis Cardio regular rate, regular rhythm, S1 normal heart sound, S2 normal heart sound and no murmurs Rate: tachycardic GI normal to inspection, nondistended, normoactive bowel sounds, soft to palpation, non-tender and non-distended Extremity normal to inspection, full ROM, normal capillary refill, no clubbing, cyanosis or edema and no calf tenderness Skin no rashes or lesions noted, no wounds and skin turgor normal General Skin Exam: no breakdown Neuro oriented x3, CN's II-XII intact bilaterally, moves all extremities, no focal motor deficits, no sensory deficits noted and deep tendon reflexes 2+ bilaterally Sensorium / Orientation: awake and alert Motor Exam: strength 5/5 throughout Psych thought process normal, cooperative and affect normal Appearance: appropriate Medical Records Data Medical Nutrition Assessment Dietitian: Malnutrition Criteria Met Start: 02/21/23 13:47 Freq: Status: Active Protocol: Document 02/21/23 13:47 JOSIE (Rec: 02/21/23 13:47 SLA [id number]) Nutrition Malnutrition Evidence of Malnutrition Exists Yes Malnutrition (severe): Acute Illness/Injury Evidenced By Suboptimal Energy Intake ( Severe),Weight Loss (Severe) Clinical Problem Acute Disease or Injury Related Malnutrition Etiology related to resp failure and inadequate energy intake Signs/Symptoms as evidenced by 5.2% unintended wt loss and po intake <50% of 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 Weight / BMI Weight Weight: 132 lb 14.4 oz Body Mass Index (BMI) 24.3 ABG / Lab / Microbiology Data 02/23/23 04:15 02/23/23 04:15 Laboratory: Laboratory Results - last 24 hr 02/23/23 04:15: WBC 12.1 H, RBC 3.39 L, Hgb 9.6 L, Hct 31.5 L, MCV 92.9, MCH 28.3, MCHC 30.5 L, RDW Std Deviation 53.3 H, RDW Coeff of Mike 15.8 H, Plt Count 683 H, MPV 9.6, Immature Gran % (Auto) 0.600, Neut % (Auto) 65.3, Lymph % (Auto) 16.6 L, [place] % (Auto) 17.2 H, Eos % (Auto) 0.2, Baso % (Auto) 0.1, Absolute Neuts (auto) 7.9 H, Absolute Lymphs (auto) 2.01, Nucleated RBC % 0, Differential Comment SCANNED, Diff Path Review November, Sodium 136, Potassium 3.1 L, Chloride 98, Carbon Dioxide 33.0 H, Anion Gap 5, BUN 11, Creatinine 0.51 L, Estim Creat Clear Calc 89.30, Est GFR (MDRD) Af Amer 158, Est GFR (MDRD) Non-Af 130, BUN/Creatinine Ratio 21.7 H, Glucose 98, Calcium 8.7 D/C Instructions Discharge Diet: Low fat / Low cholesterol Discharge Activity: Return to Normal Activity Weight Bearing Status: Weight bearing as tolerated Call your doctor if you observe: Fever of 101 or Higher, Shortness of breath, Dizziness, Swelling in the ankles, Chest pain and Increased palpitations (irregular heartbeat) Meaningful Use Info Meaningful Use Diagnoses (Choose all that apply): None applicable Discharge Plan Admission Admit Date/Time: 02/20/23 15:21 Primary Reason for Your Visit: hypoxia Attending Provider: Anita Dela Cruz Primary Care Provider: Almas Flores Consulting Providers: Armin Anderson; Giovanny Quinteros; Elton Luo; Rich Carrasquillo; Phyllis Castillo HYDROGEN TREATER Instructions Patient Instructions: Shortness of Breath Coping Discharge Orders/Prescriptions Prescriptions: No Action propranolol [Inderal LA] 80 mg capsule,extended release 24 hr 80 mg PO QHS calcium carbonate [Calcium 600] 600 mg calcium (1,500 mg) tablet 600 mg PO BID Centrum Silver Women 8 mg iron-400 mcg-300 mcg tablet 1 tab PO DAILY sertraline 50 mg tablet 100 mg PO QHS omeprazole 20 mg capsule,delayed release(DR/EC) 20 mg PO DAILY potassium chloride 20 mEq tablet extended release 20 meq PO DAILY Qty: 3 0RF ondansetron HCl 8 mg tablet 8 mg PO Q8H PRN PRN (Reason: Nausea And Vomiting) Qty: 60 6RF lidocaine-prilocaine 2.5-2.5 % cream 1 applic topical ONCE PRN (Reason: port access) 30 Days Qty: 30 2RF dexamethasone 4 mg tablet 8 mg PO DAILY Qty: 12 3RF Rx Instructions: Take 8 mg PO the day before, the day of and the day after chemotherapy ONLY furosemide 40 mg tablet 40 mg PO BID metoclopramide HCl 10 mg tablet 10 mg PO .daily HS albuterol sulfate 90 mcg/actuation aerosol powdr breath activated 2 inh inhalation Q4H PRN (Reason: shortness of breath or wheezing) clonazepam 1 mg tablet 1 mg PO QHS lidocaine 5 % adhesive patch,medicated 1 patch topical Q24H losartan 50 mg tablet 50 mg PO DAILY Qty: 90 3RF Hold Instructions: until seen by sales product specialist Referrals / Follow Up: Almas Flores MD [Primary Care Provider] - Within 1 Week Disposition Disposition (needs filled in before D/C Order can be placed): Home, Self Care Charges/Coding Visit Charges Inpatient E&M: 87284 Disch Hosp >30min
--- NOTE | 2023-02-24 09:02 | CASEMGMT ---
TUAN REYES NOTE: Spoke w/[facility]. They are unable to accept pt d/t out of their service area. Maite THORNTONN TUAN CM
[2023-02-24 09:31] LABS: Pathologist Review Reviewed
[2023-02-24 15:40] LABS: Pathologist Review Reviewed
[2023-02-24 15:46] LABS: Pathologist Review Reviewed
--- NOTE | 2023-02-24 16:48 | CASEMGMT ---
Addendum entered by Leni Garcia 02/24/23 16:55: Per Emma @ [facility], they do not cover pt's area. Original Note: TUAN REYES NOTE: TUAN REYES spoke w/Ronda @ /[facility]. They do cover pt's area, but they are not in-network w/[place] [facility]. Call placed to [facility], who states they are not able to accept pt d/t they do no have the staffing. JOSAFAT left w/Emma @ [facility] to inquire if they are in-network w/pt's insurance. No answer. JOSAFAT left for her to return call to TUAN Wilson CM business relationship manager. Maite KAPOOR RN CM
== END 2023-02-23 13:56 | disposition home or self-care (01) | DRG 133 ==
LOC: ED 12:12 → PCU 15:42
PROVIDERS: Admitting Provider Student in an Organized Health Care Education/Training Program; Emergency Provider Emergency Medicine; PCP Family Medicine; Visit Provider Student in an Organized Health Care Education/Training Program
DX: J96.22 Acute and chronic respiratory failure with hypercapnia (principal); G92.9 Unspecified toxic encephalopathy; C79.51 Secondary malignant neoplasm of bone; C77.9 Secondary and unspecified malignant neoplasm of lymph node, unspecified; I11.0 Hypertensive heart disease with heart failure; I50.9 Heart failure, unspecified; C78.00 Secondary malignant neoplasm of unspecified lung; C79.31 Secondary malignant neoplasm of brain; J96.21 Acute and chronic respiratory failure with hypoxia; G47.33 Obstructive sleep apnea (adult) (pediatric); K21.9 Gastro-esophageal reflux disease without esophagitis; E87.5 Hyperkalemia; T45.0X5A Adverse effect of antiallergic and antiemetic drugs, initial encounter; Y92.538 Other ambulatory health services establishments as the place of occurrence of the external cause; R51.9 Headache, unspecified; Z79.52 Long term (current) use of systemic steroids; Z66 Do not resuscitate; Z90.12 Acquired absence of left breast and nipple; Z85.3 Personal history of malignant neoplasm of breast
CPT/HCPCS: 36415; 36591; 36600; 71045; 80048; 80053; 82607; 82728; 82803; 82962; 83540; 83550; 84484; 85025; 86300; 93005; 94002; 94003; 94640; 94762; 96375; 96376; 96413; 96415; 96523; 97162; 97166; 97530; 97802; 99284; J2997; J7040; J7050; A4216; J2405; J3490; J9267

== ENCOUNTER 2023-03-07 09:51 | Observation (INO) | payer MEDICAID, SELFPAY ==
[2023-03-07] VITALS (7 sets, daily range): BP systolic 115–134; BP diastolic 61–72; PULSE 83–92; RESP 14–18; TEMP 36.1–36.8; O2SAT 93–99; BMI 22.8; BMI 23.0
--- NOTE | 2023-03-07 11:01 | EKG12_ITS ---
Test Reason : SOB Blood Pressure : / mmHG Vent. Rate : 085 BPM Atrial Rate : 085 BPM P-R Int : 132 ms QRS Dur : 072 ms QT Int : 376 ms P-R-T Axes : 042 016 055 degrees QTc Int : 447 ms Normal sinus rhythm Normal ECG When compared with ECG of 20-FEB-2023 12:04, No significant change was found Confirmed by MOISES SLOAN MD ([id number]), development editor YAZMIN NEWBERRY ([id number]) on 05/16/2023 7:00:45 AM Referred By: Confirmed By:MOISES SLOAN MD
--- NOTE | 2023-03-07 11:09 | ED.VIS.DYS ---
HPI History of Present Illness Chief Complaint: Shortness of Breath Informant: patient Onset/Context/Timing Onset: Days (3) Context: gradual Timing: Continuous Quality: Positive for Dyspnea on exertion and Orthopnea Worsened by: Exertion and Lying flat Relieved by: Nothing Associated Symptoms cough; Negative for rhinorrhea, post nasal drip, ear pain, fever, sore throat, chills, sweats, clear sputum, white sputum, yellow sputum or green sputum Narrative Narrative: Patient presents with shortness of breath that has been getting worse over the last 3 days. Patient states it is gradually getting worse. Patient states it is constant. Patient states she has been unable to lay flat because of the breathing. Patient states her breathing is also worse with exertion. Patient states nothing seems to help with her breathing. Patient admits to a cough but denies any sputum production. Patient denies any fevers or chills. Patient denies any chest pain. Patient states she has a history of frequent pleural effusions and has had multiple thoracentesis as well as a pleurodesis. PE Risk Factors: Positive for Cancer; Negative for OCP + Smoking + > 35, Prior DVT or PE, Recent immobilization or Recent surgery [facility] Medical History Alcohol use Anemia Anxiety and depression Arthritis BMI 29.0-29.9,adult Bone metastases Breast cancer (12/2020) Cancer Cardiology follow-up encounter CPAP (continuous positive airway pressure) dependence Essential hypertension Gastric reflux History of echocardiogram History of left breast cancer Hypokalemia Irregular heart beat Leukocytosis Lung metastases Malignant neoplasm of central portion of left female breast Migraine headache Non-smoker Osteoporosis Panic disorder Pleural effusion, malignant Post-menopausal Regional lymph node metastasis present Respiratory failure Shortness of breath Shortness of breath on exertion Syncope Wears glasses Home Medications propranolol 80 mg capsule,24 hr,extended release (Inderal LA) 80 mg PO QHS anxiety 11/25/17 [History Last Taken 03/06/23] calcium carbonate 600 mg calcium (1,500 mg) tablet (Calcium) 600 mg PO DAILY supplement 07/31/21 [History Last Taken 03/06/23] [id number] 8 mg-folic 400 mcg-K 50 mcg-lutein 300 mcg tablet (Centrum Silver Women) 1 tab PO DAILY supplement 07/31/21 [History Last Taken 03/06/23] omeprazole 20 mg capsule,delayed release 20 mg PO DAILY GERD 03/12/22 [History Last Taken 03/06/23] sertraline 50 mg tablet 100 mg PO QHS depression 03/12/22 [History Last Taken 03/06/23] losartan 50 mg tablet 50 mg PO DAILY BP #90 tabs 04/17/22 [Rx Last Taken 03/06/23] potassium chloride 20 mEq tablet,extended release 20 meq PO DAILY health maintenance #3 tabs 11/20/22 [Rx Last Taken 03/06/23] ondansetron HCl 8 mg tablet 8 mg PO Q8H PRN PRN Nausea And Vomiting #60 tabs 12/19/22 [Rx Last Taken 03/06/23] clonazepam 1 mg tablet 1 mg PO QHS ANXIETY 01/09/23 [History Last Taken 03/06/23] furosemide 40 mg tablet 40 mg PO BID diuretic 02/17/23 [History Last Taken 03/06/23] metoclopramide HCl 10 mg tablet 10 mg PO PRN nausea 02/17/23 [History Last Taken 02/19/23] albuterol sulfate 90 mcg/actuation breath activated powder inhaler 2 inh inhalation Q4H PRN shortness of breath or wheezing 02/18/23 [History Last Taken 02/19/23] lidocaine 5 % topical patch 1 patch topical Q24H pain 02/20/23 [History Last Taken 03/06/23] ascorbic acid (vitamin C) 500 mg tablet (C-500) 500 mg PO DAILY SUPPLEMENT 03/07/23 [History Last Taken 03/06/23] Allergy/AdvReac Type Severity Reaction Status Date / Time paclitaxel AdvReac Severe Shortness Verified 03/07/23 09:54 of breath Family History Father Brain tumor Mother Alzheimers disease Breast cancer Brother Lung cancer Surgical History History of esophagogastroduodenoscopy (EGD) History of sinus surgery History of thoracentesis (03/23/21) S/P lumpectomy, left breast Social History household members: none housing: house number of children: 1 pets and animals: Yes pets and animals: dog(s) Smoking Status: Never smoker second hand exposure: No alcohol intake: current Alcohol type: wine details: wine 2-3 drinks per night substance use type: does not use lizzie/rastafarian: None seatbelt use: always do you feel safe at home: Yes additional social history: has 4 grandchildren ROS ROS ED Constitutional Constitutional ED: Denies chills or fever(s) Eyes Eyes: Denies blurry vision or change in vision ENT ENT ED: Denies rhinorrhea or sore throat Cardiovascular Cardiovascular: Denies chest pain or palpitations Respiratory/Chest Respiratory/Chest: Reports cough and dyspnea Gastrointestinal Gastrointestinal: Reports nausea; Denies vomiting Genitourinary Genitourinary ED: Denies dysuria or hematuria Musculoskeletal Musculoskeletal: Reports back pain; Denies neck pain Integumentary Denies abscess or rash Neurologic Neurologic: Reports headache(s); Denies weakness Allergic/Immunologic Allergic/Immunologic ED: Denies mouth swelling or urticaria EXAM Physical Exam Const Vital Signs: 03/07/23 09:52 03/07/23 11:15 03/07/23 11:16 Temperature 97 F L Temperature Source Temporal Pulse Rate 83 Respiratory Rate 16 Respiratory Effort Short of Breath Respiratory Pattern Tachypnea Blood Pressure 115/61 Blood Pressure Mean 79 Pulse Ox 99 94 Oxygen Delivery Method Room Air Nasal Cannula Nasal Cannula Oxygen Flow Rate (L/min) 3 03/07/23 13:35 03/07/23 13:35 Temperature 97.6 F L Temperature Source Temporal Pulse Rate 91 91 Respiratory Rate 18 14 Respiratory Effort Respiratory Pattern Blood Pressure 134/61 H 134/61 H Blood Pressure Mean 85 85 Pulse Ox 93 93 Oxygen Delivery Method Nasal Cannula Nasal Cannula Oxygen Flow Rate (L/min) 3 3 Positive well nourished and well developed General Appearance ED: well developed HEENT Reports moist mucous membranes Neck supple and no JVD Resp normal respiratory effort Auscultation: rales left lower and 1/2 way up and diminished lung sounds right lower Cardio regular rate, regular rhythm and no murmurs GI normal to inspection, nondistended, normoactive bowel sounds and non-tender Palpation: soft Extremity normal to inspection General Extremety ED: Negative for edema or tenderness General Extremity: Negative for edema Neuro oriented x3, CN's II-XII intact bilaterally and no sensory deficits noted Sensorium / Orientation: alert Motor Exam: strength 5/5 throughout Psych mental status grossly normal Skin no rashes or lesions noted MDM MDM MDM Narrative Medical decision making narrative: Differential diagnosis includes congestive heart failure, pleural effusion, cardiac dysrhythmia, cardiac ischemia, pneumonia, pneumothorax, and viral illness. Chest x-ray will be obtained to assess for pleural effusion, congestive heart failure, pneumonia, pneumothorax. EKG will be obtained to assess for cardiac dysrhythmia and cardiac ischemia. CBC will be obtained to assess for leukocytosis and anemia. Basic metabolic profile will be obtained to assess for electrolyte abnormality and renal function. PT with INR and PTT will be obtained to assess for coagulopathy. High-sensitivity troponin will be obtained to assess for cardiac ischemia. 2-hour repeat high-sensitivity troponin will be obtained to assess for ongoing cardiac ischemia. Serum lactate will be obtained to assess for sepsis. Blood cultures will be obtained to assess for sepsis. Lab Data Attestation: I reviewed the patient's lab results. Lab results narrative: CBC was reviewed. There is a mild anemia with a hemoglobin of 10.7 and hematocrit 35.8. Platelets were elevated at 667. Basic metabolic profile was reviewed. CO2 was slightly increased at 36. The remainder was essentially within normal limits. High-sensitivity troponin was reviewed and was normal at 28. BNP was reviewed and was slightly elevated at 202.5. Lactate was reviewed and was normal at 1.0. PT with INR and PTT were reviewed and were within normal limits. Labs: Laboratory Results - last 24 hr 03/07/23 03/07/23 11:15 12:10 WBC 10.9 RBC 3.76 L Hgb 10.7 L Hct 35.8 L MCV 95.2 MCH 28.5 MCHC 29.9 L RDW Std Deviation 55.2 H RDW Coeff of Mike 15.9 H Plt Count 667 H MPV 9.7 Immature Gran % (Auto) 0.400 Neut % (Auto) 76.5 H Lymph % (Auto) 10.3 L [place] % (Auto) 10.1 H Eos % (Auto) 2.2 Baso % (Auto) 0.5 Absolute Neuts (auto) 8.3 H Absolute Lymphs (auto) 1.12 Nucleated RBC % 0 PT 12.3 INR 0.9 APTT 27.2 Sodium 136 Potassium 3.7 Chloride 98 Carbon Dioxide 36.0 H Anion Gap 2 L BUN 11 Creatinine 0.46 L Est GFR (MDRD) Af Amer 176 Est GFR (MDRD) Non-Af 146 BUN/Creatinine Ratio 24.0 H Glucose 101 Lactic Acid 1.0 Calcium 9.1 Troponin I High Sens 28 B-Natriuretic Peptide 202.5 H Radiography Diagnostic Testing: Clinical Impression(s) from Imaging Studies Chest X-Ray 03/07/23 11:28 IMPRESSION: CHF with superimposed bibasilar atelectasis and/or infiltrate with small bilateral pleural effusions. Electronically Signed: Kiran Laurent MD at 11:47 EDT , Portable 1 view chest x-ray was obtained. On my independent interpretation, lung mehta show evidence of congestive heart failure with bibasilar atelectasis and small bilateral effusions. There is normal cardiac silhouette. Bony thorax is normal. Radiologist also interpreted the x-ray and agrees. EKG Initial EKG: Attestation: I personally reviewed and interpreted this EKG as follows: Interpretation: Sinus Rhythm (85) and No Acute Injury Pattern Comments: EKG was obtained. On my independent interpretation, it showed a normal sinus rhythm with a rate of 85. VT interval, QRS interval, and QTc intervals were all normal. [place] was normal. There are no acute ST or T wave changes. Management Discussion w/another healthcare provider: Hospitalist Treatment and Re-Evaluation :: Patient was given Lasix here. Patient developed some nausea. Patient was given a dose of Zofran. Patient and family were advised of her findings. Patient is feeling better on reevaluation. Patient was advised of the need for hospitalization. Patient and family are agreeable with this. Case was discussed with the hospitalist. He will admit the patient to his service. Patient understood and was agreeable with the plan. All questions were answered. Discharge Plan Dx/Rx/DC Orders Clinical Impression: Shortness of breath, Congestive heart failure Disposition Disposition: Acute Care Hospital [facility] Discharge Date/Time: 03/07/23 14:33
--- NOTE | 2023-03-07 11:28 | RAD_ITS ---
STUDY: X-RAY CHEST REASON FOR EXAM: Female, 62 years old. Dyspnea TECHNIQUE: Single AP portable view of the chest. COMPARISON: Comparison is made with prior study dated February 20, 2023. FINDINGS: A right-sided armando catheter seen with the tip in the right atrium. EKG electrodes are seen. Surgical clips are seen in the left axillary region. Vascular congestion and CHF with superimposed bibasilar atelectasis and/or infiltrate and small bilateral pleural effusions. Normal size heart. Normal mediastinum and crispin. Normal visualized pulmonary arteries. There is atherosclerotic calcification of the aortic arch with tortuosity. There are diffuse degenerative changes of the visualized thoracic spine. Normal visualized ribs, clavicles, and shoulders. There is no demonstrated abnormality of the visualized soft tissue structures of the upper abdomen. RAD/Chest 1 View (Portable) IMPRESSION: CHF with superimposed bibasilar atelectasis and/or infiltrate with small bilateral pleural effusions. Electronically Signed: Kiran Laurent MD at 11:47 EDT ,
[2023-03-07 11:29] LABS: Absolute Lymphocyte Count 1.12 X10^3/uL (0.83-4.51); Absolute Neutrophil Count 8.3 X10^3/uL (2.0-7.7); Basophil# 0.05 X10^3/uL; Basophil% 0.5 % (0-1); Eosinophil# 0.24 X10^3/uL; Eosinophils% 2.2 % (0-5); Hematocrit 35.8 % (37-47); Hemoglobin 10.7 g/dL (12.0-15.0); Lymphocyte # 1.12 X10^3/ul (0.83-4.51); Lymphocyte % 10.3 % (19-41); Mean Corp Hgb Conc 29.9 g/dL (32-36); Mean Corpuscular Hgb 28.5 pg (27.0-32.0); Mean Corpuscular Volume 95.2 fL (81-99); Mean Platelet Vol. 9.7 fl (6.2-12.0); Monocyte% 10.1 % (0-10); NRBC Flagged by Analyzer 0 % (0-5); Neutrophil # 8.33 X10^3/uL (2.7-7.7); Neutrophil % 76.5 % (47-70); Platelet Count 667 K/mm3 (150-450); RBC Distribution Width CV 15.9 % (11.6-14.6); RBC Distribution Width SD 55.2 fl (35.1-43.9); Red Blood Count 3.76 M/mm3 (4.2-5.4); White Blood Count 10.9 K/mm3 (4.4-11.0)
[2023-03-07] MEDS: Furosemide 40 MG/4 ML Vial IV ×2 (11:42→16:32)
[2023-03-07 11:47] LABS: BNP,B-Type NATRIURETIC PEPTIDE 202.5 pg/mL (0-100)
[2023-03-07 11:53] LABS: Anion Gap 2 (5-15); BUN 11 mg/dL (7-18); Calcium,Total 9.1 mg/dL (8.5-10.1); Chloride 98 mmol/L (98-107); Creatinine, Serum 0.46 mg/dL (0.55-1.02); EST Glomerular Filtration Rate 146 mL/min (>60); Est Glom Filt Rate - Afr Amer 176 mL/min (>60); Glucose 101 mg/dL (74-106); Potassium 3.7 mmol/L (3.5-5.1); Sodium Level 136 mmol/L (136-145); Troponin-I HS (w/2H Reflex) 28 pg/mL (3.0-54.0)
[2023-03-07] MEDS: Ondansetron 4 MG/2 ML Vial IV (12:23)
[2023-03-07 12:35] LABS: International Normalized Ratio 0.9; Partial Thromboplast Time 27.2 Seconds (24.1-36.2); Prothrombin Time (Protime)PT. 12.3 SECONDS (11.7-14.9)
[2023-03-07 13:26] LABS: Reflex Troponin-HS? (from REC) Y
--- NOTE | 2023-03-07 13:57 | HP.PCM.HOS_ITS ---
HPI - General General Date of Admission: 03/07/23 HPI Narrative KRIS HOUSER, is a 62 F who presents to the hospital with increasing shortness of breath. Is gotten worse over the last 3 days. She has some difficulty with lying flat secondary to feeling like she is drowning. She has been recently admitted to the hospital within the last month or so due to malignant pleural effusion that she was transferred out for a pleurodesis and then medication reaction to Benadryl and a chemotherapy infusion leading to shortness of breath. Now it appears that she has a CHF exacerbation, her BNP in the ER was elevated to 200. Chest x-ray does show congestion bilaterally. [facility] Medical History Alcohol use Anemia Anxiety and depression Arthritis BMI 29.0-29.9,adult Bone metastases Breast cancer (12/2020) Cancer Cardiology follow-up encounter CPAP (continuous positive airway pressure) dependence Essential hypertension Gastric reflux History of echocardiogram History of left breast cancer Hypokalemia Irregular heart beat Leukocytosis Lung metastases Malignant neoplasm of central portion of left female breast Migraine headache Non-smoker Osteoporosis Panic disorder Pleural effusion, malignant Post-menopausal Regional lymph node metastasis present Respiratory failure Shortness of breath Shortness of breath on exertion Syncope Wears glasses Home Medications propranolol 80 mg capsule,24 hr,extended release (Inderal LA) 80 mg PO QHS anxiety 11/25/17 [History Last Taken 02/19/23] calcium carbonate 600 mg calcium (1,500 mg) tablet (Calcium) 600 mg PO BID supplement 07/31/21 [History Last Taken 02/19/23] [id number] 8 mg-folic 400 mcg-K 50 mcg-lutein 300 mcg tablet (Centrum Silver Women) 1 tab PO DAILY supplement 07/31/21 [History Last Taken 02/19/23] omeprazole 20 mg capsule,delayed release 20 mg PO DAILY GERD 03/12/22 [History Last Taken 02/19/23] sertraline 50 mg tablet 100 mg PO QHS depression 03/12/22 [History Last Taken 02/19/23] losartan 50 mg tablet 50 mg PO DAILY BP #90 tabs 04/17/22 [Rx Last Taken 01/08/23] potassium chloride 20 mEq tablet,extended release 20 meq PO DAILY health maintenance #3 tabs 11/20/22 [Rx Last Taken 02/19/23] dexamethasone 4 mg tablet 8 mg (2 x 4 mg) PO DAILY before chemo #12 tabs 12/19/22 [Rx Last Taken 02/20/23] lidocaine-prilocaine 2.5 %-2.5 % topical cream 1 applic topical ONCE PRN port access 30 days #30 grams 12/19/22 [Rx Last Taken 02/20/23] ondansetron HCl 8 mg tablet 8 mg PO Q8H PRN PRN Nausea And Vomiting #60 tabs 12/19/22 [Rx Last Taken 02/19/23] clonazepam 1 mg tablet 1 mg PO QHS ANXIETY 01/09/23 [History Last Taken 02/19/23] furosemide 40 mg tablet 40 mg PO BID diuretic 02/17/23 [History Last Taken 02/19/23] metoclopramide HCl 10 mg tablet 10 mg PO .daily HS nausea 02/17/23 [History Last Taken 02/19/23] albuterol sulfate 90 mcg/actuation breath activated powder inhaler 2 inh inhalation Q4H PRN shortness of breath or wheezing 02/18/23 [History Last Taken 02/19/23] lidocaine 5 % topical patch 1 patch topical Q24H pain 02/20/23 [History Last [place] en 02/19/23] Allergy/AdvReac Type Severity Reaction Status Date / Time paclitaxel AdvReac Severe Shortness Verified 03/07/23 09:54 of breath Family History Father Brain tumor Mother Alzheimers disease Breast cancer Brother Lung cancer Surgical History History of esophagogastroduodenoscopy (EGD) History of sinus surgery History of thoracentesis (03/23/21) S/P lumpectomy, left breast Social History household members: none housing: house number of children: 1 pets and animals: Yes pets and animals: dog(s) Smoking Status: Never smoker second hand exposure: No alcohol intake: current Alcohol type: wine details: wine 2-3 drinks per night substance use type: does not use lizzie/baptist: None seatbelt use: always do you feel safe at home: Yes additional social history: has 4 grandchildren ROS Constitutional Constitutional: Denies chills, fatigue, fever(s) or malaise Eyes Eyes: Denies blurry vision ENT HEENT: Denies headache(s) or nasal discharge Cardiovascular Cardiovascular: Reports orthopnea; Denies chest pain, dyspnea on exertion or syncope Respiratory/Chest Respiratory/Chest: Reports shortness of breath at rest; Denies cough or shortness of breath with exertion Gastrointestinal Gastrointestinal: Denies constipation, diarrhea, nausea or vomiting Genitourinary Genitourinary: Denies dysuria Neurologic Neurologic: Denies focal weakness, numbness or tremor(s) Psychiatric Psychiatric: Denies anxiety or depression Vital Signs Vital Signs Vital Signs: 03/07/23 09:52 03/07/23 11:15 03/07/23 11:16 Temperature 97 F L Temperature Source Temporal Pulse Rate 83 Respiratory Rate 16 Respiratory Effort Short of Breath Respiratory Pattern Tachypnea Blood Pressure 115/61 Blood Pressure Mean 79 Pulse Ox 99 94 Oxygen Delivery Method Room Air Nasal Cannula Nasal Cannula Oxygen Flow Rate (L/min) 3 Physical Exam Narrative General: Alert, Oriented x3, Cooperative, No apparent distress HEENT: Atraumatic, PERRLA, EOMI, Normocephalic Oral: Moist Mucosa Neck: Supple, No JVD Lungs: Diminished, Normal air movement, No rhonchi, No wheeze, No rales Cardiovascular: Regular rate, Regular Rhythm, Normal S1, Normal S2, No murmurs Abdomen: Soft, Non Tender, Non-Distended, No Hepato-splenomegaly Extremities: Edema, Capillary Refill Less than 3 Seconds Skin: No rashes, No breakdown Musculoskeletal: No Tenderness to Palpation of Joints or Extremities Neurological: Cranial nerves II-XII grossly intact, Motor Exam 5/5 strength throughout, Sensory exam intact to light touch and pain Psych/Mental Status: Normal Affect, Appropriate Results Lab / Micro Data 03/07/23 11:15 03/07/23 11:15 Labs: Laboratory Results - last 24 hr 03/07/23 11:15: WBC 10.9, RBC 3.76 L, Hgb 10.7 L, Hct 35.8 L, MCV 95.2, MCH 28.5, MCHC 29.9 L, RDW Std Deviation 55.2 H, RDW Coeff of Mike 15.9 H, Plt Count 667 H, MPV 9.7, Immature Gran % (Auto) 0.400, Neut % (Auto) 76.5 H, Lymph % (Auto) 10.3 L, Sierra % (Auto) 10.1 H, Eos % (Auto) 2.2, Baso % (Auto) 0.5, Absolute Neuts (auto) 8.3 H, Absolute Lymphs (auto) 1.12, Nucleated RBC % 0, Sodium 136, Potassium 3.7, Chloride 98, Carbon Dioxide 36.0 H, Anion Gap 2 L, BUN 11, Creatinine 0.46 L, Est GFR (MDRD) Af Amer 176, Est GFR (MDRD) Non-Af 146, BUN/Creatinine Ratio 24.0 H, Glucose 101, Calcium 9.1, Troponin I High Sens 28, B-Natriuretic Peptide 202.5 H 03/07/23 12:10: PT 12.3, INR 0.9, APTT 27.2, Lactic Acid 1.0 Radiology Impression Chest X-Ray 03/07/23 11:28 IMPRESSION: CHF with superimposed bibasilar atelectasis and/or infiltrate with small bilateral pleural effusions. Electronically Signed: Kiran Laurent MD at 11:47 EDT , Assessment & Plan Assessment/Plan (1) Congestive heart failure: PLAN: Plan 1. Acute on chronic diastolic CHF/HTN ? She had an echo about a year ago that demonstrated stage I diastolic dysfunction with normal systolic function ? We will place her on twice daily IV Lasix ? Can resume her home medications for her blood pressure ? I had a 20-minute discussion with her and her daughter on advance care planning secondary to her stage IV breast cancer and once she is feeling better would like to proceed with hospice. Therefore will not obtain an echo 2. Stage IV left breast cancer with metastatic disease to the bone, lungs, and brain ? She is status post pleurodesis for her bilateral malignant pleural effusions ? She is currently receiving palliative radiation to her brain ? She no longer has any chemotherapeutic options ? We will proceed with hospice care on discharge 3. Anxiety/depression ? Stable ? Continue with her home meds 4. GERD ? Stable ? Continue with PPI 5. NARCISO ? Stable ? Continue with BiPAP DVT: Lovenox 75 minutes was spent on direct patient care, including documentation as well as chart review and collaboration with colleagues Charges/Coding Procedures Hospitalists Procedures: 61295 Advncd Care Plan 30 Min
[2023-03-07 14:22] LABS: Troponin-I HS 32 pg/mL (3.0-54.0)
[2023-03-07] MEDS: Acetaminophen 500 MG Tablet PO (16:31)
[2023-03-07] MEDS: 0.9% Saline Lock 10 ML Syringe IV (16:33)
[2023-03-07] MEDS: Sertraline 100 MG Tablet PO (21:47)
[2023-03-07] MEDS: Propranolol LA 80 MG Capsule PO (21:47)
[2023-03-07] MEDS: clonazePAM 1 MG Tablet PO (21:50)
[2023-03-08 03:29] VITALS: BP 129/64; PULSE 86; RESP 18; TEMP 36.4; O2SAT 95
[2023-03-08] MEDS: Acetaminophen 500 MG Tablet PO (05:01)
[2023-03-08] MEDS: Ondansetron 4 MG/2 ML Vial IV (05:02)
[2023-03-08] MEDS: 0.9% Saline Lock 10 ML Syringe IV ×3 (05:02→18:55)
[2023-03-08 06:00] VITALS: BMI 22.8
[2023-03-08 06:46] LABS: Absolute Lymphocyte Count 1.36 X10^3/uL (0.83-4.51); Absolute Neutrophil Count 7.2 X10^3/uL (2.0-7.7); Basophil# 0.06 X10^3/uL; Basophil% 0.6 % (0-1); Eosinophil# 0.27 X10^3/uL; Eosinophils% 2.6 % (0-5); Hematocrit 31.9 % (37-47); Hemoglobin 9.8 g/dL (12.0-15.0); Lymphocyte # 1.36 X10^3/ul (0.83-4.51); Lymphocyte % 13.3 % (19-41); Mean Corp Hgb Conc 30.7 g/dL (32-36); Mean Corpuscular Hgb 28.6 pg (27.0-32.0); Mean Platelet Vol. 9.5 fl (6.2-12.0); Monocyte# 1.33 X10^3/uL; NRBC Flagged by Analyzer 0 % (0-5); Neutrophil # 7.19 X10^3/uL (2.7-7.7); Neutrophil % 70.2 % (47-70); Platelet Count 634 K/mm3 (150-450); RBC Distribution Width CV 15.8 % (11.6-14.6); Red Blood Count 3.43 M/mm3 (4.2-5.4); White Blood Count 10.2 K/mm3 (4.4-11.0)
[2023-03-08 07:23] LABS: Anion Gap 5 (5-15); BUN 11 mg/dL (7-18); BUN/Creat Ratio 35.4 RATIO (10-20); Calcium,Total 8.2 mg/dL (8.5-10.1); Chloride 95 mmol/L (98-107); Creatinine, Serum 0.31 mg/dL (0.55-1.02); EST Glomerular Filtration Rate 228 mL/min (>60); Est Glom Filt Rate - Afr Amer 276 mL/min (>60); Estimated Creatinine Clearance 146.91 ml/min; Glucose 90 mg/dL (74-106); Potassium 3.2 mmol/L (3.5-5.1); Sodium Level 137 mmol/L (136-145)
[2023-03-08 08:37] VITALS: PULSE 79; RESP 16; O2SAT 96
[2023-03-08] MEDS: Albuterol 2.5 MG/3 ML VIAL.NEB. INHALATION (08:37)
[2023-03-08 09:20] VITALS: BP 117/61; PULSE 83; RESP 18; TEMP 36.5; O2SAT 98
[2023-03-08] MEDS: Multivitamins,Ther W-Minerals Tablet 1 TABLET PO (09:24)
[2023-03-08] MEDS: Ascorbic Acid 500 MG Tablet PO (09:24)
[2023-03-08] MEDS: Calcium (Elemental) 500 MG Tablet PO (09:24)
[2023-03-08] MEDS: Pantoprazole Sodium 20 MG Tablet PO (09:24)
[2023-03-08] MEDS: Potassium Chloride Oral Tablet 20 MEQ PO (09:25)
[2023-03-08] MEDS: Lidocaine 5% Patch 1 PATCH TOPICAL (09:26)
[2023-03-08] MEDS: Enoxaparin 40 MG/0.4 ML Syringe SC (09:26)
[2023-03-08] MEDS: Furosemide 40 MG/4 ML Vial IV ×2 (09:31→18:55)
[2023-03-08] MEDS: Metoclopramide 10 MG Tablet PO (11:59)
[2023-03-08] MEDS: Ibuprofen 400 MG Tablet 800 MG PO (11:59)
--- NOTE | 2023-03-08 14:45 | PCM.PN.HOSP ---
Reason for Visit Reason for Visit: Shortness of breath Subjective Subjective Mrs. Martinez is a 62-year-old female with a history of metastatic breast cancer and recurrent malignant pleural effusions with previous pleurodesis. She reported that over the last 3 days prior to presentation she had had worsening shortness of breath and difficulty lying flat as she felt like she was drowning. She was admitted at the end of January at which time she was discharged to outside facility for recurrent malignant pleural effusions and a pleurodesis was done at that point. Upon presentation she was on her baseline oxygen of 3 L however her BNP was elevated and her chest x-ray showed bilateral congestion. The admitting physician had an extensive discussion with both the patient and her daughter with regards to advance care planning secondary to her stage IV breast cancer and the patient felt that when she was feeling a little bit better clinically she would like to proceed with hospice. Hospice was consulted and they will evaluate the patient later today. At this time the patient states she is feeling better with the diuresis we have performed thus far. She remained stable on 3 L of oxygen currently satting at 98%. She is not tachypneic and appears comfortable. She does complain of a headache and had some Tylenol which was not helpful. I asked her what typically is effective for her at home and she states ibuprofen so we will give her a one-time dose of 800 mg ibuprofen. She does have known brain medicine task this is and is getting radiation palliatively. Objective Data Objective Data Vital Signs: Vital Signs Temp Pulse Resp BP Pulse Ox O2 Del Method O2 Flow Rate 97.7 F L 83 18 117/61 98 Nasal Cannula 3 03/08/23 09:20 03/08/23 09:20 03/08/23 09:20 03/08/23 09:20 03/08/23 09:20 03/08/23 13:32 03/08/23 13:48 Oxygen Flow Rate (L/min) 3 Oxygen Delivery Method Nasal Cannula Weight: 56.4 kg Body Mass Index (BMI) 22.8 Intake & Output: Intake and Output for Last 24 Hours 03/06/23 03/07/23 03/08/23 23:59 23:59 23:59 Intake Total 120 / 120 360 / 360 Output Total 200 / 200 500 / 500 Balance -80 / -80 -140 / -140 Lab / Micro Data 03/08/23 06:12 03/08/23 06:12 Labs: Laboratory Results - last 24 hr 03/08/23 06:12: WBC 10.2, RBC 3.43 L, Hgb 9.8 L, Hct 31.9 L, MCV 93.0, MCH 28.6, MCHC 30.7 L, RDW Std Deviation 54.0 H, RDW Coeff of Mike 15.8 H, Plt Count 634 H, MPV 9.5, Immature Gran % (Auto) 0.300, Neut % (Auto) 70.2 H, Lymph % (Auto) 13.3 L, Clarke % (Auto) 13.0 H, Eos % (Auto) 2.6, Baso % (Auto) 0.6, Absolute Neuts (auto) 7.2, Absolute Lymphs (auto) 1.36, Nucleated RBC % 0, Sodium 137, Potassium 3.2 L, Chloride 95 L, Carbon Dioxide 37.0 H, Anion Gap 5, BUN 11, Creatinine 0.31 L, Estim Creat Clear Calc 146.91, Est GFR (MDRD) Af Amer 276, Est GFR (MDRD) Non-Af 228, BUN/Creatinine Ratio 35.4 H, Glucose 90, Calcium 8.2 L Physical Exam Const alert, oriented x3 and no apparent distress Constitutional Narrative: Middle-aged, white female, sitting up in bed, appears older than stated age, appears comfortable at this time and nontoxic, no signs of respiratory distress or discomfort while breathing, appears chronically ill HEENT head/scalp atraumatic and moist oral mucous membranes Head and Scalp: normocephalic Resp normal respiratory effort, no retractions, no use of accessory muscles and clear to auscultation bilaterally Resp Narrative: Diminished diffusely but clear Auscultation: Negative for rales, rhonchi or wheezes Cardio regular rate, regular rhythm, S1 normal heart sound, S2 normal heart sound, no murmurs, no rub, no gallops and no clicks GI normal to inspection, nondistended, normoactive bowel sounds, soft to palpation and non-tender Extremity no clubbing, cyanosis or edema Neuro oriented x3, moves all extremities and no focal motor deficits Neuro Narrative: Significant generalized weakness noted but no focal deficits Speech: speech normal Psych Psych Narrative: Affect is flat and mood seems depressed which is appropriate for the current clinical situation Assessment & Plan Assessment/Plan (1) Shortness of breath: (2) Congestive heart failure: (3) Recurrent pleural effusion on left: PLAN: Plan Shortness of breath secondary to mildly decompensated heart failure with preserved ejection fraction -Last echocardiogram from 10/15/2021 shows an EF of 65% with stage I diastolic dysfunction and a small pericardial effusion -With patient wanting to pursue hospice will not pursue further echocardiogram -Continue diuresis as patient clinically is feeling better -Hospice consult pending and they plan to meet with the patient tonight at 1730 Chronic hypoxic respiratory failure -Multifactorial -Recent pleurodesis -Does not appear to have recurring pleural effusions -Continue 3 L nasal cannula as patient is on baseline Stage IV breast cancer with metastatic disease to bone, lungs, and brain -Status post pleurodesis for bilateral malignant pleural effusions -Currently receiving palliative radiation to her brain -No longer has any chemotherapeutic options -Hospice consult pending with plans to discharge home with hospice once everything is coordinated -Anticipate this may be tomorrow versus later tonight Headache -Ibuprofen 800 mg x 1 dose -Tylenol was not effective HTN -Continue propranolol -Continue Lasix GERD -Continue PPI Anxiety/depression -Continue home clonazepam -Continue sertraline DVT prophylaxis -Continue enoxaparin CODE STATUS DNR CCA with no intubation Charges/Coding Visit Charges Inpatient E&M: 25195 [facility] [[email or web address]] Hosp L2
[2023-03-08 15:20] VITALS: BP 143/63; PULSE 84; RESP 18; TEMP 36.6; O2SAT 100
[2023-03-08] MEDS: oxyCODONE 5 MG Tablet PO (21:05)
[2023-03-08] MEDS: Sertraline 100 MG Tablet PO (21:05)
[2023-03-08] MEDS: clonazePAM 1 MG Tablet PO (21:05)
[2023-03-08] MEDS: Propranolol LA 80 MG Capsule PO (21:05)
[2023-03-08 21:20] VITALS: BP 135/62; PULSE 85; RESP 16; TEMP 36.1; O2SAT 95
--- NOTE | 2023-03-08 21:43 | CASEMGMT ---
Social Work Patient was referred to Hospice. Hospice services to begin when patient is discharged home. Plan: SW to notify hospice when patient is discharging. Toshia Marion ORIGINATION SPECIALIST, REFINISH TECHNICIAN
[2023-03-09] MEDS: DiphenhydrAMINE 25 MG Capsule PO (00:39)
[2023-03-09 03:34] VITALS: BMI 22.4
[2023-03-09 04:00] VITALS: BP 104/56; PULSE 86; RESP 16; TEMP 36.6; O2SAT 99
[2023-03-09 05:54] LABS: Anion Gap 7 (5-15); BUN 12 mg/dL (7-18); BUN/Creat Ratio 27.3 RATIO (10-20); Calcium,Total 9.4 mg/dL (8.5-10.1); Chloride 92 mmol/L (98-107); Creatinine, Serum 0.44 mg/dL (0.55-1.02); EST Glomerular Filtration Rate 153 mL/min (>60); Est Glom Filt Rate - Afr Amer 185 mL/min (>60); Estimated Creatinine Clearance 103.51 ml/min; Glucose 90 mg/dL (74-106); Magnesium 2.1 mg/dL (1.6-2.6); Potassium 3.1 mmol/L (3.5-5.1); Sodium Level 137 mmol/L (136-145)
[2023-03-09 07:34] VITALS: O2SAT 95
[2023-03-09 09:20] VITALS: BP 126/61; PULSE 86; RESP 18; TEMP 36.7; O2SAT 95
[2023-03-09] MEDS: Potassium Chloride Oral Tablet 20 MEQ 60 MEQ PO (09:22)
[2023-03-09] MEDS: Potassium Chloride Oral Tablet 20 MEQ PO (09:23)
[2023-03-09] MEDS: Multivitamins,Ther W-Minerals Tablet 1 TABLET PO (09:23)
[2023-03-09] MEDS: Pantoprazole Sodium 20 MG Tablet PO (09:23)
[2023-03-09] MEDS: Ascorbic Acid 500 MG Tablet PO (09:23)
[2023-03-09] MEDS: Enoxaparin 40 MG/0.4 ML Syringe SC (09:24)
[2023-03-09] MEDS: Lidocaine 5% Patch 1 PATCH TOPICAL (09:24)
[2023-03-09] MEDS: Furosemide 40 MG/4 ML Vial IV (09:24)
[2023-03-09] MEDS: Calcium (Elemental) 500 MG Tablet PO (09:24)
--- NOTE | 2023-03-09 09:29 | NURSING ---
Suresh Garcia, notified of patient to be discharged home today.
--- NOTE | 2023-03-09 10:25 | DS.PCM_ITS ---
Providers Date of Admission: 03/07/23 Date of Discharge: 03/09/23 Primary Care Physician: Dr. Almas Flores MD Consultations 03/08/23 11:19 Consult: Hospice / Palliative Care Routine Consulting Provider: [facility] Reason for Consult: breast cancer EMERGENT Consult: No MD Notified: Yes Date Notified: 03/08/23 Time Notified: 11:19 Method of Notification: Answering Service Reason For Visit: CHF EXACERBATION Diagnosis Discharge Diagnosis (1) Shortness of breath: Status: Acute Code(s): R06.02 - Shortness of breath (2) Congestive heart failure: Status: Acute Code(s): I50.9 - Heart failure, unspecified (3) Recurrent pleural effusion on left: Status: Acute Code(s): J90 - Pleural effusion, not elsewhere classified Plan Medications at Discharge Home Medications propranolol 80 mg capsule,24 hr,extended release (Inderal LA) 80 mg PO QHS anxiety 11/25/17 calcium carbonate 600 mg calcium (1,500 mg) tablet (Calcium) 600 mg PO DAILY supplement 07/31/21 [id number] 8 mg-folic 400 mcg-K 50 mcg-lutein 300 mcg tablet (Centrum Silver Women) 1 tab PO DAILY supplement 07/31/21 omeprazole 20 mg capsule,delayed release 20 mg PO DAILY GERD 03/12/22 sertraline 50 mg tablet 100 mg PO QHS depression 03/12/22 losartan 50 mg tablet 50 mg PO DAILY BP #90 tabs 04/17/22 potassium chloride 20 mEq tablet,extended release 20 meq PO DAILY health maintenance #3 tabs 11/20/22 ondansetron HCl 8 mg tablet 8 mg PO Q8H PRN PRN Nausea And Vomiting #60 tabs 12/19/22 clonazepam 1 mg tablet 1 mg PO QHS ANXIETY 01/09/23 furosemide 40 mg tablet 40 mg PO BID diuretic 02/17/23 metoclopramide HCl 10 mg tablet 10 mg PO PRN nausea 02/17/23 albuterol sulfate 90 mcg/actuation breath activated powder inhaler 2 inh inhalat ion Q4H PRN shortness of breath or wheezing 02/18/23 lidocaine 5 % topical patch 1 patch topical Q24H pain 02/20/23 ascorbic acid (vitamin C) 500 mg tablet (C-500) 500 mg PO DAILY SUPPLEMENT 03/07/23 morphine 10 mg/5 mL oral solution 2.5 mg (1.25 mL) PO Q6H PRN dyspnea/pain 3 days #30 mL 03/09/23 Hospital Course Operations None Procedures - (Chest x-ray) Summary of Care Provided Minutes Spent on Discharge: 36 Hospital Course: Mrs. Martinez is a 62-year-old female with a history of metastatic breast cancer and recurrent malignant pleural effusions with previous pleurodesis. She reported that over the 3 days prior to presentation she had had worsening shortness of breath and difficulty lying flat as she felt like she was drowning. She was admitted at the end of January at which time she was discharged to outside facility for recurrent malignant pleural effusions and a pleurodesis was done at that point. Upon presentation she was on her baseline oxygen of 3 L however her BNP was elevated and her chest x-ray showed bilateral congestion. The admitting physician had an extensive discussion with both the patient and her daughter with regards to advance care planning secondary to her stage IV breast cancer and the patient felt that when she was feeling a little bit better clinically she would like to proceed with hospice. She will use about 3 L of oxygen at baseline and was actually able to be weaned to 2.5 L during her hospital stay after diuresis. She was placed on IV Lasix for hospital course and her breathin g dramatically improved. She stated she feels much better and was able to meet with hospice on 03/08/2023. They will follow her with hospice after discharge and instructed us to notify them when she was discharged. She did complain of a headache on 03/08/2023 which resolved with oxycodone. Feeling better and being stable we felt she was stable for discharge on 03/09/2023 we did notify hospice and they asked that we write comfort meds for 3 days. I have written a prescription for liquid morphine in the form of Roxanol 2.5 mg every 6 hours as needed for pain or shortness of breath. We have also instructed her that she may take an extra dose of Lasix orally if she becomes more short of breath as she did on presentation. She voiced understanding and instructions were also written out for her to take home. She was discharged home to home hospice on 03/09/2023 in stable condition. Hospice was notified at the time of discharge. Discharge diagnoses: Shortness of breath Chronic hypoxic respiratory failure Decompensated HFpEF-resolved Malignant pleural effusions status post pleurodesis Stage IV breast cancer with metastatic disease to bone, lungs, and brain Headache-resolved Hypertension GERD Anxiety Depression Physical Exam Narrative Patient states her breathing is back to her baseline and her headache has resolved. Const alert, oriented x3, no apparent distress and no limitations Constitutional Narrative: Thin, middle-aged, white female, sitting up in bed, appears older than stated age, appears comfortable at this time and nontoxic, no signs of respiratory distress or discomfort while breathing, appears chronically ill General Appearance: cooperative, comfortable and well kempt Orientation / Consciousness: awake, oriented to person, oriented to place and oriented to time Exam Limitations: no limitations Nutritional Appearance: thin HEENT normocephalic, head/scalp atraumatic, hearing grossly normal bilaterally and moist oral mucous membranes Eyes PERRL, EOMs intact bilaterally and conjunctivae normal Eyes Narrative: No scleral icterus Neck no lymphadenopathy and supple Neck Narrative: Trachea midline, no thyroid in large meant Resp normal respiratory effort, no retractions, no use of accessory muscles and clear to auscultation bilaterally Resp Narrative: Diminished diffusely but clear Auscultation: Negative for rales, rhonchi or wheezes Cardio regular rate, regular rhythm, S1 normal heart sound, S2 normal heart sound, no murmurs, no rub, no gallops and no clicks GI normal to inspection, nondistended, normoactive bowel sounds, soft to palpation and non-tender Extremity no clubbing, cyanosis or edema Skin no wounds, skin turgor normal and no jaundice Skin Narrative: Med port right upper chest clean and dry and is currently accessed Neuro oriented x3, CN's II-XII intact bilaterally, moves all extremities and no focal motor deficits Neuro Narrative: Significant generalized weakness noted but no focal deficits Speech: speech normal Psych Psych Narrative: Affect is flat and mood seems depressed which is appropriate for the current clinical situation Weight / BMI Weight Weight: 55.2 kg Body Mass Index (BMI) 22.4 ABG / Lab / Microbiology Data 03/08/23 06:12 03/09/23 04:44 Laboratory: Laboratory Results - last 24 hr 03/09/23 04:44: Sodium 137, Potassium 3.1 L, Chloride 92 L, Carbon Dioxide 38.0 H, Anion Gap 7, BUN 12, Creatinine 0.44 L, Estim Creat Clear Calc 103.51, Est GFR (MDRD) Af Amer 185, Est GFR (MDRD) Non-Af 153, BUN/Creatinine Ratio 27.3 H, Glucose 90, Calcium 9.4, Magnesium 2.1 Microbiology: Microbiology 03/07/23 11:55 Blood Culture (Wb) - Anticubital Right Blood Culture - Preliminary No growth in 48 hours. 03/07/23 11:15 Blood Culture (Wb) - Anticubital Right Blood Culture - Pr eliminary No growth in 48 hours. D/C Instructions Discharge Diet: No restrictions Discharge Activity: No Restrictions Meaningful Use Info Meaningful Use Diagnoses (Choose all that apply): None applicable Discharge Plan Admission Admit Date/Time: 03/07/23 13:54 Primary Reason for Your Visit: Shortness of Breath Attending Provider: Melanie oCnde Primary Care Provider: Almas Flores Consulting Providers: Jameel Burgos; Jake Lizarraga; Gogo Mckinley; Merry Casey; Brittney Shirley PSYCHOTHERAPIST Instructions Additional Instructions / Restrictions: 1. If you become short of breath on your Lasix 40 mg twice daily okay to in crease and take an extra dose in the middle of the afternoon and if that does not help try your Roxanol 2. Hospice should be in contact with you soon Discharge Orders/Prescriptions Prescriptions: New morphine 10 mg/5 mL solution 2.5 mg PO Q6H PRN (Reason: dyspnea/pain) 3 Days Qty: 30 0RF Continued propranolol [Inderal LA] 80 mg capsule,extended release 24 hr 80 mg PO QHS calcium carbonate [Calcium 600] 600 mg calcium (1,500 mg) tablet 600 mg PO DAILY Centrum Silver Women 8 mg iron-400 mcg-300 mcg tablet 1 tab PO DAILY sertraline 50 mg tablet 100 mg PO QHS omeprazole 20 mg capsule,delayed release(DR/EC) 20 mg PO DAILY potassium chloride 20 mEq tablet extended release 20 meq PO DAILY Qty: 3 0RF ondansetron HCl 8 mg tablet 8 mg PO Q8H PRN PRN (Reason: Nausea And Vomiting) Qty: 60 6RF furosemide 40 mg tablet 40 mg PO BID metoclopramide HCl 10 mg tablet 10 mg PO PRN albuterol sulfate 90 mcg/actuation aerosol powdr breath activated 2 inh inhalation Q4H PRN (Reason: shortness of breath or wheezing) clonazepam 1 mg tablet 1 mg PO QHS lidocaine 5 % adhesive patch,medicated 1 patch topical Q24H Patient Comments: middle of back or on shoulders ascorbic acid (vitamin C) [C-500] 500 mg tablet 500 mg PO DAILY losartan 50 mg tablet 50 mg PO DAILY Qty: 90 3RF Hold Instructions: until seen by stave log cut off saw operator Referrals / Follow Up: Almas Flores MD [Primary Care Provider] - See Referral Note (As needed) Disposition Disposition (needs filled in before D/C Order can be placed): Hospice in Home Charges/Coding Visit Charges Inpatient E&M: 62265 Disch Hosp >30min
[2023-03-09 10:43] VITALS: BP 126/61; PULSE 86; RESP 185; TEMP 36.7; O2SAT 95
[2023-03-09] MEDS: 0.9% Saline Lock 10 ML Syringe IV (12:08)
== END 2023-03-09 13:40 | disposition hospice, home (50) | DRG 194 ==
LOC: ED 13:35 → PCU 03-08 06:38
PROVIDERS: Admitting Provider Family Medicine; Emergency Provider Emergency Medicine; PCP Family Medicine; Visit Provider Internal Medicine
DX: I11.0 Hypertensive heart disease with heart failure (principal); C79.51 Secondary malignant neoplasm of bone; C78.00 Secondary malignant neoplasm of unspecified lung; C79.31 Secondary malignant neoplasm of brain; C77.9 Secondary and unspecified malignant neoplasm of lymph node, unspecified; I50.33 Acute on chronic diastolic (congestive) heart failure; J96.11 Chronic respiratory failure with hypoxia; C50.112 Malignant neoplasm of central portion of left female breast; F32.A Depression, unspecified; J91.0 Malignant pleural effusion; G47.33 Obstructive sleep apnea (adult) (pediatric); K21.9 Gastro-esophageal reflux disease without esophagitis; F41.9 Anxiety disorder, unspecified; R51.9 Headache, unspecified; Z66 Do not resuscitate; Z79.52 Long term (current) use of systemic steroids; Z99.81 Dependence on supplemental oxygen; Z79.899 Other long term (current) drug therapy
CPT/HCPCS: 36415; 71045; 80048; 83605; 83735; 83880; 84484; 85025; 85610; 85730; 87040; 93005; 94640; 96372; 96374; 96375; 96376; 97161; 97166; 99221; 99285; A4216; G0378; J1940; J2405